=== PATIENT | female | born 1975 | race Caucasian/White ===

== ENCOUNTER → 2016-11-12 | Outpatient (CLI) | payer OTHER ==
--- NOTE | 2016-11-12 11:05 | US ---
EXAMINATION TYPE: US abdomen complete DATE OF EXAM: 11/12/2016 10:48 AM COMPARISON: Us 2014 CLINICAL HISTORY: R10.9 Acute abd pain. Severe epigastric pain with nausea and vomiting x 1 day EXAM MEASUREMENTS: Liver Length: 14.4 cm Gallbladder Wall: 0.1 cm CBD: 0.6 cm then noted narrower at head of pancreas Spleen: 8.2 cm Right Kidney: 10.2 x 4.7 x 3.9 cm Left Kidney: 10.6 x 4.7 x 4.8 cm Pancreas: wnl Liver: wnl Gallbladder: wnl Evidence for sonographic Serna's sign: No CBD: wnl Spleen: wnl Right Kidney: wnl Left Kidney: wnl Upper IVC: wnl Abd Aorta: wnl The liver is homogenous. The intrahepatic portion of the IVC and proximal abdominal aorta are within normal limits. There is no evidence of cholelithiasis. Common bile duct is unremarkable. The visu alized portions of the pancreas are homogenous. The spleen is unremarkable. Kidneys are symmetric a nd free of hydronephrosis. No renal lesions are seen. IMPRESSION: 1. CBD is at the upper limits of normal measuring 6 mm. No definite gallstones, gallbladder wall norm al. Correlate clinically.
[2016-11-12 11:16] LABS: Basophils % (A) 0 %; CHCM 31.6; Eosinophils % (A) 1 %; HCT 47.1 % (34.0-46.0); HDW 2.04; HGB 14.9 gm/dL (11.4-16.0); Luc # (Auto) 0.09; Luc % (Auto) 1; Lymphocytes # (A) 0.7 k/uL (1.0-4.8); Lymphocytes % (A) 10 %; MCH 32.2 pg (25.0-35.0); MCHC 31.6 g/dL (31.0-37.0); Macrocytosis Slight; Mean Platelet Volume 7.4; Monocytes # (A) 0.3 k/uL (0-1.0); Monocytes % (A) 4 %; Neutrophils # (A) 6.5 k/uL (1.3-7.7); Neutrophils % (A) 85 %; RBC 4.61 m/uL (3.80-5.40); WBC 7.7 k/uL (3.8-10.6); WBC (Perox) 7.67
[2016-11-12 11:28] LABS: ALT 24 U/L (9-52); AST 25 U/L (14-36); Alkaline Phosphatase 101 U/L (38-126); Amylase 43 U/L (30-110); Anion Gap 11 mmol/L; Blood Urea Nitrogen 8 mg/dL (7-17); Calcium 9.6 mg/dL (8.4-10.2); Carbon Dioxide 26 mmol/L (22-30); Chloride 104 mmol/L (98-107); Glucose 105 mg/dL (74-99); Non-African American GFR(MDRD) >60 (>60 ml/min/1.73 sqM); Potassium 3.9 mmol/L (3.5-5.1); Sodium 141 mmol/L (137-145); Total Bilirubin 1.2 mg/dL (0.2-1.3); Total Protein 7.9 g/dL (6.3-8.2)
[2016-11-12 12:46] LABS: Iron 74 ug/dL (37-170)
[2016-11-12 12:55] LABS: % Iron Saturation 19.3 % (20-50); Total Iron Binding Capacity 383 ug/dL (265-497)
== END ==
LOC: RADUSWWP 10:08
PROVIDERS: ATTEND Family Medicine
DX: R10.9 Unspecified abdominal pain (principal); E61.1 Iron deficiency; R53.83 Other fatigue
CPT/HCPCS: 36415; 76700; 80053; 82150; 82306; 82728; 83540; 83550; 83690; 84439; 84443; 85025

== ENCOUNTER 2018-01-12 09:34 | Day surgery (SDC) | payer OTHER ==
[2018-01-12] MEDS ORDERED: HYDROmorphone 0.5 MG/0.5 ML SYRINGE IVP PRN (09:46)
[2018-01-12] MEDS ORDERED: ALPRAZolam 0.5 MG TAB PO ONE (09:46)
[2018-01-12 09:55] LABS: Mean Platelet Volume 8.5; Platelet Count 174 k/uL (150-450)
[2018-01-12 10:00] LABS: INR 1.1 (<1.2); Prothrombin Time 10.8 sec (9.0-12.0)
[2018-01-12] MEDS: HYDROmorphone 1 MG/ML 1 ML SYRINGE IVP PRN ×2 (10:50→11:20)
[2018-01-12] MEDS ORDERED: HYDROcodone/APAP 5-325MG 1 EACH TAB PO PRN (11:41)
[2018-01-12 12:16] VITALS: RESP 16
--- NOTE | 2018-01-12 12:57 | US ---
EXAMINATION TYPE: US biopsy liver DATE OF EXAM: 01/12/2018 HISTORY: Alcoholic liver disease PROCEDURE: Maximal barrier technique was utilized. After informed consent, the skin overlying a suit able path to the liver was localized using ultrasound, the skin was prepped and draped. Ultrasound w as utilized with sterile technique. Lidocaine was used for local anesthesia. A skin ace made with a scalpel. Under direct ultrasound guidance, an 18-gauge needle was advanced into the left lobe of th e liver and core biopsy obtained. Hemostasis was achieved. There was no immediate complication and patient remained in stable condition. Specimen submitted in formalin to Pathology. IMPRESSION: STATUS POST ULTRASOUND GUIDED CORE BIOPSY OF THE LEFT LOBE OF THE LIVER, PATHOLOGY LARISSA G. PERFORMED BY THE UNDERSIGNED.
[2018-01-12 15:26] VITALS: BP 116/76; PULSE 63; TEMP 98
== END 2018-01-12 15:00 | disposition home or self-care (01) ==
LOC: RADPROMAIN 09:34
DX: K75.81 Nonalcoholic steatohepatitis (NASH) (principal)
CPT/HCPCS: 85049; 85610; 88313; 88307; 96374; 36415; 47000; 76942; J1170

== ENCOUNTER → 2018-05-04 | Outpatient (CLI) | payer OTHER ==
--- NOTE | 2018-05-04 17:57 | CT ---
EXAMINATION TYPE: CT sinus wo con DATE OF EXAM: 05/04/2018 COMPARISON: NONE HISTORY: chronic sinusitis per order. Facial pain and congestion for patient CT DLP: 500.1 mGycm. Automated Exposure Control for Dose Reduction was Utilized. TECHNIQUE: CT scan of the sinuses is performed without contrast, axial images are obtained, coronal r eformatted images are also reviewed. FINDINGS: The paranasal sinuses including the frontal, ethmoid, sphenoid, and maxillary sinuses bila terally are well-aerated without abnormal opacification. The ostiomeatal complex is patent bilateral ly on the coronal images. Visualized portion of mastoid air cells show no abnormal opacification. The globes are intact bilate rally. IMPRESSION: The sinuses are clear and the ostiomeatal complex is patent bilaterally.
== END | disposition home or self-care (01) ==
LOC: RADCTMAIN 17:28
PROVIDERS: ATTEND Family Medicine
DX: J32.9 Chronic sinusitis, unspecified (principal)
CPT/HCPCS: 70486

== ENCOUNTER 2019-01-13 21:36 | Emergency (ER) | payer OTHER ==
[2019-01-13 21:44] VITALS: TEMP 97.8
--- NOTE | 2019-01-13 22:38 | ED ---
General Adult HPI - General Chief complaint: Wound/Laceration Stated complaint: Fall, head laceration Time Seen by Provider: 01/13/19 22:03 Source: patient, RN notes reviewed Mode of arrival: ambulatory Limitations: no limitations - History of Present Illness Initial comments: Patient is a pleasant 43-year-old female presenting to the emergency Department with complaints of fall. Patient states she was tripped by her dog and fell and landed on her head. No loss of consciousness. No confusion. No neck or back pain. Patient did sustain laceration to the left side of the forehead, just above the eyebrow. Patient denies any other injury. Patient denies any headache. Patient admits to alcohol. Last tetanus immunization was 2 years ago. - Related Data Home Medications Medication Instructions Recorded Confirmed No Known Home Medications 12/31/17 01/13/19 Allergies Allergy/AdvReac Type Severity Reaction Status Date / Time cat dander Allergy Dyspnea Verified 01/13/19 22:02 Penicillins Allergy Unknown Verified 01/13/19 22:02 Review of Systems ROS Statement: Those systems with pertinent positive or pertinent negative responses have been documented in the HPI. ROS Other: All systems not noted in ROS Statement are negative. Constitutional: Denies: fever Eyes: Denies: eye pain ENT: Denies: ear pain Respiratory: Denies: cough Cardiovascular: Denies: chest pain Endocrine: Denies: fatigue Gastrointestinal: Denies: abdominal pain Genitourinary: Denies: dysuria Musculoskeletal: Denies: back pain Skin: Reports: as per HPI Neurological: Denies: headache, weakness, numbness, confusion, abnormal gait Past Medical History Past Medical History: No Reported History Additional Past Medical History / Comment(s): hiatal hernia, IBS, arthritis in back, knee, hip, ankle, hypogylycemia. History of Any Multi-Drug Resistant Organisms: None Reported Past Surgical History: No Surgical Hx Reported Additional Past Surgical History / Comment(s): breast implants Past Anesthesia/Blood Transfusion Reactions: No Reported Reaction Past Psychological History: Anxiety, Depression Smoking Status: Current every day smoker Past Alcohol Use History: Daily, Heavy Past Drug Use History: None Reported General Exam Limitations: no limitations General appearance: alert, in no apparent distress Head exam: Present: other (Forehead laceration) Eye exam: Present: normal appearance, PERRL, EOMI ENT exam: Present: normal oropharynx Neck exam: Present: normal inspection. Absent: tenderness Respiratory exam: Present: normal lung sounds bilaterally Cardiovascular Exam: Present: regular rate, normal rhythm GI/Abdominal exam: Present: soft. Absent: tenderness Extremities exam: Present: normal inspection, full ROM. Absent: tenderness Neurological exam: Present: alert, oriented X3, CN II-XII intact. Absent: motor sensory deficit Psychiatric exam: Present: normal affect, normal mood Skin exam: Present: other (Laceration left forehead above the eyebrow) Course Vital Signs 01/13/19 21:39 Temperature 97.8 F Pulse Rate 98 Respiratory 18 Rate Blood Pressure 145/102 O2 Sat by Pulse 98 Oximetry Procedures - Laceration Laceration #1 Consent Obtained: verbal consent Indication: laceration Site: face (Left forehead) Size (cm): 3 Description: linear Depth: simple, single layer Anesthetic Used: lidocaine 1% Amount (mls): 2 Pre-repair: wound explored, irrigated extensively Type of Sutures: nylon Size of Sutures: 6-0 Number of Sutures: 5 Technique: simple, interrupted Patient Tolerated Procedure: well, no complications Medical Decision Making - Medical Decision Making Patient reevaluated and updated. 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 - Radiology Data Radiology results: report reviewed (Computed tomography scan of the brain and cervical spine reveals no acute traumatic abnormality except left scalp soft tissue hematoma.) Disposition Clinical Impression: Head injury, Facial laceration Disposition: HOME SELF-CARE Condition: Stable Instructions (If sedation given, give patient instructions): Laceration (ED), Head Injury (ED) Additional Instructions: Please follow-up with primary care physician in the next day or 2 for recheck. [id number] Tylenol if needed. Do not take Tylenol with alcohol. Suture removal in 5-6 days. Twice daily wash area with soap and water, apply antibiotic ointment, and bandage. Keep area out of sun. Is patient prescribed a controlled substance at d/c from ED?: No Referrals: Vonda Rojas MD [STAFF PHYSICIAN] - 1-2 days Time of Disposition: 23:21
--- NOTE | 2019-01-13 23:11 | CT ---
EXAM: CT Head Without Intravenous Contrast CLINICAL HISTORY: Trauma TECHNIQUE: Axial computed tomography images of the head/brain without intravenous contrast. CTDI is 0.085, 0.75, 45.2, 8.1 mGy and DLP is 1219.5 mGy-cm. This CT exam was performed using one or more of the following dose reduction techniques: automated exposure control, adjustment of the mA and/or kV according to patient size, and/or use of iterative reconstruction technique. COMPARISON: No relevant prior studies available. FINDINGS: Brain: No acute infarct, hemorrhage, mass or edema. No significant white matter disease. Ventricles: Unremarkable. No ventriculomegaly. Bones/joints: Unremarkable. No acute fracture. Soft tissues: Left scalp soft tissue hematoma. Sinuses: Minimal mucosal thickening of the paranasal sinuses. Mastoid air cells: Unremarkable as visualized. No mastoid effusion. IMPRESSION: 1. No acute infarct, hemorrhage, mass or edema. 2. Left scalp soft tissue hematoma. EXAM: CT Cervical Spine Without Intravenous Contrast CLINICAL HISTORY: Trauma TECHNIQUE: Axial computed tomography images of the cervical spine without intravenous contrast. CTDI is 0.085, 0.75, 45.2, 8.1 mGy and DLP is 1219. 5 mGy-cm. This CT exam was performed using one or more of the following dose reduction techniques: automated exposure control, adjustment of the mA and/or kV according to patient size, and/or use of iterative reconstruction technique. COMPARISON: No relevant prior studies available. FINDINGS: Vertebrae: No acute fracture or traumatic malalignment. Reversal of the normal cervical lordosis, likely positional. Discs/spinal canal/neural foramina: Degenerative changes. No spinal canal stenosis. Soft tissues: Unremarkable. Lung apices: Biapical pleural-parenchymal scarring. IMPRESSION: No acute findings.
[2019-01-13 23:28] VITALS: BP 128/82; PULSE 80; RESP 16
== END 2019-01-13 23:29 | disposition home or self-care (01) ==
LOC: EC 21:36
DX: S01.81XA Laceration without foreign body of other part of head, initial encounter (principal); F17.200 Nicotine dependence, unspecified, uncomplicated; Z91.048 Other nonmedicinal substance allergy status; Z88.0 Allergy status to penicillin; W01.198A Fall on same level from slipping, tripping and stumbling with subsequent striking against other object, initial encounter; Y92.009 Unspecified place in unspecified non-institutional (private) residence as the place of occurrence of the external cause
CPT/HCPCS: 12013; 70450; 72125; 99283

== ENCOUNTER 2019-03-13 23:20 | Inpatient (IN) | payer OTHER ==
[2019-03-13] MEDS ORDERED: SODIUM CHLORIDE 0.9% 1,000 ML IV STA (23:37)
--- NOTE | 2019-03-14 00:14 | ED ---
Abdominal Pain HPI - General Chief Complaint: Abdominal Pain Stated Complaint: Stomach & leg pain Time Seen by Provider: 03/13/19 23:37 Source: patient Mode of arrival: ambulatory Limitations: no limitations - History of Present Illness Initial Comments: Justin is a 44-year-old alcoholic female presenting to the emergency department today for evaluation of epigastric abdominal discomfort, nausea, vomiting, diarrhea and inability tolerate any by mouth intake for 3 days. Patient reports over the course of today she's felt like her leg is cramping up and she feels that she is getting dehydrated and malnourished. Patient reports she has previously an alcoholic however she stopped drinking approximately 5 days ago. Despite not drinking for the past 5 days she continues to feel nauseated have multiple episodes of nonbloody nonbilious emesis and diarrhea. Patient states that at this point she can't even tolerate water. Patient states that she's been seen by GI in the past and told that she has a hiatal hernia but there is nothing to be done about it. Patient denies any history of pancreatitis or known liver disease in the past. - Related Data Home Medications Medication Instructions Recorded Confirmed Famotidine [Pepcid] 20 mg PO BID 03/13/19 03/13/19 Allergies Allergy/AdvReac Type Severity Reaction Status Date / Time cat dander Allergy Dyspnea Verified 03/13/19 23:43 Penicillins Allergy Rash/Hives Verified 03/13/19 23:43 Review of Systems ROS Statement: Those systems with pertinent positive or pertinent negative responses have been documented in the HPI. ROS Other: All systems not noted in ROS Statement are negative. Past Medical History Past Medical History: No Reported History Additional Past Medical History / Comment(s): hiatal hernia, IBS, arthritis in back, knee, hip, ankle, hypogylycemia. History of Any Multi-Drug Resistant Organisms: None Reported Past Surgical History: No Surgical Hx Reported Additional Past Surgical History / Comment(s): breast implants Past Anesthesia/Blood Transfusion Reactions: No Reported Reaction Past Psychological History: Anxiety, Depression Smoking Status: Current every day smoker Past Alcohol Use History: Daily, Heavy Past Drug Use History: None Reported General Exam - General Exam Comments Initial Comments: Physical Exam GENERAL: Underweight, malnourished-appearing 44-year-old female HENT: Normocephalic, Atraumatic. EYES: PERRL, EOMI Scleral icterus PULMONARY: Unlabored respirations. No audible rales rhonchi or wheezing was noted. CARDIOVASCULAR: There is a regular rate and rhythm without any murmurs gallops or rubs. Tachycardic, regular ABDOMEN: Firm palpable liver extending to the epigastrium SKIN: Skin is clear with no lesions or rashes and otherwise unremarkable. : Deferred NEUROLOGIC: Patient is alert and oriented x3. Moving all extremities spontaneously MUSCULOSKELETAL: Normal extremities with adequate strength and full range of motion. No lower extremity swelling or edema. No calf tenderness. PSYCHIATRIC: Hopeless affect Limitations: no limitations Course Vital Signs 03/13/19 03/14/19 03/14/19 23:24 00:13 01:36 Temperature 98.3 F 100.1 F H 97.9 F Pulse Rate 120 H 84 Respiratory 18 18 Rate Blood Pressure 140/94 110/71 O2 Sat by Pulse 96 96 Oximetry Medical Decision Making - Medical Decision Making Patient was seen and evaluated history is obtained from patient and sent history and physical exam are concerning for liver disease versus pancreatic masses there is a firm palpable structure in the epigastrium any known alcoholic male. Labs and imaging ordered Labs with multiple abnormalities most significant for significant hypokalemia as well as transaminitis mildly elevated lipase, mildly elevated bili Computed tomography scan was ordered resulted with evidence of urticaria large liver, normal pancreas Given the patient's significant hypokalemia requiring IV replacement, nausea, vomiting decreased by mouth intake that he feels patient would benefit from admission to the hospital for further management. Patient does not have a primary care physician therefore will be admitted to the [facility] hospitalist group. - Lab Data Result diagrams: 03/14/19 00:01 03/14/19 00:01 Lab Results 03/14/19 03/14/19 03/14/19 Range/Units 00:01 00:01 01:24 WBC 11.6 H (3.8-10.6) k/uL RBC 3.59 L (3.80-5.40) m/uL Hgb 12.7 (11.4-16.0) gm/dL Hct 38.7 (34.0-46.0) % MCV 107.9 H (80.0-100.0) fL MCH 35.5 H (25.0-35.0) pg MCHC 32.9 (31.0-37.0) g/dL RDW 14.8 (11.5-15.5) % Plt Count 106 L (150-450) k/uL Neutrophils % 75 % Lymphocytes % 12 % Monocytes % 7 % Eosinophils % 2 % Basophils % 1 % Neutrophils # 8.7 H (1.3-7.7) k/uL Lymphocytes # 1.4 (1.0-4.8) k/uL Monocytes # 0.8 (0-1.0) k/uL Eosinophils # 0.2 (0-0.7) k/uL Basophils # 0.1 (0-0.2) k/uL Macrocytosis Moderate Sodium 140 (137-145) mmol/L Potassium 2.7 L* (3.5-5.1) mmol/L Chloride 91 L (98-107) mmol/L Carbon Dioxide 31 H (22-30) mmol/L Anion Gap 18 mmol/L BUN 4 L (7-17) mg/dL Creatinine 0.42 L (0.52-1.04) mg/dL Est GFR (CKD-EPI)AfAm >90 (>60 ml/min/1.73 sqM) Est GFR (CKD-EPI)NonAf >90 (>60 ml/min/1.73 sqM) Glucose 117 H (74-99) mg/dL Calcium 9.4 (8.4-10.2) mg/dL Total Bilirubin 6.6 H (0.2-1.3) mg/dL AST 376 H (14-36) U/L ALT 125 H (9-52) U/L Alkaline Phosphatase 325 H (38-126) U/L Total Protein 8.9 H (6.3-8.2) g/dL Albumin 4.4 (3.5-5.0) g/dL Lipase 379 H (23-300) U/L Urine Color [place] Urine Appearance Clear (Clear) Urine pH 6.5 (5.0-8.0) Ur Specific [place] >1.050 H (1.001-1.035) Urine Protein 1+ H (Negative) Urine Glucose (UA) Negative (Negative) Urine Ketones 1+ H (Negative) Urine Blood Negative (Negative) Urine Nitrite Positive H (Negative) Urine Bilirubin 2+ H (Negative) Urine Urobilinogen 12.0 (<2.0) mg/dL Ur Leukocyte Esterase Large H (Negative) Urine RBC 12 H (0-5) /hpf Urine WBC 13 H (0-5) /hpf Ur Squamous Epith Cells 2 (0-4) /hpf Urine Bacteria Moderate H (None) /hpf Urine Mucus Many H (None) /hpf Disposition Clinical Impression: Abdominal pain, Alcohol abuse, Hypokalemia, Nausea vomiting and diarrhea Disposition: ADMITTED IP TO THIS HOSP Condition: Serious
[2019-03-14 00:22] LABS: Basophils # (A) 0.1 k/uL (0-0.2); Basophils % (A) 1 %; Eosinophils # (A) 0.2 k/uL (0-0.7); Eosinophils % (A) 2 %; HCT 38.7 % (34.0-46.0); HGB 12.7 gm/dL (11.4-16.0); Lymphocytes # (A) 1.4 k/uL (1.0-4.8); Lymphocytes % (A) 12 %; MCH 35.5 pg (25.0-35.0); MCHC 32.9 g/dL (31.0-37.0); MCV 107.9 fL (80.0-100.0); Macrocytosis Moderate; Mean Platelet Volume 11.1; Monocytes # (A) 0.8 k/uL (0-1.0); Monocytes % (A) 7 %; Neutrophils # (A) 8.7 k/uL (1.3-7.7); Neutrophils % (A) 75 %; Platelet Count 106 k/uL (150-450); RBC 3.59 m/uL (3.80-5.40); RDW 14.8 % (11.5-15.5); WBC 11.6 k/uL (3.8-10.6)
[2019-03-14 00:38] LABS: ALT 125 U/L (9-52); AST 376 U/L (14-36); African American GFR (CKD) >90 (>60 ml/min/1.73 sqM); Albumin 4.4 g/dL (3.5-5.0); Alkaline Phosphatase 325 U/L (38-126); Anion Gap 18 mmol/L; Blood Urea Nitrogen 4 mg/dL (7-17); Calcium 9.4 mg/dL (8.4-10.2); Carbon Dioxide 31 mmol/L (22-30); Chloride 91 mmol/L (98-107); Glucose 117 mg/dL (74-99); Sodium 140 mmol/L (137-145); Total Bilirubin 6.6 mg/dL (0.2-1.3); Total Protein 8.9 g/dL (6.3-8.2)
[2019-03-14 00:39] LABS: Potassium 2.7 mmol/L (3.5-5.1)
--- NOTE | 2019-03-14 00:47 | XR ---
EXAM: XR Chest, 1 View CLINICAL HISTORY: ITS.REASON XR Reason: abdominal pain TECHNIQUE: Frontal view of the chest. COMPARISON: No relevant prior studies available. FINDINGS: Lungs: Bibasilar atelectasis or scar. No consolidation. Pleural space: Mild blunting of the right costophrenic sulcus. No pneumothorax. Heart: Unremarkable. No cardiomegaly. Mediastinum: Unremarkable. Bones/joints: No acute osseous abnormality. IMPRESSION: Mild blunting of the right costophrenic sulcus is nonspecific and may be related to a small effusion or scar.
--- NOTE | 2019-03-14 00:48 | XR ---
EXAM: XR Abdomen, 1 View CLINICAL HISTORY: ITS.REASON XR Reason: abdominal pain TECHNIQUE: Frontal supine view of the abdomen/pelvis. COMPARISON: No relevant prior studies available. FINDINGS: Intraperitoneal space: No pneumatosis or pneumoperitoneum. Gastrointestinal tract: Gas filled loops of nondilated bowel are present in the lower and left abdomen. Paucity of bowel gas in the upper abdomen. Organs: Intrauterine device. Bones/joints: No acute fracture or malalignment. Other findings: No suspicious calcification. IMPRESSION: Nonspecific nonobstructive bowel gas pattern.
[2019-03-14] MEDS ORDERED: Potassium Replacement Protocol 1 EACH MISC MISCELLANE PRN ×2 (00:58→12:03)
[2019-03-14] MEDS: POTASSIUM CHLORIDE 10 MEQ in WATER FOR INJECTION 1 100ML.BAG IVPB SCH ×10 (01:15→18:23)
--- NOTE | 2019-03-14 01:53 | CT ---
EXAM: CT Abdomen and Pelvis With Intravenous Contrast CLINICAL HISTORY: Pain, epigastric mass TECHNIQUE: Axial computed tomography images of the abdomen and pelvis with intravenous contrast. CTDI is 0.085, 0.085, 6.7, 6.3 mGy and DLP is 606. 8 mGy-cm. This CT exam was performed using one or more of the following dose reduction techniques: automated exposure control, adjustment of the mA and/or kV according to patient size, and/or use of iterative reconstruction technique. COMPARISON: US abdomen 11/12/2016 FINDINGS: Lung bases: Unremarkable. No mass. No consolidation. ABDOMEN: Liver: Enlarged diffusely hypodense liver. No focal lesions. Gallbladder and bile ducts: Nonspecific gallbladder thickening. No calcified gallstones. No biliary dilatation. Pancreas: Unremarkable. Spleen: Unremarkable. Adrenals: Unremarkable. Kidneys and ureters: Unremarkable. No solid mass. No hydronephrosis. Stomach and bowel: Apparent nonspecific thickening of the underdistended colon. Bowel is nondilated. PELVIS: Appendix: No findings to suggest acute appendicitis. Bladder: Unremarkable. Reproductive: Unremarkable as visualized. ABDOMEN and PELVIS: Intraperitoneal space: Moderate ascites. Bones/joints: No acute osseous abnormality. Soft tissues: Bilateral breast implants. Vasculature: Unremarkable. No abdominal aortic aneurysm. Lymph nodes: Nonspecific upper abdominal lymphadenopathy. Tubes, lines and devices: Intrauterine device. Embedment is not excluded. IMPRESSION: 1. Enlarged diffusely hypodense liver may be related to hepatitis, steatosis, or diffuse tumor infiltration. 2. Moderate ascites. 3. Apparent thickening of the colon is nonspecific and may be related to underdistention, hepatic colopathy, or colitis.
[2019-03-14] MEDS ORDERED: NALOXONE 0.4 MG/ML 1 ML VIAL IV PRN (01:56)
[2019-03-14 01:58] LABS: Appearance,Urine Clear (Clear); Bacteria,Urine Moderate /hpf; Bilirubin,Urine 2+ (Negative); Blood,Urine Negative (Negative); Color,Urine Orange; Glucose,Urine (UA) Negative (Negative); Ketones,Urine 1+ (Negative); Leukocyte Esterase,Urine Large (Negative); Mucus,Urine Many /hpf; Nitrite,Urine Positive (Negative); PH, Urine 6.5 (5.0-8.0); Protein,Urine 1+ (Negative); RBC,Urine 12 /hpf (0-5); Squamous Epithelial Cell,Urine 2 /hpf (0-4); WBC,Urine 13 /hpf (0-5)
[2019-03-14 01:59] LABS: Specific Gravity,Urine >1.050 (1.001-1.035)
[2019-03-14] MEDS: MORPHINE SULFATE 4 MG/ML SYRINGE IV PRN ×5 (02:40→22:46)
[2019-03-14] MEDS ORDERED: ONDANSETRON 4 MG/2 ML VIAL IVP STA (02:47)
[2019-03-14] MEDS: SODIUM CHLORIDE 0.9% 1,000 ML IV SCH ×2 (04:21→16:16)
[2019-03-14] MEDS ORDERED: hydrOXYzine HCL 25 MG TAB PO PRN (10:01)
[2019-03-14 11:01] VITALS: BMI 20.5
[2019-03-14 11:44] LABS: African American GFR (CKD) >90 (>60 ml/min/1.73 sqM); Anion Gap 10 mmol/L; Blood Urea Nitrogen 4 mg/dL (7-17); Carbon Dioxide 28 mmol/L (22-30); Chloride 97 mmol/L (98-107); Glucose 113 mg/dL (74-99); Potassium 3.1 mmol/L (3.5-5.1); Sodium 135 mmol/L (137-145)
[2019-03-14] MEDS: PANTOPRAZOLE 40 MG/10 ML VIAL IVP SCH (12:15)
[2019-03-14] MEDS ORDERED: LORazepam 2 MG/ML INJ IV PRN ×3 (13:22)
[2019-03-14] MEDS: NICOTINE 14MG/24HR PATCH TRANSDERM SCH (13:32)
[2019-03-14] MEDS: THIAMINE 100 MG/ML 2 ML VIAL IM STA ×2 (13:44→16:17)
[2019-03-14 14:08] LABS: INR 1.7 (<1.2); Prothrombin Time 16.9 sec (9.0-12.0)
--- NOTE | 2019-03-14 14:34 | HP ---
HISTORY AND PHYSICAL CHIEF COMPLAINTS: Nausea, vomiting, abdominal pain. HISTORY OF PRESENT ILLNESS: This is a 44-year-old woman with a past medical history of hiatal hernia, irritable bowel syndrome, history of alcoholism, history of anxiety, depression, history of nicotine dependence, being followed by no primary physician in the outpatient setting was trying to cut down the alcohol. The patient is complaining of epigastric pain and abdominal pain, nausea, vomiting, diarrhea for the last 3 days. The patient unable to keep anything down. Patient came to [facility], admitted for further evaluation and treatment. The patient had features of severe hypokalemia and as well as hepatitis with high bilirubin. The patient admitted for further evaluation and treatment. There is no history of any fever, chills or rigors. No history of headaches, loss of consciousness or seizures. PAST MEDICAL HISTORY: History of hiatal hernia, irritable bowel syndrome, DJD, history of hypoglycemia, anxiety, depression. MEDICATIONS: Home medications are Pepcid 20 mg b.i.d. ALLERGIES: CAT DANDER and PENICILLIN. FAMILY HISTORY: No history of heart disease or strokes. SOCIAL HISTORY: History of smoking 9 cigarettes and a pint of alcohol. REVIEW OF SYSTEMS: ENT: No diminished vision or diminished hearing. CARDIOVASCULAR: No angina. RESPIRATION: No cough, hemoptysis. GI: As mentioned earlier. : No dysuria. NERVOUS SYSTEM: No numbness or weakness. ALLERGY/IMMUNOLOGY: No asthma or hayfever. MUSCULOSKELETAL: As mentioned earlier. HEMATOLOGY/ONCOLOGY: No history of anemia. ENDOCRINE: No history of diabetes or hypothyroidism. CONSTITUTIONAL: As mentioned earlier. DERMATOLOGY: Negative. RHEUMATOLOGY: Negative. PSYCHIATRY: As mentioned earlier. PHYSICAL EXAMINATION: Alert and oriented x3, pulse 87, blood pressure 99/64, respirations 16, temperature 97.9, pulse ox 98% on room air. HEENT: Conjunctivae normal. Oral mucosa icteric. NECK: No jugular venous distention. No lymph node enlargement. CARDIOVASCULAR SYSTEM: S1, S2. RESPIRATION: Breath sounds diminished at the bases, a few rhonchi, no crackles. ABDOMEN: Soft. Mild distention. Mild diffuse tenderness. Hepatomegaly tender. Flanks are dull. Bowel sounds diminished. LEGS: No edema, no swelling. NERVOUS SYSTEM: Higher functions as mentioned earlier. Moves all 4 limbs. No focal motor or sensory deficits. LYMPHATICS: No lymph node enlargement in the neck or axillae. SKIN: No ulcer, no rash, no bleeding. JOINTS: No active deforming arthropathy. LABS: WBC 11.6 and hemoglobin 12.7, MCV 107. Sodium 140, potassium 2.7. Total bilirubin is 6.6, AST 376, ALT is 125. Lipase is 379. UA noted. The CAT scan of the abdomen and pelvis was also reviewed which showed a large diffusely hypodense liver, may be related to hepatitis, moderate ascites. Thickening of the colon is nonspecific. ASSESSMENT: 1. Acute hepatitis, possibly alcoholic hepatitis with high bilirubin and AST, ALT. 2. Acute gastritis, nausea, vomiting. 3. Rule out colitis. 4. History of ETOH. 5. Moderate ascites, possibly secondary to cirrhosis liver and chronic liver disease. 6. Increased WBC. 7. Increased MCV. 8. Hypokalemia, severe. 9. Elevated lipase, possible acute mild pancreatitis. 10.Possible urinary tract infection, present on admission. 11.History of hiatal hernia. 12.History of irritable bowel syndrome. 13.History of degenerative joint disease. 14.History of hypoglycemia. 15.Anxiety, depression. 16.History of nicotine dependence. 17.History of ETOH. RECOMMENDATIONS: In this 44-year-old woman 1% multiple medical is at this time we will monitor the patient closely, CIWA protocol. Symptomatic treatment for the hepatitis, repeat labs. Otherwise correct potassium. Prognosis guarded. Gastric consultation. Alcohol cessation advised social Work consultation. Guarded prognosis because of multiple problems see orders physical conflict is also recommend the patient follow with primary physician closely. MMODL / IJN: [id number] /
[2019-03-14] MEDS ORDERED: Magnesium Replacement Protocol 1 EACH MISC MISCELLANE PRN (15:58)
[2019-03-14] MEDS: 0.9% NACL WITH KCL 20 MEQ/L 1,000 ML with MVI, ADULT NO.4 WITH VIT K 10 ML, THIAMINE 10... IV SCH ×4 (16:11)
[2019-03-14] MEDS: THIAMINE 100 MG TAB PO SCH ×2 (16:16→17:28)
[2019-03-14] MEDS: MAGNESIUM SULFATE-D5W PMX 1 GM in DEXTROSE/WATER 1 100ML.BAG IVPB SCH ×3 (17:18→20:16)
--- NOTE | 2019-03-14 18:15 | XR ---
EXAMINATION TYPE: XR abdomen 1V DATE OF EXAM: 03/14/2019 6:09 PM CLINICAL HISTORY: Abdominal pain and distention. TECHNIQUE: Single portable supine view of the abdomen is obtained. COMPARISON: Abdominal x-ray and CT from earlier today. FINDINGS: Scattered gas is seen in non-distended stomach and small bowel loops. Gas and fecal materia l is seen in non-distended colon. Hepatomegaly redemonstrated. Metallic IUD overlies the right lower pelvis. Visualized osseous structures are intact. IMPRESSION: Overall nonobstructive bowel gas pattern remains present.
--- NOTE | 2019-03-14 21:30 | P.CONS ---
History of Present Illness - Reason for Consult Consult date: 03/14/19 Alcoholic liver disease Requesting physician: Samson Courtney - Chief Complaint Abdominal pain, nausea and vomiting - History of Present Illness 44-year-old female with a medical history significant for alcoholism, anxiety, depression, nicotine dependence, and prior hiatal hernia found on EGD who presented to the hospital with complaints of epigastric abdominal pain, nausea and vomiting. Patient reports a history of at least 10 years of excessive alcohol drinking. She reports that she was trying to cut down in the outpatient setting by weaning herself off of the alcohol. She reports that over the past 3 days she has had abdominal pain described as diffuse and sharp in the epigastric region of her abdomen and achy in the left lower quadrant of her abdomen. Pain is waxing and waning in intensity, constant overall. She reports associated nausea and vomiting of nonbloody emesis. Initially she was reporting loose stool but today she reports normal bowel movements and decreased flatus. She denies any history of decompensated liver disease with no prior GI bleeding, ascites or hepatic encephalopathy. She does report EGD 2 years ago for similar symptoms with findings of gastritis and a hiatal hernia. Computed tomography scan of the abdomen showed an enlarged hypodense liver with findings of a ascites. WBC 11, hemoglobin 12.7, platelet count 106,000, lipase 379, total bilirubin 6.6, alkaline phosphatase 325, AST 376, AST 125, INR 1.1. Review of Systems REVIEW OF SYSTEMS: CONSTITUTIONAL: Denies any fevers, chills, weight change or fatigue. CARDIOVASCULAR: Denies any chest pain, palpitations high or low blood pressures RESPIRATORY: Denies any shortness of breath, hemoptysis or cough. GENITOURINARY: No dysuria or hematuria. MUSCULOSKELETAL: No weakness reported. SKIN: Denies any new rashes or lesions or pallor. PSYCHIATRIC: Alcohol abuse. NEUROLOGY: Denies headache, denies any new focal deficits. EARS/NOSE/THROAT: No recent hearing change, congestion, nasal discharge or sore throat. EYES: No pain in eyes, discharge or change in vision. GASTROINTESTINAL: As per HPI. Past Medical History Past Medical History: No Reported History Additional Past Medical History / Comment(s): hiatal hernia, IBS, arthritis in back, knee, hip, ankle, hypogylycemia. History of Any Multi-Drug Resistant Organisms: None Reported Past Surgical History: No Surgical Hx Reported Additional Past Surgical History / Comment(s): breast implants Past Anesthesia/Blood Transfusion Reactions: No Reported Reaction Past Psychological History: Anxiety, Depression Smoking Status: Current every day smoker Past Alcohol Use History: Daily, Heavy Past Drug Use History: None Reported Additional History: Family history: Reviewed with the patient and noncontributory to current medical presentation. Medications and Allergies Home Medications Medication Instructions Recorded Confirmed Type Famotidine [Pepcid] 20 mg PO BID 03/13/19 03/13/19 History Allergies Allergy/AdvReac Type Severity Reaction Status Date / Time cat dander Allergy Dyspnea Verified 03/13/19 23:43 Penicillins Allergy Rash/Hives Verified 03/13/19 23:43 Physical Exam Vitals: Vital Signs Temp Pulse Pulse Resp BP BP Pulse Ox 03/14/19 20:52 98.4 F 95 16 108/75 96 03/14/19 12:07 97.8 F 81 18 103/68 95 03/14/19 04:29 97.9 F 87 16 99/64 99 03/14/19 04:14 97.9 F 87 16 99/64 99 03/14/19 03:38 98.7 F 88 18 106/72 100 03/14/19 01:36 97.9 F 84 18 110/71 96 03/14/19 00:13 100.1 F H 03/13/19 23:24 98.3 F 120 H 18 140/94 96 Intake and Output 03/14/19 03/14/19 03/14/19 06:59 14:59 22:59 Intake Total 500 1240 Balance 500 1240 Intake: Intake, IV Titration 500 640 Amount Potassium Chloride 10 meq 100 In Water For Injection 1 100ml.bag @ 100 mls/hr IVPB Q1HR CARLOS Rx#: [id number] Sodium Chloride 0.9% 1, 400 640 000 ml @ 125 mls/hr IV . Q8H CARLOS Rx#:[id number] Oral 600 Other: Voiding Method Toilet Toilet # Voids 1 Weight 61.235 kg 61.235 kg On physical examination, patient appears comfortable in no apparent distress. HEAD: Normocephalic, atraumatic. EYES: Mild scleral icterus. No conjunctival injection. MOUTH: No lesions, tongue midline. NECK: Trachea midline, no gross abnormalities. CHEST: Clear to auscultation with no wheezing or rhonchi appreciated. HEART: Regular rate and rhythm. ABDOMEN: Soft, diffusely tender to palpation. Bowel sounds are positive. No organomegaly. No guarding or rigidity. EXTREMITIES: No pedal edema. SKIN: No rashes, jaundice. NEUROLOGIC: Alert and oriented x3. No focal deficits. Results CBC & Chem 7: 03/14/19 00:01 03/14/19 11:06 Labs: Abnormal Lab Results - Last 24 Hours (Table) 03/14/19 03/14/19 03/14/19 Range/Units 00:01 00:01 01:24 WBC 11.6 H (3.8-10.6) k/uL RBC 3.59 L (3.80-5.40) m/uL MCV 107.9 H (80.0-100.0) fL MCH 35.5 H (25.0-35.0) pg Plt Count 106 L (150-450) k/uL Neutrophils # 8.7 H (1.3-7.7) k/uL PT (9.0-12.0) sec INR (<1.2) Sodium (137-145) mmol/L Potassium 2.7 L* (3.5-5.1) mmol/L Chloride 91 L (98-107) mmol/L Carbon Dioxide 31 H (22-30) mmol/L BUN 4 L (7-17) mg/dL Creatinine 0.42 L (0.52-1.04) mg/dL Glucose 117 H (74-99) mg/dL Calcium (8.4-10.2) mg/dL Magnesium (1.6-2.3) mg/dL Total Bilirubin 6.6 H (0.2-1.3) mg/dL AST 376 H (14-36) U/L ALT 125 H (9-52) U/L Alkaline Phosphatase 325 H (38-126) U/L Total Protein 8.9 H (6.3-8.2) g/dL Lipase 379 H (23-300) U/L Ur Specific [place] >1.050 H (1.001-1.035) Urine Protein 1+ H (Negative) Urine Ketones 1+ H (Negative) Urine Nitrite Positive H (Negative) Urine Bilirubin 2+ H (Negative) Ur Leukocyte Esterase Large H (Negative) Urine RBC 12 H (0-5) /hpf Urine WBC 13 H (0-5) /hpf Urine Bacteria Moderate H (None) /hpf Urine Mucus Many H (None) /hpf 03/14/19 03/14/19 03/14/19 Range/Units 11:06 13:51 13:51 WBC (3.8-10.6) k/uL RBC (3.80-5.40) m/uL MCV (80.0-100.0) fL MCH (25.0-35.0) pg Plt Count (150-450) k/uL Neutrophils # (1.3-7.7) k/uL PT 16.9 H (9.0-12.0) sec INR 1.7 H (<1.2) Sodium 135 L (137-145) mmol/L Potassium 3.1 L (3.5-5.1) mmol/L Chloride 97 L (98-107) mmol/L Carbon Dioxide (22-30) mmol/L BUN 4 L (7-17) mg/dL Creatinine 0.39 L (0.52-1.04) mg/dL Glucose 113 H (74-99) mg/dL Calcium 8.0 L (8.4-10.2) mg/dL Magnesium 1.3 L (1.6-2.3) mg/dL Total Bilirubin (0.2-1.3) mg/dL AST (14-36) U/L ALT (9-52) U/L Alkaline Phosphatase (38-126) U/L Total Protein (6.3-8.2) g/dL Lipase (23-300) U/L Ur Specific [place] (1.001-1.035) Urine Protein (Negative) Urine Ketones (Negative) Urine Nitrite (Negative) Urine Bilirubin (Negative) Ur Leukocyte Esterase (Negative) Urine RBC (0-5) /hpf Urine WBC (0-5) /hpf Urine Bacteria (None) /hpf Urine Mucus (None) /hpf CT scan - abdomen: report reviewed (Computed tomography scan of the abdomen with findings of an enlarged hypodense liver with ascites) Assessment and Plan (1) Alcoholic hepatitis Narrative/Plan: 44-year-old female with a medical history significant for IBS, nicotine abuse, alcohol abuse, GERD presents with abdominal pain, nausea and vomiting for 3 days in duration. The patient found to have elevation in her liver enzymes consistent with alcoholic hepatitis with total bilirubin 6.6, alkaline phosphatase 325, AST 376 and ALTs 125. No encephalopathy or asterixis appreciated and INR found to be 1.1. Current Visit: Yes Status: Acute Code(s): K70.10 - ALCOHOLIC HEPATITIS WITHOUT ASCITES SNOMED Code(s): 021167007 (2) Abdominal pain Narrative/Plan: Likely multifactorial given known history of GERD, IBS, as well as a ascites from alcoholic hepatitis. Current Visit: Yes Status: Acute Code(s): R10.9 - UNSPECIFIED ABDOMINAL PAIN SNOMED Code(s): 91641986 (3) Alcohol abuse Current Visit: Yes Status: Acute Code(s): F10.10 - ALCOHOL ABUSE, UNCOMPLICATED SNOMED Code(s): 85969825 (4) Nausea vomiting and diarrhea Current Visit: Yes Status: Acute Code(s): R11.2 - NAUSEA WITH VOMITING, UNSPECIFIED; R19.7 - DIARRHEA, UNSPECIFIED SNOMED Code(s): 7344796 Plan: Supportive care Okay for diet, advance as tolerated X-ray abdomen ordered a negative for ileus or obstruction Full liver serologies ordered Ultrasound paracentesis ordered with fluid studies ordered Continue Protonix daily If the patient's continues to have abdominal pain consider Bentyl ATC Thank you for allowing us to participate in the care of the patient we will continue to follow
[2019-03-15] MEDS ORDERED: Potassium Replacement Protocol 1 EACH MISC MISCELLANE PRN (00:02)
[2019-03-15] MEDS: POTASSIUM CHLORIDE ER 20 MEQ TAB.ER PO SCH ×3 (00:45→03:05)
[2019-03-15 04:55] VITALS: RESP 18; TEMP 98.1
[2019-03-15 08:02] LABS: ALT 88 U/L (9-52); AST 213 U/L (14-36); African American GFR (CKD) >90 (>60 ml/min/1.73 sqM); Albumin 3.2 g/dL (3.5-5.0); Alkaline Phosphatase 214 U/L (38-126); Amylase <30 U/L (30-110); Anion Gap 9 mmol/L; Blood Urea Nitrogen 2 mg/dL (7-17); Calcium 8.2 mg/dL (8.4-10.2); Carbon Dioxide 28 mmol/L (22-30); Chloride 99 mmol/L (98-107); Glucose 111 mg/dL (74-99); Potassium 3.7 mmol/L (3.5-5.1); Sodium 136 mmol/L (137-145); Total Bilirubin 5.7 mg/dL (0.2-1.3); Total Protein 6.8 g/dL (6.3-8.2)
[2019-03-15 08:06] LABS: Basophils # (A) 0.1 k/uL (0-0.2); Basophils % (A) 1 %; Eosinophils # (A) 0.2 k/uL (0-0.7); Eosinophils % (A) 3 %; HGB 10.6 gm/dL (11.4-16.0); Lymphocytes % (A) 13 %; MCH 35.9 pg (25.0-35.0); MCV 108.7 fL (80.0-100.0); Macrocytosis Moderate; Monocytes # (A) 0.5 k/uL (0-1.0); Monocytes % (A) 7 %; Neutrophils # (A) 5.9 k/uL (1.3-7.7); Neutrophils % (A) 75 %; Platelet Count 105 k/uL (150-450); RBC 2.94 m/uL (3.80-5.40); RDW 14.9 % (11.5-15.5); WBC 7.8 k/uL (3.8-10.6)
[2019-03-15] MEDS: NICOTINE 14MG/24HR PATCH TRANSDERM SCH (08:12)
[2019-03-15] MEDS: PANTOPRAZOLE 40 MG/10 ML VIAL IVP SCH (08:13)
[2019-03-15] MEDS: THIAMINE 100 MG TAB PO SCH (08:13)
--- NOTE | 2019-03-15 09:48 | CDI ---
Documentation Clarification Form Date: 03/15/2019 9:36:28 AM From: Judi IrahetaDARIAN, CCDS Admit Date: 03/14/2019 3:32:00 PM Patient Name: Justin Allen Visit Number: [id number] Discharge Date: ATTENTION: The Clinical Documentation Specialists (CDI) and [facility] Coding Staff appreciate your assistance in clarifying documentation. Please respond to the clarification below the line at the bottom and electronically sign. The CDI & [facility] Coding staff will review the response and follow-up if needed. Please note: Queries are made part of the Legal Health Record. If you have any questions, please contact the author of this message via ITS. Dr. Samson Courtney: Per the History & Physical: Elevated lipase, possible acute mild pancreatitis. Patient history/risk factors: Alcoholism, Hiatal hernia, IBS, DJD, Anxiety, Depression & Smoker. Clinical Indicators: Presented with nausea, vomiting, diarrhea & epigastric abdominal pain. Diagnosed with acute hepatitis, possibly alcoholic hepatitis with high bilirubin & AST, ALT. Acute gastritis. R/O Colitis. Moderate ascites, possibly secondary to cirrhosis liver & chronic liver disease. Elevated lipase, possible acute mild pancreatitis. Radiology: KUB: nonspecific. CT Abdomen & Pelvis: Enlarged diffusely hypodense liver may be related to hepatitis, steatosis or diffuse tumor infiltration. Moderate ascites. Apparent thickening of the colon nonspecific & may be related to underdistention, hepatic colopathy or colitis. Labs: WBC 11.6^, Pl Ct 106*, Neut 8.7^, K 2.7, Glucose 117^, total Bili 6.6^, AST 376^, ALT 125^, Alk Phos 325^, Lipase 379^. Vital Signs: Stable Treatment: IV fl bolus, IV KCL, IV Ms, IV Zofran, IV PPI. GI consult. In your professional opinion, can the etiology of the pancreatitis be further specified as one of the following, if known? Etiology o Alcohol induced o Biliary o Cytomegaloviral o Drug induced o Idiopathic o Other, please specify o Unable to determine (Last Revision: April 2017) Alcohol induced MTDD
[2019-03-15 11:16] VITALS: BP 102/48; PULSE 100
[2019-03-15] MEDS: 0.9% NACL WITH KCL 20 MEQ/L 1,000 ML with MVI, ADULT NO.4 WITH VIT K 10 ML, THIAMINE 10... IV SCH ×4 (11:34)
[2019-03-15] MEDS ORDERED: traMADol 50 MG TAB PO PRN (11:36)
[2019-03-15] MEDS ORDERED: POTASSIUM CHLORIDE ER 20 MEQ TAB.ER PO STA (11:49)
[2019-03-15 12:22] LABS: Ceruloplasmin 29.6 mg/dL (20.0-60.0)
[2019-03-15] MEDS ORDERED: POTASSIUM CHLORIDE 20 MEQ in WATER FOR INJECTION 1 100ML.BAG IVPB ONE (12:30)
--- NOTE | 2019-03-15 13:07 | P.DS ---
Providers Date of admission: 03/14/19 15:32 Attending physician: Samson Courtney Consults: 03/14/19 01:56 Consult Physician Routine Consulting Provider: Car Ford Consult Reason/Comments: alcoholic liver disease Do you want consulting provider notified?: Yes Primary care physician: Stated None Hospital Course: 50-year-old female was admitted with abdominal distention found to have ascites from alcoholic cirrhosis. Patient was also complaining of abdominal burning sensation from alcoholic gastritis. Patient does have hiatal hernia. Patient underwent paracentesis. Patient does have acute alcoholic hepatitis is patient does have cirrhosis with elevated INR of 41.7. Patient has elevated bilirubin. Patient the is clinically doing well. Abdominal pain significantly resolved after paracentesis. 6 patient will be discharged with close follow with PCP and gastroenterology as an outpatient. PHYSICAL EXAMINATION: GENERAL: The patient is alert and oriented x3, not in any acute distress. Thin built HEENT: Pupils are round and equally reacting to light. EOMI. does have scleral icterus. No conjunctival pallor. Normocephalic, atraumatic. No pharyngeal erythema. No thyromegaly. CARDIOVASCULAR: S1 and S2 present. No murmurs, rubs, or gallops. PULMONARY: Chest is clear to auscultation, no wheezing or crackles. ABDOMEN: Soft, nontender, nondistended, normoactive bowel sounds. No palpable organomegaly. MUSCULOSKELETAL: No joint swelling or deformity. EXTREMITIES: No cyanosis, clubbing, or pedal edema. NEUROLOGICAL: Gross neurological examination did not reveal any focal deficits. SKIN: No rashes. -Alcoholic cirrhosis -Alcohol abuse: I don't expect any withdrawals at this time because it's been already 3 days and patient doesn't have any withdrawals now. -Alcoholic cirrhosis without encephalopathy. -Electrolyte abnormalities will be corrected with replacement and supplementation I'm expecting her liver enzymes to get better with cessation of alcohol -Coagulopathy secondary to cirrhosis Patient will be discharged on Lasix Aldactone with close follow with PCP and gastroenterology Patient Condition at Discharge: Serious Plan - Discharge Summary Discharge Rx Participant: Yes New Discharge Prescriptions: New Spironolactone [Aldactone] 25 mg PO DAILY #30 tablet Potassium Chloride ER [K-Dur 20] 20 meq PO DAILY #30 tab Furosemide [Lasix] 40 mg PO DAILY #30 tablet Omeprazole [PriLOSEC] 40 mg PO -BRKFST #30 capsule. Discontinued Famotidine [Pepcid] 20 mg PO BID Discharge Medication List Furosemide [Lasix] 40 mg PO DAILY #30 tablet 03/15/19 [Rx] Omeprazole [PriLOSEC] 40 mg PO AC-BRKFST #30 capsule. 03/15/19 [Rx] Potassium Chloride ER [K-Dur 20] 20 meq PO DAILY #30 tab 03/15/19 [Rx] Spironolactone [Aldactone] 25 mg PO DAILY #30 tablet 03/15/19 [Rx] Follow up Appointment(s)/Referral(s): Karen Caicedo, [facility] [REFERRING] - 3 Days Car Ford MD [STAFF PHYSICIAN] - 03/30/19 12:45 pm Ambulatory/Diagnostic Orders: Basic Metabolic Panel [LAB.AMB] Time Frame: 3 Days, Location: None Selected Comprehensive Metabolic Panel [LAB.AMB] Time Frame: 3 Days, Location: None Selected Discharge Disposition: HOME SELF-CARE
[2019-03-15 14:53] LABS: Appearance,BF Clear; Color,BF Yellow; RBC, Body Fluid 18 /uL
[2019-03-15 14:54] LABS: Nucleated Cells, Body Fluid 7 /uL
--- NOTE | 2019-03-15 15:15 | US ---
EXAMINATION TYPE: US paracentesis abd w/image DATE OF EXAM: 03/15/2019 COMPARISON: NONE HISTORY: Ascites. PROCEDURE: Maximal barrier technique was utilized. The skin overlying a suitable pocket of fluid was localized with ultrasound and the overlying skin was prepped and draped. Ultrasound was utilized with sterile technique. Lidocaine was used for local anesthesia and a skin ace made with a scalpel. Catheter was advanced under direct ultrasound guidance into a suitable pocket of fluid and approximately 1.5 liter s of serous fluid were removed. Catheter was withdrawn and hemostasis achieved. There is no immedia te complication; the patient is discharged in stable condition. Incidental note in the right abdomen of serosal nodular echogenic focus is measuring 11 to 12 mm IMPRESSION: STATUS POST ULTRASOUND GUIDED PARACENTESIS FOR PALLIATION OF ASCITES. THIS PROCEDURE WA S PERFORMED BY THE UNDERSIGNED. Specimen obtained for laboratory analysis. Possible serosal mass.
--- NOTE | 2019-03-15 17:20 | P.PN ---
Subjective Progress Note Date: 03/15/19 Principal diagnosis: Alcohol abuse, alcoholic hepatitis Lying in bed status post paracentesis reporting less abdominal pain. Objective - Vital Signs Vital signs: Vital Signs Temp 98.1 F 03/15/19 04:54 Pulse 100 03/15/19 10:55 Resp 18 03/15/19 10:55 BP 102/48 03/15/19 10:55 Pulse Ox 100 03/15/19 10:55 Intake & Output 03/14/19 03/15/19 03/15/19 18:59 06:59 18:59 Intake Total 1240 700 Balance 1240 700 Weight 61.235 kg Intake: Intake, IV Titration 640 700 Amount 0.9% NaCl with KCl 20 Meq 400 /l 1,000 ml @ 50 mls/hr IV .[id number] CARLOS with Mvi, Adult No.4 with Vit K 10 ml with Thiamine 100 mg with Folic Acid 1 mg Rx#: [id number] Magnesium Sulfate-D5w Pmx 200 1 gm In Dextrose/Water 1 100ml.bag @ 100 mls/hr IVPB Q1H CARLOS Rx#: [id number] Potassium Chloride 10 meq 100 In Water For Injection 1 100ml.bag @ 100 mls/hr IVPB Q1HR CARLOS Rx#: [id number] Sodium Chloride 0.9% 1, 640 000 ml @ 125 mls/hr IV . Q8H CARLOS Rx#:[id number] Oral 600 Other: Voiding Method Toilet Toilet Toilet # Voids 2 - Exam On physical examination, patient appears comfortable in no apparent distress. HEAD: Normocephalic, atraumatic. EYES: No scleral icterus. No conjunctival injection. MOUTH: No lesions, tongue midline. NECK: Trachea midline, no gross abnormalities. CHEST: Clear to auscultation with no wheezing or rhonchi appreciated. HEART: Regular rate and rhythm. ABDOMEN: Soft. Bowel sounds are positive. No organomegaly. No guarding or rigidity. EXTREMITIES: No pedal edema. SKIN: No rashes, no jaundice. NEUROLOGIC: Alert and oriented x3. No focal deficits. - Labs CBC & Chem 7: 03/15/19 06:55 03/15/19 06:55 Labs: Abnormal Lab Results - Last 24 Hours (Table) 03/14/19 03/15/19 03/15/19 Range/Units 23:35 06:55 06:55 RBC 2.94 L (3.80-5.40) m/uL Hgb 10.6 L (11.4-16.0) gm/dL Hct 32.0 L (34.0-46.0) % MCV 108.7 H (80.0-100.0) fL MCH 35.9 H (25.0-35.0) pg Plt Count 105 L (150-450) k/uL Sodium 136 L (137-145) mmol/L Potassium 2.9 L (3.5-5.1) mmol/L BUN 2 L (7-17) mg/dL Creatinine 0.38 L (0.52-1.04) mg/dL Glucose 111 H (74-99) mg/dL Calcium 8.2 L (8.4-10.2) mg/dL TIBC (228-460) ug/dL Ferritin (10.0-291.0) ng/mL Total Bilirubin 5.7 H (0.2-1.3) mg/dL AST 213 H (14-36) U/L ALT 88 H (9-52) U/L Alkaline Phosphatase 214 H (38-126) U/L Total Protein (PEP) (6.2-8.2) g/dL Albumin 3.2 L (3.5-5.0) g/dL Amylase <30 L (30-110) U/L Lipase 302 H (23-300) U/L 03/15/19 Range/Units 06:55 RBC (3.80-5.40) m/uL Hgb (11.4-16.0) gm/dL Hct (34.0-46.0) % MCV (80.0-100.0) fL MCH (25.0-35.0) pg Plt Count (150-450) k/uL Sodium (137-145) mmol/L Potassium (3.5-5.1) mmol/L BUN (7-17) mg/dL Creatinine (0.52-1.04) mg/dL Glucose (74-99) mg/dL Calcium (8.4-10.2) mg/dL TIBC 224 L (228-460) ug/dL Ferritin 764.6 H (10.0-291.0) ng/mL Total Bilirubin (0.2-1.3) mg/dL AST (14-36) U/L ALT (9-52) U/L Alkaline Phosphatase (38-126) U/L Total Protein (PEP) 6.0 L (6.2-8.2) g/dL Albumin (3.5-5.0) g/dL Amylase (30-110) U/L Lipase (23-300) U/L Microbiology - Last 24 Hours (Table) 03/14/19 13:51 Blood Culture - Preliminary Blood No Growth after 24 hours Assessment and Plan (1) Alcoholic hepatitis Narrative/Plan: 44-year-old female with a medical history significant for IBS, nicotine abuse, alcohol abuse, GERD presents with abdominal pain, nausea and vomiting for 3 days in duration. The patient found to have elevation in her liver enzymes consistent with alcoholic hepatitis with total bilirubin 6.6, alkaline phosphatase 325, AST 376 and ALTs 125. No encephalopathy or asterixis appreciated and INR found to be 1.1. Status: Acute Code(s): K70.10 - ALCOHOLIC HEPATITIS WITHOUT ASCITES SNOMED Code(s): 995508105 (2) Abdominal pain Narrative/Plan: Likely multifactorial given known history of GERD, IBS, as well as a ascites from alcoholic hepatitis. Status: Acute Code(s): R10.9 - UNSPECIFIED ABDOMINAL PAIN SNOMED Code(s): 65920053 (3) Alcohol abuse Status: Acute Code(s): F10.10 - ALCOHOL ABUSE, UNCOMPLICATED SNOMED Code(s): 20969138 (4) Nausea vomiting and diarrhea Status: Acute Code(s): R11.2 - NAUSEA WITH VOMITING, UNSPECIFIED; R19.7 - DIARRHEA, UNSPECIFIED SNOMED Code(s): 0651399 Plan: Supportive care Okay for diet, advance as tolerated X-ray abdomen ordered a negative for ileus or obstruction Full liver serologies ordered Ultrasound paracentesis ordered with fluid studies ordered Continue Protonix daily If the patient's continues to have abdominal pain consider Bentyl ATC Thank you for allowing us to participate in the care of the patient we will continue to follow
[2019-03-15 18:00] LABS: Albumin, Fluid Source Peritoneal Fluid; Total Protein, Body Fluid 1330 mg/dL
[2019-03-16] MEDS ORDERED: PANTOPRAZOLE 40 MG TABLET PO SCH (09:00)
[2019-03-16 10:07] LABS: Albumin 3.06 g/dL (3.80-4.90); Gamma Globulin 1.31 g/dL (0.70-1.50)
== END 2019-03-15 13:20 | disposition home or self-care (01) | DRG 432 ==
LOC: EC 23:20 → 3NMEDONC 03-14 01:56 → OBSVTOIN 03-14 15:32
PROVIDERS: ADMIT Hospitalist; ATTEND Hospitalist
PROC: 0W9G3ZX Drainage of Peritoneal Cavity, Percutaneous Approach, Diagnostic (ICD-10-PCS; principal; 2019-03-15)
DX: K70.11 Alcoholic hepatitis with ascites (principal); K85.20 Alcohol induced acute pancreatitis without necrosis or infection; N39.0 Urinary tract infection, site not specified; E46 Unspecified protein-calorie malnutrition; E87.6 Hypokalemia; F10.10 Alcohol abuse, uncomplicated; F17.210 Nicotine dependence, cigarettes, uncomplicated; F32.9 Major depressive disorder, single episode, unspecified; F41.9 Anxiety disorder, unspecified; K21.9 Gastro-esophageal reflux disease without esophagitis; K29.20 Alcoholic gastritis without bleeding; K44.9 Diaphragmatic hernia without obstruction or gangrene; K58.9 Irritable bowel syndrome, unspecified; K70.31 Alcoholic cirrhosis of liver with ascites; Z98.82 Breast implant status; M19.079 Primary osteoarthritis, unspecified ankle and foot; M17.10 Unilateral primary osteoarthritis, unspecified knee; M16.10 Unilateral primary osteoarthritis, unspecified hip; M47.9 Spondylosis, unspecified; E16.2 Hypoglycemia, unspecified; Z68.20 Body mass index [BMI] 20.0-20.9, adult
CPT/HCPCS: 36415; 49083; 71045; 74018; 74177; 80048; 80053; 80074; 81001; 82042; 82103; 82140; 82150; 82390; 82728; 83516; 83540; 83550; 83690; 83735; 84132; 84157; 84165; 85025; 85610; 86038; 86376; 87040; 88108; 88305; 89050; 96365; 96366; 96375; 99285

== ENCOUNTER 2019-04-05 13:00 | Day surgery (SDC) | payer OTHER ==
[2019-04-05 13:50] LABS: INR 1.5 (<1.2); Prothrombin Time 14.7 sec (9.0-12.0)
[2019-04-05 13:51] LABS: ALT 67 U/L (9-52); AST 283 U/L (14-36); African American GFR (CKD) >90 (>60 ml/min/1.73 sqM); Albumin 3.8 g/dL (3.5-5.0); Alkaline Phosphatase 340 U/L (38-126); Bilirubin, Conjugated 1.4 mg/dL (0.0-0.3); Bilirubin,Unconjugated 2.2 mg/dL (0.0-1.1); Total Bilirubin 7.6 mg/dL (0.2-1.3); Total Protein 8.8 g/dL (6.3-8.2)
[2019-04-05 14:00] LABS: HCT 40.2 % (34.0-46.0); HGB 13.4 gm/dL (11.4-16.0); MCH 35.8 pg (25.0-35.0); MCHC 33.4 g/dL (31.0-37.0); MCV 107.3 fL (80.0-100.0); Macrocytosis Moderate; Mean Platelet Volume 7.8; RBC 3.74 m/uL (3.80-5.40); RDW 13.9 % (11.5-15.5); WBC 21.8 k/uL (3.8-10.6)
[2019-04-05 14:04] LABS: Platelet Count 307 k/uL (150-450)
[2019-04-05 16:05] VITALS: BP 118/65; RESP 18
[2019-04-05 16:46] VITALS: TEMP 98.2
[2019-04-05 16:55] VITALS: PULSE 88
--- NOTE | 2019-04-06 10:19 | US ---
Therapeutic paracentesis. DATE OF EXAM: 04/05/2019 CLINICAL HISTORY: Ascites The procedure was discussed with the patient. The risks, complications, benefits, and alternatives we re discussed and any questions were answered. Informed consent was obtained. The patient was placed s upine on the ultrasound table and prepped and draped in the usual sterile fashion. All elements of maximal barrier technique were utilized. Under ultrasound guidance, access into the right lower quadrant was obtained, via the paracentesis catheter system and direct ultrasound guidanc e. Approximately 1.8 liters of straw-colored fluid was removed. The patient was stable throughout the pr ocedure and remained stable upon discharge from Department of Radiology. IMPRESSION: Successful therapeutic paracentesis under ultrasound guidance.
== END 2019-04-05 15:00 | disposition home or self-care (01) ==
LOC: RADPROMAIN 13:00
PROVIDERS: ATTEND Internal Medicine Gastroenterology
DX: R18.8 Other ascites (principal)
CPT/HCPCS: 36415; 49083; 80076; 82105; 82565; 85027; 85610

== ENCOUNTER → 2019-04-13 | Outpatient (CLI) | payer OTHER ==
--- NOTE | 2019-04-13 18:45 | MR ---
EXAMINATION TYPE: MR liver wo/w con DATE OF EXAM: 04/13/2019 COMPARISON: CT abdomen and pelvis March 14, 2019. HISTORY: Alcoholic cirrhosis of liver without asciteS per order. CONTRAST: Standard multiplanar, multisequence MRI departmental protocol utilizing 6 mL intravenous Gadavist zaira olinium contrast. Imaging is performed of the abdomen focusing on the liver. FINDINGS: Liver: There is overall hepatomegaly with prominent left hepatic lobe redemonstrated. There is hetero geneity with some signal dropout consistent with fatty infiltration. Once again first arterial phase suboptimal as portal vein already shows enhancement. Main portal vein is patent and not dilated. Anu pheral nodular contour to liver is seen. There are patent hepatic drains draining into slitlike intra hepatic IVC. Recurrent surrounding ascites is noted. Postcontrast images show no suspicious enhancing masses with washout. Heterogeneity is present. Recanalized umbilical vein noted. Other: Gallbladder is dilated with distended margins without intraluminal gallstones finding presumed product of underlying liver disease. Partial visualization of bilateral breast implants. Spleen size stable and within normal limits. Pancreas and both adrenal glands are normal in size. Ascites extend s into the right paracolic and infracolic gutter. No suspicious bowel dilatation. Visualized osseous structures are intact. IMPRESSION: Cirrhosis with ascites. No suspicious intrahepatic masses.
== END ==
LOC: RADMRIMAIN 13:40
PROVIDERS: ATTEND Physician Assistant
DX: K70.31 Alcoholic cirrhosis of liver with ascites (principal)
CPT/HCPCS: 74183; A9585

== ENCOUNTER 2019-05-21 14:47 | Inpatient (IN) | payer OTHER ==
[2019-05-21] MEDS ORDERED: HYDROmorphone 1 MG/ML 1 ML SYRINGE IVP STA (15:36)
[2019-05-21 15:41] LABS: Basophils # (A) 0.1 k/uL (0-0.2); Basophils % (A) 1 %; Eosinophils # (A) 0.2 k/uL (0-0.7); Eosinophils % (A) 1 %; HCT 30.7 % (34.0-46.0); Hypochromasia Marked; Lymphocytes # (A) 1.2 k/uL (1.0-4.8); Lymphocytes % (A) 9 %; MCH 32.2 pg (25.0-35.0); MCHC 30.7 g/dL (31.0-37.0); MCV 104.9 fL (80.0-100.0); Macrocytosis Moderate; Mean Platelet Volume 8.7; Monocytes # (A) 0.7 k/uL (0-1.0); Monocytes % (A) 5 %; Neutrophils # (A) 11.1 k/uL (1.3-7.7); Neutrophils % (A) 82 %; Platelet Count 298 k/uL (150-450); Poikilocytosis Slight; RBC 2.92 m/uL (3.80-5.40); RDW 15.8 % (11.5-15.5); WBC 13.5 k/uL (3.8-10.6)
[2019-05-21 15:48] LABS: HGB 9.4 gm/dL (11.4-16.0)
[2019-05-21 15:49] LABS: Albumin 3.2 g/dL (3.5-5.0); Calcium 8.7 mg/dL (8.4-10.2); Total Bilirubin 6.9 mg/dL (0.2-1.3); Total Protein 7.2 g/dL (6.3-8.2)
[2019-05-21 15:53] LABS: INR 1.8 (<1.2); Partial Thromboplastin Time 34.4 sec (22.0-30.0); Prothrombin Time 17.8 sec (9.0-12.0)
[2019-05-21 16:16] LABS: Potassium 4.8 mmol/L (3.5-5.1)
--- NOTE | 2019-05-21 16:34 | ED ---
General Adult HPI - General Chief complaint: Abdominal Pain Stated complaint: Abd pain Time Seen by Provider: 05/21/19 14:55 Source: patient, RN notes reviewed, old records reviewed Mode of arrival: ambulatory Limitations: no limitations - History of Present Illness Initial comments: This is a 44-year-old female presents emergency Department with a past medical history significant for liver fair secondary to alcohol some. Patient states she's had her abdomen drained a few times because of ascites and she's had the point where it is extremely distended and she believes she needs her abdomen drained again. Patient states it is very tender when he gets this large. Patient also states she has quite a bit of edema to her feet. Patient denies any fever chills. Patient states her abdomen is tender but it is always tender. Patient denies any chest pain difficulty breathing shortest breath. Patient denies any headache patient denies numbness weakness. - Related Data Previous Rx's Medication Instructions Recorded Furosemide [Lasix] 40 mg PO DAILY #30 tablet 03/15/19 Omeprazole [PriLOSEC] 40 mg PO AC-BRKFST #30 capsule. 03/15/19 Potassium Chloride ER [K-Dur 20] 20 meq PO DAILY #30 tab 03/15/19 Spironolactone [Aldactone] 25 mg PO DAILY #30 tablet 03/15/19 Allergies Allergy/AdvReac Type Severity Reaction Status Date / Time cat dander Allergy Dyspnea Verified 05/21/19 14:58 mold Allergy Dyspnea Verified 05/21/19 14:58 Penicillins Allergy Rash/Hives Verified 05/21/19 14:58 Review of Systems ROS Statement: Those systems with pertinent positive or pertinent negative responses have been documented in the HPI. ROS Other: All systems not noted in ROS Statement are negative. Past Medical History Past Medical History: No Reported History Additional Past Medical History / Comment(s): hiatal hernia, IBS, arthritis in back, knee, hip, ankle, hypogylycemia. Cirrhosis History of Any Multi-Drug Resistant Organisms: None Reported Past Surgical History: No Surgical Hx Reported Additional Past Surgical History / Comment(s): breast implants Past Anesthesia/Blood Transfusion Reactions: No Reported Reaction Past Psychological History: Anxiety, Depression Smoking Status: Current every day smoker Past Alcohol Use History: Daily, Heavy Past Drug Use History: None Reported General Exam - General Exam Comments Initial Comments: GENERAL: Patient is well-developed and well-nourished. Patient is nontoxic and well- hydrated and is in mild distress. ENT: Neck is soft and supple. No significant lymphadenopathy is noted. Oropharynx is clear. Moist mucous membranes. Neck has full range of motion without eliciting any pain. EYES: The sclera were anicteric and conjunctiva were pink and moist. Extraocular movements were intact and pupils were equal round and reactive to light. Eyelids were unremarkable. PULMONARY: Unlabored respirations. Good breath sounds bilaterally. No audible rales rhonchi or wheezing was noted. CARDIOVASCULAR: There is a regular rate and rhythm without any murmurs gallops or rubs. ABDOMEN: Patient's abdomen is distended and appears to have ascites. SKIN: Skin is clear with no lesions or rashes and otherwise unremarkable. NEUROLOGIC: Patient is alert and oriented x3. Cranial nerves II through XII are grossly intact. Motor and sensory are also intact. Normal speech, volume and content. Symmetrical smile. MUSCULOSKELETAL: Normal extremities with adequate strength and full range of motion. 2+ edema bilaterally LYMPHATICS: No significant lymphadenopathy is noted PSYCHIATRIC: Normal psychiatric evaluation. Limitations: no limitations Course Vital Signs 05/21/19 05/21/19 14:55 15:42 Temperature 97.8 F Pulse Rate 115 H 109 H Respiratory 24 16 Rate Blood Pressure 94/66 101/72 O2 Sat by Pulse 97 99 Oximetry Medical Decision Making - Medical Decision Making I spoke with Dr. Rashid she agreed to admit the patient admitted the patient and I started the patient on antibiotics secondary to the patient's tenderness and elevated white count.. EKG shows sinus tachycardia at 105 bpm WI interval 124 QRS a 66 QTC intervals 354 QTC is 467. Patient's EKG shows no ST segment elevation or depression. - Lab Data Result diagrams: 05/21/19 15:27 05/21/19 15:27 Lab Results 05/21/19 05/21/19 05/21/19 Range/Units 15:27 15:27 15:27 WBC 13.5 H (3.8-10.6) k/uL RBC 2.92 L (3.80-5.40) m/uL Hgb 9.4 L D (11.4-16.0) gm/dL Hct 30.7 L (34.0-46.0) % MCV 104.9 H (80.0-100.0) fL MCH 32.2 (25.0-35.0) pg MCHC 30.7 L (31.0-37.0) g/dL RDW 15.8 H (11.5-15.5) % Plt Count 298 (150-450) k/uL Neutrophils % 82 % Lymphocytes % 9 % Monocytes % 5 % Eosinophils % 1 % Basophils % 1 % Neutrophils # 11.1 H (1.3-7.7) k/uL Lymphocytes # 1.2 (1.0-4.8) k/uL Monocytes # 0.7 (0-1.0) k/uL Eosinophils # 0.2 (0-0.7) k/uL Basophils # 0.1 (0-0.2) k/uL Hypochromasia Marked Poikilocytosis Slight Macrocytosis Moderate PT 17.8 H (9.0-12.0) sec INR 1.8 H (<1.2) APTT 34.4 H (22.0-30.0) sec Sodium 131 L (137-145) mmol/L Potassium 4.8 (3.5-5.1) mmol/L Chloride 99 (98-107) mmol/L Carbon Dioxide 21 L (22-30) mmol/L Anion Gap 11 mmol/L BUN 10 (7-17) mg/dL Creatinine 1.62 H (0.52-1.04) mg/dL Est GFR (CKD-EPI)AfAm 45 (>60 ml/min/1.73 sqM) Est GFR (CKD-EPI)NonAf 39 (>60 ml/min/1.73 sqM) Glucose 112 H (74-99) mg/dL Calcium 8.7 (8.4-10.2) mg/dL Total Bilirubin 6.9 H (0.2-1.3) mg/dL AST 119 H (14-36) U/L ALT 48 (9-52) U/L Alkaline Phosphatase 292 H (38-126) U/L Total Protein 7.2 (6.3-8.2) g/dL Albumin 3.2 L (3.5-5.0) g/dL Amylase 51 (30-110) U/L Lipase 286 (23-300) U/L Disposition Clinical Impression: Anemia, Spontaneous bacterial peritonitis Disposition: ADMITTED IP TO THIS HOSP Referrals: Ami Richardson MD [Primary Care Provider] - 1-2 days Time of Disposition: 16:50
[2019-05-21] MEDS ORDERED: cefTRIAXone IN SWFI 1,000 MG/10 ML SYRINGE IVP STA (16:54)
[2019-05-21] MEDS ORDERED: SODIUM CHLORIDE 0.9% 500 ML 500 ML IV STA (17:28)
[2019-05-21 17:49] LABS: Basophils # (A) 0.1 k/uL (0-0.2); Basophils % (A) 1 %; Eosinophils # (A) 0.2 k/uL (0-0.7); Eosinophils % (A) 1 %; HCT 24.2 % (34.0-46.0); Hypochromasia Marked; Lymphocytes # (A) 1.4 k/uL (1.0-4.8); Lymphocytes % (A) 11 %; MCH 32.2 pg (25.0-35.0); MCHC 30.7 g/dL (31.0-37.0); MCV 104.8 fL (80.0-100.0); Macrocytosis Moderate; Mean Platelet Volume 8.6; Monocytes # (A) 0.7 k/uL (0-1.0); Monocytes % (A) 5 %; Neutrophils # (A) 10.4 k/uL (1.3-7.7); Neutrophils % (A) 79 %; Platelet Count 282 k/uL (150-450); Poikilocytosis Slight; RBC 2.31 m/uL (3.80-5.40); RDW 15.6 % (11.5-15.5); WBC 13.1 k/uL (3.8-10.6)
[2019-05-21 17:55] LABS: HGB 7.4 gm/dL (11.4-16.0)
[2019-05-21] MEDS: SODIUM CHLORIDE 0.9% 1,000 ML IV ONE ×2 (18:37→19:56)
[2019-05-21] MEDS ORDERED: MAG HYDROX/AL HYDROX/SIMETH 30 ML CUP PO PRN (18:57)
[2019-05-21] MEDS: PANTOPRAZOLE 40 MG TABLET PO SCH (19:51)
[2019-05-21] MEDS: LACTULOSE 20 GM/30 ML CUP PO SCH (19:51)
[2019-05-21] MEDS: HYDROmorphone 0.5 MG/0.5 ML SYRINGE IVP PRN (20:01)
[2019-05-21] MEDS: RIFAXIMIN 550 MG TABLET PO SCH (20:34)
[2019-05-21] MEDS: SIMETHICONE 80 MG CHEWABLE PO SCH (20:34)
[2019-05-21] MEDS: BENZOYL PEROXIDE 10% TOPICAL SCH (21:13)
[2019-05-21] MEDS: CLINDAMYCIN PHOSPHATE TOPICAL SCH (21:13)
[2019-05-22 00:09] LABS: HCT 27.2 % (34.0-46.0); HGB 8.4 gm/dL (11.4-16.0); Hypochromasia Marked; MCH 32.7 pg (25.0-35.0); MCHC 30.8 g/dL (31.0-37.0); MCV 106.3 fL (80.0-100.0); Macrocytosis Moderate; Mean Platelet Volume 8.7; Platelet Count 247 k/uL (150-450); RBC 2.55 m/uL (3.80-5.40); RDW 15.7 % (11.5-15.5)
[2019-05-22] MEDS: HYDROmorphone 0.5 MG/0.5 ML SYRINGE IVP PRN ×4 (00:11→17:49)
[2019-05-22 00:48] LABS: Band Neutrophils % 1 %; Eosinophils # (M) 0.27 k/uL (0-0.7); Lymphocytes # (M) 1.37 k/uL (1.0-4.8); Metamyelocytes # (M) 0.14 k/uL (0); Metamyelocytes % 1 %; Monocytes # (M) 0.69 k/uL (0-1.0); Neutrophils % (M) 83 %; Nucleated Red Blood Cells 1 /100 WBC (0-0); Total Cells Counted 200; WBC 13.7 k/uL (3.8-10.6)
[2019-05-22 00:49] LABS: Target Cells Present
[2019-05-22 00:50] LABS: Anisocytosis (M) Present; Polychromasia Present
[2019-05-22 00:51] LABS: Howell-Jolly Bodies Present
[2019-05-22 00:52] LABS: Large Platelets Present; Poikilocytosis (M) Present
[2019-05-22] MEDS: CLINDAMYCIN PHOSPHATE TOPICAL SCH ×3 (01:54→21:23)
[2019-05-22 06:52] LABS: Calcium 8.4 mg/dL (8.4-10.2)
[2019-05-22] MEDS ORDERED: MIDODRINE 5 MG TAB PO SCH (07:30)
[2019-05-22] MEDS: LACTULOSE 20 GM/30 ML CUP PO SCH (09:32)
[2019-05-22] MEDS: RIFAXIMIN 550 MG TABLET PO SCH ×2 (09:32→21:22)
[2019-05-22] MEDS: SIMETHICONE 80 MG CHEWABLE PO SCH ×4 (09:33→21:22)
[2019-05-22] MEDS: PANTOPRAZOLE 40 MG TABLET PO SCH (09:33)
[2019-05-22] MEDS: THIAMINE 100 MG TAB PO SCH (09:34)
[2019-05-22] MEDS: MULTIVITAMINS, THERA 1 EACH TAB PO SCH (09:34)
--- NOTE | 2019-05-22 11:06 | CONS ---
CONSULTATION DATE OF SERVICE: May 22, 2019. REQUESTING PHYSICIAN: Dr. Ami Richardson. REASON FOR CONSULTATION: Ascites and alcoholic cirrhosis of the liver. HISTORY OF PRESENT ILLNESS: The patient is a 44-year-old white female with history of alcoholic cirrhosis of the liver diagnosed a year ago. Came to the emergency room with abdominal distention, abdominal pain and lower extremity swelling for the last few days duration. The patient has history of heavy alcohol abuse. She quit drinking about a month ago. She was recently hospitalized at [facility] 2 weeks ago and subsequently transferred to [facility]. According to the patient, she had ascites and underwent large- volume paracentesis. She also had a GI bleed, underwent an EGD and colonoscopy during this hospitalization at [facility] and at the time of discharge from the hospital, her diuretics have been on hold because of acute kidney injury. She was sent to short-term rehab and while there, started experiencing abdominal distention, abdominal pain with lower extremity swelling and hence came back to the emergency room and admitted to the hospital for further evaluation. She complains of diffuse abdominal pain. She reports no nausea or vomiting. Denies any rectal bleeding or melena. PAST MEDICAL HISTORY: Significant for alcoholic cirrhosis of the liver, ascites, history of IBS, degenerative joint disease. PAST SURGICAL HISTORY: Breast implants. MEDICATIONS: At home include: Omeprazole. ALLERGIES: ALLERGIES TO PENICILLIN. SOCIAL HISTORY: Heavy alcohol use as mentioned above, chronic smoker. FAMILY HISTORY: Unremarkable. REVIEW OF SYSTEMS: Cardiopulmonary: No chest pain or shortness of breath. Genitourinary: No dysuria or hematuria. MUSCULOSKELETAL unremarkable other than chronic back pain. NEUROLOGY unremarkable. PSYCHIATRIC unremarkable. ENT/vision unremarkable. CONSTITUTIONAL: No recent weight loss. No fever, chills, night sweats. HEMATOLOGY unremarkable. PSYCHIATRIC unremarkable and ENDOCRINE unremarkable. PHYSICAL EXAMINATION: She appears comfortable. No apparent distress. VITAL SIGNS: Stable. Blood pressure is 96/61, pulse rate 104, temperature 98.4. HEENT examination unremarkable. Conjunctivae pink. Sclerae anicteric. Oral cavity no lesions. NECK: No JVD or lymph node enlargement. CHEST: Clear to auscultation. HEART: Regular rate and rhythm. ABDOMEN: Soft. It was distended, tense ascites, free fluid noted. EXTREMITIES: 2+ pedal edema. SKIN: No rashes. NEUROLOGIC: Alert and oriented x3. No focal deficits. LABS: At the time of admission to the hospital: WBC 13.7, hemoglobin 8.4, platelets 247. INR is 1.8. BUN is 12, creatinine 1.74, T-bilirubin 6.9, AST 119, ALT 48, alkaline phosphatase 292. Amylase and lipase are normal. Ammonia is 48. IMPRESSION: 1. Tense ascites/abdominal pain. 2. Alcoholic cirrhosis of the liver diagnosed a year ago. 3. History of heavy alcohol abuse, quit drinking a month ago. 4. Acute kidney injury. Diuretics have been on hold since the last hospitalization at [facility] a week ago. 5. Macrocytic anemia related to chronic liver disease. 6. Mild leukocytosis. RECOMMENDATIONS: 1. Schedule her for a large volume paracentesis as soon as possible. 2. Nephrology consultation for acute kidney injury. 3. We will continue to hold off on diuretics. 4. Start her on a clear liquid diet. Thank you for this consultation. We will follow with you closely. VANESSA / BALDON: [id number] /
--- NOTE | 2019-05-22 11:31 | US ---
EXAMINATION TYPE: US abdomen limited DATE OF EXAM: 05/22/2019 COMPARISON: Previous study dated 04/05/2019. CLINICAL HISTORY: ascites check. Patient has moderate to severe ascites. Patient was drained 5 days prior at [facility]. IMPRESSION: MODERATE ASCITES WHICH IS INCREASED FROM THE PREVIOUS STUDY.
--- NOTE | 2019-05-22 11:48 | P.NPCON ---
History of Present Illness - Reason for Consult Consult date: 05/22/19 acute renal failure - Chief Complaint Acute kidney Injury with cirrhosis - History of Present Illness This is a 44-year-old female with chronic liver disease, cirrhosis, history of alcohol abuse in the past, being seen because of acute kidney injury. Her creatinine 0.4 on 04/05/2019, she came in here yesterday on 05/21/2019 with a creatinine 1.62 In the recent past she's had done about 4-5 days ago at [facility]. She was transferred to a rehab unit. She started to have abdominal pain over the last 3-4 days and came here with fairly severe abdominal pain. Denies any fever chills no shortness of breath cough no nausea vomiting diarrhea or she says she is constipated Her last About 4-5 days ago was 6 L possibly under IV albumin. Immediately post There was no abdominal pain She had a liver biopsy in 2018 which showed steatosis but no histological diagnosis of cirrhosis was reported on that biopsy. A more recent MRI suggests cirrhosis. No Pap has been done since admission here yesterday to rule out bacterial peritonitis Past Medical History Past Medical History: No Reported History, Liver Disease Additional Past Medical History / Comment(s): hiatal hernia, IBS, arthritis in back, knee, hip, ankle, hypogylycemia. Cirrhosis History of Any Multi-Drug Resistant Organisms: None Reported Past Surgical History: No Surgical Hx Reported Additional Past Surgical History / Comment(s): breast implants Past Anesthesia/Blood Transfusion Reactions: No Reported Reaction Past Psychological History: Anxiety, Depression Smoking Status: Current every day smoker Past Alcohol Use History: Daily, Heavy Past Drug Use History: None Reported - Past Family History Mother Additional Family Medical History / Comment(s): IBS Medications and Allergies Home Medications Medication Instructions Recorded Confirmed Type Benzoyl Peroxide Gel 10% 1 applic TOPICAL HS 05/21/19 05/21/19 History Clindamycin Phosphate [Cleocin T] 1 applic TOPICAL BID 05/21/19 05/21/19 History Lactulose 20 gm PO DAILY 05/21/19 05/21/19 History Mag Hydrox/Al Hydrox/Simeth 15 ml PO Q6H PRN 05/21/19 05/21/19 History [Maalox] Midodrine HCl [ProAmantine] 2.5 mg PO Q8H 05/21/19 05/21/19 History Multivitamins, Thera [Multivitamin 1 tab PO DAILY 05/21/19 05/21/19 History (formulary)] Omeprazole 40 mg PO DAILY 05/21/19 05/21/19 History Potassium Chloride [Klor-Con 20 20 meq PO DAILY 05/21/19 05/21/19 History Packets] Rifaximin [Xifaxan] 550 mg PO BID 05/21/19 05/21/19 History Simethicone Chew [Mylicon Chew] 80 mg PO QID 05/21/19 05/21/19 History Thiamine [Vitamin B-1] 100 mg PO DAILY 05/21/19 05/21/19 History oxyCODONE HCL [OxyIR] 5 mg PO Q8H PRN 05/21/19 05/21/19 History Allergies Allergy/AdvReac Type Severity Reaction Status Date / Time cat dander Allergy Dyspnea Verified 05/21/19 17:53 mold Allergy Dyspnea Verified 05/21/19 17:53 Penicillins Allergy Rash/Hives Verified 05/21/19 17:53 Physical Exam Vitals: Vital Signs Temp Pulse Pulse Pulse Resp BP BP 05/22/19 11:28 98.3 F 109 H 17 93/62 05/22/19 04:27 98.4 F 104 H 18 96/61 05/21/19 21:51 98.3 F 108 H 18 93/58 05/21/19 18:25 99 16 94/65 05/21/19 15:42 109 H 16 101/72 05/21/19 14:55 97.8 F 115 H 24 94/66 Pulse Ox 05/22/19 11:28 94 L 05/22/19 04:27 96 05/21/19 21:51 96 05/21/19 18:25 96 05/21/19 15:42 99 05/21/19 14:55 97 Intake and Output 05/21/19 05/22/19 05/22/19 22:59 06:59 14:59 Intake Total 150 435 Balance 150 435 Intake: Intake, IV Titration 150 435 Amount Sodium Chloride 0.9% 1, 150 435 000 ml @ 75 mls/hr IV . [id number] ONE Rx#:[id number] Other: Voiding Method Bedpan Bedpan # Voids 1 1 On examination she is awake alert oriented 3 but in pain and looks emaciated and cachectic. HEENT exam no JVP neck supple no facial asymmetry Lungs are clear to auscultation fair air entry bilaterally Heart sounds are unremarkable for any murmur rub gallop Abdomen is distended and tight and very tender she does not allow me to examine her. Bowel sounds are diminished Extremity examination reveals moderate edema but warm to touch Neurologically awake alert oriented some tremors but no angela asterixis was noted to be able to move her extremities but she is weak Results - Lab Results Most recent lab results Calcium 8.4 mg/dL (8.4-10.2) 05/22/19 05:52 05/21/19 23:28 05/22/19 05:52 Assessment and Plan Assessment: Impression 1. Acute kidney injury secondary to possible bacterial peritonitis in a cirrhotic patient, rule out hepatorenal syndrome. Creatinine baseline 0.4 dated 04/05/2019, came in with a creatinine of 1.6 to further up to 1.74 this morning. 2. Mild degree of non-gap acidosis. Bicarb 18 and gap is 11 3. Mild hyponatremia sodium 134 secondary to acute kidney injury 4. Tight ascites with severe tenderness rule out peritonitis 5. History of liver biopsy 2018 with just showed steatohepatitis, possible Quirino's disease needs to be ruled out per pathology , there was no description of any cirrhosis 6. Anemia. Hemoglobin is 8.4, significant drop from 13.4 a month ago on 04/05/2019. Rule out GI bleed Recommendation 1. Obtain intra-abdominal pressure if possible 2. Would repeat her To reduce any intra-abdominal pressure to improve her renal function. 2. Do a cell count and rule out bacterial peritonitis. She is already on ceftriaxone. 3. Start IV albumin 25 g every 8. 4. Start Midrin 10 mg 3 times a day 5. Start octreotide 100 g subcu every 8 hours 6. Check urine osmolarity, sodium and creatinine
[2019-05-22] MEDS ORDERED: ALBUMIN HUMAN 25% 50 ML in EMPTY BAG 1 BAG IVPB SCH (12:00)
[2019-05-22] MEDS: MIDODRINE 5 MG TAB PO SCH ×3 (13:08→21:22)
[2019-05-22] MEDS: OCTREOTIDE 100 MCG/ML INJ SQ SCH ×2 (13:09→21:27)
[2019-05-22] MEDS: ALBUMIN HUMAN 25% 50 ML in EMPTY BAG 1 BAG IVPB SCH ×2 (14:23→21:21)
[2019-05-22] MEDS: SODIUM BICARBONATE TAB 650 MG TAB PO SCH ×3 (14:24→21:22)
--- NOTE | 2019-05-22 14:33 | P.HPIM ---
History of Present Illness H&P Date: 05/21/19 Chief Complaint: Increased abdoimnal girth Ms. Allen is a 44-year-old female with a medical history significant for alcoholism, anxiety, depression, nicotine dependence, and alcoholic liver cirrhosis, recurrent ascites who presented to the hospital complaining that she's had her abdomen drained a few times because of ascites and now it is extremely distended and she believes she needs her abdomen drained again. Patient states it is very tender when he gets this large. Patient also states she has quite a bit of edema to her feet. Patient denies any fever chills. Patient states her abdomen is tender but it is always tender. Patient denies any chest pain difficulty breathing shortest breath. Patient denies any headache patient denies numbness weakness. Patient reports a history of at least 10 years of excessive alcohol drinking. She reports that she was trying to cut down in the outpatient setting by weaning herself off of the alcohol. She reports that she has had abdominal pain described as diffuse and sharp in the epigastric region of her abdomen and achy in the left lower quadrant of her abdomen. Pain is waxing and waning in intensity, constant overall. She reports no associated nausea and vomiting. Initially she was reporting loose stool but today she reports normal bowel movements and decreased flatus. She mentions about a recnt hospitalization at [facility] for Hepatic encephlopathy and that she is discharged to rehab couple of days back. She also mntions about getting a Colonoscopy and EGD there. In the ED her labs are consistent with Chronic liver disease. She has been admitted for Paracentesis. Review of Systems REVIEW OF SYSTEMS: PSYCH: Normal psychiatric exam NEURO:No c/o weakness of the extremties, No facial droop, No speech abnormalities. VASCULAR: Mild LE edema HEMATOLOGIC: No history of easy bleeding and bruising . No recent infections . RESPIRATORY: No cough, No SOB, Mild chest discomfort. IMMUNE: No infections INTEGUMENT: no rashes OPHTHALMOLOGIC: No blurry vision and no eye discharge : No dysuria or hematuria YACHT MASTER: No bleeding PV CARDIAC: No chest pain , shortness of breath , paroxysmal nocturnal dyspnea MUSCULOSKELETAL : No Aches or pains in the joints or muscles. GI: As per HPI Past Medical History Past Medical History: No Reported History, Liver Disease Additional Past Medical History / Comment(s): hiatal hernia, IBS, arthritis in back, knee, hip, ankle, hypogylycemia. Cirrhosis History of Any Multi-Drug Resistant Organisms: None Reported Past Surgical History: No Surgical Hx Reported Additional Past Surgical History / Comment(s): breast implants Past Anesthesia/Blood Transfusion Reactions: No Reported Reaction Past Psychological History: Anxiety, Depression Smoking Status: Current every day smoker Past Alcohol Use History: Daily, Heavy Past Drug Use History: None Reported - Past Family History Mother Additional Family Medical History / Comment(s): IBS Medications and Allergies Home Medications Medication Instructions Recorded Confirmed Type Benzoyl Peroxide Gel 10% 1 applic TOPICAL HS 05/21/19 05/21/19 History Clindamycin Phosphate [Cleocin T] 1 applic TOPICAL BID 05/21/19 05/21/19 History Lactulose 20 gm PO DAILY 05/21/19 05/21/19 History Mag Hydrox/Al Hydrox/Simeth 15 ml PO Q6H PRN 05/21/19 05/21/19 History [Maalox] Midodrine HCl [ProAmantine] 2.5 mg PO Q8H 05/21/19 05/21/19 History Multivitamins, Thera [Multivitamin 1 tab PO DAILY 05/21/19 05/21/19 History (formulary)] Omeprazole 40 mg PO DAILY 05/21/19 05/21/19 History Potassium Chloride [Klor-Con 20 20 meq PO DAILY 05/21/19 05/21/19 History Packets] Rifaximin [Xifaxan] 550 mg PO BID 05/21/19 05/21/19 History Simethicone Chew [Mylicon Chew] 80 mg PO QID 05/21/19 05/21/19 History Thiamine [Vitamin B-1] 100 mg PO DAILY 05/21/19 05/21/19 History oxyCODONE HCL [OxyIR] 5 mg PO Q8H PRN 05/21/19 05/21/19 History Allergies Allergy/AdvReac Type Severity Reaction Status Date / Time cat dander Allergy Dyspnea Verified 05/21/19 17:53 mold Allergy Dyspnea Verified 05/21/19 17:53 Penicillins Allergy Rash/Hives Verified 05/21/19 17:53 Physical Exam Vitals: Vital Signs Temp Pulse Resp BP Pulse Ox 05/21/19 18:25 99 16 94/65 96 05/21/19 15:42 109 H 16 101/72 99 11/16/19 14:55 97.8 F 115 H 24 94/66 97 Intake and Output 05/21/19 05/21/19 05/21/19 06:59 14:59 22:59 Other: Weight 77.111 kg GEN. APPEARANCE: Cachectic,not acute distress HEAD EXAM: atraumatic, normocephalic, normal inspection EYE EXAM: Mild pallor and mild icterus ENT EXAM: normal exam, mucous membranes moist NECK EXAM: normal inspection. Absent: tenderness, meningismus, full ROM, lymphadenopathy RESPIRATORY EXAM: normal lung sounds bilaterally. Decreased at the lower lung bases CARDIOVASCULAR EXAM: regular rate, normal rhythm, normal heart sounds. Absent: systolic murmur, diastolic murmur, rubs, gallop, clicks GI/ABDOMINAL EXAM: soft, distended. Severe Ascites. Fluid thrill positive. BS normal. Abdominal wall edema. EXTREMITIES EXAM: Bilateral pitting edema NEUROLOGICAL EXAM: alert, oriented X3, no focal deficits PSYCHIATRIC EXAM: normal affect, normal mood SKIN EXAM: warm, dry, intact, normal color. Results CBC & Chem 7: 05/21/19 23:28 05/22/19 05:52 Labs: Abnormal Lab Results - Last 24 Hours (Table) 05/21/19 05/21/19 05/21/19 Range/Units 15:27 15:27 15:27 WBC 13.5 H (3.8-10.6) k/uL RBC 2.92 L (3.80-5.40) m/uL Hgb 9.4 L D (11.4-16.0) gm/dL Hct 30.7 L (34.0-46.0) % MCV 104.9 H (80.0-100.0) fL MCHC 30.7 L (31.0-37.0) g/dL RDW 15.8 H (11.5-15.5) % Neutrophils # 11.1 H (1.3-7.7) k/uL PT 17.8 H (9.0-12.0) sec INR 1.8 H (<1.2) APTT 34.4 H (22.0-30.0) sec Sodium 131 L (137-145) mmol/L Carbon Dioxide 21 L (22-30) mmol/L Creatinine 1.62 H (0.52-1.04) mg/dL Glucose 112 H (74-99) mg/dL Plasma Lactic Acid Hemanth (0.7-2.0) mmol/L Total Bilirubin 6.9 H (0.2-1.3) mg/dL AST 119 H (14-36) U/L Alkaline Phosphatase 292 H (38-126) U/L Albumin 3.2 L (3.5-5.0) g/dL 05/21/19 05/21/19 Range/Units 15:27 17:32 WBC 13.1 H (3.8-10.6) k/uL RBC 2.31 L (3.80-5.40) m/uL Hgb 7.4 L D (11.4-16.0) gm/dL Hct 24.2 L (34.0-46.0) % MCV 104.8 H (80.0-100.0) fL MCHC 30.7 L (31.0-37.0) g/dL RDW 15.6 H (11.5-15.5) % Neutrophils # 10.4 H (1.3-7.7) k/uL PT (9.0-12.0) sec INR (<1.2) APTT (22.0-30.0) sec Sodium (137-145) mmol/L Carbon Dioxide (22-30) mmol/L Creatinine (0.52-1.04) mg/dL Glucose (74-99) mg/dL Plasma Lactic Acid Hemanth 3.0 H* (0.7-2.0) mmol/L Total Bilirubin (0.2-1.3) mg/dL AST (14-36) U/L Alkaline Phosphatase (38-126) U/L Albumin (3.5-5.0) g/dL Assessment and Plan Assessment: ASSESSMENT Severe Recurrent Ascites Possible SBP Alcoholic liver cirrhosis Portal HTN Lactic acidosis Acute kidney injury Mild protein calorie malnutrition PLAN: patient has severe recurrent ascites will need paracentesis. No active signs of GI bleeding. Hemoglobin has been stable. Patient has been started on her home medications. Due to her recurrent ascites she has also been started on ceftriaxone for SBP prophylaxis. We'll send the ascetic fluid for analysis. GI Dr. Rueda has been consulted. Further recommendations to follow depending on the progress of the patient. Overall prognosis is guarded
--- NOTE | 2019-05-22 15:44 | P.PN ---
Subjective Progress Note Date: 05/22/19 Principal diagnosis: Massive ascites Ms. Allen is a 44-year-old female with a medical history significant for alcoholism, anxiety, depression, nicotine dependence, and alcoholic liver cirrhosis, recurrent ascites who presented to the hospital complaining that she's had her abdomen drained a few times because of ascites and now it is extremely distended and she believes she needs her abdomen drained again. Patient states it is very tender when he gets this large. Patient also states she has quite a bit of edema to her feet. Patient denies any fever chills. Thaddeus linder states her abdomen is tender but it is always tender. Patient denies any chest pain difficulty breathing shortest breath. Patient denies any headache patient denies numbness weakness. Patient reports a history of at least 10 years of excessive alcohol drinking. She reports that she was trying to cut down in the outpatient setting by weaning herself off of the alcohol. She reports that she has had abdominal pain described as diffuse and sharp in the epigastric region of her abdomen and achy in the left lower quadrant of her abdomen. Pain is waxing and waning in intensity, constant overall. She reports no associated nausea and vomiting. Initially she was reporting loose stool but today she reports normal bowel movements and decreased flatus. In the ED her labs are consistent with Chronic liver disease. She has been admitted for Paracentesis. on 05/22/2019 - patient is getting her paracentesis done. She had almost 5 L of acetic fluid removed until now. She has been getting IV albumin. Her blood pressure has been maintaining her around 80 by 50s. Patient states that she has significant improvement in her abdominal pain and also that her breathing is better.she has been seen by GI Dr. Rueda and nephrology Dr. Ndiaye.The dose of her midodrine has been increased and she has been started on octreotide. Patient denies having any fevers chills or rigors. No bloody bowel movements. No chest pain or palpitations. No dysuria or hematuria.She continues to have lower extremity edema. Active Medications Al Hydroxide/Mg Hydroxide (Maalox) 15 ml PO Q6H PRN PRN Reason: Constipation Hydromorphone HCl (Dilaudid) 0.5 mg IVP Q4HR PRN PRN Reason: Pain Last Admin: 05/22/19 09:34 Dose: 0.5 mg Documented by: Ceftriaxone Sodium 1 gm/ (Sodium Chloride) 50 mls @ 100 mls/hr IVPB Q24HR [facility] Last Admin: 05/22/19 09:32 Dose: 100 mls/hr Documented by: Albumin Human 50 ml/ IV (Solution) 50 mls @ 50 mls/hr IVPB TID [facility] Stop: 05/22/19 22:59 Last Admin: 05/22/19 14:23 Dose: 50 mls/hr Documented by: Lactulose (Cephulac) 20 gm PO DAILY [facility] Last Admin: 05/22/19 09:32 Dose: 20 gm Documented by: Midodrine (Proamatine) 5 mg PO TID [facility] Last Admin: 05/22/19 13:08 Dose: 5 mg Documented by: Multivitamins (Theragran) 1 each PO DAILY [facility] Last Admin: 05/22/19 09:34 Dose: 1 each Documented by: Patient's Own Med ( Benzoyl Peroxide Gel 10% 1 Applic) 1 applic TOPICAL HS [facility] Last Admin: 05/21/19 21:13 Dose: Not Given Documented by: Patient's Own Med ( Clindamycin Phosphate [Cleocin T ] 1 Applic) 1 applic TOPICAL BID [facility] Last Admin: 05/22/19 09:43 Dose: 1 applic Documented by: Octreotide Acetate (Sandostatin) 100 mcg SQ Q8H [facility] Last Admin: 05/22/19 13:09 Dose: 100 mcg Documented by: Oxycodone HCl (Oxyir) 5 mg PO Q8H PRN PRN Reason: Pain Last Admin: 05/22/19 13:09 Dose: 5 mg Documented by: Pantoprazole Sodium (Protonix) 40 mg PO AC-BRKFST [facility] Last Admin: 05/22/19 09:33 Dose: 40 mg Documented by: Rifaximin (Xifaxan) 550 mg PO BID [facility] Stop: 06/20/19 21:01 Last Admin: 05/22/19 09:32 Dose: 550 mg Documented by: Simethicone (Mylicon Chew) 80 mg PO ACHS [facility] Last Admin: 05/22/19 14:30 Dose: 80 mg Documented by: Sodium Bicarbonate (Sodium Bicarbonate Tab) 650 mg PO QID [facility] Last Admin: 05/22/19 14:24 Dose: 650 mg Documented by: Thiamine HCl (Vitamin B-1) 100 mg PO DAILY [facility] Last Admin: 05/22/19 09:34 Dose: 100 mg Documented by: Objective - Vital Signs Vital signs: Vital Signs Temp 98.3 F 05/22/19 11:28 Pulse 109 H 05/22/19 11:28 Resp 17 05/22/19 11:28 BP 93/62 05/22/19 11:28 Pulse Ox 94 L 05/22/19 11:28 Intake & Output 05/21/19 05/22/19 05/22/19 18:59 06:59 18:59 Intake Total 585 Balance 585 Weight 77.111 kg 77.111 kg Intake: Intake, IV Titration 585 Amount Sodium Chloride 0.9% 1, 585 000 ml @ 75 mls/hr IV . [id number] [facility] Rx#:[id number] Other: Voiding Method Bedpan Bedpan # Voids 1 - Exam GEN. APPEARANCE: Cachectic,not acute distress HEAD EXAM: atraumatic, normocephalic, normal inspection EYE EXAM: Mild pallor and mild icterus RESPIRATORY EXAM: normal lung sounds bilaterally. Decreased at the lower lung bases CARDIOVASCULAR EXAM: regular rate, normal rhythm, normal heart sounds. Absent: systolic murmur, diastolic murmur, rubs, gallop, clicks GI/ABDOMINAL EXAM: soft, distended. Severe Ascites. Fluid thrill positive. BS normal. Abdominal wall edema. EXTREMITIES EXAM: Bilateral pitting edema NEUROLOGICAL EXAM: alert, oriented X3, no focal deficits PSYCHIATRIC EXAM: normal affect, normal mood SKIN EXAM: warm, dry, intact, normal color. - Labs CBC & Chem 7: 05/21/19 23:28 05/22/19 05:52 Labs: Abnormal Lab Results - Last 24 Hours (Table) 05/21/19 05/21/19 05/21/19 Range/Units 15:27 15:27 15:27 WBC 13.5 H (3.8-10.6) k/uL RBC 2.92 L (3.80-5.40) m/uL Hgb 9.4 L D (11.4-16.0) gm/dL Hct 30.7 L (34.0-46.0) % MCV 104.9 H (80.0-100.0) fL MCHC 30.7 L (31.0-37.0) g/dL RDW 15.8 H (11.5-15.5) % Neutrophils # 11.1 H (1.3-7.7) k/uL Neutrophils # (Manual) (1.3-7.7) k/uL Metamyelocytes # (Man) (0) k/uL Nucleated RBCs (0-0) /100 WBC PT 17.8 H (9.0-12.0) sec INR 1.8 H (<1.2) APTT 34.4 H (22.0-30.0) sec Sodium 131 L (137-145) mmol/L Carbon Dioxide 21 L (22-30) mmol/L Creatinine 1.62 H (0.52-1.04) mg/dL Glucose 112 H (74-99) mg/dL Plasma Lactic Acid Hemanth (0.7-2.0) mmol/L Total Bilirubin 6.9 H (0.2-1.3) mg/dL AST 119 H (14-36) U/L Alkaline Phosphatase 292 H (38-126) U/L Ammonia (<30) umol/L Albumin 3.2 L (3.5-5.0) g/dL 05/21/19 05/21/19 05/21/19 Range/Units 15:27 17:32 19:15 WBC 13.1 H (3.8-10.6) k/uL RBC 2.31 L (3.80-5.40) m/uL Hgb 7.4 L D (11.4-16.0) gm/dL Hct 24.2 L (34.0-46.0) % MCV 104.8 H (80.0-100.0) fL MCHC 30.7 L (31.0-37.0) g/dL RDW 15.6 H (11.5-15.5) % Neutrophils # 10.4 H (1.3-7.7) k/uL Neutrophils # (Manual) (1.3-7.7) k/uL Metamyelocytes # (Man) (0) k/uL Nucleated RBCs (0-0) /100 WBC PT (9.0-12.0) sec INR (<1.2) APTT (22.0-30.0) sec Sodium (137-145) mmol/L Carbon Dioxide (22-30) mmol/L Creatinine (0.52-1.04) mg/dL Glucose (74-99) mg/dL Plasma Lactic Acid Hemanth 3.0 H* 2.9 H* (0.7-2.0) mmol/L Total Bilirubin (0.2-1.3) mg/dL AST (14-36) U/L Alkaline Phosphatase (38-126) U/L Ammonia (<30) umol/L Albumin (3.5-5.0) g/dL 05/21/19 05/22/19 05/22/19 Range/Units 23:28 05:52 07:31 WBC 13.7 H (3.8-10.6) k/uL RBC 2.55 L (3.80-5.40) m/uL Hgb 8.4 L (11.4-16.0) gm/dL Hct 27.2 L (34.0-46.0) % MCV 106.3 H (80.0-100.0) fL MCHC 30.8 L (31.0-37.0) g/dL RDW 15.7 H (11.5-15.5) % Neutrophils # (1.3-7.7) k/uL Neutrophils # (Manual) 11.50 H (1.3-7.7) k/uL Metamyelocytes # (Man) 0.14 H (0) k/uL Nucleated RBCs 1 H (0-0) /100 WBC PT (9.0-12.0) sec INR (<1.2) APTT (22.0-30.0) sec Sodium 134 L (137-145) mmol/L Carbon Dioxide 18 L (22-30) mmol/L Creatinine 1.74 H (0.52-1.04) mg/dL Glucose (74-99) mg/dL Plasma Lactic Acid Hemanth (0.7-2.0) mmol/L Total Bilirubin (0.2-1.3) mg/dL AST (14-36) U/L Alkaline Phosphatase (38-126) U/L Ammonia 48 H (<30) umol/L Albumin (3.5-5.0) g/dL Assessment and Plan Assessment: ASSESSMENT Severe Recurrent Ascites Possible SBP Alcoholic liver cirrhosis Portal HTN Lactic acidosis Acute kidney injury Mild protein calorie malnutrition PLAN:patient is getting paracentesis done. Almost 5 L of acetic fluid was removed. She has been getting IV albumin. Blood pressure has been maintaining in 80s by 50s. Patient looks comfortable in the bed. She has been started on octreotide and her Midodrine and has been increased. Ascetic fluid will be se nt for analysis. Overall prognosis is guarded. Further recommendations to follow depending on the progress of the patient.
[2019-05-22 16:22] LABS: Appearance,BF Clear; Color,BF Yellow
[2019-05-22 16:23] LABS: Nucleated Cells, Body Fluid 9 /uL; RBC, Body Fluid 3 /uL
[2019-05-22] MEDS: BENZOYL PEROXIDE 10% TOPICAL SCH (21:37)
[2019-05-23] MEDS: OCTREOTIDE 100 MCG/ML INJ SQ SCH ×3 (03:41→20:57)
[2019-05-23] MEDS: MIDODRINE 5 MG TAB PO SCH ×3 (05:00→17:58)
[2019-05-23] MEDS ORDERED: SODIUM CHLORIDE 0.9% 500 ML 250 ML IV ONE (05:34)
[2019-05-23] MEDS ORDERED: SODIUM CHLORIDE 0.9% 250 ML IV ONE (05:46)
[2019-05-23 07:32] LABS: INR 2.2 (<1.2); Prothrombin Time 21.3 sec (9.0-12.0)
[2019-05-23 08:09] LABS: Basophils % (A) 0 %; Eosinophils # (A) 0.1 k/uL (0-0.7); Eosinophils % (A) 1 %; HCT 20.9 % (34.0-46.0); Hypochromasia Marked; Lymphocytes # (A) 1.8 k/uL (1.0-4.8); Lymphocytes % (A) 16 %; MCH 32.2 pg (25.0-35.0); MCHC 31.6 g/dL (31.0-37.0); Macrocytosis Slight; Mean Platelet Volume 8.8; Monocytes # (A) 0.9 k/uL (0-1.0); Monocytes % (A) 8 %; Neutrophils # (A) 7.9 k/uL (1.3-7.7); Neutrophils % (A) 72 %; Platelet Count 169 k/uL (150-450); Poikilocytosis Slight; RBC 2.04 m/uL (3.80-5.40); RDW 15.7 % (11.5-15.5); WBC 10.9 k/uL (3.8-10.6)
[2019-05-23 08:10] LABS: Albumin 2.2 g/dL (3.5-5.0); Calcium 8.1 mg/dL (8.4-10.2); Potassium 4.9 mmol/L (3.5-5.1); Total Bilirubin 7.2 mg/dL (0.2-1.3); Total Protein 5.2 g/dL (6.3-8.2)
[2019-05-23 08:13] LABS: HGB 6.6 gm/dL (11.4-16.0)
[2019-05-23] MEDS: LACTULOSE 20 GM/30 ML CUP PO SCH (08:40)
[2019-05-23] MEDS: SODIUM BICARBONATE TAB 650 MG TAB PO SCH ×4 (08:40→21:00)
[2019-05-23] MEDS: SIMETHICONE 80 MG CHEWABLE PO SCH ×4 (08:40→21:00)
[2019-05-23] MEDS: CLINDAMYCIN PHOSPHATE TOPICAL SCH ×2 (08:41→20:58)
[2019-05-23] MEDS: PANTOPRAZOLE 40 MG TABLET PO SCH (08:41)
[2019-05-23] MEDS: MULTIVITAMINS, THERA 1 EACH TAB PO SCH (08:41)
[2019-05-23] MEDS: RIFAXIMIN 550 MG TABLET PO SCH ×2 (08:42→21:00)
[2019-05-23] MEDS: THIAMINE 100 MG TAB PO SCH (08:42)
[2019-05-23] MEDS ORDERED: MIDODRINE 5 MG TAB PO ONE (09:15)
--- NOTE | 2019-05-23 09:49 | P.PN ---
Subjective Patient is seen in follow-up for acute kidney injury. Renal function is worsening. Creatinine 2.17 today. She underwent paracentesis with 7.8 L d rained on May 22. Blood pressure is running low in the systolic 60s to 80s. Patient denies chest pain. Feels her abdomen is swelling up again. Hemoglobin 6.6 today. Denies any active bleeding. Vital signs are stable. Blood pressure low. General: The patient appeared well nourished and normally developed. HEENT: Head exam is unremarkable. Neck is without jugular venous distension. LUNGS: Lungs are clear to auscultation and percussion. Breath sounds decreased. HEART: Rate and Rhythm are regular. First and second heart sounds normal. No murmurs, rubs or gallops. ABDOMEN: Abdominal exam reveals normal bowel sounds. Distention noted. EXTREMITITES: 2+ edema. Objective - Vital Signs Vital signs: Vital Signs Temp 98.0 F 05/23/19 04:10 Pulse 101 H 05/23/19 09:09 Resp 18 05/23/19 08:00 BP 81/48 05/23/19 09:09 Pulse Ox 96 05/23/19 04:10 Intake & Output 05/22/19 05/23/19 05/23/19 18:59 06:59 18:59 Intake Total 50 590 Output Total 7850 Balance -7800 590 Weight 77.111 kg Intake: Intake, IV Titration 50 Amount Albumin Human 25% 50 ml 50 In Empty Bag 1 bag @ 50 mls/hr IVPB TID [facility] Rx#: [id number] Oral 590 Output: Drainage 7850 Right Lower Abdomen 7850 Other: Voiding Method Bedpan Bedside Commode # Voids 1 - Labs CBC & Chem 7: 05/23/19 06:56 05/23/19 06:56 Labs: Abnormal Lab Results - Last 24 Hours (Table) 05/23/19 05/23/19 05/23/19 Range/Units 06:56 06:56 06:56 WBC 10.9 H (3.8-10.6) k/uL RBC 2.04 L (3.80-5.40) m/uL Hgb 6.6 L* D (11.4-16.0) gm/dL Hct 20.9 L (34.0-46.0) % MCV 102.0 H (80.0-100.0) fL RDW 15.7 H (11.5-15.5) % Neutrophils # 7.9 H (1.3-7.7) k/uL PT 21.3 H (9.0-12.0) sec INR 2.2 H (<1.2) Sodium 131 L (137-145) mmol/L Carbon Dioxide 17 L (22-30) mmol/L Creatinine 2.17 H (0.52-1.04) mg/dL Glucose 110 H (74-99) mg/dL Calcium 8.1 L (8.4-10.2) mg/dL Total Bilirubin 7.2 H (0.2-1.3) mg/dL AST 69 H (14-36) U/L Alkaline Phosphatase 138 H (38-126) U/L Total Protein 5.2 L (6.3-8.2) g/dL Albumin 2.2 L (3.5-5.0) g/dL Microbiology - Last 24 Hours (Table) 05/22/19 13:57 Gram Stain - Preliminary Peritoneal Fluid Body Fluid Culture - Preliminary 05/21/19 17:30 Blood Culture - Preliminary Blood No Growth after 24 hours Assessment and Plan Plan: Assessment: 1. Acute kidney injury secondary to ATN secondary to hypotension and anemia. Creatinine 2.17 today. 2. Liver cirrhosis. Alcohol induced. 3. Hypervolemic hyponatremia. 4. Metabolic acidosis secondary to acute kidney injury as well as compensatory for respiratory alkalosis due to decompensated liver failure. 5. Ascites status post paracentesis on May 22 was 7.8 L drained. 6. Acute blood loss anemia scheduled for blood transfusion today. Plan: Increase midodrine to 10 mg 3 times daily. 25 g IV albumin twice daily. Hold off on diuretics today. Transfuse 1 unit of packed red cells today. Maintain oral sodium bicarbonate. Maintain octreotide. Check urinalysis and renal ultrasound. Check urine and serum osmolality and urine random sodium. 1200 mL fluid restriction and low-salt diet.
[2019-05-23] MEDS: ALBUMIN HUMAN 25% 50 ML in EMPTY BAG 1 BAG IVPB SCH ×4 (10:09→19:11)
[2019-05-23 11:46] LABS: Appearance,Urine Clear (Clear); Bilirubin,Urine Negative (Negative); Blood,Urine Negative (Negative); Color,Urine Dark Yellow; Glucose,Urine (UA) Negative (Negative); Ketones,Urine Negative (Negative); Leukocyte Esterase,Urine Negative (Negative); Nitrite,Urine Negative (Negative); Protein,Urine Trace (Negative); Specific Gravity,Urine 1.016 (1.001-1.035); Urobilinogen,Urine <2.0 mg/dL (<2.0)
[2019-05-23 13:01] LABS: Albumin, Fluid Source Ascites
--- NOTE | 2019-05-23 16:48 | US ---
EXAMINATION TYPE: US kidneys/renal and bladder DATE OF EXAM: 05/23/2019 COMPARISON: US 2017 CLINICAL HISTORY: anya. ANYA, exam done portable. EXAM MEASUREMENTS: Right Kidney: 10.8 x 4.6 x 5.2 cm Left Kidney: 11.2 x 5.8 x 4.6 cm Right Kidney: no hydronephrosis or masses seen Left Kidney: no hydronephrosis or masses seen, super pole limited by overlying bowel gas Bladder: wnl Bilateral Jets seen: no Abdominal ascites seen There is no evidence for hydronephrosis at this point in time. No nephrolithiasis is seen. No lynn s are identified. The urinary bladder is anechoic. Cortical medullary differentiation is maintained. IMPRESSION: Ascites. Renal sizes as described.
--- NOTE | 2019-05-23 17:34 | PN ---
PROGRESS NOTE DATE OF DICTATION: 05/23/2019 The patient is a 44-year-old pleasant white female with history of alcoholic cirrhosis of the liver with refractory ascites who had a recent hospitalization at [facility] for almost a week when she presented with GI bleed, ascites, anemia. She was admitted to [facility] yesterday with abdominal pain and severe abdominal distention from the rehab place. She was started on empiric antibiotics for possible spontaneous bacterial peritonitis. She also underwent large-volume paracentesis for tense ascites and 7.8 L of fluid was aspirated. Fluid analysis showed cell count was 9, albumin was less than 1, and RBC was 3. It was clear. Cultures are still pending. She continues to complain of abdominal pain. She dropped her hemoglobin to 6.6 g/dL. She denies any bleeding. She reports no nausea, vomiting. She did have EGD and colonoscopy at [facility], results of which are not available at the time of this dictation. PHYSICAL EXAMINATION: She appears comfortable. No apparent distress. VITAL SIGNS: Stable. Blood pressure is 81/49, pulse rate 94, temperature 97.3. HEENT examination unremarkable. Conjunctivae pink. Sclerae icteric. Oral cavity no lesions. NECK: No JVD or lymph node enlargement. CHEST: Clear to auscultation. HEART: Regular rate and rhythm. ABDOMEN: Soft. There was some free fluid noted in the abdomen, but it was less tense than yesterday. There was mild diffuse tenderness noted. EXTREMITIES: Two plus pedal edema. SKIN: No rashes. NEUROLOGIC: She is awake. Alert and oriented x3. No focal deficits. LABS: Labs done today show WBC 10.9, hemoglobin 6.6. Platelets are 169. INR is 2.2. BUN is 15, creatinine 2.17. T-bilirubin is 7.2, AST 69, ALT 38, alkaline phosphatase 132. Albumin is 2.2. IMPRESSION: 1. Alcoholic cirrhosis of the liver, portal hypertension and ascites with advanced liver disease. Recent hospitalization at [facility] a week ago, at which time she had endoscopic evaluation as well as paracentesis done. 2. Tense ascites, status post large-volume paracentesis; 7.8 liters of fluid was aspirated yesterday. Cell count does not show evidence of SBP, but patient was already empirically started on Rocephin yesterday morning. 3. Acute kidney injury, for which Nephrology is following the patient closely. She is started on midodrine, Sandostatin and albumin infusions. Diuretics are on hold because of worsening creatinine. 4. Coagulopathy secondary to underlying advanced liver disease. 5. Anemia requiring blood transfusion. Clinically no evidence of active bleeding. She is status post endoscopic evaluation at [facility] a week ago. Records not available at the time of this dictation. RECOMMENDATIONS: I had a lengthy discussion with the patient as well as the family at the bedside. They are requesting for the patient to be transferred to a tertiary care institute at [facility], and this information was related to the admitting physician. In the meantime, we will continue with symptomatic and supportive care. Appreciate nephrology consultation. Agree with PRBC transfusion. Will follow with you closely during her hospital stay. Thank you for this consultation. VANESSA / BALDON: [id number] /
--- NOTE | 2019-05-23 20:39 | P.PN ---
Subjective Progress Note Date: 05/23/19 Principal diagnosis: Massive ascites Ms. Allen is a 44-year-old female with a medical history significant for alcoholism, anxiety, depression, nicotine dependence, and alcoholic liver cirrhosis, recurrent ascites who presented to the hospital complaining that she's had her abdomen drained a few times because of ascites and now it is extremely distended and she believes she needs her abdomen drained again. Patient states it is very tender when he gets this large. Patient also states she has quite a bit of edema to her feet. Patient denies any fever chills. Thaddeus linder states her abdomen is tender but it is always tender. Patient denies any chest pain difficulty breathing shortest breath. Patient denies any headache patient denies numbness weakness. Patient reports a history of at least 10 years of excessive alcohol drinking. She reports that she was trying to cut down in the outpatient setting by weaning herself off of the alcohol. She reports that she has had abdominal pain described as diffuse and sharp in the epigastric region of her abdomen and achy in the left lower quadrant of her abdomen. Pain is waxing and waning in intensity, constant overall. She reports no associated nausea and vomiting. Initially she was reporting loose stool but today she reports normal bowel movements and decreased flatus. In the ED her labs are consistent with Chronic liver disease. She has been admitted for Paracentesis. On 05/22/2019 - patient is getting her paracentesis done. She had almost 7-8 L of acetic fluid removed until now. She has been getting IV albumin. Her blood pressure has been maintaining her around 80 by 50s. Patient states that she has significant improvement in her abdominal pain and also that her breathing is better.she has been seen by GI Dr. Rueda and nephrology Dr. Ndiaye.The dose of her midodrine has been increased and she has been started on octreotide. On 05/23/2019-patient has been trying to urinate, but not able to be pee. Bladder scan showed 350 mL of urine, so the patient was straight cathed. Patient's blood pressure is still running on the lower side and her map has been above 65. Creatinine has trended up. Patient mentions that she feels her abdomen is filling up again. Had hemoglobin has been low at 6.6. No evidence of any active bleeding. Patient denies having any chest pain or difficulty in breathing. No headache, dizziness, visual changes. She continues to have lower extremity swelling. Labs done this morning consistent with advanced liver disease. No signs of hep atic encephalopathy. Patient is alert awake and oriented 4. Active Medications Al Hydroxide/Mg Hydroxide (Maalox) 15 ml PO Q6H PRN PRN Reason: Constipation Hydromorphone HCl (Dilaudid) 0.5 mg IVP Q4HR PRN PRN Reason: Pain Last Admin: 05/22/19 17:49 Dose: 0.5 mg Documented by: Ceftriaxone Sodium 1 gm/ (Sodium Chloride) 50 mls @ 100 mls/hr IVPB Q24HR [facility] Last Admin: 05/23/19 08:40 Dose: 100 mls/hr Documented by: Albumin Human 50 ml/ IV (Solution) 50 mls @ 50 mls/hr IVPB BID@0900,1800 [facility] Albumin Human 50 ml/ IV (Solution) 50 mls @ 50 mls/hr IVPB BID@1000,1900 [facility] Lactulose (Cephulac) 20 gm PO DAILY [facility] Last Admin: 05/23/19 08:40 Dose: 20 gm Documented by: Midodrine (Proamatine) 10 mg PO AC-TID [facility] Last Admin: 05/23/19 12:37 Dose: 10 mg Documented by: Multivitamins (Theragran) 1 each PO DAILY [facility] Last Admin: 05/23/19 08:41 Dose: 1 each Documented by: Patient's Own Med ( Benzoyl Peroxide Gel 10% 1 Applic) 1 applic TOPICAL HS [facility] Last Admin: 05/22/19 21:37 Dose: Not Given Documented by: Patient's Own Med ( Clindamycin Phosphate [Cleocin T ] 1 Applic) 1 applic TOPICAL BID [facility] Last Admin: 05/23/19 08:41 Dose: 1 applic Documented by: Octreotide Acetate (Sandostatin) 100 mcg SQ Q8H [facility] Last Admin: 05/23/19 12:37 Dose: 100 mcg Documented by: Oxycodone HCl (Oxyir) 5 mg PO Q8H PRN PRN Reason: Pain Last Admin: 05/23/19 15:42 Dose: 5 mg Documented by: Pantoprazole Sodium (Protonix) 40 mg PO AC-BRKFST [facility] Last Admin: 05/23/19 08:41 Dose: 40 mg Documented by: Rifaximin (Xifaxan) 550 mg PO BID [facility] Stop: 06/20/19 21:01 Last Admin: 05/23/19 08:42 Dose: 550 mg Documented by: Simethicone (Mylicon Chew) 80 mg PO ACHS [facility] Last Admin: 05/23/19 12:37 Dose: 80 mg Documented by: Sodium Bicarbonate (Sodium Bicarbonate Tab) 650 mg PO QID [facility] Last Admin: 05/23/19 12:37 Dose: 650 mg Documented by: Thiamine HCl (Vitamin B-1) 100 mg PO DAILY [facility] Last Admin: 05/23/19 08:42 Dose: 100 mg Documented by: Objective - Vital Signs Vital signs: Vital Signs Temp 97.3 F L 05/23/19 14:40 Pulse 94 05/23/19 14:40 Resp 18 05/23/19 14:40 BP 81/49 05/23/19 14:40 Pulse Ox 96 05/23/19 04:10 Intake & Output 05/22/19 05/23/19 05/23/19 18:59 06:59 18:59 Intake Total 50 590 940 Output Total 7850 350 Balance -7800 590 590 Weight 77.111 kg Intake: Intake, IV Titration 50 150 Amount Albumin Human 25% 50 ml 50 100 In Empty Bag 1 bag @ 50 mls/hr IVPB TID [facility] Rx#: [id number] cefTRIAXone 1 gm In 50 Sodium Chloride 0.9% 50 ml @ 100 mls/hr IVPB Q24HR [facility] Rx#:[id number] Oral 590 480 Blood Product 310 Rc As-1 Unit 310 [id number] Output: Drainage 7850 Right Lower Abdomen 7850 Urine 350 Straight 350 Other: Voiding Method Bedpan Bedside Commode # Voids 1 # Bowel Movements 2 - Exam GEN. APPEARANCE: Cachectic,not acute distress HEAD EXAM: atraumatic, normocephalic, normal inspection EYE EXAM: Mild pallor and mild icterus RESPIRATORY EXAM: normal lung sounds bilaterally. Decreased at the lower lung bases CARDIOVASCULAR EXAM: Tachycardia. S1 and S2 heard. GI/ABDOMINAL EXAM: soft, distended. Severe Ascites. Abdominal wall edema. EXTREMITIES EXAM: Bilateral pitting edema up to the mid thigh region NEUROLOGICAL EXAM: alert, oriented X3, no focal deficits PSYCHIATRIC EXAM: normal affect, normal mood SKIN EXAM: warm, dry, intact, normal color. - Labs CBC & Chem 7: 05/23/19 06:56 05/23/19 06:56 Labs: Abnormal Lab Results - Last 24 Hours (Table) 05/23/19 05/23/19 05/23/19 Range/Units 06:56 06:56 06:56 WBC 10.9 H (3.8-10.6) k/uL RBC 2.04 L (3.80-5.40) m/uL Hgb 6.6 L* D (11.4-16.0) gm/dL Hct 20.9 L (34.0-46.0) % MCV 102.0 H (80.0-100.0) fL RDW 15.7 H (11.5-15.5) % Neutrophils # 7.9 H (1.3-7.7) k/uL PT 21.3 H (9.0-12.0) sec INR 2.2 H (<1.2) Sodium 131 L (137-145) mmol/L Carbon Dioxide 17 L (22-30) mmol/L Creatinine 2.17 H (0.52-1.04) mg/dL Glucose 110 H (74-99) mg/dL Osmolality (280-301) mosm/kg Calcium 8.1 L (8.4-10.2) mg/dL Total Bilirubin 7.2 H (0.2-1.3) mg/dL AST 69 H (14-36) U/L Alkaline Phosphatase 138 H (38-126) U/L Total Protein 5.2 L (6.3-8.2) g/dL Albumin 2.2 L (3.5-5.0) g/dL Urine Protein (Negative) Crossmatch 05/23/19 05/23/19 05/23/19 Range/Units 09:16 11:10 15:10 WBC (3.8-10.6) k/uL RBC (3.80-5.40) m/uL Hgb (11.4-16.0) gm/dL Hct (34.0-46.0) % MCV (80.0-100.0) fL RDW (11.5-15.5) % Neutrophils # (1.3-7.7) k/uL PT (9.0-12.0) sec INR (<1.2) Sodium (137-145) mmol/L Carbon Dioxide (22-30) mmol/L Creatinine (0.52-1.04) mg/dL Glucose (74-99) mg/dL Osmolality 273 L (280-301) mosm/kg Calcium (8.4-10.2) mg/dL Total Bilirubin (0.2-1.3) mg/dL AST (14-36) U/L Alkaline Phosphatase (38-126) U/L Total Protein (6.3-8.2) g/dL Albumin (3.5-5.0) g/dL Urine Protein Trace H (Negative) Crossmatch See Detail Microbiology - Last 24 Hours (Table) 05/22/19 13:57 Gram Stain - Preliminary Peritoneal Fluid Body Fluid Culture - Preliminary 05/21/19 17:30 Blood Culture - Preliminary Blood No Growth after 24 hours Assessment and Plan Assessment: ASSESSMENT Severe Recurrent Ascites Possible SBP Advanced liver disease Alcoholic liver cirrhosis Anemia due to liver disease Portal HTN Lactic acidosis Acute kidney injury Severe protein calorie malnutrition PLAN: Patient had 7.3 L of acetic fluid drained yesterday. Patient's blood pressure has been running on the lower side. She has been getting midodrine and IV albumin twice daily. Nephrology and GI on board and following the patient. As the patient's hemoglobin dropped to 6.6, she is being transfused with 1 unit of PRBCs. No signs of active bleeding. No signs of hepatic encephalopathy. The patient and her mother wants the patient to be transferred to [facility]. Explained to her that we will try to contact [facility] tomorrow morning, when the assistant case manager is available for transfer, as she is currently stable. Discussed with Dr. Rueda over the phone and she is okay with the current plan. Overall prognosis is guarded. Discussed with the patient regarding the current plan and she is okay with it. Further recommendations to follow depending on the progress of the patient.
[2019-05-23] MEDS: BENZOYL PEROXIDE 10% TOPICAL SCH (21:00)
[2019-05-24] MEDS: OCTREOTIDE 100 MCG/ML INJ SQ SCH ×3 (04:22→20:50)
[2019-05-24] MEDS: MIDODRINE 5 MG TAB PO SCH ×3 (08:22→18:05)
[2019-05-24] MEDS: SIMETHICONE 80 MG CHEWABLE PO SCH ×4 (08:22→20:53)
[2019-05-24] MEDS: PANTOPRAZOLE 40 MG TABLET PO SCH (08:22)
[2019-05-24] MEDS: MULTIVITAMINS, THERA 1 EACH TAB PO SCH (08:22)
[2019-05-24] MEDS: SODIUM BICARBONATE TAB 650 MG TAB PO SCH ×4 (08:22→20:52)
[2019-05-24] MEDS: THIAMINE 100 MG TAB PO SCH (08:22)
[2019-05-24] MEDS: LACTULOSE 20 GM/30 ML CUP PO SCH ×2 (08:22→20:52)
[2019-05-24] MEDS: RIFAXIMIN 550 MG TABLET PO SCH ×2 (08:23→20:52)
[2019-05-24] MEDS: CLINDAMYCIN PHOSPHATE TOPICAL SCH ×2 (08:23→21:06)
[2019-05-24 08:25] LABS: Calcium 8.1 mg/dL (8.4-10.2); Magnesium 1.6 mg/dL (1.6-2.3); Potassium 3.3 mmol/L (3.5-5.1)
[2019-05-24] MEDS ORDERED: POTASSIUM CHLORIDE ER 20 MEQ TAB.ER PO STA (08:30)
--- NOTE | 2019-05-24 08:36 | P.PN ---
Subjective Patient is seen in follow-up for acute kidney injury. Renal function is worsening. Creatinine 2.5 today. She underwent paracentesis with 7.8 L drained on May 22. Blood pressure running in systolic 80-90s. Patient denies chest pain. Feels her abdomen is swelling up again. No active bleeding. No significant urine output overnight. Vital signs are stable. Blood pressure low. General: The patient appeared well nourished and normally developed. HEENT: Head exam is unremarkable. Neck is without jugular venous distension. LUNGS: Lungs are clear to auscultation and percussion. Breath sounds decreased. HEART: Rate and Rhythm are regular. First and second heart sounds normal. No murmurs, rubs or gallops. ABDOMEN: Abdominal exam reveals normal bowel sounds. Distention noted. EXTREMITITES: 2+ edema. Objective - Vital Signs Vital signs: Vital Signs Temp 97.5 F L 05/24/19 08:08 Pulse 92 05/24/19 08:08 Resp 14 05/24/19 08:08 BP 92/52 05/24/19 08:08 Pulse Ox 95 05/24/19 08:08 Intake & Output 05/23/19 05/24/19 05/24/19 18:59 06:59 18:59 Intake Total 1060 290 Output Total 350 Balance 710 290 Weight 82.5 kg Intake: Intake, IV Titration 150 50 Amount Albumin Human 25% 50 ml 50 In Empty Bag 1 bag @ 50 mls/hr IVPB BID@1000,1900 [facility] Rx#:[id number] Albumin Human 25% 50 ml 100 In Empty Bag 1 bag @ 50 mls/hr IVPB TID [facility] Rx#: [id number] cefTRIAXone 1 gm In 50 Sodium Chloride 0.9% 50 ml @ 100 mls/hr IVPB Q24HR [facility] Rx#:[id number] Oral 600 240 Blood Product 310 Rc As-1 Unit 310 [id number] Output: Urine 350 Straight 350 Other: Voiding Method Bedside Commode Bedpan # Bowel Movements 1 2 - Labs CBC & Chem 7: 05/23/19 06:56 05/24/19 07:27 Labs: Abnormal Lab Results - Last 24 Hours (Table) 05/23/19 05/23/19 05/23/19 Range/Units 09:16 11:10 15:10 Sodium (137-145) mmol/L Potassium (3.5-5.1) mmol/L Carbon Dioxide (22-30) mmol/L Creatinine (0.52-1.04) mg/dL Glucose (74-99) mg/dL Osmolality 273 L (280-301) mosm/kg Calcium (8.4-10.2) mg/dL Urine Protein Trace H (Negative) Crossmatch See Detail 05/24/19 Range/Units 07:27 Sodium 132 L (137-145) mmol/L Potassium 3.3 L (3.5-5.1) mmol/L Carbon Dioxide 20 L (22-30) mmol/L Creatinine 2.50 H (0.52-1.04) mg/dL Glucose 104 H (74-99) mg/dL Osmolality (280-301) mosm/kg Calcium 8.1 L (8.4-10.2) mg/dL Urine Protein (Negative) Crossmatch Microbiology - Last 24 Hours (Table) 05/21/19 17:30 Blood Culture - Preliminary Blood No Growth after 48 hours Assessment and Plan Plan: Assessment: 1. Acute kidney injury secondary to ATN secondary to hypotension and anemia with concern for hepatorenal syndrome as a. Creatinine 2.5 today. No hydronephrosis noted on kidney ultrasound. UA is quite benign. No evidence of urinary retention. 2. Liver cirrhosis. Alcohol induced. 3. Hypervolemic hyponatremia. Low urine sodium fits with hepatorenal syndrome. 4. Metabolic acidosis secondary to acute kidney injury as well as compensatory for respiratory alkalosis due to decompensated liver failure. 5. Ascites status post paracentesis on May 22 was 7.8 L drained. 6. Acute blood loss anemia status post blood transfusion. No active bleeding noted. 7. Hypokalemia from poorly intake. Plan: Maintain midodrine 10 mg 3 times daily. 25 g IV albumin twice daily. Hold off on diuretics due to hypotension. Maintain oral sodium bicarbonate. Maintain octreotide. 1200 mL fluid restriction and low-salt diet. Potential transfer to [facility] per family request. Will need another paracentesis soon. Replace potassium and magnesium.
[2019-05-24 08:51] LABS: Anisocytosis Slight; Basophils # (A) 0.2 k/uL (0-0.2); Basophils % (A) 2 %; Eosinophils # (A) 0.2 k/uL (0-0.7); Eosinophils % (A) 2 %; HCT 23.4 % (34.0-46.0); HGB 7.6 gm/dL (11.4-16.0); Hypochromasia Marked; Lymphocytes # (A) 1.5 k/uL (1.0-4.8); Lymphocytes % (A) 14 %; MCH 32.5 pg (25.0-35.0); MCHC 32.3 g/dL (31.0-37.0); MCV 100.5 fL (80.0-100.0); Macrocytosis Slight; Mean Platelet Volume 9.2; Monocytes # (A) 0.8 k/uL (0-1.0); Monocytes % (A) 7 %; Neutrophils # (A) 7.9 k/uL (1.3-7.7); Neutrophils % (A) 73 %; Platelet Count 138 k/uL (150-450); Poikilocytosis Slight; RBC 2.33 m/uL (3.80-5.40); RDW 17.3 % (11.5-15.5); WBC 10.8 k/uL (3.8-10.6)
[2019-05-24] MEDS: ALBUMIN HUMAN 25% 50 ML in EMPTY BAG 1 BAG IVPB SCH ×4 (09:34→19:35)
[2019-05-24 09:50] LABS: Polychromasia Present; Target Cells Present
[2019-05-24] MEDS: MAGNESIUM SULFATE-D5W PMX 1 GM in DEXTROSE/WATER 1 100ML.BAG IVPB SCH ×2 (11:40→12:55)
--- NOTE | 2019-05-24 14:47 | P.PN ---
Subjective 44-year-old female with a medical history significant for alcoholism, anxiety, depression, nicotine dependence, and alcoholic liver cirrhosis, recurrent ascites who presented to the hospital complaining that she's had her abdomen drained a few times because of ascites and now it is extremely distended and she believes she needs her abdomen drained again. Patient states it is very tender when he gets this large. Patient also states she has quite a bit of edema to her feet. Patient denies any fever chills. Patient states her abdomen is tender but it is always tender. Patient denies any chest pain difficulty breathing shortest breath. Patient denies any headache patient denies numbness weakness. Patient reports a history of at least 10 years of excessive alcohol drinking. She reports that she was trying to cut down in the outpatient setting by weaning herself off of the alcohol. She reports that she has had abdominal pain described as diffuse and sharp in the epigastric region of her abdomen and achy in the left lower quadrant of her abdomen. Pain is waxing and waning in intensity, constant overall. She reports no associated nausea and vomiting. Initially she was reporting loose stool but today she reports normal bowel movements and decreased flatus. In the ED her labs are consistent with Chronic liver disease. She has been admitted for Paracentesis. On 05/22/2019 - patient is getting her paracentesis done. She had almost 7-8 L of acetic fluid removed until now. She has been getting IV albumin. Her blood pressure has been maintaining her around 80 by 50s. Patient states that she has significant improvement in her abdominal pain and also that her breathing is better.she has been seen by GI Dr. Rueda and nephrology Dr. Ndiaye.The dose of her midodrine has been increased and she has been started on octreotide. On 05/23/2019-patient has been trying to urinate, but not able to be pee. Bladder scan showed 350 mL of urine, so the patient was straight cathed. Patient's blood pressure is still running on the lower side and her map has been above 65. Creatinine has trended up. Patient mentions that she feels her abdomen is filling up again. Had hemoglobin has been low at 6.6. No evidence of any active bleeding. Patient denies having any chest pain or difficulty in breathing. No headache, dizziness, visual changes. She continues to have lower extremity swelling. Labs done this morning consistent with advanced liver disease. No signs of hepatic encephalopathy. Patient is alert awake and oriented 4. 05/24/2019 Patient is Still complaining of some diffuse abdominal tenderness patient started having ascites again area there is no evidence of spontaneous bacterial peritonitis as as per paracentesis and acetic fluid analysis. Patient also remains on antibiotics and patient kidney function continued to worsen because of which diuretics are being discontinued patient prognosis is extremely poor because of advanced liver disease patient's meld score is high. Family requested transfer the patient was to [place] discussed with the physician at [facility] who is agreeable for will transfer for hepatology care. Patient is on transfer list will obtain was to [place]. Patient started making urine, nursing staff is doing straight catheterization now. No evidence of hepatic encephalopathy at this time. Patient does have cardiorenal syndrome. Patient is receiving albumin octreotide and midodrine blood pressure is in systolics of 90s. Constitutional: Severely fatigued depressed Cardio vascular: denied any chest pain, palpitations Gastrointestinal denied any nausea vomiting Pulmonary: Denied any shortness of breath cough Neurologic denied any new focal deficits All inpatient medications were reviewed and appropriate changes in these medications as dictated in the interval history and assessment and plan. Objective - Vital Signs Vital signs: Vital Signs Temp 97.7 F 05/24/19 12:04 Pulse 87 05/24/19 12:04 Resp 14 05/24/19 12:04 BP 89/51 05/24/19 12:04 Pulse Ox 96 05/24/19 12:04 Intake & Output 05/23/19 05/24/19 05/24/19 18:59 06:59 18:59 Intake Total 1060 290 240 Output Total 350 250 Balance 710 290 -10 Weight 82.5 kg Intake: Intake, IV Titration 150 50 Amount Albumin Human 25% 50 ml 50 In Empty Bag 1 bag @ 50 mls/hr IVPB BID@1000,1900 [facility] Rx#:[id number] Albumin Human 25% 50 ml 100 In Empty Bag 1 bag @ 50 mls/hr IVPB TID [facility] Rx#: [id number] cefTRIAXone 1 gm In 50 Sodium Chloride 0.9% 50 ml @ 100 mls/hr IVPB Q24HR [facility] Rx#:[id number] Oral 600 240 240 Blood Product 310 Rc As-1 Unit 310 [id number] Output: Urine 350 250 Straight 350 250 Other: Voiding Method Bedside Commode Bedpan # Bowel Movements 1 2 - Exam GEN. APPEARANCE: Cachectic,not acute distress HEAD EXAM: atraumatic, normocephalic, normal inspection EYE EXAM: Mild pallor and mild icterus RESPIRATORY EXAM: normal lung sounds bilaterally. Decreased at the lower lung bases CARDIOVASCULAR EXAM: Tachycardia. S1 and S2 heard. GI/ABDOMINAL EXAM: soft, distended. Severe Ascites. Abdominal wall edema. EXTREMITIES EXAM: Bilateral pitting edema up to the mid thigh region NEUROLOGICAL EXAM: alert, oriented X3, no focal deficits PSYCHIATRIC EXAM: normal affect, normal mood SKIN EXAM: warm, dry, intact, normal color. - Labs CBC & Chem 7: 05/24/19 07:27 05/24/19 07:27 Labs: Abnormal Lab Results - Last 24 Hours (Table) 05/23/19 05/23/19 05/24/19 Range/Units 09:16 15:10 07:27 WBC (3.8-10.6) k/uL RBC (3.80-5.40) m/uL Hgb (11.4-16.0) gm/dL Hct (34.0-46.0) % MCV (80.0-100.0) fL RDW (11.5-15.5) % Plt Count (150-450) k/uL Neutrophils # (1.3-7.7) k/uL Sodium 132 L (137-145) mmol/L Potassium 3.3 L (3.5-5.1) mmol/L Carbon Dioxide 20 L (22-30) mmol/L Creatinine 2.50 H (0.52-1.04) mg/dL Glucose 104 H (74-99) mg/dL Osmolality 273 L (280-301) mosm/kg Calcium 8.1 L (8.4-10.2) mg/dL Crossmatch See Detail 05/24/19 Range/Units 07:27 WBC 10.8 H (3.8-10.6) k/uL RBC 2.33 L (3.80-5.40) m/uL Hgb 7.6 L (11.4-16.0) gm/dL Hct 23.4 L (34.0-46.0) % MCV 100.5 H (80.0-100.0) fL RDW 17.3 H (11.5-15.5) % Plt Count 138 L (150-450) k/uL Neutrophils # 7.9 H (1.3-7.7) k/uL Sodium (137-145) mmol/L Potassium (3.5-5.1) mmol/L Carbon Dioxide (22-30) mmol/L Creatinine (0.52-1.04) mg/dL Glucose (74-99) mg/dL Osmolality (280-301) mosm/kg Calcium (8.4-10.2) mg/dL Crossmatch Microbiology - Last 24 Hours (Table) 05/21/19 17:30 Blood Culture - Preliminary Blood No Growth after 48 hours Assessment and Plan Plan: Severe Recurrent Ascites is status post removal of 7.3 L of for peritoneal fluid no evidence of spontaneous bacterial peritonitis Low possibility of spontaneous bacterial peritonitis Advanced liver disease Alcoholic liver cirrhosis Anemia due to liver disease: Received 1 unit of PRBC transfusion Portal HTN Lactic acidosis Acute kidney injury Severe protein calorie malnutrition -Cardiorenal syndrome: Patient is off Lasix kidney function continued to worse, patient is admitted and, acute right. Discussed with the hospitalist he was to [place] further plan as mentioned in the interval history.
--- NOTE | 2019-05-24 17:42 | PN ---
PROGRESS NOTE DATE OF DICTATION: 05/24/2019 The patient is a 44-year-old white female with history of alcoholic cirrhosis of the liver with superimposed acute alcoholic hepatitis, admitted to the hospital with abdominal distention, abdominal pain, not feeling well for the last few days' duration. She was just discharged from [facility] about a week ago, where she was admitted for the same. She underwent large-volume paracentesis and 8 liters of fluid was aspirated 2 days ago. Today she still complains of abdominal pain and progressively worsening abdominal distention. No fever, chills or night sweats. She has decreased urine output. PHYSICAL EXAMINATION: She appears comfortable. No apparent distress. VITAL SIGNS: Stable. Blood pressure is 89/51, pulse rate 87, temperature 97.7. HEENT examination unremarkable. Conjunctivae pink. Sclerae anicteric. Oral cavity no lesions. NECK: No JVD or lymph node enlargement. CHEST: Clear to auscultation. HEART: Regular rate and rhythm. ABDOMEN: Distended. Tympanitic. There was diffuse tenderness noted. Free fluid noted. EXTREMITIES: Three plus pedal edema. SKIN: No rashes. NEUROLOGIC: Alert and oriented x3. No focal deficits. LABS: Labs from today show WBC 10.8, hemoglobin 7.6, platelets 138. BUN was 15, creatinine 2.5. Urine sodium less than 10. Urine osmolality 312. Yesterday T-bilirubin was 7.2. INR was 2.2. IMPRESSION: 1. Acute alcoholic hepatitis superimposed on alcoholic cirrhosis of the liver with gradual decompensation/end-stage liver disease. 2. Ascites, status post large-volume paracentesis 2 days ago, now with recurrent ascites. 3. Acute kidney injury. Urine sodium was less than 10, suspicious for hepatorenal syndrome. Creatinine gradually getting worse and urine output is decreasing. 4. Anemia, most likely multifactorial in etiology. May have a component of GI blood loss. RECOMMENDATIONS: 1. Continue with recommendations from Nephrology. 2. Agree with IV albumin infusions. 3. Continue to hold off the diuretics. 4. Advance to a low-sodium diet. 5. Consider paracentesis if she has worsening ascites. 6. Continue with fluid restriction. Thank you for this consultation. MMODL / IJN: [id number] /
[2019-05-24] MEDS: BENZOYL PEROXIDE 10% TOPICAL SCH (21:08)
[2019-05-25] MEDS: OCTREOTIDE 100 MCG/ML INJ SQ SCH ×3 (04:39→21:26)
[2019-05-25 07:23] LABS: Calcium 8.4 mg/dL (8.4-10.2); Potassium 3.5 mmol/L (3.5-5.1); Total Bilirubin 5.7 mg/dL (0.2-1.3); Total Protein 5.9 g/dL (6.3-8.2)
[2019-05-25] MEDS: SODIUM BICARBONATE TAB 650 MG TAB PO SCH ×4 (07:33→21:26)
[2019-05-25] MEDS: LACTULOSE 20 GM/30 ML CUP PO SCH ×2 (07:33→21:26)
[2019-05-25] MEDS: THIAMINE 100 MG TAB PO SCH (07:33)
[2019-05-25] MEDS: PANTOPRAZOLE 40 MG TABLET PO SCH (07:33)
[2019-05-25] MEDS: ALBUMIN HUMAN 25% 50 ML in EMPTY BAG 1 BAG IVPB SCH ×5 (07:33→18:18)
[2019-05-25] MEDS: MULTIVITAMINS, THERA 1 EACH TAB PO SCH (07:33)
[2019-05-25] MEDS: SIMETHICONE 80 MG CHEWABLE PO SCH ×4 (07:35→21:26)
[2019-05-25] MEDS: RIFAXIMIN 550 MG TABLET PO SCH ×2 (07:35→21:26)
[2019-05-25] MEDS: MIDODRINE 5 MG TAB PO SCH ×3 (07:35→17:44)
--- NOTE | 2019-05-25 08:05 | US ---
Therapeutic paracentesis. DATE OF EXAM: 05/22/2019 CLINICAL HISTORY: Ascites The procedure was discussed with the patient. The risks, complications, benefits, and alternatives we re discussed and any questions were answered. Informed consent was obtained. The patient was placed s upine on the ultrasound table and prepped and draped in the usual sterile fashion. All elements of maximal barrier technique were utilized. Under ultrasound guidance, access into the right lower quadrant was obtained, via the paracentesis catheter system and direct ultrasound guidanc e. Approximately 6.5 liters of straw-colored fluid was removed. The patient was stable throughout the pr ocedure and remained stable upon completion of the exam. IMPRESSION: Successful therapeutic paracentesis under ultrasound guidance.
[2019-05-25] MEDS ORDERED: POTASSIUM CHLORIDE ER 20 MEQ TAB.ER PO STA (08:52)
--- NOTE | 2019-05-25 08:53 | P.PN ---
Subjective Patient is seen in follow-up for acute kidney injury. Renal function is stable. Creatinine 2.54 today. She underwent paracentesis with 7.8 L drained on May 22. Blood pressure running in systolic 80-90s. Patient denies chest pain. Feels her abdomen is swelling up again. No active bleeding. She has been voiding. Vital signs are stable. Blood pressure low. General: The patient appeared well nourished and normally developed. HEENT: Head exam is unremarkable. Neck is without jugular venous distension. LUNGS: Lungs are clear to auscultation and percussion. Breath sounds decreased. HEART: Rate and Rhythm are regular. First and second heart sounds normal. No murmurs, rubs or gallops. ABDOMEN: Abdominal exam reveals normal bowel sounds. Distention noted. EXTREMITITES: 2+ edema. Objective - Vital Signs Vital signs: Vital Signs Temp 98.4 F 05/25/19 05:00 Pulse 88 05/25/19 05:00 Resp 16 05/25/19 05:00 BP 83/82 05/25/19 05:00 Pulse Ox 95 05/25/19 05:00 Intake & Output 05/24/19 05/25/19 05/25/19 18:59 06:59 18:59 Intake Total 590 290 Output Total 250 1 Balance 340 289 Weight 71.5 kg Intake: Intake, IV Titration 350 50 Amount Albumin Human 25% 50 ml 50 In Empty Bag 1 bag @ 50 mls/hr IVPB BID@0900,1800 [facility] Rx#:[id number] Albumin Human 25% 50 ml 50 50 In Empty Bag 1 bag @ 50 mls/hr IVPB BID@1000,1900 [facility] Rx#:[id number] Magnesium Sulfate-D5w Pmx 200 1 gm In Dextrose/Water 1 100ml.bag @ 100 mls/hr IVPB Q1H [facility] Rx#: [id number] cefTRIAXone 1 gm In 50 Sodium Chloride 0.9% 50 ml @ 100 mls/hr IVPB Q24HR [facility] Rx#:[id number] Oral 240 240 Output: Urine 250 Straight 250 Stool 1 Other: Voiding Method Bedside Commode # Voids 1 - Labs CBC & Chem 7: 05/24/19 07:27 05/25/19 06:44 Labs: Abnormal Lab Results - Last 24 Hours (Table) 11/19/19 11/20/19 Range/Units 07:27 06:44 WBC 10.8 H (3.8-10.6) k/uL RBC 2.33 L (3.80-5.40) m/uL Hgb 7.6 L (11.4-16.0) gm/dL Hct 23.4 L (34.0-46.0) % MCV 100.5 H (80.0-100.0) fL RDW 17.3 H (11.5-15.5) % Plt Count 138 L (150-450) k/uL Neutrophils # 7.9 H (1.3-7.7) k/uL Sodium 135 L (137-145) mmol/L Carbon Dioxide 17 L (22-30) mmol/L Creatinine 2.54 H (0.52-1.04) mg/dL Glucose 105 H (74-99) mg/dL Total Bilirubin 5.7 H (0.2-1.3) mg/dL AST 44 H (14-36) U/L Alkaline Phosphatase 136 H (38-126) U/L Total Protein 5.9 L (6.3-8.2) g/dL Albumin 3.0 L (3.5-5.0) g/dL Microbiology - Last 24 Hours (Table) 05/21/19 17:30 Blood Culture - Preliminary Blood No Growth after 72 hours 05/22/19 13:57 Gram Stain - Preliminary Peritoneal Fluid Body Fluid Culture - Preliminary Assessment and Plan Plan: Assessment: 1. Acute kidney injury secondary to ATN secondary to hypotension and anemia with concern for hepatorenal syndrome as well. Creatinine 2.54 today. No hydronephrosis noted on kidney ultrasound. UA is quite benign. No evidence of urinary retention. 2. Liver cirrhosis. Alcohol induced. 3. Hypervolemic hyponatremia. Low urine sodium fits with hepatorenal syndrome. 4. Metabolic acidosis secondary to acute kidney injury as well as compensatory for respiratory alkalosis due to decompensated liver failure. Maintained on oral sodium bicarbonate. 5. Ascites status post paracentesis on May 22 was 7.8 L drained. 6. Acute blood loss anemia status post blood transfusion. No active bleeding noted. 7. Hypokalemia from poorly intake. Plan: Maintain midodrine 10 mg 3 times daily. 25 g IV albumin twice daily. Hold off on diuretics due to hypotension. Maintain oral sodium bicarbonate. Maintain octreotide. 1200 mL fluid restriction and low-salt diet. Potential transfer to [facility] per family request. Will need another paracentesis soon. Replace potassium.
[2019-05-25 12:57] LABS: Anisocytosis Slight; Basophils # (A) 0.2 k/uL (0-0.2); Basophils % (A) 1 %; Eosinophils # (A) 0.3 k/uL (0-0.7); Eosinophils % (A) 2 %; HGB 7.8 gm/dL (11.4-16.0); Hypochromasia Marked; Lymphocytes # (A) 1.9 k/uL (1.0-4.8); Lymphocytes % (A) 13 %; MCH 31.7 pg (25.0-35.0); MCHC 31.2 g/dL (31.0-37.0); MCV 101.4 fL (80.0-100.0); Macrocytosis Moderate; Mean Platelet Volume 9.5; Monocytes % (A) 7 %; Neutrophils # (A) 10.8 k/uL (1.3-7.7); Neutrophils % (A) 76 %; Platelet Count 117 k/uL (150-450); Poikilocytosis Slight; RBC 2.47 m/uL (3.80-5.40); RDW 17.3 % (11.5-15.5); WBC 14.4 k/uL (3.8-10.6)
--- NOTE | 2019-05-25 14:06 | P.PN ---
Subjective 44-year-old female with a medical history significant for alcoholism, anxiety, depression, nicotine dependence, and alcoholic liver cirrhosis, recurrent ascites who presented to the hospital complaining that she's had her abdomen drained a few times because of ascites and now it is extremely distended and she believes she needs her abdomen drained again. Patient states it is very tender when he gets this large. Patient also states she has quite a bit of edema to her feet. Patient denies any fever chills. Patient states her abdomen is tender but it is always tender. Patient denies any chest pain difficulty breathing shortest breath. Patient denies any headache patient denies numbness weakness. Patient reports a history of at least 10 years of excessive alcohol drinking. She reports that she was trying to cut down in the outpatient setting by weaning herself off of the alcohol. She reports that she has had abdominal pain described as diffuse and sharp in the epigastric region of her abdomen and achy in the left lower quadrant of her abdomen. Pain is waxing and waning in intensity, constant overall. She reports no associated nausea and vomiting. Initially she was reporting loose stool but today she reports normal bowel movements and decreased flatus. In the ED her labs are consistent with Chronic liver disease. She has been admitted for Paracentesis. On 05/22/2019 - patient is getting her paracentesis done. She had almost 7-8 L of acetic fluid removed until now. She has been getting IV albumin. Her blood pressure has been maintaining her around 80 by 50s. Patient states that she has significant improvement in her abdominal pain and also that her breathing is better.she has been seen by GI Dr. Rueda and nephrology Dr. Ndiaye.The dose of her midodrine has been increased and she has been started on octreotide. On 05/23/2019-patient has been trying to urinate, but not able to be pee. Bladder scan showed 350 mL of urine, so the patient was straight cathed. Patient's blood pressure is still running on the lower side and her map has been above 65. Creatinine has trended up. Patient mentions that she feels her abdomen is filling up again. Had hemoglobin has been low at 6.6. No evidence of any active bleeding. Patient denies having any chest pain or difficulty in breathing. No headache, dizziness, visual changes. She continues to have lower extremity swelling. Labs done this morning consistent with advanced liver disease. No signs of hepatic encephalopathy. Patient is alert awake and oriented 4. 05/24/2019 Patient is Still complaining of some diffuse abdominal tenderness patient started having ascites again area there is no evidence of spontaneous bacterial peritonitis as as per paracentesis and ascitic fluid analysis. Patient also remains on antibiotics and patient kidney function continued to worsen because of which diuretics are being discontinued patient prognosis is extremely poor because of advanced liver disease patient's meld score is high. Family requested transfer the patient was to [place] discussed with the physician at [facility] who is agreeable for will transfer for hepatology care. Patient is on transfer list will obtain was to [place]. Patient started making urine, nursing staff is doing straight catheterization now. No evidence of hepatic encephalopathy at this time. Patient does have cardiorenal syndrome. Patient is receiving albumin octreotide and midodrine blood pressure is in systolics of 90s. 05/25/2019 No overnight events the reading on [facility] and [place]. Patient kidney function continues to get worse although there is only minimalascites with holding off on diuretics blood pressure remains low. Patient is still quite weak marginal urine output but patient has been urinating Constitutional: Severely fatigued depressed Cardio vascular: denied any chest pain, palpitations Gastrointestinal denied any nausea vomiting Pulmonary: Denied any shortness of breath cough Neurologic denied any new focal deficits All inpatient medications were reviewed and appropriate changes in these m edications as dictated in the interval history and assessment and plan. Objective - Vital Signs Vital signs: Vital Signs Temp 98.1 F 05/25/19 12:06 Pulse 75 05/25/19 12:06 Resp 17 05/25/19 12:06 BP 100/62 05/25/19 12:06 Pulse Ox 98 05/25/19 12:06 Intake & Output 05/24/19 05/25/19 05/25/19 18:59 06:59 18:59 Intake Total 590 290 Output Total 250 1 Balance 340 289 Weight 71.5 kg Intake: Intake, IV Titration 350 50 Amount Albumin Human 25% 50 ml 50 In Empty Bag 1 bag @ 50 mls/hr IVPB BID@0900,1800 [facility] Rx#:[id number] Albumin Human 25% 50 ml 50 50 In Empty Bag 1 bag @ 50 mls/hr IVPB BID@1000,1900 [facility] Rx#:[id number] Magnesium Sulfate-D5w Pmx 200 1 gm In Dextrose/Water 1 100ml.bag @ 100 mls/hr IVPB Q1H [facility] Rx#: [id number] cefTRIAXone 1 gm In 50 Sodium Chloride 0.9% 50 ml @ 100 mls/hr IVPB Q24HR [facility] Rx#:[id number] Oral 240 240 Output: Urine 250 Straight 250 Stool 1 Other: Voiding Method Bedside Commode Bedside Commode # Voids 1 - Exam GEN. APPEARANCE: Cachectic,not acute distress HEAD EXAM: atraumatic, normocephalic, normal inspection EYE EXAM: Mild pallor and mild icterus RESPIRATORY EXAM: normal lung sounds bilaterally. Decreased at the lower lung bases CARDIOVASCULAR EXAM: Tachycardia. S1 and S2 heard. GI/ABDOMINAL EXAM: soft, distended. Severe Ascites. Abdominal wall edema. EXTREMITIES EXAM: Bilateral pitting edema up to the mid thigh region NEUROLOGICAL EXAM: alert, oriented X3, no focal deficits PSYCHIATRIC EXAM: normal affect, normal mood SKIN EXAM: warm, dry, intact, normal color. - Labs CBC & Chem 7: 05/25/19 06:44 05/25/19 06:44 Labs: Abnormal Lab Results - Last 24 Hours (Table) 05/25/19 05/25/19 Range/Units 06:44 06:44 WBC 14.4 H (3.8-10.6) k/uL RBC 2.47 L (3.80-5.40) m/uL Hgb 7.8 L (11.4-16.0) gm/dL Hct 25.0 L (34.0-46.0) % MCV 101.4 H (80.0-100.0) fL RDW 17.3 H (11.5-15.5) % Plt Count 117 L (150-450) k/uL Neutrophils # 10.8 H (1.3-7.7) k/uL Sodium 135 L (137-145) mmol/L Carbon Dioxide 17 L (22-30) mmol/L Creatinine 2.54 H (0.52-1.04) mg/dL Glucose 105 H (74-99) mg/dL Total Bilirubin 5.7 H (0.2-1.3) mg/dL AST 44 H (14-36) U/L Alkaline Phosphatase 136 H (38-126) U/L Total Protein 5.9 L (6.3-8.2) g/dL Albumin 3.0 L (3.5-5.0) g/dL Microbiology - Last 24 Hours (Table) 05/21/19 17:30 Blood Culture - Preliminary Blood No Growth after 72 hours 05/22/19 13:57 Gram Stain - Preliminary Peritoneal Fluid Body Fluid Culture - Preliminary Assessment and Plan Plan: Severe Recurrent Ascites is status post removal of 7.3 L of for peritoneal fluid no evidence of spontaneous bacterial peritonitis Low possibility of spontaneous bacterial peritonitis Advanced liver disease Alcoholic liver cirrhosis with very high meld score and extremely poor prognosis Anemia due to liver disease: Received 1 unit of PRBC transfusion Portal HTN Lactic acidosis Acute kidney injury Severe protein calorie malnutrition -Cardiorenal syndrome: Patient is off Lasix kidney function continued to worse, patient is admitted and, acute right.
[2019-05-25] MEDS: CLINDAMYCIN PHOSPHATE TOPICAL SCH ×2 (14:49→21:56)
--- NOTE | 2019-05-25 19:57 | PN ---
PROGRESS NOTE DATE OF SERVICE: May 25, 2019. The patient is a 44-year-old white female with history of alcoholic cirrhosis of the liver superimposed on acute alcoholic hepatitis with possible hepatorenal syndrome and recurrent ascites. She was admitted to the hospital three days ago with abdominal distention, severe abdominal pain, on broad-spectrum antibiotics for possible SBP. (Paracentesis fluid did not show any evidence of SBP). The patient still complains of worsening abdominal distention and abdominal pain today. She continues to have decreased urinary output. She has decreased appetite. Presently on a low-fat diet. She is unable to ambulate. She reports no nausea, vomiting. Has two to three soft bowel movements daily. No fevers, chills, night sweats. PHYSICAL EXAMINATION: On physical examination, she appears comfortable. No apparent distress. VITAL SIGNS: Stable. Blood pressure is 100/62, pulse rate 75, temperature 98.1. HEENT examination unremarkable. Conjunctivae pale. Sclerae anicteric. Oral cavity no lesions. NECK: No JVD or lymph node enlargement. CHEST: Clear to auscultation. HEART: Regular rate and rhythm. ABDOMEN: Distended. It was tympanitic. It was tense. There was free fluid noted. EXTREMITIES: Two plus pedal edema. SKIN: No rashes. NEUROLOGIC: She is alert and oriented x3. No focal deficits. LABS: Labs from today show WBC 14.4, hemoglobin 7.8, platelets 117. BUN is 14, creatinine 2.54. Bilirubin is 5.7, AST 44, ALT 25, alkaline phosphatase 136. Albumin is 3. IMPRESSION: 1. Alcoholic liver disease superimposed with acute alcoholic hepatitis with significant decompensation. 2. Recurrent ascites, status post large-volume paracentesis three days ago, now with recurrent fluid. Presently diuretics on hold because of worsening BUN and creatinine. 3. Possible SBP on broad-spectrum antibiotics. 4. Coagulopathy secondary to underlying liver disease. 5. Acute kidney injury/questionable hepatorenal syndrome. Nephrology following the patient closely. Presently on midodrine, Sandostatin, and IV albumin infusions. RECOMMENDATIONS: 1. Continue with symptomatic and supportive care. 2. Will schedule her for large-volume paracentesis tomorrow for symptomatic relief. 3. Continue broad-spectrum antibiotics. 4. Repeat labs in the morning. 5. Await transfer to [facility]. The patient has been accepted but waiting for the bed. Thank you for this consultation. Will continue to follow her closely during her hospital stay. VANESSA / BALDON: [id number] /
[2019-05-25] MEDS: HYDROmorphone 0.5 MG/0.5 ML SYRINGE IVP PRN (20:32)
[2019-05-25] MEDS: BENZOYL PEROXIDE 10% TOPICAL SCH (21:56)
[2019-05-26] MEDS ORDERED: FUROSEMIDE 10 MG/ML 4 ML VIAL IV STA (01:57)
[2019-05-26] MEDS: OCTREOTIDE 100 MCG/ML INJ SQ SCH ×2 (04:50→12:22)
[2019-05-26] MEDS: MIDODRINE 5 MG TAB PO SCH ×2 (07:41→12:22)
[2019-05-26] MEDS: SODIUM BICARBONATE TAB 650 MG TAB PO SCH (07:41)
[2019-05-26] MEDS: MULTIVITAMINS, THERA 1 EACH TAB PO SCH (07:42)
[2019-05-26] MEDS: PANTOPRAZOLE 40 MG TABLET PO SCH (07:42)
[2019-05-26] MEDS: RIFAXIMIN 550 MG TABLET PO SCH (07:42)
[2019-05-26] MEDS: LACTULOSE 20 GM/30 ML CUP PO SCH (07:42)
[2019-05-26] MEDS: THIAMINE 100 MG TAB PO SCH (07:42)
[2019-05-26] MEDS: SIMETHICONE 80 MG CHEWABLE PO SCH ×2 (07:42→12:22)
[2019-05-26] MEDS: CLINDAMYCIN PHOSPHATE TOPICAL SCH (07:43)
[2019-05-26] MEDS: ALBUMIN HUMAN 25% 50 ML in EMPTY BAG 1 BAG IVPB SCH ×6 (08:48→17:12)
[2019-05-26 08:50] LABS: Albumin 3.6 g/dL (3.5-5.0); Calcium 8.9 mg/dL (8.4-10.2); Magnesium 1.8 mg/dL (1.6-2.3); Potassium 3.7 mmol/L (3.5-5.1); Total Bilirubin 5.9 mg/dL (0.2-1.3); Total Protein 6.5 g/dL (6.3-8.2)
[2019-05-26 09:34] VITALS: BMI 22.4
--- NOTE | 2019-05-26 09:53 | US ---
EXAMINATION TYPE: US abdomen limited DATE OF EXAM: 05/26/2019 COMPARISON: None CLINICAL HISTORY: 44-year-old female assess for fluid pocket please. Ascites check Technique: Multiple sonographic images of the 4 abdominal quadrants for assessment of ascites. FINDINGS: All four quadrants scanned. Moderate to large ascites visualized. IMPRESSION: Moderate to large ascites.
--- NOTE | 2019-05-26 09:56 | P.PN ---
Subjective Patient is seen in follow-up for acute kidney injury. Renal function is stable. Creatinine 2.51 today. She underwent paracentesis with 7.8 L drained on May 22. Blood pressure is better. Patient denies chest pain. Feels her abdomen is swelling up again. No active bleeding. Ramirez catheter placed last night. Scheduled for another paracentesis today. Vital signs are stable. Blood pressure low. General: The patient appeared well nourished and normally developed. HEENT: Head exam is unremarkable. Neck is without jugular venous distension. LUNGS: Lungs are clear to auscultation and percussion. Breath sounds decreased. HEART: Rate and Rhythm are regular. First and second heart sounds normal. No murmurs, rubs or gallops. ABDOMEN: Abdominal exam reveals normal bowel sounds. Distention noted. EXTREMITITES: 2+ edema. Objective - Vital Signs Vital signs: Vital Signs Temp 98.5 F 05/26/19 05:00 Pulse 100 05/26/19 05:00 Resp 19 05/26/19 05:00 BP 109/70 05/26/19 05:00 Pulse Ox 92 L 05/26/19 05:00 Intake & Output 05/25/19 05/26/19 05/26/19 18:59 06:59 18:59 Intake Total 200 240 Output Total 1 400 Balance 199 240 -400 Weight 67 kg 67 kg Intake: Intake, IV Titration 100 Amount Albumin Human 25% 50 ml 50 In Empty Bag 1 bag @ 50 mls/hr IVPB BID@0900,1800 [facility] Rx#:[id number] Albumin Human 25% 50 ml 50 In Empty Bag 1 bag @ 50 mls/hr IVPB BID@1000,1900 [facility] Rx#:[id number] Oral 100 240 Output: Urine 400 Stool 1 Other: Voiding Method Bedside Commode Indwelling Catheter # Voids 1 1 # Bowel Movements 1 1 - Labs CBC & Chem 7: 05/25/19 06:44 05/26/19 08:05 Labs: Abnormal Lab Results - Last 24 Hours (Table) 05/25/19 05/26/19 05/26/19 Range/Units 06:44 08:05 08:05 WBC 14.4 H (3.8-10.6) k/uL RBC 2.47 L (3.80-5.40) m/uL Hgb 7.8 L (11.4-16.0) gm/dL Hct 25.0 L (34.0-46.0) % MCV 101.4 H (80.0-100.0) fL RDW 17.3 H (11.5-15.5) % Plt Count 117 L (150-450) k/uL Neutrophils # 10.8 H (1.3-7.7) k/uL Sodium 136 L (137-145) mmol/L Carbon Dioxide 15 L (22-30) mmol/L Creatinine 2.51 H (0.52-1.04) mg/dL Total Bilirubin 5.9 H (0.2-1.3) mg/dL AST 37 H (14-36) U/L Alkaline Phosphatase 138 H (38-126) U/L Ammonia 85 H (<30) umol/L Microbiology - Last 24 Hours (Table) 05/21/19 17:30 Blood Culture - Preliminary Blood No Growth after 96 hours 05/22/19 13:57 Gram Stain - Preliminary Peritoneal Fluid Body Fluid Culture - Preliminary Assessment and Plan Plan: Assessment: 1. Acute kidney injury secondary to ATN secondary to hypotension and anemia with concern for hepatorenal syndrome as well. Creatinine stable at 2.51 today. No hydronephrosis noted on kidney ultrasound. UA is quite benign. No evidence of urinary retention. 2. Liver cirrhosis. Alcohol induced. 3. Hypervolemic hyponatremia. Low urine sodium fits with hepatorenal syndrome. 4. Metabolic acidosis secondary to acute kidney injury as well as compensatory for respiratory alkalosis due to decompensated liver failure. Maintained on oral sodium bicarbonate. 5. Ascites status post paracentesis on May 22 was 7.8 L drained. Scheduled for another paracentesis today. 6. Acute blood loss anemia status post blood transfusion. No active bleeding noted. 7. Hypokalemia from poorly intake. Better. Plan: Maintain midodrine 10 mg 3 times daily. 25 g IV albumin twice daily - will discontinue tomorrow. Start Lasix 40 mg IV daily. Start Aldactone 25 mg twice daily. Increase dose of oral sodium bicarbonate. 1200 mL fluid restriction and low-salt diet. I will give her 25 g of albumin before and after the paracentesis. Awaits transfer to [facility].
[2019-05-26] MEDS ORDERED: SPIRONOLACTONE 25 MG TAB PO SCH (10:00)
[2019-05-26] MEDS: HYDROmorphone 0.5 MG/0.5 ML SYRINGE IVP PRN ×2 (11:40→14:50)
[2019-05-26] MEDS ORDERED: HYDROmorphone 0.5 MG/0.5 ML SYRINGE IVP STA (15:03)
[2019-05-26] MEDS ORDERED: FUROSEMIDE 10 MG/ML 2 ML VIAL IV ONE (15:30)
[2019-05-26] MEDS ORDERED: SODIUM BICARBONATE TAB 650 MG TAB PO SCH (16:00)
[2019-05-26 16:32] VITALS: TEMP 98.1
--- NOTE | 2019-05-26 16:34 | P.DS ---
Providers Date of admission: 05/21/19 18:28 Expected date of discharge: 05/26/19 Attending physician: Ricarda Rashid Consults: 05/21/19 18:28 Consult Physician Urgent Consulting Provider: Ashly Rueda Consult Reason/Comments: Ascites, spontaneous bacterial peritonitis Do you want consulting provider notified?: Yes 05/22/19 09:24 Consult Physician Routine Consulting Provider: Jacqueline Mojica Consult Reason/Comments: kidney function Do you want consulting provider notified?: Yes Primary care physician: [facility] Course: Final diagnosis Severe Recurrent Ascites Low possibility of spontaneous bacterial peritonitis Advanced liver disease Alcoholic liver cirrhosis with very high meld score and extremely poor prognosis Anemia due to liver disease Portal HTN Lactic acidosis Acute kidney injury Severe protein calorie malnutrition Cardiorenal syndrome Discharge disposition Patient is being transferred in a stable condition with extremely guarded prognosis to [facility] for hepatology care History of present illness This is a 44-year-old female who was recently admitted for recurrent ascites and was being closely monitored. Patient has a significant history for alcoholism, anxiety, depression, nicotine dependence, alcoholic liver cirrhosis, recurrent ascites. During hospitalization patient had multiple paracentesis done and also receiving IV albumin. GI and nephrology are following closely. During hospitalization patient and mother were requesting transfer to [facility] for higher level of care is patient's overall status is worsening. Currently patient is receiving albumin and will be receiving FFP prior to another paracentesis. Patient currently does have a room available at [facility] and is awaiting paracentesis to be complete prior to transfer. Total amount taken thus far is over 6 L per the nurse. Today patient is complaining of shortness of breath and is currently on 2-3 L of oxygen via nasal cannula. Lung sounds are wet with diffuse scattered crackles noted throughout. Mother is at the bedside. During hospitalization patient's blood pressure also continues to be low and on Midodrin 10 mg 3 times daily. Currently patient's condition is stable for transfer and prognosis is extremely poor and guarded. This was discussed in detail with mother and patient and they verbalized understanding. On exam vital signs are stable. Temp is 98.4F, pulse is 112, respirations are 20, blood pressure is 120/71, oxygen saturation is 91% on 2 L via nasal cannula. Cardio S1, S2 are muffled. Respiratory system shows diminished breath sounds at the bases with diffuse scattered crackles noted throughout. Abdomen is round, taut, severely distended, and tender upon palpation. Nervous system shows no focal deficits. Please refer to medication reconciliation sheet for a list of medications. Patient Condition at Discharge: Stable Plan - Discharge Summary Discharge Rx Participant: No New Discharge Prescriptions: New Spironolactone [Aldactone] 25 mg PO BID tab Midodrine [ProAmatine] 10 mg PO AC-TID tab cefTRIAXone [Rocephin] 1 gm IVPB Q24HR vial Sodium Bicarbonate Tab 1,300 mg PO TID tab Continue Thiamine [Vitamin B-1] 100 mg PO DAILY Simethicone Chew [Mylicon Chew] 80 mg PO QID Rifaximin [Xifaxan] 550 mg PO BID oxyCODONE HCL [OxyIR] 5 mg PO Q8H PRN PRN Reason: Pain Potassium Chloride [Klor-Con 20 Packets] 20 meq PO DAILY Omeprazole 40 mg PO DAILY Multivitamins, Thera [Multivitamin (formulary)] 1 tab PO DAILY Mag Hydrox/Al Hydrox/Simeth [Maalox] 15 ml PO Q6H PRN PRN Reason: Constipation Lactulose 20 gm PO DAILY Clindamycin Phosphate [Cleocin T] 1 applic TOPICAL BID Benzoyl Peroxide Gel 10% 1 applic TOPICAL HS Discontinued Midodrine HCl [ProAmantine] 2.5 mg PO Q8H Discharge Medication List Benzoyl Peroxide Gel 10% 1 applic TOPICAL HS 05/21/19 [History] Clindamycin Phosphate [Cleocin T] 1 applic TOPICAL BID 05/21/19 [History] Lactulose 20 gm PO DAILY 05/21/19 [History] Mag Hydrox/Al Hydrox/Simeth [Maalox] 15 ml PO Q6H PRN 05/21/19 [History] Multivitamins, Thera [Multivitamin (formulary)] 1 tab PO DAILY 05/21/19 [His tory] Omeprazole 40 mg PO DAILY 05/21/19 [History] Potassium Chloride [Klor-Con 20 Packets] 20 meq PO DAILY 05/21/19 [History] Rifaximin [Xifaxan] 550 mg PO BID 05/21/19 [History] Simethicone Chew [Mylicon Chew] 80 mg PO QID 05/21/19 [History] Thiamine [Vitamin B-1] 100 mg PO DAILY 05/21/19 [History] oxyCODONE HCL [OxyIR] 5 mg PO Q8H PRN 05/21/19 [History] Midodrine [ProAmatine] 10 mg PO AC-TID tab 05/26/19 [Rx] Sodium Bicarbonate Tab 1,300 mg PO TID tab 05/26/19 [Rx] Spironolactone [Aldactone] 25 mg PO BID tab 05/26/19 [Rx] cefTRIAXone [Rocephin] 1 gm IVPB Q24HR vial 05/26/19 [Rx] Follow up Appointment(s)/Referral(s): Karen Caicedo FNPBC [REFERRING] - 1-2 Days Ami Richardson MD [Primary Care Provider] - 1-2 days Activity/Diet/Wound Care/Special Instructions: Patient is going to [facility] hospital Discharge Disposition: OTHER INSTITUTION NOT DEFINED
--- NOTE | 2019-05-26 16:38 | P.PCN ---
Date of Procedure: 05/26/19 Preoperative Diagnosis: ascites Procedure(s) Performed: paracentesis Anesthesia: local Estimated Blood Loss (ml): 5 Pathology: none sent Condition: stable Disposition: no change
[2019-05-26 16:39] VITALS: BP 106/67
[2019-05-26 16:49] VITALS: PULSE 102; RESP 22
--- NOTE | 2019-05-26 18:10 | PN ---
PROGRESS NOTE DATE OF DICTATION: 05/26/2019 Patient is a 44-year-old pleasant white female with history of acute alcoholic hepatitis superimposed on alcoholic cirrhosis of the liver with recurrent ascites and acute kidney injury, admitted to the hospital with severe abdominal pain and recurrent ascites and abdominal distention. She underwent large-volume paracentesis on the day of admission to the hospital, and 7 L was removed. She started having worsening abdominal distention for the last 2 days. She is scheduled for repeat paracentesis today. She was given 2 units of FFP because of coagulopathy. The patient continues to complain of severe abdominal pain. She reports no nausea, vomiting. She is on broad- spectrum antibiotics for possible SBP. Original paracentesis cell count did not show evidence of SBP. PHYSICAL EXAMINATION: She appears uncomfortable because of the pain. VITAL SIGNS: Stable. Blood pressure is 106/67, pulse rate 102, temperature 98. HEENT examination unremarkable. Conjunctivae pink. Sclerae anicteric. Oral cavity no lesions. NECK: No JVD or lymph node enlargement. CHEST: Clear to auscultation. HEART: Regular rate and rhythm. ABDOMEN: Distended. Bowel sounds are positive. It was diffusely tender all over the abdomen. EXTREMITIES: No pedal edema. SKIN: No rashes. NEUROLOGIC: Alert and oriented x3. No focal deficits. LABS: WBC 14.4, hemoglobin 7.8, platelets 117. Bilirubin is 5.9, AST 37, ALT 24, alkaline phosphatase 138. IMPRESSION: 1. Alcoholic cirrhosis of the liver with a component of acute alcoholic hepatitis and decompensated liver disease. 2. Coagulopathy secondary to advanced liver disease. 3. Recurrent ascites. Her diuretics are on hold. Status post large-volume paracentesis 4 days ago and she is having another one scheduled for today. 4. Acute kidney injury; questionable hepatorenal syndrome. Nephrology following the patient closely. Presently on Sandostatin, albumin infusions and midodrine. RECOMMENDATIONS: 1. Agree with transfer to the [facility] for tertiary care. 2. Continue with current management. 3. Patient scheduled for large-volume paracentesis for symptomatic relief today. 4. Continue with broad-spectrum antibiotics. 5. Low-salt diet. 6. Will follow with her closely during her hospital stay. Thank you for this consultation. MMODL / IJN: [id number] /
[2019-05-27] MEDS ORDERED: FUROSEMIDE 10 MG/ML 4 ML VIAL IV SCH (09:00)
--- NOTE | 2019-05-27 09:23 | US ---
EXAMINATION TYPE: US paracentesis abd w/image DATE OF EXAM: 05/26/2019 COMPARISON: NONE HISTORY: Ascites. PROCEDURE: Maximal barrier technique was utilized. The skin overlying a suitable pocket of fluid was localized with ultrasound and the overlying skin was prepped and draped. Ultrasound was utilized with sterile technique. Lidocaine was used for local anesthesia and a skin ace made with a scalpel. Catheter was advanced under direct ultrasound guidance into a suitable pocket of fluid and approximately 6.5 liter s of serous fluid were removed. Catheter was withdrawn and hemostasis achieved. There is no immedia te complication; the patient is discharged in stable condition. IMPRESSION: STATUS POST ULTRASOUND GUIDED PARACENTESIS FOR PALLIATION OF ASCITES. THIS PROCEDURE WA S PERFORMED BY THE UNDERSIGNED.
== END 2019-05-26 17:55 | disposition short-term general hospital (02) | DRG 432 ==
LOC: EC 14:47 → 3NMEDONC 18:28
PROVIDERS: ADMIT Internal Medicine; ATTEND Internal Medicine
PROC: 0W9G3ZZ Drainage of Peritoneal Cavity, Percutaneous Approach (ICD-10-PCS; principal; 2019-05-22)
PROC: 30233N1 Transfusion of Nonautologous Red Blood Cells into Peripheral Vein, Percutaneous Approach (ICD-10-PCS; 2019-05-23)
PROC: 0W9G3ZZ Drainage of Peritoneal Cavity, Percutaneous Approach (ICD-10-PCS; 2019-05-26)
PROC: 30233K1 Transfusion of Nonautologous Frozen Plasma into Peripheral Vein, Percutaneous Approach (ICD-10-PCS; 2019-05-26)
DX: K70.31 Alcoholic cirrhosis of liver with ascites (principal); N17.0 Acute kidney failure with tubular necrosis; E43 Unspecified severe protein-calorie malnutrition; K76.7 Hepatorenal syndrome; E87.4 Mixed disorder of acid-base balance; K76.6 Portal hypertension; N17.9 Acute kidney failure, unspecified; R64 Cachexia; E87.1 Hypo-osmolality and hyponatremia; D62 Acute posthemorrhagic anemia; D68.4 Acquired coagulation factor deficiency; I95.9 Hypotension, unspecified; E87.70 Fluid overload, unspecified; I13.10 Hypertensive heart and chronic kidney disease without heart failure, with stage 1 through stage 4 chronic kidney disease, or unspecified chronic kidney disease; K70.11 Alcoholic hepatitis with ascites; K70.40 Alcoholic hepatic failure without coma; F10.21 Alcohol dependence, in remission; E87.6 Hypokalemia; N18.9 Chronic kidney disease, unspecified; Z68.22 Body mass index [BMI] 22.0-22.9, adult; D63.8 Anemia in other chronic diseases classified elsewhere; K58.1 Irritable bowel syndrome with constipation; K44.9 Diaphragmatic hernia without obstruction or gangrene; M16.10 Unilateral primary osteoarthritis, unspecified hip; M17.10 Unilateral primary osteoarthritis, unspecified knee; M19.079 Primary osteoarthritis, unspecified ankle and foot; M47.9 Spondylosis, unspecified; F17.200 Nicotine dependence, unspecified, uncomplicated; Z71.6 Tobacco abuse counseling; Z79.899 Other long term (current) drug therapy; Z98.82 Breast implant status; Z86.59 Personal history of other mental and behavioral disorders; Z88.0 Allergy status to penicillin; Z91.048 Other nonmedicinal substance allergy status
CPT/HCPCS: 36415; 49083; 76705; 76770; 80048; 80053; 81003; 82042; 82140; 82150; 83605; 83690; 83735; 83930; 83935; 84300; 85025; 85610; 85730; 86850; 86900; 86901; 86920; 87040; 87070; 87205; 89050; 93005; 96374; 96375; 99285

== ENCOUNTER → 2019-07-26 | Outpatient (CLI) | payer OTHER ==
[2019-07-26 15:03] LABS: INR 1.5 (<1.2); Partial Thromboplastin Time 28.1 sec (22.0-30.0); Prothrombin Time 14.4 sec (9.0-12.0)
[2019-07-26 15:43] LABS: Basophils # (A) 0.1 k/uL (0-0.2); Basophils % (A) 2 %; Eosinophils # (A) 0.1 k/uL (0-0.7); Eosinophils % (A) 2 %; Hypochromasia Marked; Lymphocytes # (A) 1.2 k/uL (1.0-4.8); Lymphocytes % (A) 22 %; MCH 31.3 pg (25.0-35.0); MCHC 31.3 g/dL (31.0-37.0); MCV 100.2 fL (80.0-100.0); Macrocytosis Slight; Mean Platelet Volume 9.5; Monocytes # (A) 0.5 k/uL (0-1.0); Monocytes % (A) 8 %; Neutrophils # (A) 3.5 k/uL (1.3-7.7); Neutrophils % (A) 63 %; Platelet Count 172 k/uL (150-450); RBC 3.49 m/uL (3.80-5.40); RDW 15.7 % (11.5-15.5); WBC 5.6 k/uL (3.8-10.6)
[2019-07-27 01:20] LABS: Ferritin 61.5 ng/mL (10.0-291.0)
[2019-07-27 01:27] LABS: % Iron Saturation 52.68 (12.00-45.00); African American GFR (CKD) 91.4 (60.0-200.0); Albumin 3.4 g/dL (3.80-4.90); Albumin/Globulin Ratio 0.92 (1.60-3.17); Anion Gap 10.5 mmol/L (4.00-12.00); BUN/Creat Ratio 7.78 Ratio (12.00-20.00); Calcium 9.1 mg/dL (8.7-10.3); Carbon Dioxide 21.5 mmol/L (21.6-31.8); Globulin 3.7 g/dL (1.6-3.3); Non-African American GFR(CKD) 78.9 (60.0-200.0); Potassium 3.6 mmol/L (3.5-5.5); Total Bilirubin 1.9 mg/dL (0.2-1.2); Total Protein 7.1 g/dL (6.2-8.2)
== END | disposition home or self-care (01) ==
LOC: LABWHC1 13:51
PROVIDERS: ATTEND Nurse Practitioner Family
DX: K70.31 Alcoholic cirrhosis of liver with ascites (principal); E72.20 Disorder of urea cycle metabolism, unspecified
CPT/HCPCS: 36415; 80053; 82728; 83540; 83550; 85025; 85610; 85730

== ENCOUNTER 2019-08-04 09:00 | Day surgery (SDC) | payer OTHER ==
[2019-08-04 09:57] LABS: INR 1.3 (<1.2)
[2019-08-04 09:58] LABS: African American GFR (CKD) >90 (>60 ml/min/1.73 sqM); Non-African American GFR(CKD) >90 (>60 ml/min/1.73 sqM)
[2019-08-04 10:00] VITALS: TEMP 97.9
[2019-08-04 10:11] LABS: Mean Platelet Volume 8.3; Platelet Count 231 k/uL (150-450)
[2019-08-04] MEDS ORDERED: ALBUMIN HUMAN 25% 50 ML in EMPTY BAG 1 BAG IVPB SCH (10:15)
[2019-08-04 12:12] VITALS: BP 107/73; PULSE 83; RESP 14
--- NOTE | 2019-08-04 13:39 | US ---
EXAMINATION TYPE: US paracentesis abd w/image DATE OF EXAM: 08/04/2019 COMPARISON: NONE HISTORY: Ascites. PROCEDURE: Maximal barrier technique was utilized. Hand hygiene obtained with soap and water. The skin overlying a suitable pocket of fluid was localized with ultrasound and the overlying skin was prepped and drap ed. Ultrasound was utilized with sterile technique. Lidocaine was used for local anesthesia and a sk in ace made with a scalpel. Catheter was advanced under direct ultrasound guidance into a suitable p ocket of fluid and approximately 3.6 liters of serous fluid were removed. Catheter was withdrawn and hemostasis achieved. There is no immediate complication; the patient is discharged in stable condit ion. IMPRESSION: STATUS POST ULTRASOUND GUIDED PARACENTESIS FOR PALLIATION OF ASCITES. THIS PROCEDURE WA S PERFORMED BY THE UNDERSIGNED.
== END 2019-08-04 12:00 | disposition home or self-care (01) ==
LOC: RADPROMAIN 09:00
PROVIDERS: ATTEND Family Medicine
DX: K70.31 Alcoholic cirrhosis of liver with ascites (principal); K76.7 Hepatorenal syndrome
CPT/HCPCS: 36415; 49083; 82565; 85049; 85610

== ENCOUNTER → 2019-08-15 | Outpatient (CLI) | payer OTHER ==
[2019-08-15 09:52] LABS: Basophils # (A) 0.1 k/uL (0-0.2); Basophils % (A) 1 %; Eosinophils # (A) 0.2 k/uL (0-0.7); Eosinophils % (A) 2 %; HCT 40.5 % (34.0-46.0); HGB 12.3 gm/dL (11.4-16.0); Hypochromasia Moderate; Lymphocytes # (A) 1.7 k/uL (1.0-4.8); Lymphocytes % (A) 27 %; MCH 30.3 pg (25.0-35.0); MCHC 30.4 g/dL (31.0-37.0); MCV 99.6 fL (80.0-100.0); Monocytes # (A) 0.4 k/uL (0-1.0); Monocytes % (A) 7 %; Neutrophils # (A) 3.8 k/uL (1.3-7.7); Neutrophils % (A) 60 %; Platelet Count 163 k/uL (150-450); RBC 4.07 m/uL (3.80-5.40); RDW 14.7 % (11.5-15.5); WBC 6.4 k/uL (3.8-10.6)
[2019-08-15 18:21] LABS: African American GFR (CKD) 80.5 (60.0-200.0); Albumin 3.2 g/dL (3.80-4.90); Albumin/Globulin Ratio 0.94 (1.60-3.17); Anion Gap 12.7 mmol/L (4.00-12.00); Calcium 9.1 mg/dL (8.7-10.3); Carbon Dioxide 20.3 mmol/L (21.6-31.8); Globulin 3.4 g/dL (1.6-3.3); Non-African American GFR(CKD) 69.4 (60.0-200.0); Total Bilirubin 1.3 mg/dL (0.2-1.2); Total Protein 6.6 g/dL (6.2-8.2)
[2019-08-18 11:09] LABS: Alpha 1 Anti-Trypsin 216 mg/dL (90 - 200)
== END | disposition home or self-care (01) ==
LOC: LABWHC1 08:47
PROVIDERS: ATTEND Nurse Practitioner
DX: K76.7 Hepatorenal syndrome (principal); K70.31 Alcoholic cirrhosis of liver with ascites; R06.00 Dyspnea, unspecified; R06.2 Wheezing; R49.0 Dysphonia
CPT/HCPCS: 36415; 80053; 82103; 82104; 82785; 85025; 86001; 86003; 86606; 86609

== ENCOUNTER → 2019-08-26 | Outpatient (CLI) | payer OTHER ==
[2019-08-26 16:05] LABS: HCT 42.3 % (34.0-46.0); HGB 13.2 gm/dL (11.4-16.0); MCH 30.3 pg (25.0-35.0); MCHC 31.2 g/dL (31.0-37.0); MCV 97.1 fL (80.0-100.0); Platelet Count 177 k/uL (150-450); RBC 4.35 m/uL (3.80-5.40); RDW 14.4 % (11.5-15.5)
[2019-08-26 16:12] LABS: INR 1.3 (<1.2); Prothrombin Time 13.1 sec (9.0-12.0)
[2019-08-27 03:25] LABS: African American GFR (CKD) 64.6 (60.0-200.0); Albumin 3.5 g/dL (3.80-4.90); Albumin/Globulin Ratio 0.95 (1.60-3.17); Anion Gap 11.8 mmol/L (4.00-12.00); BUN/Creat Ratio 10.83 Ratio (12.00-20.00); Bilirubin, Conjugated 0.8 mg/dL (0.20-0.40); Bilirubin,Unconjugated 0.7 mg/dL; Calcium 9.1 mg/dL (8.7-10.3); Carbon Dioxide 24.2 mmol/L (21.6-31.8); Globulin 3.7 g/dL (1.6-3.3); Non-African American GFR(CKD) 55.7 (60.0-200.0); Potassium 3.7 mmol/L (3.5-5.5); Total Bilirubin 1.5 mg/dL (0.2-1.2); Total Protein 7.2 g/dL (6.2-8.2)
== END | disposition home or self-care (01) ==
LOC: LABWHC1 14:49
PROVIDERS: ATTEND Nurse Practitioner
DX: K70.31 Alcoholic cirrhosis of liver with ascites (principal); F10.21 Alcohol dependence, in remission
CPT/HCPCS: 36415; 80048; 80076; 82150; 83690; 85027; 85610

== ENCOUNTER 2019-09-01 12:59 | Day surgery (SDC) | payer OTHER ==
[2019-09-01 13:35] VITALS: RESP 16
[2019-09-01 14:20] VITALS: BP 106/55; PULSE 86
--- NOTE | 2019-09-02 08:21 | US ---
EXAMINATION TYPE: US paracentesis abd w/image DATE OF EXAM: 09/01/2019 COMPARISON: NONE HISTORY: Ascites. PROCEDURE: Maximal barrier technique was utilized. The skin overlying a suitable pocket of fluid was localized with ultrasound and the overlying skin was prepped and draped. Ultrasound was utilized with sterile technique. Lidocaine was used for local anesthesia and a skin ace made with a scalpel. Catheter was advanced under direct ultrasound guidance into a suitable pocket of fluid and approximately 2.6 liter s of serous fluid were removed. Catheter was withdrawn and hemostasis achieved. There is no immedia te complication; the patient is discharged in stable condition. IMPRESSION: STATUS POST ULTRASOUND GUIDED PARACENTESIS FOR PALLIATION OF ASCITES. THIS PROCEDURE WA S PERFORMED BY THE UNDERSIGNED.
== END 2019-09-01 14:35 | disposition home or self-care (01) ==
LOC: RADPROMAIN 12:59
PROVIDERS: ATTEND Physician Assistant
DX: R18.8 Other ascites (principal)
CPT/HCPCS: 49083

== ENCOUNTER 2019-09-08 20:32 | Observation (INO) | payer OTHER ==
[2019-09-08] MEDS ORDERED: MORPHINE SULFATE 4 MG/ML SYRINGE IV STA (21:05)
[2019-09-08] MEDS ORDERED: ONDANSETRON 4 MG/2 ML VIAL IVP STA (21:05)
[2019-09-08] MEDS ORDERED: PANTOPRAZOLE 40 MG/10 ML VIAL IVP STA (21:05)
--- NOTE | 2019-09-08 21:05 | ED ---
Abdominal Pain HPI - General Chief Complaint: Abdominal Pain Stated Complaint: abd pain Time Seen by Provider: 09/08/19 20:42 Source: patient, RN notes reviewed, old records reviewed Mode of arrival: ambulatory Limitations: no limitations - History of Present Illness Initial Comments: Is a 44-year-old female here for evaluation. Patient insists evaluation abdominal pain. It was abdominal bloating. Patient states she has a history of liver cirrhosis, liver cirrhosis with ascites scheduled paracentesis is next week which she will not make it that appointment May Because the pain is so severe. Otherwise no new complaints mild shortness of breath from inability to take a deep breath MD Complaint: abdominal pain (From significant ascites) -: days(s) Location: diffuse Radiation: epigastric, suprapubic Migration to: epigastric, suprapubic Quality: aching Consistency: constant Worsens With: nothing Context: recent surgery/procedure Associated Symptoms: nausea - Related Data Home Medications Medication Instructions Recorded Confirmed Lactulose 20 gm PO TID 05/21/19 09/08/19 Rifaximin [Xifaxan] 550 mg PO BID 05/21/19 09/08/19 Simethicone Chew [Mylicon Chew] 80 mg PO TID PRN 05/21/19 09/08/19 Multivitamin with Iron 1 tablet PO DAILY 07/28/19 09/08/19 [Multivitamins with Iron] traMADol HCL [Ultram] 50 mg PO BID PRN 07/28/19 09/08/19 Furosemide [Lasix] 20 mg PO DAILY 08/04/19 09/08/19 hydrOXYzine HCL 25 mg PO HS 08/04/19 09/08/19 Ferrous Gluconate 324 mg PO DAILY 09/08/19 09/08/19 Gabapentin [Neurontin] 100 mg PO DAILY 09/08/19 09/08/19 Polyethylene Glycol 3350 [Miralax] 17 gm PO DAILY 09/08/19 09/08/19 Spironolactone [Aldactone] 50 mg PO DAILY 09/08/19 09/08/19 Allergies Allergy/AdvReac Type Severity Reaction Status Date / Time azithromycin [From Zithromax] Allergy Nausea & Verified 09/08/19 22:43 Vomiting cat dander Allergy Dyspnea Verified 09/08/19 22:43 mold Allergy Dyspnea Verified 09/08/19 22:43 Penicillins Allergy Dyspnea Verified 09/08/19 22:43 Review of Systems ROS Statement: Those systems with pertinent positive or pertinent negative responses have been documented in the HPI. ROS Other: All systems not noted in ROS Statement are negative. Past Medical History Past Medical History: Liver Disease Additional Past Medical History / Comment(s): hiatal hernia, IBS, arthritis in back, knee, hip, ankle, hypogylycemia, Cirrhosis, low blood pressure and low oxygen levels History of Any Multi-Drug Resistant Organisms: None Reported Past Surgical History: No Surgical Hx Reported Additional Past Surgical History / Comment(s): liver failure, breast implants, paracentesis at [facility] and [facility] Past Anesthesia/Blood Transfusion Reactions: No Reported Reaction Past Psychological History: Anxiety, Depression Smoking Status: Current every day smoker Past Alcohol Use History: None Reported Past Drug Use History: None Reported - Past Family History Mother History Unknown: Yes General Exam - General Exam Comments Initial Comments: Significantly ascitic abdomen with no tenderness Limitations: no limitations General appearance: alert, in no apparent distress Head exam: Present: atraumatic, normocephalic, normal inspection Eye exam: Present: normal appearance, PERRL, EOMI. Absent: scleral icterus, conjunctival injection, periorbital swelling ENT exam: Present: normal exam, mucous membranes moist Neck exam: Present: normal inspection. Absent: tenderness, meningismus, lymphadenopathy Respiratory exam: Present: normal lung sounds bilaterally. Absent: respiratory distress, wheezes, rales, rhonchi, stridor Cardiovascular Exam: Present: regular rate, normal rhythm, normal heart sounds. Absent: systolic murmur, diastolic murmur, rubs, gallop, clicks GI/Abdominal exam: Present: soft, normal bowel sounds. Absent: distended, tenderness, guarding, rebound, rigid Extremities exam: Present: normal inspection, full ROM, normal capillary refill. Absent: tenderness, pedal edema, joint swelling, calf tenderness Back exam: Present: normal inspection Neurological exam: Present: alert, oriented X3, CN II-XII intact Psychiatric exam: Present: normal affect, normal mood Skin exam: Present: warm, dry, intact, normal color. Absent: rash Course Vital Signs 09/08/19 20:35 Temperature 98.1 F Pulse Rate 103 H Respiratory 18 Rate Blood Pressure 117/86 O2 Sat by Pulse 99 Oximetry - Reevaluation(s) Reevaluation #1: 09/08/19 22:57 Medical record is reviewed Reevaluation #2: 09/08/19 22:57 Pain is controlled - Consultations Consultation #1: Spoke with EM were agreeable to admit Medical Decision Making - Medical Decision Making 44 female here for evaluation of severe abdominal pain distended abdomen secondary to ascites. Patient is having pain controlled currently and can be admitted for therapeutic paracentesis - Lab Data Result diagrams: 09/08/19 21:30 09/08/19 21:30 Lab Results 09/08/19 09/08/19 09/08/19 Range/Units 21:30 21:30 21:30 WBC 7.5 (3.8-10.6) k/uL RBC 4.18 (3.80-5.40) m/uL Hgb 12.8 (11.4-16.0) gm/dL Hct 40.3 (34.0-46.0) % MCV 96.3 (80.0-100.0) fL MCH 30.6 (25.0-35.0) pg MCHC 31.7 (31.0-37.0) g/dL RDW 14.2 (11.5-15.5) % Plt Count 201 (150-450) k/uL Neutrophils % 72 % Lymphocytes % 15 % Monocytes % 8 % Eosinophils % 2 % Basophils % 1 % Neutrophils # 5.3 (1.3-7.7) k/uL Lymphocytes # 1.1 (1.0-4.8) k/uL Monocytes # 0.6 (0-1.0) k/uL Eosinophils # 0.1 (0-0.7) k/uL Basophils # 0.1 (0-0.2) k/uL PT 13.4 H (9.0-12.0) sec INR 1.3 H (<1.2) APTT 26.2 (22.0-30.0) sec Sodium 132 L (137-145) mmol/L Potassium 3.9 (3.5-5.1) mmol/L Chloride 99 (98-107) mmol/L Carbon Dioxide 21 L (22-30) mmol/L Anion Gap 12 mmol/L BUN 12 (7-17) mg/dL Creatinine 0.72 (0.52-1.04) mg/dL Est GFR (CKD-EPI)AfAm >90 (>60 ml/min/1.73 sqM) Est GFR (CKD-EPI)NonAf >90 (>60 ml/min/1.73 sqM) Glucose 101 H (74-99) mg/dL Calcium 9.1 (8.4-10.2) mg/dL Total Bilirubin 1.6 H (0.2-1.3) mg/dL AST 63 H (14-36) U/L ALT 21 (4-34) U/L Alkaline Phosphatase 139 H (38-126) U/L Ammonia (<30) umol/L Total Protein 7.6 (6.3-8.2) g/dL Albumin 3.4 L (3.5-5.0) g/dL Amylase 58 (30-110) U/L Lipase 165 (23-300) U/L 09/08/19 Range/Units 21:30 WBC (3.8-10.6) k/uL RBC (3.80-5.40) m/uL Hgb (11.4-16.0) gm/dL Hct (34.0-46.0) % MCV (80.0-100.0) fL MCH (25.0-35.0) pg MCHC (31.0-37.0) g/dL RDW (11.5-15.5) % Plt Count (150-450) k/uL Neutrophils % % Lymphocytes % % Monocytes % % Eosinophils % % Basophils % % Neutrophils # (1.3-7.7) k/uL Lymphocytes # (1.0-4.8) k/uL Monocytes # (0-1.0) k/uL Eosinophils # (0-0.7) k/uL Basophils # (0-0.2) k/uL PT (9.0-12.0) sec INR (<1.2) APTT (22.0-30.0) sec Sodium (137-145) mmol/L Potassium (3.5-5.1) mmol/L Chloride (98-107) mmol/L Carbon Dioxide (22-30) mmol/L Anion Gap mmol/L BUN (7-17) mg/dL Creatinine (0.52-1.04) mg/dL Est GFR (CKD-EPI)AfAm (>60 ml/min/1.73 sqM) Est GFR (CKD-EPI)NonAf (>60 ml/min/1.73 sqM) Glucose (74-99) mg/dL Calcium (8.4-10.2) mg/dL Total Bilirubin (0.2-1.3) mg/dL AST (14-36) U/L ALT (4-34) U/L Alkaline Phosphatase (38-126) U/L Ammonia 36 H (<30) umol/L Total Protein (6.3-8.2) g/dL Albumin (3.5-5.0) g/dL Amylase (30-110) U/L Lipase (23-300) U/L Disposition Clinical Impression: Alcoholic hepatitis, Alcohol abuse, Abdominal pain, Ascites Disposition: ADMITTED IP TO THIS HOSP Condition: Good Is patient prescribed a controlled substance at d/c from ED?: No
[2019-09-08 21:55] LABS: Basophils # (A) 0.1 k/uL (0-0.2); Basophils % (A) 1 %; Eosinophils # (A) 0.1 k/uL (0-0.7); Eosinophils % (A) 2 %; HCT 40.3 % (34.0-46.0); HGB 12.8 gm/dL (11.4-16.0); Lymphocytes # (A) 1.1 k/uL (1.0-4.8); Lymphocytes % (A) 15 %; MCH 30.6 pg (25.0-35.0); MCHC 31.7 g/dL (31.0-37.0); MCV 96.3 fL (80.0-100.0); Mean Platelet Volume 7.9; Monocytes # (A) 0.6 k/uL (0-1.0); Monocytes % (A) 8 %; Neutrophils # (A) 5.3 k/uL (1.3-7.7); Neutrophils % (A) 72 %; Platelet Count 201 k/uL (150-450); RBC 4.18 m/uL (3.80-5.40); RDW 14.2 % (11.5-15.5); WBC 7.5 k/uL (3.8-10.6)
[2019-09-08 22:12] LABS: ALT 21 U/L (4-34); AST 63 U/L (14-36); African American GFR (CKD) >90 (>60 ml/min/1.73 sqM); Albumin 3.4 g/dL (3.5-5.0); Alkaline Phosphatase 139 U/L (38-126); Amylase 58 U/L (30-110); Anion Gap 12 mmol/L; Blood Urea Nitrogen 12 mg/dL (7-17); Calcium 9.1 mg/dL (8.4-10.2); Carbon Dioxide 21 mmol/L (22-30); Chloride 99 mmol/L (98-107); Glucose 101 mg/dL (74-99); Non-African American GFR(CKD) >90 (>60 ml/min/1.73 sqM); Potassium 3.9 mmol/L (3.5-5.1); Sodium 132 mmol/L (137-145); Total Bilirubin 1.6 mg/dL (0.2-1.3); Total Protein 7.6 g/dL (6.3-8.2)
[2019-09-08 22:22] LABS: INR 1.3 (<1.2); Partial Thromboplastin Time 26.2 sec (22.0-30.0); Prothrombin Time 13.4 sec (9.0-12.0)
[2019-09-08] MEDS ORDERED: LACTULOSE 20 GM/30 ML CUP PO ONE (22:33)
[2019-09-09] MEDS: MORPHINE SULFATE 4 MG/ML SYRINGE IVP PRN ×5 (00:41→17:39)
[2019-09-09 07:16] VITALS: TEMP 98.2
[2019-09-09] MEDS ORDERED: LACTULOSE 20 GM/30 ML CUP PO SCH (09:00)
--- NOTE | 2019-09-09 09:36 | US ---
EXAMINATION TYPE: US abdomen limited DATE OF EXAM: 09/09/2019 COMPARISON: NONE CLINICAL HISTORY: assess for fluid pocket please. Moderate fluid. IMPRESSION: Moderate amount of ascites
[2019-09-09] MEDS ORDERED: traMADol 50 MG TAB PO PRN (10:15)
[2019-09-09] MEDS ORDERED: SIMETHICONE 80 MG CHEWABLE PO PRN (10:15)
[2019-09-09] MEDS ORDERED: GABAPENTIN 100 MG CAP PO SCH (10:15)
[2019-09-09] MEDS ORDERED: FUROSEMIDE 20 MG TAB PO SCH (10:15)
[2019-09-09] MEDS ORDERED: FERROUS SULFATE 325 MG TAB PO SCH (10:15)
[2019-09-09] MEDS ORDERED: MULTIVITAMINS, THERA 1 EACH TAB PO SCH (10:15)
[2019-09-09] MEDS ORDERED: POLYETHYLENE GLYCOL 3350 17 GM POWD.PACK PO SCH (10:30)
[2019-09-09] MEDS ORDERED: SPIRONOLACTONE 25 MG TAB PO SCH (10:30)
--- NOTE | 2019-09-09 14:18 | P.HPIM ---
History of Present Illness H&P Date: 09/09/19 Chief Complaint: Abdominal pain 44-year-old female patient with history of liver cirrhosis, who gets regular paracentesis at [facility], presented to ED with complaint of severe abdominal pain and difficulty breathing; patient reports that she's been scheduled for paracentesis as outpatient but presented to ED because she was unable to tolerate pain and abdominal tightness and shortness of breath was getting worse; patient denies any nausea vomiting or diarrhea; denies any bloody stools; patient is admitted to the hospital for evaluation by inter ventional radiology Workup in ED was significant for mild hyponatremia with sodium of 132; blood glu cose was low at 101; PT/INR slightly elevated at 13.4/1.3; total bilirubin was 4.6 and AST of 63 Review of Systems REVIEW OF SYSTEMS: CONSTITUTIONAL: No fever, no malaise, no fatigue. HEENT: No recent visual problems or hearing problems. Denied any sore throat. CARDIOVASCULAR: No chest pain, orthopnea, PND, no palpitations, no syncope. PULMONARY: No shortness of breath, no cough, no hemoptysis. GASTROINTESTINAL: abdominal pain. NEUROLOGICAL: No headaches, no weakness, no numbness. HEMATOLOGICAL: Denies any bleeding or petechiae. GENITOURINARY: Denies any burning micturition, frequency, or urgency. MUSCULOSKELETAL/RHEUMATOLOGICAL: Denies any joint pain, swelling, or any muscle pain. ENDOCRINE: Denies any polyuria or polydipsia. The rest of the 14-point review of systems is negative. Past Medical History Past Medical History: Liver Disease Additional Past Medical History / Comment(s): hiatal hernia, IBS, arthritis in back, knee, hip, ankle, hypogylycemia, Cirrhosis, low blood pressure and low oxygen levels, "lungs filled up with fluid" History of Any Multi-Drug Resistant Organisms: None Reported Past Surgical History: No Surgical Hx Reported Additional Past Surgical History / Comment(s): liver failure, breast implants, paracentesis Past Anesthesia/Blood Transfusion Reactions: No Reported Reaction Past Psychological History: Anxiety, Depression Smoking Status: Current every day smoker Past Alcohol Use History: None Reported Additional Past Alcohol Use History / Comment(s): patient drank heavily for at least 4 years 1 pint to 1/5th daily Past Drug Use History: None Reported - Past Family History Mother History Unknown: Yes Medications and Allergies Home Medications Medication Instructions Recorded Confirmed Type Lactulose 20 gm PO TID 05/21/19 09/09/19 History Rifaximin [Xifaxan] 550 mg PO BID 05/21/19 09/09/19 History Simethicone Chew [Mylicon Chew] 80 mg PO TID PRN 05/21/19 09/09/19 History Multivitamin with Iron 1 tablet PO DAILY 07/28/19 09/09/19 History [Multivitamins with Iron] traMADol HCL [Ultram] 50 mg PO BID PRN 07/28/19 09/09/19 History Furosemide [Lasix] 20 mg PO DAILY 08/04/19 09/09/19 History hydrOXYzine HCL 25 mg PO HS 08/04/19 09/09/19 History Ferrous Gluconate 324 mg PO DAILY 09/08/19 09/09/19 History Gabapentin [Neurontin] 100 mg PO DAILY 09/08/19 09/09/19 History Polyethylene Glycol 3350 [Miralax] 17 gm PO DAILY 09/08/19 09/09/19 History Spironolactone [Aldactone] 50 mg PO DAILY 09/08/19 09/09/19 History Allergies Allergy/AdvReac Type Severity Reaction Status Date / Time azithromycin [From Zithromax] Allergy Nausea & Verified 09/09/19 00:05 Vomiting cat dander Allergy Dyspnea Verified 09/09/19 00:05 mold Allergy Dyspnea Verified 09/09/19 00:05 Penicillins Allergy Dyspnea Verified 09/09/19 00:05 Physical Exam Vitals: Vital Signs Temp Pulse Pulse Resp BP BP Pulse Ox 09/09/19 08:00 90 18 09/09/19 07:14 98.2 F 90 18 108/92 97 09/08/19 23:30 98.1 F 97 18 109/77 96 09/08/19 23:04 90 18 132/88 99 09/08/19 20:35 98.1 F 103 H 18 117/86 99 Intake and Output 09/08/19 09/09/19 09/09/19 22:59 06:59 14:59 Other: Voiding Method Toilet Toilet # Bowel Movements 2 Weight 52.163 kg 55.8 kg PHYSICAL EXAMINATION: GENERAL: The patient is alert and oriented x3, not in any acute distress. Well developed, well nourished. HEENT: Pupils are round and equally reacting to light. EOMI. No scleral icterus. No conjunctival pallor. Normocephalic, atraumatic. No pharyngeal erythema. No thyromegaly. CARDIOVASCULAR: S1 and S2 present. No murmurs, rubs, or gallops. PULMONARY: Chest is clear to auscultation, no wheezing or crackles. ABDOMEN: Firm and distended; patient does have mild diffuse tenderness; bowel sounds are positive. MUSCULOSKELETAL: No joint swelling or deformity. EXTREMITIES: No cyanosis, clubbing, or pedal edema. NEUROLOGICAL: Gross neurological examination did not reveal any focal deficits. SKIN: No rashes. Results CBC & Chem 7: 09/08/19 21:30 09/08/19 21:30 Labs: Abnormal Lab Results - Last 24 Hours (Table) 09/08/19 09/08/19 09/08/19 Range/Units 21:30 21:30 21:30 PT 13.4 H (9.0-12.0) sec INR 1.3 H (<1.2) Sodium 132 L (137-145) mmol/L Carbon Dioxide 21 L (22-30) mmol/L Glucose 101 H (74-99) mg/dL Total Bilirubin 1.6 H (0.2-1.3) mg/dL AST 63 H (14-36) U/L Alkaline Phosphatase 139 H (38-126) U/L Ammonia 36 H (<30) umol/L Albumin 3.4 L (3.5-5.0) g/dL Thrombosis Risk Factor Assmnt - Choose All That Apply Any of the Below Risk Factors Present?: Yes Each Factor Represents 1 point: Age 41-60 years Other Risk Factors: No Other congenital or acquired thrombophilia - If yes, enter type in comment: No Thrombosis Risk Factor Assessment Total Risk Factor Score: 1 Thrombosis Risk Factor Assessment Level: Low Risk Assessment and Plan Assessment: 1. Intractable abdominal pain; secondary to ascites; IR consulted for therapeutic paracentesis 2. Ascites/liver cirrhosis; IVF is consulted for therapeutic paracentesis; patient remains on Lasix 20 mg daily and Aldactone 25 mg daily 3. Mild hyponatremia; possibly secondary to diuretic therapy; we will continue same and monitor electrolytes 4. Hyperammonemia; ammonia level mildly elevated at 36 DVT prophylaxis; SCDs/rehabilitation CODE STATUS; full code
[2019-09-09 14:47] VITALS: BMI 18.7
[2019-09-09 14:52] VITALS: RESP 16
--- NOTE | 2019-09-09 15:59 | US ---
Ultrasound-guided paracentesis. DATE OF EXAM: 09/09/2019 CLINICAL HISTORY: Ascites The procedure was discussed with the patient. The risks, complications, benefits, and alternatives we re discussed and any questions were answered. Informed consent was obtained. The patient was placed s upine on the ultrasound table and prepped and draped in the usual sterile fashion. All elements of maximal barrier technique were utilized. Under ultrasound guidance, access into the right lower quadrant was obtained, via the paracentesis catheter system and direct ultrasound guidanc e. Approximately 5.7 liters of straw-colored fluid was removed. The patient was stable throughout the pr ocedure and remained stable upon discharge from Department of Radiology. IMPRESSION: Successful paracentesis under ultrasound guidance.
[2019-09-09 16:07] VITALS: PULSE 92
[2019-09-09] MEDS: ALBUMIN HUMAN 25% 50 ML in EMPTY BAG 1 BAG IVPB SCH ×2 (17:01→18:04)
[2019-09-09 17:22] VITALS: BP 106/73
[2019-09-09] MEDS ORDERED: hydrOXYzine HCL 25 MG TAB PO SCH (21:00)
[2019-09-09] MEDS ORDERED: RIFAXIMIN 550 MG TABLET PO SCH (21:00)
== END 2019-09-09 20:17 | disposition home or self-care (01) ==
LOC: EC 20:32 → 1SOBS 22:33
PROVIDERS: ADMIT Hospitalist; ATTEND Hospitalist
DX: K70.31 Alcoholic cirrhosis of liver with ascites (principal); F10.10 Alcohol abuse, uncomplicated; K70.11 Alcoholic hepatitis with ascites; K44.9 Diaphragmatic hernia without obstruction or gangrene; K58.9 Irritable bowel syndrome, unspecified; E87.1 Hypo-osmolality and hyponatremia; E72.20 Disorder of urea cycle metabolism, unspecified; M47.9 Spondylosis, unspecified; M16.10 Unilateral primary osteoarthritis, unspecified hip; M19.079 Primary osteoarthritis, unspecified ankle and foot; F41.9 Anxiety disorder, unspecified; F32.9 Major depressive disorder, single episode, unspecified; F17.200 Nicotine dependence, unspecified, uncomplicated; Z98.82 Breast implant status; Z79.891 Long term (current) use of opiate analgesic; Z79.899 Other long term (current) drug therapy; Z88.0 Allergy status to penicillin; Z88.1 Allergy status to other antibiotic agents; Z91.09 Other allergy status, other than to drugs and biological substances
CPT/HCPCS: 96376 ×2; 96374; 96375; 99285; 36415 ×2; 80053; 82140; 82150; 83690; 85025; 85610; 85730; 76705; 49083; G0378 ×2; J2270 ×2; J2405; P9047; C9113

== ENCOUNTER 2019-09-20 02:53 | Observation (INO) | payer OTHER ==
[2019-09-20] MEDS ORDERED: NALOXONE 0.4 MG/ML 1 ML VIAL IV PRN (03:17)
[2019-09-20] MEDS ORDERED: MORPHINE SULFATE 4 MG/ML SYRINGE IV STA (03:17)
--- NOTE | 2019-09-20 03:21 | ED ---
General Adult HPI - General Chief complaint: Abdominal Pain Stated complaint: Abdominal Pain Time Seen by Provider: 09/20/19 03:05 Source: patient Mode of arrival: ambulatory Limitations: no limitations - History of Present Illness Initial comments: Dictation was produced using [employer] dictation software. please excuse any grammatical, word or spelling errors. Chief Complaint: 44-year-old female past medical history of alcoholic cirrhosis presents with abdominal pain. History of Present Illness: 24-year-old female presents with abdominal pain. Patient is diagnosed with cirrhosis of March last year. Since that she's been getting paracenteses approximately once a month. Over the last several weeks she feels like she is needed to get paracenteses more often. Last paracentesis was 2 weeks ago. She states that her doctors at [facility] order for outpatient paracentesis. Patient denies any fever, chills or night sweats. She states that abdominal pain is all abdominal with radiation to the back. Denies any numbness or paresthesias to the legs. Patient denies any shortness of breath. Patient was scheduled to have a tap performed on however she felt like she could not wait that long. The ROS documented in this emergency department record has been reviewed and confirmed by me. Those systems with pertinent positive or negative responses have been documented in the HPI. All other systems are other negative and/or noncontributory. PHYSICAL EXAM: General Impression: Alert and oriented x3, not in acute distress HEENT: Normocephalic atraumatic, extra-ocular movements intact, pupils equal and reactive to light bilaterally, mucous membranes moist. Cardiovascular: Heart regular rate and rhythm, S1&S2 audible, no murmurs, rubs or gallops Chest: Lungs clear to auscultation bilaterally, no rhonchi, no wheeze, no rales Abdomen: Diffuse abdominal tenderness, positive fluid wave Musculoskeletal: Pulses present and equal in all extremities, no peripheral edema Motor: no focal deficits noted Neurological: CN II-XII grossly intact, no focal motor or sensory deficits noted Skin: Intact with no visualized rashes Psych: Normal affect and mood ED course: 44-year-old female presents with abdominal pain secondary to abdominal ascites. Signs upon arrival are within acceptable limits. Patient is well-appearing. She is not showing any signs of respiratory distress. Patient will be admitted observation to [facility] hospitalist group with interventional radiology consultation for paracentesis. - Related Data Home Medications Medication Instructions Recorded Confirmed Lactulose 20 gm PO TID 05/21/19 09/09/19 Rifaximin [Xifaxan] 550 mg PO BID 05/21/19 09/09/19 Simethicone Chew [Mylicon Chew] 80 mg PO TID PRN 05/21/19 09/09/19 Multivitamin with Iron 1 tablet PO DAILY 07/28/19 09/09/19 [Multivitamins with Iron] traMADol HCL [Ultram] 50 mg PO BID PRN 07/28/19 09/09/19 Furosemide [Lasix] 20 mg PO DAILY 08/04/19 09/09/19 hydrOXYzine HCL 25 mg PO HS 08/04/19 09/09/19 Ferrous Gluconate 324 mg PO DAILY 09/08/19 09/09/19 Gabapentin [Neurontin] 100 mg PO DAILY 09/08/19 09/09/19 Polyethylene Glycol 3350 [Miralax] 17 gm PO DAILY 09/08/19 09/09/19 Spironolactone [Aldactone] 50 mg PO DAILY 09/08/19 09/09/19 Allergies Allergy/AdvReac Type Severity Reaction Status Date / Time azithromycin [From Zithromax] Allergy Nausea & Verified 09/20/19 03:03 Vomiting cat dander Allergy Dyspnea Verified 09/20/19 03:03 mold Allergy Dyspnea Verified 09/20/19 03:03 Penicillins Allergy Dyspnea Verified 09/20/19 03:03 Review of Systems ROS Statement: Those systems with pertinent positive or pertinent negative responses have been documented in the HPI. ROS Other: All systems not noted in ROS Statement are negative. Past Medical History Past Medical History: Liver Disease Additional Past Medical History / Comment(s): hiatal hernia, IBS, arthritis in back, knee, hip, ankle, hypogylycemia, Cirrhosis, low blood pressure and low oxygen levels, "lungs filled up with fluid" History of Any Multi-Drug Resistant Organisms: None Reported Past Surgical History: Breast Surgery Additional Past Surgical History / Comment(s): breast implants, paracentesis , dialysis port in and out Past Anesthesia/Blood Transfusion Reactions: No Reported Reaction Past Psychological History: Anxiety, Depression Smoking Status: Former smoker Past Alcohol Use History: None Reported Past Drug Use History: None Reported - Past Family History Mother History Unknown: Yes General Exam Limitations: no limitations Course Vital Signs 09/20/19 02:57 Temperature 97.7 F Pulse Rate 95 Respiratory 18 Rate Blood Pressure 120/86 O2 Sat by Pulse 97 Oximetry Disposition Clinical Impression: Ascites, Abdominal pain Disposition: ADMITTED IP TO THIS HOSP Condition: Fair Referrals: Ami Richardson MD [Primary Care Provider] - 1-2 days Decision Time: 03:21
[2019-09-20] MEDS: SODIUM CHLORIDE 0.9% 1,000 ML IV SCH ×2 (03:30→04:18)
[2019-09-20 03:42] LABS: ALT 21 U/L (4-34); AST 59 U/L (14-36); African American GFR (CKD) >90 (>60 ml/min/1.73 sqM); Albumin 3.3 g/dL (3.5-5.0); Alkaline Phosphatase 145 U/L (38-126); Anion Gap 9 mmol/L; Blood Urea Nitrogen 14 mg/dL (7-17); Calcium 8.8 mg/dL (8.4-10.2); Carbon Dioxide 25 mmol/L (22-30); Chloride 97 mmol/L (98-107); Glucose 114 mg/dL (74-99); Non-African American GFR(CKD) >90 (>60 ml/min/1.73 sqM); Potassium 4.2 mmol/L (3.5-5.1); Sodium 131 mmol/L (137-145); Total Bilirubin 1.3 mg/dL (0.2-1.3); Total Protein 7.5 g/dL (6.3-8.2)
[2019-09-20 03:47] LABS: INR 1.3 (<1.2); Partial Thromboplastin Time 26.2 sec (22.0-30.0)
[2019-09-20 03:57] LABS: Basophils # (A) 0.1 k/uL (0-0.2); Basophils % (A) 1 %; Eosinophils # (A) 0.1 k/uL (0-0.7); Eosinophils % (A) 1 %; HCT 46.6 % (34.0-46.0); HGB 14.5 gm/dL (11.4-16.0); Lymphocytes # (A) 2.2 k/uL (1.0-4.8); Lymphocytes % (A) 29 %; MCH 30.1 pg (25.0-35.0); MCHC 31.1 g/dL (31.0-37.0); MCV 96.6 fL (80.0-100.0); Mean Platelet Volume 7.9; Monocytes # (A) 0.5 k/uL (0-1.0); Monocytes % (A) 6 %; Neutrophils # (A) 4.6 k/uL (1.3-7.7); Neutrophils % (A) 60 %; Platelet Count 207 k/uL (150-450); RBC 4.82 m/uL (3.80-5.40); WBC 7.8 k/uL (3.8-10.6)
[2019-09-20] MEDS ORDERED: HYDROmorphone 0.5 MG/0.5 ML SYRINGE IVP STA (04:04)
[2019-09-20] MEDS: MORPHINE SULFATE 4 MG/ML SYRINGE IV PRN ×3 (06:00→12:49)
[2019-09-20 12:53] VITALS: RESP 20; TEMP 98.1
[2019-09-20] MEDS ORDERED: traMADol 50 MG TAB PO PRN (15:49)
[2019-09-20] MEDS ORDERED: SIMETHICONE 40 MG/0.6 ML DROPS 2,000 MG/30 ML BOTTLE PO PRN (15:49)
[2019-09-20] MEDS ORDERED: HYDROmorphone 0.5 MG/0.5 ML SYRINGE IVP PRN (15:52)
[2019-09-20] MEDS ORDERED: LORazepam 1 MG TAB PO PRN (15:52)
[2019-09-20] MEDS ORDERED: PANTOPRAZOLE 40 MG TABLET PO SCH (16:00)
[2019-09-20 16:07] VITALS: BP 114/62; PULSE 94
--- NOTE | 2019-09-20 16:22 | US ---
EXAMINATION TYPE: US paracentesis abd w/image DATE OF EXAM: 09/20/2019 COMPARISON: NONE HISTORY: Ascites. PROCEDURE: Maximal barrier technique was utilized. The skin overlying a suitable pocket of fluid was localized with ultrasound and the overlying skin was prepped and draped. Ultrasound was utilized with sterile technique. Lidocaine was used for local anesthesia and a skin ace made with a scalpel. Catheter was advanced under direct ultrasound guidance into a suitable pocket of fluid and approximately 7.7 liter s of serous fluid were removed. Catheter was withdrawn and hemostasis achieved. There is no immedia te complication; the patient is discharged in stable condition. IMPRESSION: STATUS POST ULTRASOUND GUIDED PARACENTESIS FOR PALLIATION OF ASCITES. THIS PROCEDURE WA S PERFORMED BY THE UNDERSIGNED.
[2019-09-20] MEDS: ALBUMIN HUMAN 25% 50 ML in EMPTY BAG 1 BAG IVPB SCH ×4 (17:30→18:22)
--- NOTE | 2019-09-20 18:58 | HP ---
HISTORY AND PHYSICAL HISTORY AND PHYSICAL/DISCHARGE SUMMARY: This is a combination history and physical and discharge summary. CHIEF COMPLAINT: Abdominal pain and distention. HISTORY OF PRESENT ILLNESS: This 44-year-old woman with a past medical history of alcoholic cirrhosis of the liver, history of recurrent ascites and ascitic tap, history of hiatal hernia, history of IBS, history of DJD, history of breast surgery, anxiety, depression, being followed by Dr. Ami Richardson in the outpatient setting, also seeing Lissa from Gastroenterology and as well [facility] gastroenterology as well. The patient had been actually worked up for the transplant at [facility], but however, according to them, the patient is feeling better. The patient is monitor the paracentesis but right now it is getting more frequent. About two since the last paracentesis, about 8 L from both hospitals. Currently, the patient is complaining of abdomen distention. Patient came here. The patient also complained of abdominal pain in the right upper quadrant which was radiating to the back and the patient was treated symptomatically. Abdominal paracentesis about 7 L of fluid was taken and patient being closely monitored at this time. There is no history of fever, rigors or chills. No history of headache, loss of consciousness or seizures. PAST MEDICAL HISTORY: History of chronic liver disease, history of cirrhosis of the liver, history of breast surgery, anxiety, depression. MEDICATIONS: Home medications are: 1. Ultram 50 mg b.i.d. p.r.n. 2. Hydroxyzine 25 mg q.h.s. 3. Aldactone 50 mg daily. 4. Gas-X 62.5 mg b.i.d. p.r.n. 5. Xifaxan 550 mg p.o. b.i.d. 6. MiraLAX 17 g daily. 7. Multivitamins one p.o. daily. 8. Lactulose 20 mg p.o. t.i.d. 9. Neurontin 100 mg p.o. daily. 10.Lasix 20 mg p.o. daily. 11.Iron sulfate 320 mg p.o. daily. 12.Bacid. ALLERGIES: ZITHROMAX, CAT DANDER, AND MOLD, PENICILLIN. FAMILY HISTORY: History of heart disease in the family. SOCIAL HISTORY: Previous history of alcohol in 2018. Previous history of smoking. REVIEW OF SYSTEMS: ENT: No diminished vision. No diminished hearing. CARDIOVASCULAR: No angina or palpitations. RESPIRATORY: As mentioned earlier. GI no nausea or vomiting. no dysuria. NERVOUS SYSTEM: No numbness or weakness. ALLERGY/IMMUNOLOGY: No asthma or hayfever. MUSCULOSKELETAL as mentioned early. HEMATOLOGY/ONCOLOGY no history of anemia. ENDOCRINE: No history of diabetes or hypothyroidism. CONSTITUTIONAL: As mentioned earlier. DERMATOLOGY: Negative. RHEUMATOLOGY: Negative. PSYCHIATRY: As mentioned earlier. PHYSICAL EXAM: Patient is alert, oriented x3. Pulse is 94. Blood pressure 140/60. Respiration 20, temperature normal. Pulse ox 100 percent on room air. HEENT: Conjunctivae normal. NECK: No JVD. CARDIOVASCULAR: S1, S2 muffled. RESPIRATORY: Breath sounds diminished in the bases. A few rhonchi. No crackles. ABDOMEN: Soft, obese. Ascites present. An area of possible abdominal hernia in the right upper quadrant also present. Liver is palpable for cirrhotic ascites present. Bowel sounds present. LEGS: No edema. No swelling. NERVOUS SYSTEM: Higher functions as mentioned. Moves all four limbs. No focal deficits. LYMPHATICS: No lymph nodes palpable in the neck, axilla or groin. SKIN: No ulcer, rashes or bleeding. JOINTS: No active deforming arthropathy. LABS: CBC within normal limits. INR 1.3. Sodium 131, glucose 114 and AST 59, alkaline phosphatase 145, albumin is 3.3. ASSESSMENT: 1. Recurrent ascites secondary to cirrhosis of the liver status post paracentesis. 2. Acute abdominal pain of undetermined etiology. 3. Possible abdominal wall hernia, right upper quadrant. 4. Mild coagulopathy secondary to cirrhosis of the liver. 5. Cirrhosis of the liver secondary to ETOH. 6. History of nicotine dependence. 7. Hyponatremia. 8. Hypoalbuminemia with severe protein calorie malnutrition. 9. History of hiatal hernia. 10.History of irritable bowel syndrome. 11.History of degenerative joint disease. 12.History of hypoglycemia. 13.History of breast implants. 14.History of paracentesis. 15.History of anxiety, depression. 16.Remote history of nicotine dependence. 17.FULL CODE. RECOMMENDATIONS AND DISCUSSION: In this 44-year-old woman who presented with multiple complex medical issues, we will monitor the patient closely, continue the current medications, management and symptomatic treatment. The patient is reporting significantly soft after paracentesis. The exact etiology of the abdominal pain is unknown at this time. I recommend the patient to follow up closely with Lissa from the Gastroenterology and as well as the [facility] for further evaluation and treatment for the above mentioned multiple medical problems. Resume the home medications as listed above and also recommend close followup with Dr. Ami Richardson. VANESSA / AURELIA: [id number] / MTDD
[2019-09-20] MEDS ORDERED: RIFAXIMIN 550 MG TABLET PO SCH (21:00)
[2019-09-20] MEDS ORDERED: HEPARIN SODIUM,PORCINE 5,000 UNIT/ML 1 ML VIAL SQ SCH (21:00)
[2019-09-20] MEDS ORDERED: hydrOXYzine HCL 25 MG TAB PO SCH (21:00)
[2019-09-21] MEDS ORDERED: FUROSEMIDE 20 MG TAB PO SCH (09:00)
[2019-09-21] MEDS ORDERED: POLYETHYLENE GLYCOL 3350 17 GM POWD.PACK PO SCH (09:00)
[2019-09-21] MEDS ORDERED: SPIRONOLACTONE 25 MG TAB PO SCH (09:00)
[2019-09-21] MEDS ORDERED: MULTIVITAMINS, THERA 1 EACH TAB PO SCH (09:00)
[2019-09-21] MEDS ORDERED: GABAPENTIN 100 MG CAP PO SCH (09:00)
[2019-09-21] MEDS ORDERED: FERROUS GLUCONATE 324 MG PO SCH (09:00)
[2019-09-21] MEDS ORDERED: THIAMINE 100 MG TAB PO SCH (12:00)
[2019-09-21] MEDS ORDERED: FOLIC ACID 1 MG TAB PO SCH (12:00)
== END 2019-09-20 18:51 | disposition home or self-care (01) ==
LOC: EC 02:53 → 6NMEDSUR 03:17
PROVIDERS: ADMIT Hospitalist; ATTEND Hospitalist
DX: K70.31 Alcoholic cirrhosis of liver with ascites (principal); D68.4 Acquired coagulation factor deficiency; E87.1 Hypo-osmolality and hyponatremia; E88.09 Other disorders of plasma-protein metabolism, not elsewhere classified; K58.9 Irritable bowel syndrome, unspecified; K44.9 Diaphragmatic hernia without obstruction or gangrene; M47.9 Spondylosis, unspecified; M17.10 Unilateral primary osteoarthritis, unspecified knee; M16.10 Unilateral primary osteoarthritis, unspecified hip; M19.079 Primary osteoarthritis, unspecified ankle and foot; F41.9 Anxiety disorder, unspecified; F32.9 Major depressive disorder, single episode, unspecified; E43 Unspecified severe protein-calorie malnutrition; Z87.891 Personal history of nicotine dependence; Z98.82 Breast implant status; Z79.891 Long term (current) use of opiate analgesic; Z79.899 Other long term (current) drug therapy; Z88.0 Allergy status to penicillin; Z88.1 Allergy status to other antibiotic agents; Z91.048 Other nonmedicinal substance allergy status
CPT/HCPCS: 96376; 96374; 96375; 99285; 36415; 93005; 80053; 85025; 85610; 85730; 49083; G0378; J2270; P9047; J1170

== ENCOUNTER 2019-09-22 07:10 | Inpatient (IN) | payer OTHER ==
[2019-09-22] MEDS ORDERED: PANTOPRAZOLE 40 MG/10 ML VIAL IVP STA (07:56)
[2019-09-22] MEDS ORDERED: HYDROmorphone 1 MG/ML 1 ML SYRINGE IVP STA ×2 (07:56→14:08)
[2019-09-22] MEDS ORDERED: SODIUM CHLORIDE 0.9% 1,000 ML IV STA (07:56)
--- NOTE | 2019-09-22 08:15 | ED ---
General Adult HPI - General Chief complaint: Abdominal Pain Stated complaint: Abd Pain Time Seen by Provider: 09/22/19 07:34 Source: patient, RN notes reviewed Mode of arrival: ambulatory Limitations: no limitations - History of Present Illness Initial comments: Patient is a pleasant 44-year-old female presenting to the emergency Department with complaints of abdominal discomfort. Onset of symptoms was over 2 weeks ago. Discomfort is right upper abdomen. Patient did have paracentesis without improvement of symptoms. Symptoms are not worse since paracentesis. Patient is unclear if she has had similar symptoms previously. Patient does have chronic epigastric pain as well. Patient states it feels like her discomfort is sliding in and out, waxing and waning. No nausea vomiting. No constipation or diarrhea. - Related Data Home Medications Medication Instructions Recorded Confirmed Lactulose 20 gm PO TID 05/21/19 09/22/19 Rifaximin [Xifaxan] 550 mg PO BID 05/21/19 09/22/19 Multivitamin with Iron 1 tablet PO DAILY 07/28/19 09/22/19 [Multivitamins with Iron] traMADol HCL [Ultram] 50 mg PO BID PRN 07/28/19 09/22/19 Furosemide [Lasix] 20 mg PO DAILY 08/04/19 09/22/19 hydrOXYzine HCL 25 mg PO HS 08/04/19 09/22/19 Ferrous Gluconate 324 mg PO DAILY 09/08/19 09/22/19 Gabapentin [Neurontin] 100 mg PO DAILY 09/08/19 09/22/19 Polyethylene Glycol 3350 [Miralax] 17 gm PO DAILY 09/08/19 09/22/19 Spironolactone [Aldactone] 50 mg PO DAILY 09/08/19 09/22/19 Antiacid Unknown Otc 1 tab PO DAILY PRN 09/20/19 09/22/19 Simethicone [Gas-X] 62.5 mg PO DAILY PRN 09/20/19 09/22/19 Allergies Allergy/AdvReac Type Severity Reaction Status Date / Time azithromycin [From Zithromax] Allergy Nausea & Verified 09/22/19 08:54 Vomiting cat dander Allergy Dyspnea/THROAT Verified 09/22/19 08:54 SWELLING mold Allergy Dyspnea/THROAT Verified 09/22/19 08:54 SWELLING Penicillins Allergy Dyspnea/THROAT Verified 03/19/20 08:54 SWELLING Review of Systems ROS Statement: Those systems with pertinent positive or pertinent negative responses have been documented in the HPI. ROS Other: All systems not noted in ROS Statement are negative. Constitutional: Denies: fever Eyes: Denies: eye pain ENT: Denies: ear pain Respiratory: Denies: cough Cardiovascular: Denies: chest pain Endocrine: Denies: fatigue Gastrointestinal: Reports: as per HPI, abdominal pain. Denies: nausea, vomiting, diarrhea, constipation Genitourinary: Denies: dysuria Musculoskeletal: Denies: back pain Skin: Denies: rash Neurological: Denies: weakness Past Medical History Past Medical History: Liver Disease Additional Past Medical History / Comment(s): hiatal hernia, IBS, arthritis in back, knee, hip, ankle, hypogylycemia, Cirrhosis, low blood pressure and low oxygen levels, "lungs filled up with fluid" History of Any Multi-Drug Resistant Organisms: None Reported Past Surgical History: Breast Surgery Additional Past Surgical History / Comment(s): breast implants, paracentesis , dialysis port in and out Past Anesthesia/Blood Transfusion Reactions: No Reported Reaction Past Psychological History: Anxiety, Depression Smoking Status: Former smoker Past Alcohol Use History: None Reported Past Drug Use History: None Reported - Past Family History Mother History Unknown: Yes General Exam Limitations: no limitations General appearance: alert, in no apparent distress Head exam: Present: normocephalic Eye exam: Present: normal appearance, PERRL ENT exam: Present: normal oropharynx Neck exam: Present: normal inspection Respiratory exam: Present: normal lung sounds bilaterally Cardiovascular Exam: Present: regular rate, normal rhythm Expanded Peripheral pulses: 2+: Dorsalis Pedis (R), Dorsalis Pedis (L) GI/Abdominal exam: Present: soft, tenderness (Right upper quadrant tenderness with area of subcutaneous firmness, approximately 2-3 cm), normal bowel sounds. Absent: distended, guarding, rebound, rigid, pulsatile mass Extremities exam: Present: normal inspection Neurological exam: Present: alert Psychiatric exam: Present: anxious Skin exam: Present: normal color Course Vital Signs 09/22/19 07:21 Temperature 98.3 F Pulse Rate 114 H Respiratory 19 Rate Blood Pressure 100/70 O2 Sat by Pulse 92 L Oximetry - Reevaluation(s) Reevaluation #1: 09/22/19 10:35 Patient reevaluated and has continued symptoms. Patient updated on results and plan. Case was discussed in detail with Dr. Rice and does request medical admission with GI consult. He will evaluate patient and decide what further testing will need to be done as far as imaging. 09/22/19 10:37 Dr. Courtney has been paged for admission, covering for Dr. Cabello-dee Medical Decision Making - Lab Data Result diagrams: 09/22/19 07:55 09/22/19 07:55 Lab Results 09/22/19 09/22/19 09/22/19 Range/Units 07:55 07:55 07:55 WBC 9.4 (3.8-10.6) k/uL RBC 4.63 (3.80-5.40) m/uL Hgb 13.9 (11.4-16.0) gm/dL Hct 44.8 (34.0-46.0) % MCV 96.7 (80.0-100.0) fL MCH 30.1 (25.0-35.0) pg MCHC 31.1 (31.0-37.0) g/dL RDW 13.9 (11.5-15.5) % Plt Count 163 (150-450) k/uL Neutrophils % 73 % Lymphocytes % 15 % Monocytes % 7 % Eosinophils % 1 % Basophils % 1 % Neutrophils # 6.9 (1.3-7.7) k/uL Lymphocytes # 1.4 (1.0-4.8) k/uL Monocytes # 0.7 (0-1.0) k/uL Eosinophils # 0.1 (0-0.7) k/uL Basophils # 0.1 (0-0.2) k/uL PT 13.9 H (9.0-12.0) sec INR 1.4 H (<1.2) APTT 25.0 (22.0-30.0) sec Sodium 134 L (137-145) mmol/L Potassium 3.7 (3.5-5.1) mmol/L Chloride 103 (98-107) mmol/L Carbon Dioxide 23 (22-30) mmol/L Anion Gap 8 mmol/L BUN 12 (7-17) mg/dL Creatinine 0.66 (0.52-1.04) mg/dL Est GFR (CKD-EPI)AfAm >90 (>60 ml/min/1.73 sqM) Est GFR (CKD-EPI)NonAf >90 (>60 ml/min/1.73 sqM) Glucose 102 H (74-99) mg/dL Calcium 8.6 (8.4-10.2) mg/dL Total Bilirubin 1.0 (0.2-1.3) mg/dL AST 53 H (14-36) U/L ALT 18 (4-34) U/L Alkaline Phosphatase 113 (38-126) U/L Total Protein 6.3 (6.3-8.2) g/dL Albumin 2.9 L (3.5-5.0) g/dL Amylase 58 (30-110) U/L Lipase 276 (23-300) U/L Urine Color Urine Appearance (Clear) Urine pH (5.0-8.0) Ur Specific [place] (1.001-1.035) Urine Protein (Negative) Urine Glucose (UA) (Negative) Urine Ketones (Negative) Urine Blood (Negative) Urine Nitrite (Negative) Urine Bilirubin (Negative) Urine Urobilinogen (<2.0) mg/dL Ur Leukocyte Esterase (Negative) 09/22/19 Range/Units 09:39 WBC (3.8-10.6) k/uL RBC (3.80-5.40) m/uL Hgb (11.4-16.0) gm/dL Hct (34.0-46.0) % MCV (80.0-100.0) fL MCH (25.0-35.0) pg MCHC (31.0-37.0) g/dL RDW (11.5-15.5) % Plt Count (150-450) k/uL Neutrophils % % Lymphocytes % % Monocytes % % Eosinophils % % Basophils % % Neutrophils # (1.3-7.7) k/uL Lymphocytes # (1.0-4.8) k/uL Monocytes # (0-1.0) k/uL Eosinophils # (0-0.7) k/uL Basophils # (0-0.2) k/uL PT (9.0-12.0) sec INR (<1.2) APTT (22.0-30.0) sec Sodium (137-145) mmol/L Potassium (3.5-5.1) mmol/L Chloride (98-107) mmol/L Carbon Dioxide (22-30) mmol/L Anion Gap mmol/L BUN (7-17) mg/dL Creatinine (0.52-1.04) mg/dL Est GFR (CKD-EPI)AfAm (>60 ml/min/1.73 sqM) Est GFR (CKD-EPI)NonAf (>60 ml/min/1.73 sqM) Glucose (74-99) mg/dL Calcium (8.4-10.2) mg/dL Total Bilirubin (0.2-1.3) mg/dL AST (14-36) U/L ALT (4-34) U/L Alkaline Phosphatase (38-126) U/L Total Protein (6.3-8.2) g/dL Albumin (3.5-5.0) g/dL Amylase (30-110) U/L Lipase (23-300) U/L Urine Color Yellow Urine Appearance Clear (Clear) Urine pH 6.5 (5.0-8.0) Ur Specific [place] >1.050 H (1.001-1.035) Urine Protein Trace H (Negative) Urine Glucose (UA) Negative (Negative) Urine Ketones Negative (Negative) Urine Blood Negative (Negative) Urine Nitrite Negative (Negative) Urine Bilirubin Negative (Negative) Urine Urobilinogen <2.0 (<2.0) mg/dL Ur Leukocyte Esterase Negative (Negative) - Radiology Data Radiology results: report reviewed (Computed tomography scan shows cirrhotic liver. Ascites that has worsened. Bowel wall thickening. Hepatic hyperemia around the gallbladder fossa.) Disposition Clinical Impression: Abdominal pain Disposition: ADMITTED IP TO THIS [facility] Instructions (If sedation given, give patient instructions): Abdominal Pain (ED) Is patient prescribed a controlled substance at d/c from ED?: No Referrals: Ami Richardson MD [Primary Care Provider] - 1-2 days Decision Time: 10:37
[2019-09-22 08:25] LABS: Basophils # (A) 0.1 k/uL (0-0.2); Basophils % (A) 1 %; Eosinophils # (A) 0.1 k/uL (0-0.7); Eosinophils % (A) 1 %; HCT 44.8 % (34.0-46.0); HGB 13.9 gm/dL (11.4-16.0); Lymphocytes # (A) 1.4 k/uL (1.0-4.8); Lymphocytes % (A) 15 %; MCH 30.1 pg (25.0-35.0); MCHC 31.1 g/dL (31.0-37.0); MCV 96.7 fL (80.0-100.0); Mean Platelet Volume 8.1; Monocytes # (A) 0.7 k/uL (0-1.0); Monocytes % (A) 7 %; Neutrophils # (A) 6.9 k/uL (1.3-7.7); Neutrophils % (A) 73 %; Platelet Count 163 k/uL (150-450); RBC 4.63 m/uL (3.80-5.40); RDW 13.9 % (11.5-15.5); WBC 9.4 k/uL (3.8-10.6)
[2019-09-22 08:34] LABS: INR 1.4 (<1.2); Prothrombin Time 13.9 sec (9.0-12.0)
[2019-09-22 08:39] LABS: ALT 18 U/L (4-34); AST 53 U/L (14-36); African American GFR (CKD) >90 (>60 ml/min/1.73 sqM); Albumin 2.9 g/dL (3.5-5.0); Alkaline Phosphatase 113 U/L (38-126); Amylase 58 U/L (30-110); Anion Gap 8 mmol/L; Blood Urea Nitrogen 12 mg/dL (7-17); Calcium 8.6 mg/dL (8.4-10.2); Carbon Dioxide 23 mmol/L (22-30); Chloride 103 mmol/L (98-107); Glucose 102 mg/dL (74-99); Non-African American GFR(CKD) >90 (>60 ml/min/1.73 sqM); Potassium 3.7 mmol/L (3.5-5.1); Sodium 134 mmol/L (137-145); Total Protein 6.3 g/dL (6.3-8.2)
--- NOTE | 2019-09-22 09:09 | CT ---
EXAMINATION TYPE: CT abdomen pelvis w con DATE OF EXAM: 09/22/2019 HISTORY: Abdominal pain and right upper quadrant pain CT DLP: 521.6mGycm Automated Exposure Control for Dose Reduction was Utilized. CONTRAST: CT scan of the abdomen and pelvis is performed with IV Contrast, patient injected with 100 mL of Isov ue 300. COMPARISON: 03/14/2019 FINDINGS: LUNG BASES: There is partial visualization of at least moderate right pleural effusion and associated right basilar airspace disease. Right basilar airspace disease is multinodular but may represent nod ular atelectasis. Multifocal atelectasis and scarring is seen of the left lung base. There is shiftin g the mediastinum leftward secondary to mass effect from the right pleural effusion. LIVER/GB: The liver is diffusely heterogenous with patchy abnormal enhancement throughout and hyperva scularity of segments 4A and 4B. Overall there is a cirrhotic morphology of the liver. Exam is limite d for evaluation of hepatic mass. This should be evaluated with hepatic MRI which was most recently p erformed on 04/13/2019. No cholelithiasis is seen within the gallbladder. PANCREAS: No significant abnormality is seen. SPLEEN: No splenomegaly. ADRENALS: No nodule or thickening. KIDNEYS: Kidneys enhance symmetrically without hydronephrosis. Kidneys also excrete symmetrically. BOWEL: Multifocal small bowel wall thickening is seen, particularly in the left midabdomen. UTERUS/ADNEXA: Centrally located intrauterine device is noted. LYMPH NODES: Aortocaval lymph node measures 1.2 cm on image 42 with numerous prominent lymph nodes di fficult to measure in the portal caval region given the surrounding ascites. One lymph node on image 33 measures 1.2 cm in short axis. OSSEOUS STRUCTURES: No significant abnormality is seen. OTHER: Moderate abdominopelvic ascites is seen with the greatest amount of fluid being perihepatic. IMPRESSION: 1. Cirrhotic morphology of the liver with moderate abdominopelvic ascites is seen with the greatest amount of fluid being perihepatic. Ascites has worsened from the prior of 03/14/2019. 2. Multifocal small bowel wall thickening may be on the basis of hypoalbuminemia, the adjacent ascite s, or enteritis. 3. Hepatic hyperemia around the gallbladder fossa. Correlation with serum laboratory values to evalua te for acute cholecystitis is recommended as well as evaluate the need for HIDA scan. Alternatively d iffuse hepatocellular carcinoma in this region cannot be excluded and should be characterized on a no nemergent basis with hepatic MRI. Most recent hepatic MRI was 04/13/2019.
[2019-09-22 09:57] LABS: Appearance,Urine Clear (Clear); Bilirubin,Urine Negative (Negative); Blood,Urine Negative (Negative); Color,Urine Yellow; Glucose,Urine (UA) Negative (Negative); Ketones,Urine Negative (Negative); Leukocyte Esterase,Urine Negative (Negative); Nitrite,Urine Negative (Negative); PH, Urine 6.5 (5.0-8.0); Protein,Urine Trace (Negative); Urobilinogen,Urine <2.0 mg/dL (<2.0)
[2019-09-22 10:06] LABS: Specific Gravity,Urine >1.050 (1.001-1.035)
[2019-09-22] MEDS ORDERED: ONDANSETRON 4 MG/2 ML VIAL IVP PRN (10:38)
[2019-09-22] MEDS ORDERED: NALOXONE 0.4 MG/ML 1 ML VIAL IV PRN (10:38)
[2019-09-22] MEDS: SODIUM CHLORIDE 0.9% 1,000 ML IV SCH ×2 (10:57→21:25)
[2019-09-22] MEDS: HYDROmorphone 1 MG/ML 1 ML SYRINGE IVP PRN ×4 (10:57→22:40)
--- NOTE | 2019-09-22 13:51 | P.HPIM ---
History of Present Illness This is a pleasant 44 years old female with past medical history of alcoholic liver cirrhosis, recurrent ascites, severe protein calorie malnutrition, hyponatremia, history of kidney and renal failure status post intubation. Patient presents because of right upper quadrant abdominal pain with difficulty breathing and dry coughing for the last 2 days. Patient denies nausea vomiting or change in bowel habits, her bowel movement scan of loose due to lactulose. Denies smoking, alcohol or illicit drugs Vitals are stable, labs showing unremarkable CBC, BMP and liver enzymes. Amylase and lipase are normal, UA is no suspicious of infection. She has abdominal and pelvis CT with IV contrast, liver cirrhosis and ascites, multifo gwyn small bowel wall thickening, possible acute cholecystitis, possible hepatocellular disease, cannot rule out malignancy MAPS was checked and she is taking Ultram 50 mg twice a day, however gabapentin last dose was on 06/30/2019 In the emergency room she got Dilaudid and Protonix and started on Heather sling and 100 mL per hour Review of Systems CONSTITUTIONAL: No fever, no malaise, no fatigue. HEENT: No recent visual problems or hearing problems. Denied any sore throat. CARDIOVASCULAR: No orthopnea, PND, no palpitations, no syncope. PULMONARY: no hemoptysis. GASTROINTESTINAL: No diarrhea, no nausea, no vomiting, no abdominal pain. Normoactive bowel sounds. NEUROLOGICAL: No headaches, no weakness, no numbness. HEMATOLOGICAL: Denies any bleeding or petechiae. GENITOURINARY: Denies any burning micturition, frequency, or urgency. MUSCULOSKELETAL/RHEUMATOLOGICAL: Denies any joint pain, swelling, or any muscle pain. ENDOCRINE: Denies any polyuria or polydipsia. Past Medical History Past Medical History: Liver Disease, Osteoarthritis (OA), Renal Disease Additional Past Medical History / Comment(s): Pt recently admitted to [facility] on 09/20/19 with recurrent ascites 2ndary to cirrhosis/acute abdominal pain/possible abdominal wall hernia/mild coagulopathy d/t cirrhosis, severe protein calorie malnourishment, hyponatremia, hypoalbuminemia. Other hx: chronic epigastric pain, alchoholic cirrhosis of the liver, recurrent ascities/paracentesises, portal htn, pt states recent past she was hospitalized with pneumothorax/kidney and liver failure-was in an induced coma/intubated/vented/received 2 dialysis treatments and states she had to relearn to walk and talk, anemia, hiatal hernia , IBS, hypoglycemia, hypotension. History of Any Multi-Drug Resistant Organisms: None Reported Past Surgical History: Breast Surgery Additional Past Surgical History / Comment(s): Dialysis port-removed, paracentesises, EGD, colonoscopy, breast implants. Past Anesthesia/Blood Transfusion Reactions: No Reported Reaction Additional Past Anesthesia/Blood Transfusion Reaction / Comment(s): Pt states she has received blood in past without reaction. Smoking Status: Former smoker - Past Family History Mother History Unknown: Yes Medications and Allergies Home Medications Medication Instructions Recorded Confirmed Type Lactulose 20 gm PO TID 05/21/19 09/22/19 History Rifaximin [Xifaxan] 550 mg PO BID 05/21/19 09/22/19 History Multivitamin with Iron 1 tablet PO DAILY 07/28/19 09/22/19 History [Multivitamins with Iron] traMADol HCL [Ultram] 50 mg PO BID PRN 07/28/19 09/22/19 History Furosemide [Lasix] 20 mg PO DAILY 08/04/19 09/22/19 History hydrOXYzine HCL 25 mg PO HS 08/04/19 09/22/19 History Ferrous Gluconate 324 mg PO DAILY 09/08/19 09/22/19 History Gabapentin [Neurontin] 100 mg PO DAILY 09/08/19 09/22/19 History Polyethylene Glycol 3350 [Miralax] 17 gm PO DAILY 09/08/19 09/22/19 History Spironolactone [Aldactone] 50 mg PO DAILY 09/08/19 09/22/19 History Antiacid Unknown Otc 1 tab PO DAILY PRN 09/20/19 09/22/19 History Simethicone [Gas-X] 62.5 mg PO DAILY PRN 09/20/19 09/22/19 History Allergies Allergy/AdvReac Type Severity Reaction Status Date / Time azithromycin [From Zithromax] Allergy Nausea & Verified 09/22/19 08:54 Vomiting cat dander Allergy Dyspnea/THROAT Verified 09/22/19 08:54 SWELLING mold Allergy Dyspnea/THROAT Verified 09/22/19 08:54 SWELLING Penicillins Allergy Dyspnea/THROAT Verified 09/22/19 08:54 SWELLING Physical Exam Vitals: Vital Signs Temp Pulse Pulse Resp BP BP Pulse Ox 09/22/19 11:33 97.7 F 96 16 108/74 93 L 09/22/19 11:01 83 16 103/62 100 09/22/19 07:21 98.3 F 114 H 19 100/70 92 L Intake and Output 09/21/19 09/22/19 09/22/19 22:59 06:59 14:59 Other: Weight 52.118 kg GENERAL: The patient is alert and oriented x3, not in any acute distress. Well developed, well nourished. HEENT: Pupils are round and equally reacting to light. EOMI. No scleral icterus. No conjunctival pallor. Normocephalic, atraumatic. No pharyngeal erythema. No thyromegaly. CARDIOVASCULAR: S1 and S2 present. No murmurs, rubs, or gallops. PULMONARY: Chest is clear to auscultation, no wheezing or crackles. -ABDOMEN: Soft, right upper quadrant tenderness, nondistended, normoactive bowel sounds. No palpable organomegaly. MUSCULOSKELETAL: No joint swelling or deformity. EXTREMITIES: No cyanosis, clubbing, or pedal edema. NEUROLOGICAL: Gross neurological examination did not reveal any focal deficits. SKIN: No rashes. No petechiae Results CBC & Chem 7: 09/22/19 07:55 09/22/19 07:55 Labs: Abnormal Lab Results - Last 24 Hours (Table) 09/22/19 09/22/19 09/22/19 Range/Units 07:55 07:55 09:39 PT 13.9 H (9.0-12.0) sec INR 1.4 H (<1.2) Sodium 134 L (137-145) mmol/L Glucose 102 H (74-99) mg/dL AST 53 H (14-36) U/L Albumin 2.9 L (3.5-5.0) g/dL Ur Specific [place] >1.050 H (1.001-1.035) Urine Protein Trace H (Negative) Thrombosis Risk Factor Assmnt - Choose All That Apply Any of the Below Risk Factors Present?: Yes Each Factor Represents 1 point: Age 41-60 years, Hx of IBD Other Risk Factors: No Other congenital or acquired thrombophilia - If yes, enter type in comment: No Thrombosis Risk Factor Assessment Total Risk Factor Score: 2 Thrombosis Risk Factor Assessment Level: Low Risk Assessment and Plan Assessment: Alcoholic liver cirrhosis, CAT scan of the abdomen and pelvis showing hepatocellular disease, cannot rule out malignancy Ascites and abdominal distention secondary to above Shortness of breath and coughing Multifocal small bowel thickening on CAT scan of the abdomen and pelvis Possible acute cholecystitis Moderate to severe protein calorie malnutrition Mild hyponatremia Plan: This is a pleasant 44 years old female who presents with liver cirrhosis, ascites and possible acute cholecystitis. Continue symptomatic treatment. GI and surgery team were consulted. Patient will be reevaluated for paracentesis. Also we will check chest x-ray, influenza, bronchodilator Labs and medication were reviewed.. Continue same treatment. Continue with symptomatic treatment. Resume home medication. Monitor lytes and vitals. DVT and GI prophylaxis. Further recommendations of the clinical course of the patient DVT prophylaxis: Subcutaneous heparin GI Prophylaxis: Pepcid Prognosis is guarded
--- NOTE | 2019-09-22 15:43 | XR ---
EXAMINATION TYPE: XR chest 1V portable DATE OF EXAM: 09/22/2019 COMPARISON: Prior chest x-ray 03/14/2019 HISTORY: Shortness of breath and cough TECHNIQUE: Single frontal view of the chest is obtained. FINDINGS: Minimal patchy basilar density again noted on the left. There is been interval development of opacity at the right lung base obscuring the right hemidiaphragm and heart border. No evident pne umothorax. Heart size thought likely to be stable, there is underlying scoliotic curvature, patient i s rotated. There are overlying artifacts. IMPRESSION: Right lower lobe atelectasis versus pneumonia and associated effusion.
[2019-09-22] MEDS: LACTULOSE 20 GM/30 ML CUP PO SCH ×2 (15:58→20:32)
[2019-09-22] MEDS: LEVOFLOXACIN 500MG-D5W PMX 500 MG in DEXTROSE/WATER 1 100ML.BAG IVPB SCH (17:17)
--- NOTE | 2019-09-22 17:27 | P.GSCN ---
History of Present Illness Consult date: 09/22/19 Reason for Consult: Abdominal pain History of present illness: 44-year-old female with advanced liver disease. Related to previous alcohol use . Per the patient she was quite ill last April and May. She was at multiple different hospitals including [facility] and [facility]. Apparently she has been following with our local GI practitioners as well as [facility]. She states that they are working on getting her on a transplant list. She states she was told recently that her liver disease was slightly improved and therefore she was not a candidate to be on the transplant list at this time. Patient lately has had worsening ascites requiring frequent drainages. Last drainage only 2 days ago. Came to the hospital today complaining of shortness of breath and abdominal pain. She feels a bulge in the upper right abdomen. CAT scan was performed showing ascites, cirrhosis, right pleural effusion, and some thickening of the gallbladder wall. Patient states it hurts to take a deep breath. Patient states her shortness of breath started shortly after her recent paracentesis. Paracentesis location was left midabdomen. We were consulted to evaluate her right upper quadrant pain. Review of Systems The patient denies any acute changes in vision or hearing, no dysphagia or odynophagia, no runny nose, no rectal bleeding or melena Past Medical History Past Medical History: Liver Disease, Osteoarthritis (OA), Renal Disease Additional Past Medical History / Comment(s): Pt recently admitted to [facility] on 09/20/19 with recurrent ascites 2ndary to cirrhosis/acute abdominal pain/possible abdominal wall hernia/mild coagulopathy d/t cirrhosis, severe protein calorie malnourishment, hyponatremia, hypoalbuminemia. Other hx: chronic epigastric pain, alchoholic cirrhosis of the liver, recurrent ascities/paracentesises, portal htn, pt states recent past she was hospitalized with pneumothorax/kidney and liver failure-was in an induced coma/intubated/vented/received 2 dialysis treatments and states she had to relearn to walk and talk, anemia, hiatal hernia, IBS, hypoglycemia, hypotension. History of Any Multi-Drug Resistant Organisms: None Reported Past Surgical History: Breast Surgery Additional Past Surgical History / Comment(s): Dialysis port-removed, paracentesises, EGD, colonoscopy, breast implants. Past Anesthesia/Blood Transfusion Reactions: No Reported Reaction Additional Past Anesthesia/Blood Transfusion Reaction / Comm: Pt states she has received blood in past without reaction. Smoking Status: Former smoker - Past Family History Mother History Unknown: Yes Medications and Allergies Home Medications Medication Instructions Recorded Confirmed Type Lactulose 20 gm PO TID 05/21/19 09/22/19 History Rifaximin [Xifaxan] 550 mg PO BID 05/21/19 09/22/19 History Multivitamin with Iron 1 tablet PO DAILY 07/28/19 09/22/19 History [Multivitamins with Iron] traMADol HCL [Ultram] 50 mg PO BID PRN 07/28/19 09/22/19 History Furosemide [Lasix] 20 mg PO DAILY 08/04/19 09/22/19 History hydrOXYzine HCL 25 mg PO HS 08/04/19 09/22/19 History Ferrous Gluconate 324 mg PO DAILY 09/08/19 09/22/19 History Gabapentin [Neurontin] 100 mg PO DAILY 09/08/19 09/22/19 History Polyethylene Glycol 3350 [Miralax] 17 gm PO DAILY 09/08/19 09/22/19 History Spironolactone [Aldactone] 50 mg PO DAILY 09/08/19 09/22/19 History Antiacid Unknown Otc 1 tab PO DAILY PRN 09/20/19 09/22/19 History Simethicone [Gas-X] 62.5 mg PO DAILY PRN 09/20/19 09/22/19 History Allergies Allergy/AdvReac Type Severity Reaction Status Date / Time azithromycin [From Zithromax] Allergy Nausea & Verified 09/22/19 08:54 Vomiting cat dander Allergy Dyspnea/THROAT Verified 09/22/19 08:54 SWELLING mold Allergy Dyspnea/THROAT Verified 09/22/19 08:54 SWELLING Penicillins Allergy Dyspnea/THROAT Verified 09/22/19 08:54 SWELLING Surgical - Exam Vital Signs Temp Pulse Resp BP Pulse Ox 98.3 F 114 H 19 100/70 92 L 09/22/19 07:21 09/22/19 07:21 09/22/19 07:21 09/22/19 07:21 09/22/19 07:21 Physical exam: General: Malnourished appearing female appears older than stated age HEENT: Normocephalic, sclerae nonicteric Abdomen: Mildly distended, fluid present, mild upper abdominal tenderness, some induration upper midline likely related to underlying cirrhotic liver Extremities: No edema Neuro: Alert and oriented Results - Labs 09/22/19 07:55 09/22/19 07:55 Abnormal Lab Results - Last 24 Hours (Table) 09/22/19 09/22/19 09/22/19 Range/Units 07:55 07:55 09:39 PT 13.9 H (9.0-12.0) sec INR 1.4 H (<1.2) Sodium 134 L (137-145) mmol/L Glucose 102 H (74-99) mg/dL AST 53 H (14-36) U/L Albumin 2.9 L (3.5-5.0) g/dL Ur Specific [place] >1.050 H (1.001-1.035) Urine Protein Trace H (Negative) Diabetes panel 09/22/19 Range/Units 07:55 Sodium 134 L (137-145) mmol/L Potassium 3.7 (3.5-5.1) mmol/L Chloride 103 (98-107) mmol/L Carbon Dioxide 23 (22-30) mmol/L BUN 12 (7-17) mg/dL Creatinine 0.66 (0.52-1.04) mg/dL Glucose 102 H (74-99) mg/dL Calcium 8.6 (8.4-10.2) mg/dL AST 53 H (14-36) U/L ALT 18 (4-34) U/L Alkaline Phosphatase 113 (38-126) U/L Total Protein 6.3 (6.3-8.2) g/dL Albumin 2.9 L (3.5-5.0) g/dL Calcium panel 09/22/19 Range/Units 07:55 Calcium 8.6 (8.4-10.2) mg/dL Albumin 2.9 L (3.5-5.0) g/dL Pituitary panel 09/22/19 Range/Units 07:55 Sodium 134 L (137-145) mmol/L Potassium 3.7 (3.5-5.1) mmol/L Chloride 103 (98-107) mmol/L Carbon Dioxide 23 (22-30) mmol/L BUN 12 (7-17) mg/dL Creatinine 0.66 (0.52-1.04) mg/dL Glucose 102 H (74-99) mg/dL Calcium 8.6 (8.4-10.2) mg/dL Adrenal panel 09/22/19 Range/Units 07:55 Sodium 134 L (137-145) mmol/L Potassium 3.7 (3.5-5.1) mmol/L Chloride 103 (98-107) mmol/L Carbon Dioxide 23 (22-30) mmol/L BUN 12 (7-17) mg/dL Creatinine 0.66 (0.52-1.04) mg/dL Glucose 102 H (74-99) mg/dL Calcium 8.6 (8.4-10.2) mg/dL Total Bilirubin 1.0 (0.2-1.3) mg/dL AST 53 H (14-36) U/L ALT 18 (4-34) U/L Alkaline Phosphatase 113 (38-126) U/L Total Protein 6.3 (6.3-8.2) g/dL Albumin 2.9 L (3.5-5.0) g/dL Assessment and Plan (1) Ascites Narrative/Plan: 44-year-old female with advanced liver disease. Thickening of the gallbladder wall is typical in a patient with ascites and hepatocellular disease. Patient is not a good surgical candidate regardless of her gallbladder issues. Continue trying to optimize liver function. Patient may require thoracentesis given her shortness of breath issues. No surgical intervention planned at this time. Current Visit: No Status: Acute Code(s): R18.8 - OTHER ASCITES SNOMED Code(s): 854941822
--- NOTE | 2019-09-22 20:19 | MR ---
MR abdomen with and without contrast HISTORY: Cirrhosis of the liver, ascites, rule out mass Multiplanar multisequence and postcontrast images obtained through the abdomen following 5 cc Gadavis t IV. Correlation CT abdomen pelvis 09/22/2019, prior MR liver dated 04/13/2019 There is a large right pleural effusion and associated atelectatic change. There is moderate ascites. Liver shows a nodular contour consistent with patient's history of cirrhosis. On axial image #76 the re is a focus of enhancement measuring 2.5 cm in transverse dimension by 1.2 cm which shows rapid was hout. Additionally, adjacent to the falciform ligament there is a focus of enhancement on axial image 61 shows somewhat more delayed washout measuring approximately 15 x 9 mm. Some questionable vague en hancement with rapid washout adjacent to the gallbladder fossa shows less well-defined appearance rickey n on CT. The pancreas, adrenal glands, spleen, kidneys are within normal limits. Colonic interposition is pres ent anterior to the liver. Aorta is not aneurysmal. Small retroperitoneal nodes are present. Gallblad howard shows small thickening possibly due to ascites. IMPRESSION: Findings compatible with patient's history of cirrhosis, ascites, large right pleural eff usion. Colonic interposition anterior to liver. There is suspicious focus of enhancement as described within the region of the caudate, additional areas described appears somewhat less suspicious for di screte mass.
[2019-09-22] MEDS: FAMOTIDINE 20 MG/2 ML VIAL IV SCH (20:31)
[2019-09-22] MEDS: HEPARIN SODIUM,PORCINE 5,000 UNIT/ML 1 ML VIAL SQ SCH (20:32)
[2019-09-22] MEDS: RIFAXIMIN 550 MG TABLET PO SCH (20:32)
[2019-09-22] MEDS ORDERED: hydrOXYzine HCL 25 MG TAB PO SCH (21:00)
[2019-09-22] MEDS: IPRATROPIUM-ALBUTEROL 3 ML NEB INHALATION PRN (21:05)
--- NOTE | 2019-09-22 21:58 | P.CONS ---
History of Present Illness - Reason for Consult Consult date: 09/22/19 Decompensated alcoholic cirrhosis Requesting physician: Santana E Sheet - Chief Complaint Abdominal pain, shortness of breath - History of Present Illness 44-year-old female with a prior history significant for alcohol abuse, decompensated alcoholic cirrhosis with ascites requiring paracentesis in the past, which she follows up at the [facility] presented to the hospital for consolation of symptoms including abdominal pain, shortness of breath and anxiety. Patient reports abdominal pain which is worsening over the past few days. She presented early for a paracentesis but reports that the pain continued after having paracentesis. Patient is in the right upper quadrant of her abdomen with associated shortness of breath. She reports pain as a water ba lloon rocking back and forth on her ribs and is worse with breathing. Patient reports some lightheadedness with sitting up. She is a known history of alcoholic cirrhosis requiring hospitalization at the [facility] for which she was discharged earlier in the year. She reports no alcohol use since her initial admission. She is currently on home therapy for encephalopathy with lactulose and Xifaxan, diuretics with Aldactone and furosemide and on iron supplementation for anemia. She has followed up at the [facility] for her liver care. Review of Systems REVIEW OF SYSTEMS: CONSTITUTIONAL: Denies any fevers, chills, weight change or fatigue. CARDIOVASCULAR: Denies any chest pain, palpitations high or low blood pressures RESPIRATORY: Denies any hemoptysis or cough but is reporting shortness of breath. GENITOURINARY: No dysuria or hematuria. MUSCULOSKELETAL: No weakness reported. SKIN: Denies any new rashes or lesions, jaundice or pallor. PSYCHIATRIC: Reports issues with anxiety. NEUROLOGY: Denies headache, denies any new focal deficits. EARS/NOSE/THROAT: No recent hearing change, congestion, nasal discharge or sore throat. EYES: No pain in eyes, discharge or change in vision. GASTROINTESTINAL: As per HPI. Past Medical History Past Medical History: Liver Disease, Osteoarthritis (OA), Renal Disease Additional Past Medical History / Comment(s): Pt recently admitted to [facility] on 09/20/19 with recurrent ascites 2ndary to cirrhosis/acute abdominal pain/possible abdominal wall hernia/mild coagulopathy d/t cirrhosis, severe protein calorie malnourishment, hyponatremia, hypoalbuminemia. Other hx: chronic epigastric pain, alchoholic cirrhosis of the liver, recurrent ascities/paracentesises, portal htn, pt states recent past she was hospitalized with pneumothorax/kidney and liver failure-was in an induced coma/intubated/vented/received 2 dialysis treatments and states she had to relearn to walk and talk, anemia, hiatal h ernia, IBS, hypoglycemia, hypotension. History of Any Multi-Drug Resistant Organisms: None Reported Past Surgical History: Breast Surgery Additional Past Surgical History / Comment(s): Dialysis port-removed, paracentesises, EGD, colonoscopy, breast implants. Past Anesthesia/Blood Transfusion Reactions: No Reported Reaction Additional Past Anesthesia/Blood Transfusion Reaction / Comm: Pt states she has received blood in past without reaction. Smoking Status: Former smoker - Past Family History Mother History Unknown: Yes Medications and Allergies Home Medications Medication Instructions Recorded Confirmed Type Lactulose 20 gm PO TID 05/21/19 09/22/19 History Rifaximin [Xifaxan] 550 mg PO BID 05/21/19 09/22/19 History Multivitamin with Iron 1 tablet PO DAILY 07/28/19 09/22/19 History [Multivitamins with Iron] traMADol HCL [Ultram] 50 mg PO BID PRN 07/28/19 09/22/19 History Furosemide [Lasix] 20 mg PO DAILY 08/04/19 09/22/19 History hydrOXYzine HCL 25 mg PO HS 08/04/19 09/22/19 History Ferrous Gluconate 324 mg PO DAILY 09/08/19 09/22/19 History Gabapentin [Neurontin] 100 mg PO DAILY 09/08/19 09/22/19 History Polyethylene Glycol 3350 [Miralax] 17 gm PO DAILY 09/08/19 09/22/19 History Spironolactone [Aldactone] 50 mg PO DAILY 09/08/19 09/22/19 History Antiacid Unknown Otc 1 tab PO DAILY PRN 09/20/19 09/22/19 History Simethicone [Gas-X] 62.5 mg PO DAILY PRN 09/20/19 09/22/19 History Allergies Allergy/AdvReac Type Severity Reaction Status Date / Time azithromycin [From Zithromax] Allergy Nausea & Verified 09/22/19 08:54 Vomiting cat dander Allergy Dyspnea/THROAT Verified 09/22/19 08:54 SWELLING mold Allergy Dyspnea/THROAT Verified 09/22/19 08:54 SWELLING Penicillins Allergy Dyspnea/THROAT Verified 09/22/19 08:54 SWELLING Physical Exam Vitals: Vital Signs Temp Pulse Pulse Resp BP BP Pulse Ox 09/22/19 21:14 82 16 09/22/19 21:05 84 16 09/22/19 15:50 97.2 F L 86 16 108/72 95 09/22/19 11:33 97.7 F 96 16 108/74 93 L 09/22/19 11:01 83 16 103/62 100 09/22/19 07:21 98.3 F 114 H 19 100/70 92 L Intake and Output 09/22/19 09/22/19 09/22/19 06:59 14:59 22:59 Intake Total 400 Balance 400 Intake: IV 400 Sodium Chloride 0.9% 1, 400 000 ml @ 50 mls/hr IV . Q20H [facility] Rx#:[id number] Other: # Voids 1 Weight 52.118 kg On physical examination, patient appears comfortable in no apparent distress. HEAD: Normocephalic, atraumatic. EYES: No scleral icterus. No conjunctival injection. MOUTH: No lesions, tongue midline. NECK: Trachea midline, no gross abnormalities. CHEST: Clear to auscultation with decreased air entry in the right lower lung field. HEART: Regular rate and rhythm. ABDOMEN: Soft, only mildly distended with positive fluid with. Bowel sounds are positive. No organomegaly. No guarding or rigidity. EXTREMITIES: No pedal edema. SKIN: No rashes, no jaundice. NEUROLOGIC: Alert and oriented x3. No focal deficits. PSYCH: Depressed mood, patient denying any suicidal or homicidal ideation on questioning. Results CBC & Chem 7: 09/22/19 07:55 09/22/19 07:55 Labs: Abnormal Lab Results - Last 24 Hours (Table) 09/22/19 09/22/19 09/22/19 Range/Units 07:55 07:55 09:39 PT 13.9 H (9.0-12.0) sec INR 1.4 H (<1.2) Sodium 134 L (137-145) mmol/L Glucose 102 H (74-99) mg/dL AST 53 H (14-36) U/L Albumin 2.9 L (3.5-5.0) g/dL Ur Specific [place] >1.050 H (1.001-1.035) Urine Protein Trace H (Negative) MRI - abdomen: report reviewed (MRI of the abdomen with findings of cirrhosis, ascites, large right pleural effusion with suspicious focus in the caudate of the liver.) Assessment and Plan (1) Decompensated hepatic cirrhosis Narrative/Plan: 44-year-old female with multiple medical comorbidities including decompensated alcoholic cirrhosis for which she follows up to [facility] with shortness of breath and right abdominal pain. She reports recent paracentesis with no improvement in her abdominal pain after paracentesis. She has a known history of alcoholic cirrhosis currently abstaining from alcohol use with decompensation requiring treatment with Aldactone 50 mg daily, furosemide 20 mg daily, rifaximin 550 mg twice a day and lactulose 3 times a day. She has required paracentesis in the past. She denies any prior GI bleeding. Computed tomography scan was concerning for abnormal focus on the liver which was followed up with MRI which also showed ascites, cirrhosis a large right pleural effusion and an abnormal foci on the caudate of the liver. At this time symptoms are likely related to a hepatic hydrothorax with pulmonology service currently consulted. Current Visit: Yes Status: Acute Code(s): K72.90 - HEPATIC FAILURE, UNSPECIFIED WITHOUT COMA SNOMED Code(s): 074324658 (2) Pleural effusion, right Current Visit: Yes Status: Acute Code(s): J90 - PLEURAL EFFUSION, NOT ELSEWHERE CLASSIFIED SNOMED Code(s): 11645842 (3) Abdominal pain Current Visit: Yes Status: Acute Code(s): R10.9 - UNSPECIFIED ABDOMINAL PAIN SNOMED Code(s): 84803772 (4) Ascites Current Visit: No Status: Acute Code(s): R18.8 - OTHER ASCITES SNOMED Code(s): 382782732 Plan: Supportive care Low-sodium diet Continue Aldactone 50 mg daily and furosemide 20 mg daily with plans for up titration of medication based on kidney function and electrolytes Continue rifaximin and lactulose therapy Suspected etiology of right pleural effusion is from a hepatic hydrothorax, with pulmonology service currently consult patient likely requires thoracentesis with fluid studies for further evaluation Patient is currently demonstrating evidence of uncontrolled anxiety and depression (denying any suicidal ideation or homicidal ideation at this time) would recommend psychiatric evaluation for further evaluation and recommendations No plans for endoscopic evaluation at this time Continue alcohol abstinence Follow-up with [facility] hepatology service after discharge Limited sedating medications such as narcotics or anxiolytics in the setting of cirrhosis AFP pending Would recommend repeat imaging likely after discharge given computed tomography scan and MRI on current presentation for further evaluation of and follow-up of abnormality of the caudate lobe seen on imaging Thank you for allowing us to participate in the care of the patient we will continue to follow
[2019-09-23] MEDS: HYDROmorphone 1 MG/ML 1 ML SYRINGE IVP PRN ×8 (01:39→23:22)
[2019-09-23] MEDS: traMADol 50 MG TAB PO PRN (05:58)
[2019-09-23] MEDS ORDERED: ONDANSETRON 4 MG/2 ML VIAL IVP PRN (07:28)
[2019-09-23] MEDS: LACTULOSE 20 GM/30 ML CUP PO SCH ×3 (07:52→21:58)
[2019-09-23] MEDS: MULTIVITAMINS, THERA 1 EACH TAB PO SCH (07:52)
[2019-09-23] MEDS: RIFAXIMIN 550 MG TABLET PO SCH ×2 (07:52→20:44)
[2019-09-23] MEDS: SPIRONOLACTONE 25 MG TAB PO SCH (07:53)
[2019-09-23] MEDS: FUROSEMIDE 20 MG TAB PO SCH (07:53)
[2019-09-23] MEDS: FERROUS SULFATE 325 MG TAB PO SCH (07:53)
[2019-09-23] MEDS: FAMOTIDINE 20 MG/2 ML VIAL IV SCH (07:53)
[2019-09-23] MEDS: POLYETHYLENE GLYCOL 3350 17 GM POWD.PACK PO SCH (07:54)
[2019-09-23] MEDS: HEPARIN SODIUM,PORCINE 5,000 UNIT/ML 1 ML VIAL SQ SCH ×2 (07:54→20:45)
--- NOTE | 2019-09-23 08:06 | US ---
EXAMINATION TYPE: US chest DATE OF EXAM: 09/22/2019 COMPARISON: NONE CLINICAL HISTORY: right pl effusion . Right pleural effusion TECHNIQUE: Targeted ultrasound of the posterior lower right hemithorax EXAM MEASUREMENTS: Right Pleural Effusion pocket size: 16.4 cm Right skin surface to fluid distance: 1.6 cm lung tissue visualized at 5.2 cm. Right side marked for possible thoracentesis outside the dept. Pulmonologists are able to review the images in the patient?s EMR. The 5 images confirm or redemonstrated of these moderate sized right pleural effusion as identified o n recent comparison studies. IMPRESSIONS: As above.
[2019-09-23] MEDS: IPRATROPIUM-ALBUTEROL 3 ML NEB INHALATION PRN ×2 (08:30→11:54)
[2019-09-23] MEDS ORDERED: PANTOPRAZOLE 40 MG/10 ML VIAL IV SCH (09:00)
[2019-09-23] MEDS ORDERED: PROCHLORPERAZINE 5 MG TAB PO PRN (09:35)
--- NOTE | 2019-09-23 10:26 | P.CN ---
Psychiatric Consult - . Consult date: 09/23/19 Consult:: I reviewed the medical record and attempted to interview the patient. She did not wish to speak with me and asked me to leave her room. She complained about the services at this hospital and stated that she will "feel better" when she g oes to a "real hospital"; "nobody cares about me here." She met with a psychiatrist when she was inpatient at [facility] in [place] and will speak to his psychiatrist there but not while in this hospital. 09/23/19 10:24
[2019-09-23 10:29] LABS: Basophils # (A) 0.1 k/uL (0-0.2); Basophils % (A) 1 %; Eosinophils # (A) 0.2 k/uL (0-0.7); Eosinophils % (A) 1 %; HCT 45.6 % (34.0-46.0); HGB 13.9 gm/dL (11.4-16.0); Hypochromasia Slight; Lymphocytes # (A) 1.1 k/uL (1.0-4.8); Lymphocytes % (A) 7 %; MCHC 30.6 g/dL (31.0-37.0); MCV 101.4 fL (80.0-100.0); Macrocytosis Slight; Mean Platelet Volume 7.9; Monocytes # (A) 0.7 k/uL (0-1.0); Monocytes % (A) 4 %; Neutrophils % (A) 86 %; Platelet Count 179 k/uL (150-450); RDW 13.8 % (11.5-15.5); WBC 16.3 k/uL (3.8-10.6)
[2019-09-23 10:40] LABS: ALT 24 U/L (4-34); AST 67 U/L (14-36); African American GFR (CKD) >90 (>60 ml/min/1.73 sqM); Albumin 3.5 g/dL (3.5-5.0); Alkaline Phosphatase 121 U/L (38-126); Anion Gap 13 mmol/L; Blood Urea Nitrogen 9 mg/dL (7-17); Calcium 8.9 mg/dL (8.4-10.2); Carbon Dioxide 15 mmol/L (22-30); Chloride 104 mmol/L (98-107); Glucose 83 mg/dL (74-99); Non-African American GFR(CKD) >90 (>60 ml/min/1.73 sqM); Potassium 4.2 mmol/L (3.5-5.1); Sodium 132 mmol/L (137-145); Total Bilirubin 1.8 mg/dL (0.2-1.3); Total Protein 7.3 g/dL (6.3-8.2)
[2019-09-23] MEDS: ONDANSETRON 4 MG/2 ML VIAL IVP SCH ×3 (11:02→23:22)
[2019-09-23 12:15] LABS: INR 1.4 (<1.2); Prothrombin Time 13.5 sec (9.0-12.0)
[2019-09-23 12:16] LABS: Partial Thromboplastin Time 25.9 sec (22.0-30.0)
--- NOTE | 2019-09-23 13:16 | PCN ---
PROCEDURE NOTE OPERATIVE REPORT: Right-sided thoracentesis. PREOPERATIVE DIAGNOSIS: Right pleural effusion. POSTOPERATIVE DIAGNOSIS: Right pleural effusion. ANESTHESIA USED: 2 mL of 1% lidocaine. PROCEDURE: The patient was placed in a sitting upright position leaning forward on a table. The area below the right scapula was prepared in a sterile fashion and drapes were applied. The area was localized earlier by ultrasound guidance. At that site, which is the 8th intercostal space and tip of the scapula, the area was locally anesthetized and a 26- gauge needle was inserted at the same site, advanced into the pleural space until fluid was localized with the needle. Then a small tiny incision was made, and a standard thoracentesis catheter and needle were used advanced into the same site into the pleural space. Fluid was obtained. Then, the catheter was advanced over the needle and the needle was pulled out of the pleural space. Freely flowing fluid was noted. Roughly 1700 mL of yellow turbid fluid was removed from the right pleural space. The procedure was well tolerated. No evidence of any immediate complication. Chest x-ray was ordered postoperatively and it is pending. MMODL / IJN: [id number] /
--- NOTE | 2019-09-23 13:18 | XR ---
EXAMINATION TYPE: XR chest 1V portable DATE OF EXAM: 09/23/2019 CLINICAL HISTORY: Status post right-sided thoracentesis. Cirrhosis with recurrent ascites. TECHNIQUE: Single AP portable upright view of the chest is obtained. COMPARISON: Chest x-ray from one day earlier. FINDINGS: Persistent small to moderate-sized right pleural effusion slightly improved after thoracen tesis. Associated right basilar atelectasis and/or infiltrate. Patchy left basilar atelectasis and/or infiltrate. No mediastinal shift. Underlying scoliosis. Cardiac silhouette size stable and within no rmal limits. IMPRESSION: No pneumothorax after right-sided thoracentesis. Persistent small to moderate-sized right pleural effusion slightly improved with associated right basilar atelectasis and/or infiltrate and p atchy left basilar atelectasis and/or infiltrate.
--- NOTE | 2019-09-23 13:39 | P.PN ---
Subjective Progress Note Date: 09/23/19 Principal diagnosis: Abdominal pain Patient doing better today. She had her thoracentesis. Right upper quadrant pain and shortness of breath both improved. MRI results noted. Objective - Vital Signs Vital signs: Vital Signs Temp 97.6 F 09/23/19 06:02 Pulse 87 09/23/19 12:06 Resp 18 09/23/19 06:02 BP 111/78 09/23/19 06:02 Pulse Ox 96 09/23/19 08:30 Intake & Output 09/22/19 09/23/19 09/23/19 18:59 06:59 18:59 Intake Total 400 450 400 Balance 400 450 400 Weight 52.118 kg 54.885 kg Intake: IV 400 400 Sodium Chloride 0.9% 1, 400 400 000 ml @ 50 mls/hr IV . Q20H [facility] Rx#:[id number] Oral 450 Other: # Voids 1 2 - Exam Abdomen: Soft, mild distention, mild upper abdominal tenderness - Labs CBC & Chem 7: 09/23/19 09:57 09/23/19 09:57 Labs: Abnormal Lab Results - Last 24 Hours (Table) 09/23/19 09/23/19 09/23/19 Range/Units 09:57 09:57 11:24 WBC 16.3 H (3.8-10.6) k/uL MCV 101.4 H (80.0-100.0) fL MCHC 30.6 L (31.0-37.0) g/dL Neutrophils # 14.0 H (1.3-7.7) k/uL PT 13.5 H (9.0-12.0) sec INR 1.4 H (<1.2) Sodium 132 L (137-145) mmol/L Carbon Dioxide 15 L (22-30) mmol/L Total Bilirubin 1.8 H (0.2-1.3) mg/dL AST 67 H (14-36) U/L Assessment and Plan (1) Ascites Narrative/Plan: Patient doing better today after thoracentesis. Discussed case with GI. No evidence of acute cholecystitis currently. We'll sign off. Call if needed. Current Visit: No Status: Acute Code(s): R18.8 - OTHER ASCITES SNOMED Code(s): 197045070
--- NOTE | 2019-09-23 14:34 | P.PN ---
<Olena Diaz - Last Filed: 09/23/19 14:25> Subjective Progress Note Date: 09/23/19 Principal diagnosis: This is a pleasant 44 years old female with past medical history of alcoholic liver cirrhosis, recurrent ascites, severe protein calorie malnutrition, hyponatremia, history of kidney and renal failure status post intubation. Patient presents because of right upper quadrant abdominal pain with difficulty breathing and dry coughing for the last 2 days. Patient denies nausea vomiting or change in bowel habits, her bowel movement scan of loose due to lactulose. Denies smoking, alcohol or illicit drugs Vitals are stable, labs showing unremarkable CBC, BMP and liver enzymes. Amylase and lipase are normal, UA is no suspicious of infection. She has abdominal and pelvis CT with IV contrast, liver cirrhosis and ascites, multifocal small bowel wall thickening, possible acute cholecystitis, possible hepatocellular disease, cannot rule out malignancy MAPS was checked and she is taking Ultram 50 mg twice a day, however gabapentin last dose was on 06/30/2019 In the emergency room she got Dilaudid and Protonix and started on Heather sling and 100 mL per hour 09/23/2019 Patient is seen and evaluated in follow-up today chest ultrasound was done showing right-sided pleural effusion pocket size 16.4 cm. Pulmonary performed a thoracentesis with approximately 1700 mL of yellow turbid fluid removed and specimen sent for pathology. Patient continues to have shortness of breath but has improved status post thoracentesis. Follow-up chest x-ray shows no pneumothorax status post thoracentesis along with persistent [id number] sized right pleural effusion that slightly improved with associated right basilar atelectasis and/or infiltrate and patchy left basilar atelectasis and/or infiltrate. Surgery recommending no surgical intervention at this time. GI following and will follow patient outpatient basis. Patient continues to have some right-sided lower back pain and right abdominal pain and was having nausea and vomiting this morning. Patient has been up to the bathroom with no issues. White count elevated at 16.3 today. Current sodium is 132, creatinine 0.59. Patient remains on IV antibiotics in the form of Levaquin and will continue at this time. Will repeat a.m. labs. Objective - Vital Signs Vital signs: Vital Signs Temp 97.6 F 09/23/19 06:02 Pulse 87 09/23/19 12:06 Resp 18 09/23/19 06:02 BP 111/78 09/23/19 06:02 Pulse Ox 96 09/23/19 08:30 Intake & Output 09/22/19 09/23/19 09/23/19 18:59 06:59 18:59 Intake Total 400 450 400 Balance 400 450 400 Weight 52.118 kg 54.885 kg Intake: IV 400 400 Sodium Chloride 0.9% 1, 400 400 000 ml @ 50 mls/hr IV . Q20H [facility] Rx#:[id number] Oral 450 Other: # Voids 1 2 - Exam GENERAL: The patient is alert and oriented x3, not in any acute distress. Well developed, well nourished. HEENT: Pupils are round and equally reacting to light. EOMI. No scleral icterus. No conjunctival pallor. Normocephalic, atraumatic. No pharyngeal erythema. No thyromegaly. CARDIOVASCULAR: S1 and S2 present. No murmurs, rubs, or gallops. PULMONARY: Diminished breath sounds at the bases with a few scattered rhonchi noted. ABDOMEN: Soft, right upper quadrant tenderness, mildly distended, normoactive bowel sounds. No palpable organomegaly. MUSCULOSKELETAL: No joint swelling or deformity. EXTREMITIES: No cyanosis, clubbing, or pedal edema. NEUROLOGICAL: Gross neurological examination did not reveal any focal deficits. SKIN: No rashes. No petechiae - Labs CBC & Chem 7: 09/23/19 09:57 09/23/19 09:57 Labs: Abnormal Lab Results - Last 24 Hours (Table) 09/23/19 09/23/19 09/23/19 Range/Units 09:57 09:57 11:24 WBC 16.3 H (3.8-10.6) k/uL MCV 101.4 H (80.0-100.0) fL MCHC 30.6 L (31.0-37.0) g/dL Neutrophils # 14.0 H (1.3-7.7) k/uL PT 13.5 H (9.0-12.0) sec INR 1.4 H (<1.2) Sodium 132 L (137-145) mmol/L Carbon Dioxide 15 L (22-30) mmol/L Total Bilirubin 1.8 H (0.2-1.3) mg/dL AST 67 H (14-36) U/L Assessment and Plan Assessment: Alcoholic liver cirrhosis, CAT scan of the abdomen and pelvis showing hepatocellular disease, cannot rule out malignancy Ascites and abdominal distention secondary to above Shortness of breath and coughing Right-sided pleural effusion status post thoracentesis Multifocal small bowel thickening on CAT scan of the abdomen and pelvis Possible acute cholecystitis Moderate to severe protein calorie malnutrition Mild hyponatremia Plan: This is a pleasant 44 years old female who presents with liver cirrhosis, ascites and possible acute cholecystitis. Continue symptomatic treatment. GI and surgery team were consulted. Patient will be reevaluated for paracentesis. Also we will check chest x-ray, influenza, bronchodilator. Patient had some right-sided pleural effusions noted on chest ultrasound and x-ray and underwent right-sided thoracentesis with pulmonary today with removal approximately 1700 mL's. Fluid specimen sent for analysis. Patient remains on IV Levaquin and will continue at this time. White blood count slightly elevated today and will repeat a.m. labs. Surgery evaluated the patient recommending no surgical intervention at this time and GI will follow the patient in the outpatient setting. Patient normally follows with [facility] for the liver cirrhosis and will continue to do so in the outpatient setting. Labs and medication were reviewed.. Continue same treatment. Continue with symptomatic treatment. Resume home medication. Monitor lytes and vitals. DVT and GI prophylaxis. Further recommendations of the clinical course of the yaneli ent DVT prophylaxis: Subcutaneous heparin GI Prophylaxis: Pepcid Prognosis is guarded <Santana Souza E - Last Filed: 09/23/19 23:09> Subjective Principal diagnosis: I have discussed the plan and I have reviewed the note with TRAN schneider and I agree with it except what is mentioned below Pt is seen and examined by me at bed side i discussed with pt possible dx of pna, which becomes more likely with elevated wbc of 16k and procalcitonin at 0.14. she remains on levaquin. also i told the pt with the need for repeat MRI of liver for abnormal focus in her cuadate lobe, risk including but not limited to cancer is explained and she agrees i discussed the case with GI and they cleared pt for dc, her afp is negative and she already has appointment with YONG Alcaraz at [facility] , also i encouraged her to call and make appointment with her manager testing at [facility] and she agrees to call and make appointment in 2-3 week ( she already has contact info as she saw him before ) also i called and discussed the case with her pcp ( darius cabrales whom pt usually f/u with was off today) and recommend to repeat CXR and the need for repeat MRI of the liver and she kindly took note of these Objective - Vital Signs Vital signs: Vital Signs Temp 97.8 F 09/23/19 21:00 Pulse 94 09/23/19 21:00 Resp 18 09/23/19 21:00 BP 98/65 09/23/19 21:00 Pulse Ox 95 09/23/19 21:00 Intake & Output 09/23/19 09/23/19 09/24/19 06:59 18:59 06:59 Intake Total 450 400 480 Balance 450 400 480 Weight 54.885 kg Intake: IV 400 Sodium Chloride 0.9% 1, 400 000 ml @ 50 mls/hr IV . Q20H [facility] Rx#:[id number] Oral 450 480 Other: # Voids 2 1 - Labs CBC & Chem 7: 09/23/19 09:57 09/23/19 09:57 Labs: Abnormal Lab Results - Last 24 Hours (Table) 09/23/19 09/23/19 09/23/19 Range/Units 09:57 09:57 09:57 WBC 16.3 H (3.8-10.6) k/uL MCV 101.4 H (80.0-100.0) fL MCHC 30.6 L (31.0-37.0) g/dL Neutrophils # 14.0 H (1.3-7.7) k/uL PT (9.0-12.0) sec INR (<1.2) Sodium 132 L (137-145) mmol/L Carbon Dioxide 15 L (22-30) mmol/L Total Bilirubin 1.8 H (0.2-1.3) mg/dL AST 67 H (14-36) U/L Procalcitonin 0.14 H (0.02-0.09) ng/mL 09/23/19 Range/Units 11:24 WBC (3.8-10.6) k/uL MCV (80.0-100.0) fL MCHC (31.0-37.0) g/dL Neutrophils # (1.3-7.7) k/uL PT 13.5 H (9.0-12.0) sec INR 1.4 H (<1.2) Sodium (137-145) mmol/L Carbon Dioxide (22-30) mmol/L Total Bilirubin (0.2-1.3) mg/dL AST (14-36) U/L Procalcitonin (0.02-0.09) ng/mL Microbiology - Last 24 Hours (Table) 09/23/19 12:45 Gram Stain - Preliminary Pleural Fluid Body Fluid Culture - Preliminary
--- NOTE | 2019-09-23 14:49 | CDI ---
Documentation Clarification Form Date: 09/23/2019 02:24:10 PM From: Babita Barreto RN CCDS Admit Date: 09/22/2019 10:38:00 AM Patient Name: Justin Allen Visit Number: [id number] Discharge Date: ATTENTION: The Clinical Documentation Specialists (CDI) and [facility] Coding Staff appreciate your assistance in clarifying documentation. Please respond to the clarification below the line at the bottom and electronically sign. The CDI & [facility] Coding staff will review the response and follow-up if needed. Please note: Queries are made part of the Legal Health Record. If you have any questions, please contact the author of this message via ITS. Dr. Dillon E Libby Moderate to Severe protein calorie malnutrition has been documented in the H&P History/Risk Factors:44-year-old female presents to the ED with right sided abdominal pain. Medical history of Alcoholic cirrhosis of the liver, recurrent ascites, Renal disease and Severe protein calorie malnourishment. Clinical Indicators: Lab findings: AST 53, Albumin 2.9, BMI 09/22 in Nutrition assessment 17.5 Vital Signs: 09/21 100/70 114 98.3 19 92% ra Other Clinical Indicators: Nutrition Assessment 09/22 patient visibly thin with muscle and fat loss Inadequate protein energy intake related to increased needs for cirrhosis 25-30 lb loss xx 6 months per pt Visible severe muscle mass wasting (temples, protruding clavicle) and subcutaneous fat loss (orbital and buccal fat pads). Treatment: Oral supplement Ensure Clear TID, Enlive once daily, Monitor weight, In your professional opinion, can you please clarify protein calorie malnutrition? * Moderate protein calorie malnutrition * Severe protein calorie malnutrition * Other, please specify * Unable to determine (Last Revision: October 2017) i do note think pt has mal-nutrition but she is thin built MTDD
--- NOTE | 2019-09-23 15:27 | P.CNPUL ---
History of Present Illness Consult date: 09/23/19 Requesting physician: Samson Courtney Reason for consult: dyspnea, pleural effusion, abnormal CXR/CT Chief complaint: Abdominal pain, shortness of breath History of present illness: This is a 44-year-old female patient who presented to the emergency room yesterday with complaints of abdominal discomfort. She does have a history of alcoholic cirrhosis and undergoes multiple paracentesis most recently done earlier this week. She was also having complaints of shortness of breath and was found to have a significant right lung pleural effusions and we're consulted for the same. She is seen today in consult on the regular medical floor. Awake and alert in no acute distress. Maintaining O2 saturations in the 90s on room air. She's afebrile. Hemodynamically stable. White count 16.3. Hemoglobin 13.9. INR 1.4. Sodium 132. Potassium 4.2. Creatinine 0.59. Influenza screen is negative. She's been initiated on Levaquin, oral Lasix, Aldactone. Review of Systems REVIEW OF SYSTEMS: CONSTITUTIONAL: Denies any recent significant weight loss or weight gain. EYES: Denies change in vision. EARS, NOSE, MOUTH, THROAT: Denies headaches, denies sore throat. CARDIOVASCULAR: Denies chest pain, palpitations or syncopal episodes. RESPIRATORY: Positive for shortness of breath, cough, congestion or hemoptysis. GASTROINTESTINAL: Positive for abdominal pain GENITOURINARY: Denies hematuria, denies infections. MUSKULOSKELETAL: Denies pain, denies swelling. INTEGUMENTARY: Denies rash, denies eczema. NEUROLOGICAL: Denies recent memory loss, no recent seizure activity. PSYCHIATRIC: Denies anxiety, denies depression. HEMATOLOGIC/LYMPHATIC: Denies anemia, denies enlarged lymph nodes. Past Medical History Past Medical History: Liver Disease, Osteoarthritis (OA), Renal Disease Additional Past Medical History / Comment(s): Pt recently admitted to [facility] on 09/20/19 with recurrent ascites 2ndary to cirrhosis/acute abdominal pain/possible abdominal wall hernia/mild coagulopathy d/t cirrhosis, severe protein calorie malnourishment, hyponatremia, hypoalbuminemia. Other hx: chronic epigastric pain, alchoholic cirrhosis of the liver, recurrent ascities/paracentesises, portal htn, pt states recent past she was hospitalized with pneumothorax/kidney and liver failure-was in an induced coma/intubated/vented/received 2 dialysis treatments and states she had to relearn to walk and talk, anemia, hiatal hernia, IBS, hypoglycemia, hypotension. History of Any Multi-Drug Resistant Organisms: None Reported Past Surgical History: Breast Surgery Additional Past Surgical History / Comment(s): Dialysis port-removed, paracentesises, EGD, colonoscopy, breast implants. Past Anesthesia/Blood Transfusion Reactions: No Reported Reaction Additional Past Anesthesia/Blood Transfusion Reaction / Comment(s): Pt states she has received blood in past without reaction. Smoking Status: Former smoker - Past Family History Mother History Unknown: Yes Medications and Allergies Home Medications Medication Instructions Recorded Confirmed Type Lactulose 20 gm PO TID 05/21/19 09/22/19 History Rifaximin [Xifaxan] 550 mg PO BID 05/21/19 09/22/19 History Multivitamin with Iron 1 tablet PO DAILY 07/28/19 09/22/19 History [Multivitamins with Iron] traMADol HCL [Ultram] 50 mg PO BID PRN 07/28/19 09/22/19 History Furosemide [Lasix] 20 mg PO DAILY 08/04/19 09/22/19 History hydrOXYzine HCL 25 mg PO HS 08/04/19 09/22/19 History Ferrous Gluconate 324 mg PO DAILY 09/08/19 09/22/19 History Gabapentin [Neurontin] 100 mg PO DAILY 09/08/19 09/22/19 History Polyethylene Glycol 3350 [Miralax] 17 gm PO DAILY 09/08/19 09/22/19 History Spironolactone [Aldactone] 50 mg PO DAILY 09/08/19 09/22/19 History Antiacid Unknown Otc 1 tab PO DAILY PRN 09/20/19 09/22/19 History Simethicone [Gas-X] 62.5 mg PO DAILY PRN 09/20/19 09/22/19 History Allergies Allergy/AdvReac Type Severity Reaction Status Date / Time azithromycin [From Zithromax] Allergy Nausea & Verified 09/22/19 08:54 Vomiting cat dander Allergy Dyspnea/THROAT Verified 09/22/19 08:54 SWELLING mold Allergy Dyspnea/THROAT Verified 09/22/19 08:54 SWELLING Penicillins Allergy Dyspnea/THROAT Verified 09/22/19 08:54 SWELLING Physical Exam Vitals: Vital Signs Temp Pulse Pulse Resp BP Pulse Ox 09/23/19 14:45 96.0 F L 09/23/19 14:12 106 H 16 121/57 97 09/23/19 12:06 87 09/23/19 11:54 85 09/23/19 08:44 97 09/23/19 08:30 103 H 96 09/23/19 06:02 97.6 F 99 18 111/78 95 09/22/19 22:16 16 09/22/19 21:14 82 16 09/22/19 21:05 84 16 09/22/19 21:00 97.7 F 105 H 20 114/79 95 09/22/19 15:50 97.2 F L 86 16 108/72 95 Intake and Output 09/23/19 09/23/19 09/23/19 06:59 14:59 22:59 Intake Total 400 Balance 400 Intake: IV 400 Sodium Chloride 0.9% 1, 400 000 ml @ 50 mls/hr IV . Q20H [facility] Rx#:[id number] Other: # Voids 2 Weight 54.885 kg GENERAL EXAM: Alert, active, on room air, 44-year-old female patient appears older than stated age, jaundiced, fairly comfortable in no apparent distress. HEAD: Normocephalic. EYES: Normal reaction of pupils, equal size. NOSE: Clear with pink turbinates. THROAT: No erythema or exudates. NECK: No masses, no JVD. CHEST: No chest wall deformity. LUNGS: Equal air entry crackles and diminished in the right lung base. CVS: S1 and S2 normal with no audible murmur, regular rhythm. ABDOMEN: No hepatosplenomegaly, normal bowel sounds, no guarding or rigidity. SPINE: No scoliosis or deformity SKIN: No rashes CENTRAL NERVOUS SYSTEM: No focal deficits, tone is normal in all 4 extremities. EXTREMITIES: There is no peripheral edema. No clubbing, no cyanosis. Peripheral pulses are intact. Results - Laboratory Findings CBC and BMP: 09/23/19 09:57 09/23/19 09:57 PT/INR, D-dimer PT 13.5 sec (9.0-12.0) H 09/23/19 11:24 INR 1.4 (<1.2) H 09/23/19 11:24 Abnormal lab findings: Abnormal Labs 09/22/19 09/22/19 09/22/19 07:55 07:55 09:39 WBC MCV MCHC Neutrophils # PT 13.9 H INR 1.4 H Sodium 134 L Carbon Dioxide Glucose 102 H Total Bilirubin AST 53 H Albumin 2.9 L Ur Specific [place] >1.050 H Urine Protein Trace H 09/23/19 09/23/19 09/23/19 09:57 09:57 11:24 WBC 16.3 H MCV 101.4 H MCHC 30.6 L Neutrophils # 14.0 H PT 13.5 H INR 1.4 H Sodium 132 L Carbon Dioxide 15 L Glucose Total Bilirubin 1.8 H AST 67 H Albumin Ur Specific [place] Urine Protein - Diagnostic Findings Chest x-ray: image reviewed Assessment and Plan Assessment: 1 Abdominal discomfort secondary to recurrent ascites with recent paracentesis earlier this week with 7 L removed according the patient. 2 Right-sided pleural effusion 3 Recurrent episodes of ascites and paracentesis in the past 4 Alcoholic cirrhosis following at the [facility] 5 Arthritis 6 Anxiety/depression 7 Previous history of chronic tobacco dependence Plan: The patient was seen and evaluated by Dr. Khalil. He did perform a right-sided paracentesis with 1.9 L of pale yellow fluid return. Cytology and fluid analysis pending. She is cleared for discharge from the pulmonary standpoint. She'll continue to follow at the [facility] in regard to her alcoholic cirrhosis. She states she previously been on the transplant list but is improved and not currently listed. I, the cosigning physician, performed a history & physical examination of the patient. Lungs sounds with crackles in the right lung base, diminished. Maintaining good O2 saturations in the 90s on room air. I discussed the assessment and plan of care with my nurse practitioner, Hanh Archer. I attest to the above note as dictated by her. Time with Patient: Greater than 30
[2019-09-23] MEDS: LEVOFLOXACIN 500MG-D5W PMX 500 MG in DEXTROSE/WATER 1 100ML.BAG IVPB SCH (15:57)
[2019-09-23 16:40] LABS: Alpha Fetoprotein, Tumor Mkr 3.2 ng/mL (0.0-7.9)
[2019-09-23 18:03] LABS: Procalcitonin 0.14 ng/mL (0.02-0.09)
[2019-09-23 20:25] LABS: Amylase, Fluid Source Pleural Fluid; LDH, Body Fluid Source Pleural Fluid; Total Protein, Body Fluid 2200 mg/dL
[2019-09-23] MEDS ORDERED: ALPRAZolam 0.25 MG TAB PO STA (20:35)
[2019-09-23] MEDS: FAMOTIDINE 20 MG TAB PO SCH (20:44)
[2019-09-23] MEDS ORDERED: HYDROmorphone 0.5 MG/0.5 ML SYRINGE IVP PRN (22:59)
[2019-09-24] MEDS: HYDROmorphone 1 MG/ML 1 ML SYRINGE IVP PRN ×7 (03:12→20:50)
[2019-09-24] MEDS: traMADol 50 MG TAB PO PRN (05:16)
[2019-09-24] MEDS: ONDANSETRON 4 MG/2 ML VIAL IVP SCH ×3 (06:27→17:57)
[2019-09-24 08:00] LABS: Basophils % (A) 0 %; Eosinophils # (A) 0.2 k/uL (0-0.7); Eosinophils % (A) 2 %; HCT 39.3 % (34.0-46.0); HGB 12.5 gm/dL (11.4-16.0); Lymphocytes # (A) 1.1 k/uL (1.0-4.8); Lymphocytes % (A) 11 %; MCH 31.1 pg (25.0-35.0); MCHC 31.7 g/dL (31.0-37.0); Monocytes # (A) 0.6 k/uL (0-1.0); Monocytes % (A) 6 %; Neutrophils # (A) 8.4 k/uL (1.3-7.7); Neutrophils % (A) 79 %; Platelet Count 162 k/uL (150-450); RBC 4.02 m/uL (3.80-5.40); WBC 10.7 k/uL (3.8-10.6)
[2019-09-24 08:30] LABS: ALT 19 U/L (4-34); AST 55 U/L (14-36); African American GFR (CKD) >90 (>60 ml/min/1.73 sqM); Albumin 2.8 g/dL (3.5-5.0); Alkaline Phosphatase 106 U/L (38-126); Anion Gap 8 mmol/L; Bilirubin, Delta 0.3 mg/dL (0.0-0.2); Blood Urea Nitrogen 8 mg/dL (7-17); Calcium 8.7 mg/dL (8.4-10.2); Carbon Dioxide 20 mmol/L (22-30); Chloride 101 mmol/L (98-107); Glucose 85 mg/dL (74-99); Non-African American GFR(CKD) >90 (>60 ml/min/1.73 sqM); Potassium 4.8 mmol/L (3.5-5.1); Sodium 129 mmol/L (137-145); Total Bilirubin 1.3 mg/dL (0.2-1.3); Total Protein 6.1 g/dL (6.3-8.2)
[2019-09-24] MEDS: FUROSEMIDE 20 MG TAB PO SCH (08:32)
[2019-09-24] MEDS: POLYETHYLENE GLYCOL 3350 17 GM POWD.PACK PO SCH ×2 (08:32→08:37)
[2019-09-24] MEDS: SPIRONOLACTONE 25 MG TAB PO SCH (08:32)
[2019-09-24] MEDS: RIFAXIMIN 550 MG TABLET PO SCH ×2 (08:32→20:52)
[2019-09-24] MEDS: LACTULOSE 20 GM/30 ML CUP PO SCH ×3 (08:32→20:52)
[2019-09-24] MEDS: MULTIVITAMINS, THERA 1 EACH TAB PO SCH (08:32)
[2019-09-24] MEDS: FERROUS SULFATE 325 MG TAB PO SCH (08:32)
[2019-09-24] MEDS: HEPARIN SODIUM,PORCINE 5,000 UNIT/ML 1 ML VIAL SQ SCH ×2 (08:32→20:52)
[2019-09-24] MEDS: FAMOTIDINE 20 MG TAB PO SCH ×2 (08:32→20:52)
[2019-09-24] MEDS: SODIUM CHLORIDE 0.9% 1,000 ML IV SCH (09:32)
--- NOTE | 2019-09-24 11:30 | P.PN ---
Subjective Progress Note Date: 09/23/19 Principal diagnosis: Decompensated alcoholic cirrhosis, ascites, hepatic hydrothorax, abdominal pain Patient seen lying in bed status post thoracentesis reporting that her breathing is better and abdominal pain is better. No nausea or vomiting. Tolerating diet. Objective - Vital Signs Vital signs: Vital Signs Temp 97.8 F 09/23/19 21:00 Pulse 94 09/23/19 21:00 Resp 18 09/23/19 21:00 BP 98/65 09/23/19 21:00 Pulse Ox 95 09/23/19 21:00 Intake & Output 09/23/19 09/23/19 09/24/19 06:59 18:59 06:59 Intake Total 450 400 Balance 450 400 Weight 54.885 kg Intake: IV 400 Sodium Chloride 0.9% 1, 400 000 ml @ 50 mls/hr IV . Q20H [facility] Rx#:[id number] Oral 450 Other: # Voids 2 - Exam On physical examination, patient appears comfortable in no apparent distress. HEAD: Normocephalic, atraumatic. EYES: No scleral icterus. No conjunctival injection. MOUTH: No lesions, tongue midline. NECK: Trachea midline, no gross abnormalities. ABDOMEN: Soft, mildly distended. Bowel sounds are positive. No organomegaly. No guarding or rigidity. EXTREMITIES: No pedal edema. SKIN: No rashes, no jaundice. NEUROLOGIC: Alert and oriented x3. No focal deficits. - Labs CBC & Chem 7: 09/24/19 07:12 09/24/19 07:12 Labs: Abnormal Lab Results - Last 24 Hours (Table) 09/23/19 09/23/19 09/23/19 Range/Units 09:57 09:57 09:57 WBC 16.3 H (3.8-10.6) k/uL MCV 101.4 H (80.0-100.0) fL MCHC 30.6 L (31.0-37.0) g/dL Neutrophils # 14.0 H (1.3-7.7) k/uL PT (9.0-12.0) sec INR (<1.2) Sodium 132 L (137-145) mmol/L Carbon Dioxide 15 L (22-30) mmol/L Total Bilirubin 1.8 H (0.2-1.3) mg/dL AST 67 H (14-36) U/L Procalcitonin 0.14 H (0.02-0.09) ng/mL 09/23/19 Range/Units 11:24 WBC (3.8-10.6) k/uL MCV (80.0-100.0) fL MCHC (31.0-37.0) g/dL Neutrophils # (1.3-7.7) k/uL PT 13.5 H (9.0-12.0) sec INR 1.4 H (<1.2) Sodium (137-145) mmol/L Carbon Dioxide (22-30) mmol/L Total Bilirubin (0.2-1.3) mg/dL AST (14-36) U/L Procalcitonin (0.02-0.09) ng/mL Microbiology - Last 24 Hours (Table) 09/23/19 12:45 Gram Stain - Preliminary Pleural Fluid Body Fluid Culture - Preliminary Assessment and Plan (1) Decompensated hepatic cirrhosis Narrative/Plan: 44-year-old female with multiple medical comorbidities including decompensated alcoholic cirrhosis for which she follows up to [facility] presenting with shortness of breath and right abdominal pain. She reports recent paracentesis with no improvement in her abdominal pain after paracentesis. She has a known history of alcoholic cirrhosis currently abstaining from alcohol use with decompensation requiring treatment with Aldactone 50 mg daily, furosemide 20 mg daily, rifaximin 550 mg twice a day and lactulose 3 times a day. She has required paracentesis in the past. She denies any prior GI bleeding. Computed tomography scan was concerning for abnormal focus on the liver which was followed up with MRI which also showed ascites, cirrhosis a large right pleural effusion and an abnormal foci on the caudate of the liver. At this time symptoms are likely related to a hepatic hydrothorax with pulmonology service currently consulted. Current Visit: Yes Status: Acute Code(s): K72.90 - HEPATIC FAILURE, UNSPECIFIED WITHOUT COMA SNOMED Code(s): 536497774 (2) Pleural effusion, right Current Visit: Yes Status: Acute Code(s): J90 - PLEURAL EFFUSION, NOT ELSEWHERE CLASSIFIED SNOMED Code(s): 33103703 (3) Abdominal pain Current Visit: Yes Status: Acute Code(s): R10.9 - UNSPECIFIED ABDOMINAL PAIN SNOMED Code(s): 85307535 (4) Ascites Current Visit: No Status: Acute Code(s): R18.8 - OTHER ASCITES SNOMED Code(s): 852877848 Plan: Supportive care Low-sodium diet Continue Aldactone 50 mg daily and furosemide 20 mg daily, can consider u ptitration an outpatient setting Continue rifaximin and lactulose therapy Suspected etiology of right pleural effusion is from a hepatic hydrothorax, patient is status post thoracentesis Patient is currently demonstrating evidence of uncontrolled anxiety and depression, refused consultation by psychiatry service No plans for endoscopic evaluation at this time Continue alcohol abstinence Follow-up with [facility] hepatology service after discharge Limited sedating medications such as narcotics or anxiolytics in the setting of cirrhosis Would recommend repeat imaging likely after discharge given computed tomography scan and MRI on current presentation for further evaluation of and follow-up of abnormality of the caudate lobe seen on imaging Okay for discharge from GI standpoint Thank you for allowing us to participate in the care of the patient, GI will stand by, please call us back with any questions or concerns
[2019-09-24] MEDS ORDERED: HYDROmorphone 0.5 MG/0.5 ML SYRINGE IVP STA (12:05)
--- NOTE | 2019-09-24 13:22 | P.PN ---
Subjective Progress Note Date: 09/24/19 Principal diagnosis: Alcoholic cirrhosis This is a 44-year-old female patient who presented to the emergency room yesterday with complaints of abdominal discomfort. She does have a history of alcoholic cirrhosis and undergoes multiple paracentesis most recently done earlier this week. She was also having complaints of shortness of breath and was found to have a significant right lung pleural effusions and we're consulted for the same. She is seen today in consult on the regular medical floor. Awake and alert in no acute distress. Maintaining O2 saturations in the 90s on room air. She's afebrile. Hemodynamically stable. White count 16.3. Hemoglobin 13.9. INR 1.4. Sodium 132. Potassium 4.2. Creatinine 0.59. Influenza screen is negative. She's been initiated on Levaquin, oral Lasix, Aldactone. The patient is seen today 09/24/2019 in follow-up on the regular medical floor. She is up ambulating in the room. No shortness of breath, cough or congestion. She is breathing easier today. Maintaining good O2 saturations in the mid 90s on room air. She's afebrile. Family stable. She is status post right-sided thoracentesis with 1.9 L of transudate of fluid removed. Total protein 2.2. LDH 78. Cultures pending. White count 10.7. Hemoglobin 12.5. Sodium 129. Bicarb 20. Creatinine 0.62. Objective - Vital Signs Vital signs: Vital Signs Temp 99 F 09/24/19 04:45 Pulse 89 09/24/19 04:45 Resp 18 09/24/19 04:45 BP 103/64 09/24/19 04:45 Pulse Ox 97 09/24/19 04:45 Intake & Output 09/23/19 09/24/19 09/24/19 18:59 06:59 18:59 Intake Total 400 580 Balance 400 580 Weight 54.885 kg Intake: IV 400 Sodium Chloride 0.9% 1, 400 000 ml @ 50 mls/hr IV . Q20H [facility] Rx#:[id number] Oral 580 Other: # Voids 1 - Exam GENERAL EXAM: Alert, 44-year-old female patient, comfortable in no apparent distress. HEAD: Normocephalic. EYES: Normal reaction of pupils, equal size. NOSE: Clear with pink turbinates. THROAT: No erythema or exudates. NECK: No masses, no JVD. CHEST: No chest wall deformity. LUNGS: Equal air entry with faint crackles in the right lung base, dullness. CVS: S1 and S2 normal with no audible murmur, regular rhythm. ABDOMEN: No hepatosplenomegaly, normal bowel sounds, no guarding or rigidity. SPINE: No scoliosis or deformity SKIN: No rashes CENTRAL NERVOUS SYSTEM: No focal deficits, tone is normal in all 4 extremities. EXTREMITIES: There is no peripheral edema. No clubbing, no cyanosis. Peripheral pulses are intact. - Labs CBC & Chem 7: 09/24/19 07:12 09/24/19 07:12 Labs: Abnormal Lab Results - Last 24 Hours (Table) 09/23/19 09/24/19 09/24/19 Range/Units 09:57 07:12 07:12 WBC 10.7 H (3.8-10.6) k/uL Neutrophils # 8.4 H (1.3-7.7) k/uL Sodium 129 L (137-145) mmol/L Carbon Dioxide 20 L (22-30) mmol/L Delta Bilirubin 0.3 H (0.0-0.2) mg/dL AST 55 H (14-36) U/L Total Protein 6.1 L (6.3-8.2) g/dL Albumin 2.8 L (3.5-5.0) g/dL Procalcitonin 0.14 H (0.02-0.09) ng/mL Microbiology - Last 24 Hours (Table) 09/23/19 12:45 Gram Stain - Preliminary Pleural Fluid Body Fluid Culture - Preliminary Assessment and Plan Assessment: 1 Abdominal discomfort secondary to recurrent ascites with recent paracentesis earlier this week with 7 L removed according the patient. 2 Right-sided pleural effusion, status post thoracentesis on 09/23/2019 with 1.9 L removed. Fluid is transudate of. Cultures pending. 3 Recurrent episodes of ascites and paracentesis in the past 4 Alcoholic cirrhosis following at the [facility] 5 Arthritis 6 Anxiety/depression 7 Previous history of chronic tobacco dependence Plan: The patient was seen and evaluated by Dr. Khalil. She is stable from the pulmonary standpoint. We'll see the patient on as-needed basis. I, the cosigning physician, performed a history & physical examination of the patient. Lungs sounds with crackles in the right lung base, diminished. Ma intaining good O2 saturations in the 90s on room air. I discussed the assessment and plan of care with my nurse practitioner, Hanh Archer. I attest to the above note as dictated by her.
[2019-09-24] MEDS: LIDOCAINE 5% PATCH TOPICAL SCH (13:36)
[2019-09-24 13:49] LABS: Potassium 5.2 mmol/L (3.5-5.1)
[2019-09-24] MEDS: LEVOFLOXACIN 500 MG TAB PO SCH (14:56)
--- NOTE | 2019-09-24 15:27 | XR ---
EXAMINATION TYPE: XR chest 1V portable DATE OF EXAM: 09/24/2019 COMPARISON: Yesterday HISTORY: Thoracentesis. Pleural effusion. TECHNIQUE: FINDINGS: There is 50% opacification right hemithorax. There is some linear density left lung base. N o heart failure seen. Heart size is probably normal. Bony thorax is intact. No pneumothorax. IMPRESSION: There is increased right pleural effusion compared to yesterday. Mild atelectasis left marta ng base unchanged.
[2019-09-24] MEDS: IPRATROPIUM-ALBUTEROL 3 ML NEB INHALATION PRN (15:32)
[2019-09-24 20:16] LABS: Potassium 4.9 mmol/L (3.5-5.1)
[2019-09-25] MEDS: HYDROmorphone 1 MG/ML 1 ML SYRINGE IVP PRN ×8 (00:04→23:14)
[2019-09-25] MEDS: ONDANSETRON 4 MG/2 ML VIAL IVP SCH ×5 (00:05→23:14)
[2019-09-25] MEDS: SODIUM CHLORIDE 0.9% 1,000 ML IV SCH (05:30)
[2019-09-25] MEDS: traMADol 50 MG TAB PO PRN (05:30)
[2019-09-25 06:51] LABS: Basophils % (A) 0 %; Eosinophils # (A) 0.1 k/uL (0-0.7); Eosinophils % (A) 1 %; HCT 37.9 % (34.0-46.0); HGB 12.1 gm/dL (11.4-16.0); Lymphocytes % (A) 10 %; MCH 31.2 pg (25.0-35.0); MCHC 31.8 g/dL (31.0-37.0); MCV 98.2 fL (80.0-100.0); Mean Platelet Volume 8.3; Monocytes # (A) 0.8 k/uL (0-1.0); Monocytes % (A) 8 %; Neutrophils # (A) 8.2 k/uL (1.3-7.7); Neutrophils % (A) 78 %; Platelet Count 138 k/uL (150-450); RBC 3.86 m/uL (3.80-5.40); RDW 13.7 % (11.5-15.5); WBC 10.4 k/uL (3.8-10.6)
[2019-09-25 07:11] LABS: ALT 17 U/L (4-34); AST 45 U/L (14-36); African American GFR (CKD) >90 (>60 ml/min/1.73 sqM); Albumin 2.6 g/dL (3.5-5.0); Alkaline Phosphatase 103 U/L (38-126); Anion Gap 9 mmol/L; Bilirubin, Delta 0.3 mg/dL (0.0-0.2); Bilirubin,Unconjugated 1.2 mg/dL (0.0-1.1); Blood Urea Nitrogen 10 mg/dL (7-17); Calcium 8.3 mg/dL (8.4-10.2); Carbon Dioxide 21 mmol/L (22-30); Chloride 98 mmol/L (98-107); Glucose 87 mg/dL (74-99); Non-African American GFR(CKD) >90 (>60 ml/min/1.73 sqM); Potassium 4.5 mmol/L (3.5-5.1); Sodium 128 mmol/L (137-145); Total Bilirubin 1.5 mg/dL (0.2-1.3); Total Protein 5.9 g/dL (6.3-8.2)
[2019-09-25] MEDS: FUROSEMIDE 20 MG TAB PO SCH (07:25)
[2019-09-25] MEDS: LACTULOSE 20 GM/30 ML CUP PO SCH ×3 (07:25→20:00)
[2019-09-25] MEDS: SPIRONOLACTONE 25 MG TAB PO SCH ×2 (07:25→20:03)
[2019-09-25] MEDS: RIFAXIMIN 550 MG TABLET PO SCH ×2 (07:25→20:03)
[2019-09-25] MEDS: FAMOTIDINE 20 MG TAB PO SCH ×2 (07:26→20:04)
[2019-09-25] MEDS: FERROUS SULFATE 325 MG TAB PO SCH (07:26)
[2019-09-25] MEDS: HEPARIN SODIUM,PORCINE 5,000 UNIT/ML 1 ML VIAL SQ SCH ×2 (07:26→20:00)
[2019-09-25] MEDS: MULTIVITAMINS, THERA 1 EACH TAB PO SCH ×2 (07:27→07:47)
[2019-09-25] MEDS: LIDOCAINE 5% PATCH TOPICAL SCH (07:28)
[2019-09-25] MEDS: POLYETHYLENE GLYCOL 3350 17 GM POWD.PACK PO SCH (07:28)
[2019-09-25] MEDS ORDERED: HYDROmorphone 0.5 MG/0.5 ML SYRINGE IVP STA (08:48)
--- NOTE | 2019-09-25 08:50 | P.PN ---
Subjective This is a pleasant 44 years old female with past medical history of alcoholic liver cirrhosis, recurrent ascites, severe protein calorie malnutrition, hyponatremia, history of kidney and renal failure status post intubation. Patient presents because of right upper quadrant abdominal pain with difficulty breathing and dry coughing for the last 2 days. Patient denies nausea vomiting or change in bowel habits, her bowel movement scan of loose due to lactulose. Denies smoking, alcohol or illicit drugs Vitals are stable, labs showing unremarkable CBC, BMP and liver enzymes. Amylase and lipase are normal, UA is no suspicious of infection. She has abdominal and pelvis CT with IV contrast, liver cirrhosis and ascites, multifocal small bowel wall thickening, possible acute cholecystitis, possible hepatocellular disease, cannot rule out malignancy MAPS was checked and she is taking Ultram 50 mg twice a day, however gabapentin last dose was on 06/30/2019 In the emergency room she got Dilaudid and Protonix and started on Heather sling and 100 mL per hour 09/23/2019 Patient is seen and evaluated in follow-up today chest ultrasound was done showing right-sided pleural effusion pocket size 16.4 cm. Pulmonary performed a thoracentesis with approximately 1700 mL of yellow turbid fluid removed and specimen sent for pathology. Patient continues to have shortness of breath but has improved status post thoracentesis. Follow-up chest x-ray shows no pneumothorax status post thoracentesis along with persistent [id number] sized right pleural effusion that slightly improved with associated right basilar atelectasis and/or infiltrate and patchy left basilar atelectasis and/or infiltrate. Surgery recommending no surgical intervention at this time. GI following and will follow patient outpatient basis. Patient continues to have some right-sided lower back pain and right abdominal pain and was having nausea and vomiting this morning. Patient has been up to the bathroom with no issues. White count elevated at 16.3 today. Current sodium is 132, creatinine 0.59. Patient remains on IV antibiotics in the form of Levaquin and will continue at this time. Will repeat a.m. labs. 09/24/2019 Patient is awake and alert, she is only minimal pain in the right upper quadrant, no dyspnea or coughing, no chest pain, mobility is okay. However she complaining of from pain in her left lower back with radiating to the front, with no urinary symptoms, no abdominal tenderness and her abdominal exam looks benign. Her leukocytosis went down to 10.7 K, her alpha-fetoprotein is negative at 3.2, her pro calcitonin is elevated at 0.14.. Liver enzymes are trending down with normal bilirubin at 1.0, AST down from 67 to 55 and ALT within normal at 19, however her sodium went down 134, 132 and today 129,128 which could be multifactorial and patient was started on normal saline with close monitoring of her sodium, place fluid restriction and call nephrology consult Patient currently to continue Levaquin as I suspect she has pneumonia with elevated white cell count of pro calcitonin and respiratory symptoms on admission, also thoracentesis is showing fluid mostly related to her liver cirrhosis, her abdomen is not distended and her pain right upper quadrant is improved significantly. Patient was asking vigorously to be discharged today because she wants to go and visit her grandmother tomorrow and because of the coronavirus pandemic. Explained to the patient risks of leaving now and that she is not medically ready, she agrees to stay today total tonight or tomorrow morning. repeat Na today showing persistently low at 128, 128 despite iv fluid, we will add fluid restriction and call for nephrology consult Objective - Vital Signs Vital signs: Vital Signs Temp 99 F 09/24/19 04:45 Pulse 89 09/24/19 04:45 Resp 18 09/24/19 04:45 BP 103/64 09/24/19 04:45 Pulse Ox 97 09/24/19 04:45 Intake & Output 09/23/19 09/24/19 09/24/19 18:59 06:59 18:59 Intake Total 400 580 Balance 400 580 Weight 54.885 kg Intake: IV 400 Sodium Chloride 0.9% 1, 400 000 ml @ 50 mls/hr IV . Q20H [facility] Rx#:[id number] Oral 580 Other: # Voids 1 - Exam GENERAL: The patient is alert and oriented x3, not in any acute distress. Well developed, well nourished. HEENT: Pupils are round and equally reacting to light. EOMI. No scleral icterus. No conjunctival pallor. Normocephalic, atraumatic. No pharyngeal erythema. No thyromegaly. CARDIOVASCULAR: S1 and S2 present. No murmurs, rubs, or gallops. PULMONARY: Chest is clear to auscultation, no wheezing or crackles. ABDOMEN: Soft, no right upper quadrant tenderness, nondistended, normoactive bowel sounds. No palpable organomegaly. -MUSCULOSKELETAL: No joint swelling or deformity. Tenderness on the left lower back. Mobility and gait is normal, she gets out of bed easily EXTREMITIES: No cyanosis, clubbing, or pedal edema. NEUROLOGICAL: Gross neurological examination did not reveal any focal deficits. SKIN: No rashes. No petechiae - Labs CBC & Chem 7: 09/25/19 06:04 09/25/19 06:04 Labs: Abnormal Lab Results - Last 24 Hours (Table) 09/23/19 09/24/19 09/24/19 Range/Units 09:57 07:12 07:12 WBC 10.7 H (3.8-10.6) k/uL Neutrophils # 8.4 H (1.3-7.7) k/uL Sodium 129 L (137-145) mmol/L Carbon Dioxide 20 L (22-30) mmol/L Delta Bilirubin 0.3 H (0.0-0.2) mg/dL AST 55 H (14-36) U/L Total Protein 6.1 L (6.3-8.2) g/dL Albumin 2.8 L (3.5-5.0) g/dL Procalcitonin 0.14 H (0.02-0.09) ng/mL Microbiology - Last 24 Hours (Table) 09/23/19 12:45 Gram Stain - Preliminary Pleural Fluid Body Fluid Culture - Preliminary Assessment and Plan Assessment: -Alcoholic liver cirrhosis, CAT scan of the abdomen and pelvis showing hepatocellular disease, cannot rule out malignancy, MRI showing some focus in the caudate lobe, GI recommended repeat MRI as an outpatient. -Possible right lower lobe pneumonia -Acute hyponatremia, multifactorial could be related to dehydration, thoracentesis and infection -Left lower back pain and tenderness, mostly most likely musculoskeletal -unlikely acute cholecystitis, no need for surgical intervention by surgical team -I don't think the patient has protein calorie malnutrition Plan: This is a pleasant 44 years old female who presents with liver cirrhosis, ascites and possible acute cholecystitis. Continue symptomatic treatment. Patient has been evaluated by surgery GI and pulmonary team to her for discharge. Monitor sodium and continue with normal saline at 50 mL/h. Pain management Labs and medication were reviewed.. Continue same treatment. Continue with symptomatic treatment. Resume home medication. Monitor lytes and vitals. DVT and GI prophylaxis. Further recommendations of the clinical course of the patient DVT prophylaxis: Subcutaneous heparin GI Prophylaxis: Pepcid Prognosis is guarded
[2019-09-25] MEDS: ACETAMINOPHEN TAB 325 MG TAB PO PRN ×2 (09:08→20:17)
--- NOTE | 2019-09-25 09:31 | US ---
EXAMINATION TYPE: US abdomen limited DATE OF EXAM: 09/25/2019 COMPARISON: Previous study dated 09/20/2019. CLINICAL HISTORY: looking for ascites . ABD distention MIld amount of ascites present IMPRESSION: MILD ASCITES.
--- NOTE | 2019-09-25 09:48 | P.PN ---
Subjective This is a pleasant 44 years old female with past medical history of alcoholic liver cirrhosis, recurrent ascites, severe protein calorie malnutrition, hyponatremia, history of kidney and renal failure status post intubation. Patient presents because of right upper quadrant abdominal pain with difficulty breathing and dry coughing for the last 2 days. Patient denies nausea vomiting or change in bowel habits, her bowel movement scan of loose due to lactulose. Denies smoking, alcohol or illicit drugs Vitals are stable, labs showing unremarkable CBC, BMP and liver enzymes. Amylase and lipase are normal, UA is no suspicious of infection. She has abdominal and pelvis CT with IV contrast, liver cirrhosis and ascites, multifocal small bowel wall thickening, possible acute cholecystitis, possible hepatocellular disease, cannot rule out malignancy MAPS was checked and she is taking Ultram 50 mg twice a day, however gabapentin last dose was on 06/30/2019 In the emergency room she got Dilaudid and Protonix and started on Heather sling and 100 mL per hour 09/23/2019 Patient is seen and evaluated in follow-up today chest ultrasound was done showing right-sided pleural effusion pocket size 16.4 cm. Pulmonary performed a thoracentesis with approximately 1700 mL of yellow turbid fluid removed and specimen sent for pathology. Patient continues to have shortness of breath but has improved status post thoracentesis. Follow-up chest x-ray shows no pneumothorax status post thoracentesis along with persistent [id number] sized right pleural effusion that slightly improved with associated right basilar atelectasis and/or infiltrate and patchy left basilar atelectasis and/or infiltrate. Surgery recommending no surgical intervention at this time. GI following and will follow patient outpatient basis. Patient continues to have some right-sided lower back pain and right abdominal pain and was having nausea and vomiting this morning. Patient has been up to the bathroom with no issues. White count elevated at 16.3 today. Current sodium is 132, creatinine 0.59. Patient remains on IV antibiotics in the form of Levaquin and will continue at this time. Will repeat a.m. labs. 09/24/2019 Patient is awake and alert, she is only minimal pain in the right upper quadrant, no dyspnea or coughing, no chest pain, mobility is okay. However she complaining of from pain in her left lower back with radiating to the front, with no urinary symptoms, no abdominal tenderness and her abdominal exam looks benign. Her leukocytosis went down to 10.7 K, her alpha-fetoprotein is negative at 3.2, her pro calcitonin is elevated at 0.14.. Liver enzymes are trending down with normal bilirubin at 1.0, AST down from 67 to 55 and ALT within normal at 19, however her sodium went down 134, 132 and today 129,128 which could be multifactorial and patient was started on normal saline with close monitoring of her sodium, place fluid restriction and call nephrology consult Patient currently to continue Levaquin as I suspect she has pneumonia with elevated white cell count of pro calcitonin and respiratory symptoms on admission, also thoracentesis is showing fluid mostly related to her liver cirrhosis, her abdomen is not distended and her pain right upper quadrant is improved significantly. Patient was asking vigorously to be discharged today because she wants to go and visit her grandmother tomorrow and because of the coronavirus pandemic. Explained to the patient risks of leaving now and that she is not medically ready, she agrees to stay today total tonight or tomorrow morning. repeat Na today showing persistently low at 128, 128 despite iv fluid, we will add fluid restriction and call for nephrology consult 09/25/2019 Patient awake and alert, she still complaining from pain in her left lower side, she states usually history of such pain when she has ascites cell abdominal ultrasound is ordered to assess for ascites. She denies chest pain or dyspnea. She already cleared by pulmonary service for discharge. Her vitals are stable, her WBCs came back to normal at 10.4 K, however her sodium is still low at 128, despite IV fluids was 75 mL and then 50 L/h. Patient also drinks a lot of fluids including juices and order. Normal saline was stopped and patient was counseled to limit the amount of fluid intake and she agrees, also will call for nephrology consult. Objective - Vital Signs Vital signs: Vital Signs Temp 98.4 F 09/25/19 05:00 Pulse 111 H 09/25/19 05:00 Resp 18 09/25/19 05:00 BP 108/67 09/25/19 05:00 Pulse Ox 95 09/25/19 05:00 Intake & Output 09/24/19 09/25/19 09/25/19 18:59 06:59 18:59 Intake Total 200 Output Total 2 Balance -2 200 Intake: Oral 200 Output: Urine 2 Other: # Voids 1 - Exam GENERAL: The patient is alert and oriented x3, not in any acute distress. Well developed, well nourished. HEENT: Pupils are round and equally reacting to light. EOMI. No scleral icterus. No conjunctival pallor. Normocephalic, atraumatic. No pharyngeal erythema. No thyromegaly. CARDIOVASCULAR: S1 and S2 present. No murmurs, rubs, or gallops. PULMONARY: Chest is clear to auscultation, no wheezing or crackles. ABDOMEN: Soft, no right upper quadrant tenderness, nondistended, normoactive bowel sounds. No palpable organomegaly. -MUSCULOSKELETAL: No joint swelling or deformity. Tenderness on the left lower back. Mobility and gait is normal, she gets out of bed easily EXTREMITIES: No cyanosis, clubbing, or pedal edema. NEUROLOGICAL: Gross neurological examination did not reveal any focal deficits. SKIN: No rashes. No petechiae - Labs CBC & Chem 7: 09/25/19 06:04 09/25/19 06:04 Labs: Abnormal Lab Results - Last 24 Hours (Table) 09/24/19 09/24/19 09/25/19 Range/Units 13:10 19:50 06:04 Plt Count (150-450) k/uL Neutrophils # (1.3-7.7) k/uL Sodium 128 L 128 L 128 L (137-145) mmol/L Potassium 5.2 H (3.5-5.1) mmol/L Carbon Dioxide 21 L 20 L 21 L (22-30) mmol/L Calcium 8.3 L (8.4-10.2) mg/dL Total Bilirubin 1.5 H (0.2-1.3) mg/dL Unconjugated Bilirubin 1.2 H (0.0-1.1) mg/dL Delta Bilirubin 0.3 H (0.0-0.2) mg/dL AST 45 H (14-36) U/L Total Protein 5.9 L (6.3-8.2) g/dL Albumin 2.6 L (3.5-5.0) g/dL 09/25/19 Range/Units 06:04 Plt Count 138 L (150-450) k/uL Neutrophils # 8.2 H (1.3-7.7) k/uL Sodium (137-145) mmol/L Potassium (3.5-5.1) mmol/L Carbon Dioxide (22-30) mmol/L Calcium (8.4-10.2) mg/dL Total Bilirubin (0.2-1.3) mg/dL Unconjugated Bilirubin (0.0-1.1) mg/dL Delta Bilirubin (0.0-0.2) mg/dL AST (14-36) U/L Total Protein (6.3-8.2) g/dL Albumin (3.5-5.0) g/dL Microbiology - Last 24 Hours (Table) 09/23/19 12:45 Gram Stain - Preliminary Pleural Fluid Body Fluid Culture - Preliminary Assessment and Plan Assessment: -Alcoholic liver cirrhosis, CAT scan of the abdomen and pelvis showing hepatoc ellular disease, cannot rule out malignancy, MRI showing some focus in the caudate lobe, GI recommended repeat MRI as an outpatient. -Possible right lower lobe pneumonia -Acute hyponatremia, multifactorial could be related to dehydration, thoracentesis and infection -Left lower back pain and tenderness, mostly most likely musculoskeletal -unlikely acute cholecystitis, no need for surgical intervention by surgical team -I don't think the patient has protein calorie malnutrition Plan: This is a pleasant 44 years old female who presents with liver cirrhosis, right pleural effusion status post thoracocentesis and hyponatremia. Continue symptomatic treatment. Patient has been evaluated by surgery GI and pulmonary team to her for discharge. However she still have problems with hyponatremia, hold IV fluids, with fluid restriction and nephrology consult, keep monitoring sodium. Pain management. Labs and medication were reviewed.. Continue same treatment. Continue with symptomatic treatment. Resume home medication. Monitor lytes and vitals. DVT and GI prophylaxis. Further recommendations of the clinical course of the patient DVT prophylaxis: Subcutaneous heparin GI Prophylaxis: Pepcid Prognosis is guarded
--- NOTE | 2019-09-25 10:56 | P.NPCON ---
History of Present Illness - Reason for Consult hyponatremia - History of Present Illness Reason for consultation: Hyponatremia History of present illness: Patient is a 44-year-old female seen in renal consultation for hyponatremia. Patient's sodium level was 134 on admission on 09/22/2019 and is down to 128 today. It has been stable at 128 for the last 3 days. Patient has history of liver cirrhosis and undergoes paracentesis every 2 weeks. Her last paracentesis was on Thursday. Patient states she had a little over 7 L drained. Patient was complaining of shortness of breath and came to the hospital and was noted to have pleural effusions. She underwent right-sided thoracentesis with 1.[address] osborn on September 22. Patient's chest x-ray from yesterday showed worsening right- sided pleural effusion. Abdominal ultrasound reveals mild ascites. She has been voiding Denies hematuria or dysuria. Denies use of nonsteroidals. She is currently maintained on Lasix 20 mg once daily and Aldactone 50 mg once daily. She denies edema in her lower extremities. No vomiting or diarrhea. Oral intake is fair. Denies drinking excessive amounts of fluid. She's not on any thiazide diuretics. Vital signs are stable. General: The patient appeared well nourished and normally developed. HEENT: Head exam is unremarkable. Neck is without jugular venous distension. LUNGS: Lungs are clear to auscultation and percussion. Breath sounds decreased. HEART: Rate and Rhythm are regular. First and second heart sounds normal. No murmurs, rubs or gallops. ABDOMEN: Abdominal exam reveals normal bowel sounds. Mild distention. EXTREMITITES: No clubbing, cyanosis, or edema. Past Medical History Past Medical History: Liver Disease, Osteoarthritis (OA), Renal Disease Additional Past Medical History / Comment(s): Pt recently admitted to [facility] on 09/20/19 with recurrent ascites 2ndary to cirrhosis/acute abdominal pain/possible abdominal wall hernia/mild coagulopathy d/t cirrhosis, severe protein calorie malnourishment, hyponatremia, hypoalbuminemia. Other hx: chronic epigastric pain, alchoholic cirrhosis of the liver, recurrent ascities/paracentesises, portal htn, pt states recent past she was hospitalized with pneumothorax/kidney and liver failure-was in an induced coma/intubated/vented/received 2 dialysis treatments and states she had to relearn to walk and talk, anemia, hiatal hernia, IBS, hypoglycemia, hypotension. History of Any Multi-Drug Resistant Organisms: None Reported Past Surgical History: Breast Surgery Additional Past Surgical History / Comment(s): Dialysis port-removed, paracentesises, EGD, colonoscopy, breast implants. Past Anesthesia/Blood Transfusion Reactions: No Reported Reaction Additional Past Anesthesia/Blood Transfusion Reaction / Comment(s): Pt states she has received blood in past without reaction. Smoking Status: Former smoker - Past Family History Mother History Unknown: Yes Medications and Allergies Home Medications Medication Instructions Recorded Confirmed Type Lactulose 20 gm PO TID 05/21/19 09/22/19 History Rifaximin [Xifaxan] 550 mg PO BID 05/21/19 09/22/19 History Multivitamin with Iron 1 tablet PO DAILY 07/28/19 09/22/19 History [Multivitamins with Iron] traMADol HCL [Ultram] 50 mg PO BID PRN 07/28/19 09/22/19 History Furosemide [Lasix] 20 mg PO DAILY 08/04/19 09/22/19 History hydrOXYzine HCL 25 mg PO HS 08/04/19 09/22/19 History Ferrous Gluconate 324 mg PO DAILY 09/08/19 09/22/19 History Gabapentin [Neurontin] 100 mg PO DAILY 09/08/19 09/22/19 History Polyethylene Glycol 3350 [Miralax] 17 gm PO DAILY 09/08/19 09/22/19 History Spironolactone [Aldactone] 50 mg PO DAILY 09/08/19 09/22/19 History Antiacid Unknown Otc 1 tab PO DAILY PRN 09/20/19 09/22/19 History Simethicone [Gas-X] 62.5 mg PO DAILY PRN 09/20/19 09/22/19 History Allergies Allergy/AdvReac Type Severity Reaction Status Date / Time azithromycin [From Zithromax] Allergy Nausea & Verified 09/22/19 08:54 Vomiting cat dander Allergy Dyspnea/THROAT Verified 09/22/19 08:54 SWELLING mold Allergy Dyspnea/THROAT Verified 09/22/19 08:54 SWELLING Penicillins Allergy Dyspnea/THROAT Verified 09/22/19 08:54 SWELLING Physical Exam Vitals: Vital Signs Temp Pulse Pulse Resp BP Pulse Ox 09/25/19 05:00 98.4 F 111 H 18 108/67 95 09/24/19 20:20 98.2 F 99 18 106/71 96 09/24/19 15:43 91 09/24/19 15:32 91 09/24/19 15:00 98.0 F 99 16 99/64 97 Intake and Output 09/24/19 09/25/19 09/25/19 22:59 06:59 14:59 Intake Total 100 100 200 Balance 100 100 200 Intake: Oral 100 100 200 Other: # Voids 1 Results - Lab Results Most recent lab results Calcium 8.3 mg/dL (8.4-10.2) L 09/25/19 06:04 09/25/19 06:04 09/25/19 06:04 Assessment and Plan Plan: Assessment: 1. Hypervolemic hyponatremia. Sodium level stable at 128. 2. Liver cirrhosis. 3. Ascites status post paracentesis on September 19 with over 7 L drained. 4. Pleural effusion status post right-sided thoracentesis with 1.7 L drained on September 22. Plan: Increase Aldactone to 50 mg twice daily. Maintain Lasix 20 mg once daily. Samsca 15 mg once today. 1500 mL fluid resection. Encourage oral intake, particularly protein. Check TSH. Repeat electrolytes in the morning. Thank you for the consultation. I will continue to follow the patient with you during her hospital stay.
[2019-09-25] MEDS ORDERED: TOLVAPTAN 15 MG 1/2 TABLET PO ONE (12:00)
[2019-09-25] MEDS: LEVOFLOXACIN 500 MG TAB PO SCH (16:53)
[2019-09-25] MEDS: IPRATROPIUM-ALBUTEROL 3 ML NEB INHALATION PRN (19:33)
[2019-09-26] MEDS: traMADol 50 MG TAB PO PRN (00:30)
[2019-09-26] MEDS: HYDROmorphone 1 MG/ML 1 ML SYRINGE IVP PRN ×7 (03:01→23:42)
[2019-09-26] MEDS: SIMETHICONE 80 MG CHEWABLE PO PRN ×2 (05:14→11:44)
[2019-09-26] MEDS: ONDANSETRON 4 MG/2 ML VIAL IVP SCH ×4 (05:14→23:43)
[2019-09-26 07:03] LABS: Basophils % (A) 0 %; Eosinophils # (A) 0.1 k/uL (0-0.7); Eosinophils % (A) 1 %; HCT 39.4 % (34.0-46.0); HGB 12.6 gm/dL (11.4-16.0); Lymphocytes % (A) 8 %; MCH 31.1 pg (25.0-35.0); MCHC 31.9 g/dL (31.0-37.0); MCV 97.5 fL (80.0-100.0); Mean Platelet Volume 7.9; Monocytes # (A) 0.9 k/uL (0-1.0); Monocytes % (A) 8 %; Neutrophils # (A) 9.1 k/uL (1.3-7.7); Neutrophils % (A) 79 %; Platelet Count 148 k/uL (150-450); RBC 4.05 m/uL (3.80-5.40); RDW 13.9 % (11.5-15.5); WBC 11.4 k/uL (3.8-10.6)
[2019-09-26 07:18] LABS: ALT 18 U/L (4-34); AST 48 U/L (14-36); African American GFR (CKD) >90 (>60 ml/min/1.73 sqM); Albumin 2.8 g/dL (3.5-5.0); Alkaline Phosphatase 110 U/L (38-126); Anion Gap 9 mmol/L; Bilirubin, Delta 0.4 mg/dL (0.0-0.2); Bilirubin,Unconjugated 1.2 mg/dL (0.0-1.1); Blood Urea Nitrogen 10 mg/dL (7-17); Calcium 8.5 mg/dL (8.4-10.2); Carbon Dioxide 20 mmol/L (22-30); Chloride 102 mmol/L (98-107); Glucose 88 mg/dL (74-99); Magnesium 1.5 mg/dL (1.6-2.3); Non-African American GFR(CKD) >90 (>60 ml/min/1.73 sqM); Potassium 4.2 mmol/L (3.5-5.1); Sodium 131 mmol/L (137-145); Total Bilirubin 1.6 mg/dL (0.2-1.3); Total Protein 6.2 g/dL (6.3-8.2)
[2019-09-26] MEDS: HEPARIN SODIUM,PORCINE 5,000 UNIT/ML 1 ML VIAL SQ SCH ×2 (08:33→20:39)
[2019-09-26] MEDS: LACTULOSE 20 GM/30 ML CUP PO SCH ×3 (08:39→20:42)
[2019-09-26] MEDS: RIFAXIMIN 550 MG TABLET PO SCH ×2 (08:39→20:38)
[2019-09-26] MEDS: POLYETHYLENE GLYCOL 3350 17 GM POWD.PACK PO SCH (08:39)
[2019-09-26] MEDS: FUROSEMIDE 20 MG TAB PO SCH (08:39)
[2019-09-26] MEDS: FAMOTIDINE 20 MG TAB PO SCH ×2 (08:40→20:39)
[2019-09-26] MEDS: FERROUS SULFATE 325 MG TAB PO SCH (08:40)
[2019-09-26] MEDS: SPIRONOLACTONE 25 MG TAB PO SCH ×2 (08:40→20:39)
[2019-09-26] MEDS: LIDOCAINE 5% PATCH TOPICAL SCH ×2 (08:41→17:32)
--- NOTE | 2019-09-26 11:25 | P.PN ---
Subjective Patient is seen in follow-up for hyponatremia. Sodium level is up to 131 today. Complains of mild abdominal discomfort. Oral intake is fair. No vomiting or diarrhea. Vital signs are stable. General: The patient appeared well nourished and normally developed. HEENT: Head exam is unremarkable. Neck is without jugular venous distension. LUNGS: Lungs are clear to auscultation and percussion. Breath sounds decreased. HEART: Rate and Rhythm are regular. First and second heart sounds normal. No murmurs, rubs or gallops. ABDOMEN: Mild tenderness. Distention noted. EXTREMITITES: No clubbing, cyanosis, or edema. Objective - Vital Signs Vital signs: Vital Signs Temp 98.3 F 09/26/19 07:00 Pulse 106 H 09/26/19 07:00 Resp 18 09/26/19 07:00 BP 103/57 09/26/19 07:00 Pulse Ox 93 L 09/26/19 07:00 Intake & Output 09/25/19 09/26/19 09/26/19 18:59 06:59 18:59 Intake Total 200 Balance 200 Weight 56.7 kg Intake: Oral 200 Other: # Voids 1 1 - Labs CBC & Chem 7: 09/26/19 06:43 09/26/19 06:43 Labs: Abnormal Lab Results - Last 24 Hours (Table) 09/26/19 09/26/19 Range/Units 06:43 06:43 WBC 11.4 H (3.8-10.6) k/uL Plt Count 148 L (150-450) k/uL Neutrophils # 9.1 H (1.3-7.7) k/uL Sodium 131 L (137-145) mmol/L Carbon Dioxide 20 L (22-30) mmol/L Magnesium 1.5 L (1.6-2.3) mg/dL Total Bilirubin 1.6 H (0.2-1.3) mg/dL Unconjugated Bilirubin 1.2 H (0.0-1.1) mg/dL Delta Bilirubin 0.4 H (0.0-0.2) mg/dL AST 48 H (14-36) U/L Total Protein 6.2 L (6.3-8.2) g/dL Albumin 2.8 L (3.5-5.0) g/dL Microbiology - Last 24 Hours (Table) 09/23/19 12:45 Gram Stain - Preliminary Pleural Fluid Body Fluid Culture - Preliminary Assessment and Plan Plan: Assessment: 1. Hypervolemic hyponatremia. Status post Samsca. Sodium 131 today. TSH normal. 2. Liver cirrhosis. 3. Ascites status post paracentesis on September 19 with over 7 L drained. 4. Pleural effusion status post right-sided thoracentesis with 1.7 L drained on September 22. 5. Hypomagnesemia secondary to diuresis. Plan: Maintain Aldactone to 50 mg twice daily. Maintain Lasix 20 mg once daily. 1500 mL fluid resection. Encourage oral intake, particularly protein. Repeat electrolytes in the morning. Add oral magnesium oxide.
[2019-09-26] MEDS: MAGNESIUM OXIDE 400 MG TAB PO SCH ×2 (11:44→20:38)
[2019-09-26] MEDS ORDERED: HYDROmorphone 0.5 MG/0.5 ML SYRINGE IVP STA (13:08)
[2019-09-26] MEDS ORDERED: IOPAMIDOL CONTRAST (ORAL USE) VIAL PO PRN (13:08)
[2019-09-26] MEDS: ACETAMINOPHEN TAB 325 MG TAB PO PRN ×2 (13:15→20:49)
--- NOTE | 2019-09-26 13:16 | P.PN ---
Subjective This is a pleasant 44 years old female with past medical history of alcoholic liver cirrhosis, recurrent ascites, severe protein calorie malnutrition, hyponatremia, history of kidney and renal failure status post intubation. Patient presents because of right upper quadrant abdominal pain with difficulty breathing and dry coughing for the last 2 days. Patient denies nausea vomiting or change in bowel habits, her bowel movement scan of loose due to lactulose. Denies smoking, alcohol or illicit drugs Vitals are stable, labs showing unremarkable CBC, BMP and liver enzymes. Amylase and lipase are normal, UA is no suspicious of infection. She has abdominal and pelvis CT with IV contrast, liver cirrhosis and ascites, multifocal small bowel wall thickening, possible acute cholecystitis, possible hepatocellular disease, cannot rule out malignancy MAPS was checked and she is taking Ultram 50 mg twice a day, however gabapentin last dose was on 06/30/2019 In the emergency room she got Dilaudid and Protonix and started on Heather sling and 100 mL per hour 09/23/2019 Patient is seen and evaluated in follow-up today chest ultrasound was done showing right-sided pleural effusion pocket size 16.4 cm. Pulmonary performed a thoracentesis with approximately 1700 mL of yellow turbid fluid removed and specimen sent for pathology. Patient continues to have shortness of breath but has improved status post thoracentesis. Follow-up chest x-ray shows no pneumothorax status post thoracentesis along with persistent [id number] sized right pleural effusion that slightly improved with associated right basilar atelectasis and/or infiltrate and patchy left basilar atelectasis and/or infiltrate. Surgery recommending no surgical intervention at this time. GI following and will follow patient outpatient basis. Patient continues to have some right-sided lower back pain and right abdominal pain and was having nausea and vomiting this morning. Patient has been up to the bathroom with no issues. White count elevated at 16.3 today. Current sodium is 132, creatinine 0.59. Patient remains on IV antibiotics in the form of Levaquin and will continue at this time. Will repeat a.m. labs. 09/24/2019 Patient is awake and alert, she is only minimal pain in the right upper quadrant, no dyspnea or coughing, no chest pain, mobility is okay. However she complaining of from pain in her left lower back with radiating to the front, with no urinary symptoms, no abdominal tenderness and her abdominal exam looks benign. Her leukocytosis went down to 10.7 K, her alpha-fetoprotein is negative at 3.2, her pro calcitonin is elevated at 0.14.. Liver enzymes are trending down with normal bilirubin at 1.0, AST down from 67 to 55 and ALT within normal at 19, however her sodium went down 134, 132 and today 129,128 which could be multifactorial and patient was started on normal saline with close monitoring of her sodium, place fluid restriction and call nephrology consult Patient currently to continue Levaquin as I suspect she has pneumonia with elevated white cell count of pro calcitonin and respiratory symptoms on admission, also thoracentesis is showing fluid mostly related to her liver cirrhosis, her abdomen is not distended and her pain right upper quadrant is improved significantly. Patient was asking vigorously to be discharged today because she wants to go and visit her grandmother tomorrow and because of the coronavirus pandemic. Explained to the patient risks of leaving now and that she is not medically ready, she agrees to stay today total tonight or tomorrow morning. repeat Na today showing persistently low at 128, 128 despite iv fluid, we will add fluid restriction and call for nephrology consult 09/25/2019 Patient awake and alert, she still complaining from pain in her left lower side, she states usually history of such pain when she has ascites cell abdominal ultrasound is ordered to assess for ascites. She denies chest pain or dyspnea. She already cleared by pulmonary service for discharge. Her vitals are stable, her WBCs came back to normal at 10.4 K, however her sodium is still low at 128, despite IV fluids was 75 mL and then 50 L/h. Patient also drinks a lot of fluids including juices and order. Normal saline was stopped and patient was counseled to limit the amount of fluid intake and she agrees, also will call for nephrology consult. 09/26/2019 Patient awake and oriented, she has some exertional dyspnea but better than when she came in no coughing. She still complaining from pain in her left side with some fullness and epigastric pain today, her abdomen is somewhat distended, however abdominal ultrasound from yesterday shows slight ascites. She still asking for pain medication and she is adamant to get Dilaudid, when his sugars of Dilaudid is a provided, also she was her lidocaine patch to be increased and 2 patches Are provided. Also will repeat chest x-ray for follow-up patient feels thirsty however she is Adherent to fluid restriction her sodium went up today to 131, after she got samsca x1 yesterday by nephrology team and her Aldactone increased to 50 mg twice a day as well as Lasix 20 mg twice a day , also patient on fluid restriction to 1500 mL per day. she agrees to stay in the hospital today HEENT: No recent visual problems or hearing problems. Denied any sore throat. CARDIOVASCULAR: No orthopnea, PND, no palpitations, no syncope. NEUROLOGICAL: No headaches, no weakness, no numbness. HEMATOLOGICAL: Denies any bleeding or petechiae. GENITOURINARY: Denies any burning micturition, frequency, or urgency. MUSCULOSKELETAL/RHEUMATOLOGICAL: Denies any joint pain, swelling, or any muscle pain. ENDOCRINE: Denies any polyuria or polydipsia. Active Medications Generic Name Dose Route Start Last Admin Trade Name Freq PRN Reason Stop Dose Admin Acetaminophen 325 mg 09/25/19 08:47 09/26/19 13:15 Tylenol Tab PO 325 mg Q8HR PRN Administration Fever and/ or Pain Albuterol/Ipratropium 3 ml 09/22/19 13:48 09/25/19 19:33 Duoneb 0.5 Mg-3 Mg/3 Ml Soln INHALATION 3 ml RT-QID PRN Administration Shortness Of Breath Or Wheezing Famotidine 20 mg 09/23/19 21:00 09/26/19 08:40 Pepcid PO 20 mg Q12HR CARLOS Administration Ferrous Sulfate 325 mg 09/23/19 09:00 09/26/19 08:40 Feosol PO 325 mg DAILY CARLOS Administration Furosemide 20 mg 09/23/19 09:00 09/26/19 08:39 Lasix PO 20 mg DAILY CARLSO Administration Heparin Sodium (Porcine) 5,000 unit 09/22/19 21:00 09/26/19 08:33 Heparin SQ Not Given Q12HR CARLOS Hydromorphone HCl 1 mg 09/23/19 23:09 09/26/19 11:44 Dilaudid IVP 1 mg Q3HR PRN Administration Severe Pain Iopamidol 30 ml 09/26/19 13:08 Isovue-300 (For Oral Use) PO 09/27/19 13:[address] Scan Lactulose 20 gm 09/22/19 16:00 09/26/19 08:39 Cephulac PO 20 gm TID CARLOS Administration Levofloxacin 500 mg 09/24/19 16:00 09/25/19 16:53 Levaquin PO 500 mg Q24H CARLOS Administration Lidocaine 2 patch 09/26/19 13:10 Lidoderm TOPICAL DAILY CARLOS Magnesium Oxide 400 mg 09/26/19 11:30 09/26/19 11:44 Mag-Ox PO 400 mg BID CARLOS Administration Multivitamins 1 each 09/23/19 09:00 09/25/19 07:47 Theragran PO 1 each DAILY [facility] Administration Naloxone HCl 0.2 mg 09/22/19 10:38 Narcan IV Q2M PRN Opioid Reversal Ondansetron HCl 4 mg 09/23/19 12:00 09/26/19 11:44 Zofran IVP 4 mg Q6HR [facility] Administration Polyethylene Glycol 17 gm 09/23/19 09:00 09/26/19 08:39 Miralax PO 17 gm DAILY [facility] Administration Prochlorperazine Maleate 5 mg 09/23/19 09:35 Compazine PO Q8HR PRN Nausea And Vomiting Rifaximin 550 mg 09/22/19 21:00 09/26/19 08:39 Xifaxan PO 10/22/19 21:01 550 mg BID [facility] Administration Simethicone 80 mg 09/22/19 13:29 09/26/19 11:44 Mylicon Chew PO 80 mg DAILY PRN Administration GAS PAIN Spironolactone 50 mg 09/25/19 21:00 09/26/19 08:40 Aldactone PO 50 mg BID [facility] Administration Tramadol HCl 50 mg 09/22/19 13:29 09/26/19 00:30 Ultram PO 50 mg BID PRN Administration Pain Objective - Vital Signs Vital signs: Vital Signs Temp 98.3 F 09/26/19 07:00 Pulse 106 H 09/26/19 07:00 Resp 18 09/26/19 07:00 BP 103/57 09/26/19 07:00 Pulse Ox 93 L 09/26/19 07:00 Intake & Output 09/25/19 09/26/19 09/26/19 18:59 06:59 18:59 Intake Total 200 Balance 200 Weight 56.7 kg Intake: Oral 200 Other: # Voids 1 1 - Exam GENERAL: The patient is alert and oriented x3, not in any acute distress. Well developed, well nourished. HEENT: Pupils are round and equally reacting to light. EOMI. No scleral icterus. No conjunctival pallor. Normocephalic, atraumatic. No pharyngeal erythema. No thyromegaly. CARDIOVASCULAR: S1 and S2 present. No murmurs, rubs, or gallops. PULMONARY: Chest is clear to auscultation, no wheezing or crackles. -ABDOMEN: Soft, epigastric tenderness, left flank tenderness was some f ullness,no rebound tenderness or guarding mild abdominal distention, normoactive bowel sounds. No palpable organomegaly. -MUSCULOSKELETAL: No joint swelling or deformity. Tenderness on the left lower back. Mobility and gait is normal, she gets out of bed easily EXTREMITIES: No cyanosis, clubbing, or pedal edema. NEUROLOGICAL: Gross neurological examination did not reveal any focal deficits. SKIN: No rashes. No petechiae - Labs CBC & Chem 7: 09/26/19 06:43 09/26/19 06:43 Labs: Abnormal Lab Results - Last 24 Hours (Table) 09/26/19 09/26/19 Range/Units 06:43 06:43 WBC 11.4 H (3.8-10.6) k/uL Plt Count 148 L (150-450) k/uL Neutrophils # 9.1 H (1.3-7.7) k/uL Sodium 131 L (137-145) mmol/L Carbon Dioxide 20 L (22-30) mmol/L Magnesium 1.5 L (1.6-2.3) mg/dL Total Bilirubin 1.6 H (0.2-1.3) mg/dL Unconjugated Bilirubin 1.2 H (0.0-1.1) mg/dL Delta Bilirubin 0.4 H (0.0-0.2) mg/dL AST 48 H (14-36) U/L Total Protein 6.2 L (6.3-8.2) g/dL Albumin 2.8 L (3.5-5.0) g/dL Microbiology - Last 24 Hours (Table) 09/23/19 12:45 Gram Stain - Preliminary Pleural Fluid Body Fluid Culture - Preliminary Assessment and Plan Assessment: -Alcoholic liver cirrhosis, CAT scan of the abdomen and pelvis showing hepatocellular disease, cannot rule out malignancy, MRI showing some focus in the caudate lobe, GI recommended repeat MRI as an outpatient. -Possible right lower lobe pneumonia -abdominal pain -Acute hyponatremia, multifactorial could be related to dehydration, thoracentes is and infection -Left lower back pain and tenderness, mostly most likely musculoskeletal -unlikely acute cholecystitis, no need for surgical intervention by surgical team -I don't think the patient has protein calorie malnutrition Plan: This is a pleasant 44 years old female who presents with liver cirrhosis, right pleural effusion status post thoracocentesis and hyponatremia. Continue symptomatic treatment. Patient has been evaluated by surgery GI and pulmonary team to her for discharge. her sodium is improving. However today she has increasing abdominal pain some CT of the abdomen and pelvis is ordered, follow- up chest x-ray. Upper great her pain management Labs and medication were reviewed.. Continue same treatment. Continue with symptomatic treatment. Resume home medication. Monitor lytes and vitals. DVT and GI prophylaxis. Further recommendations of the clinical course of the patient DVT prophylaxis: Subcutaneous heparin GI Prophylaxis: Pepcid Prognosis is guarded
[2019-09-26] MEDS: IPRATROPIUM-ALBUTEROL 3 ML NEB INHALATION PRN ×2 (13:17→21:27)
--- NOTE | 2019-09-26 13:46 | XR ---
EXAMINATION TYPE: XR chest 1V DATE OF EXAM: 09/26/2019 COMPARISON: 09/24/2019 HISTORY: 44-year-old female follow-up pleural effusion TECHNIQUE: Single frontal view of the chest is obtained. FINDINGS: Right heart margin obscured by adjacent pleural parenchymal opacity. Band of opacity at th e left base. Moderate to large right pleural effusion persists with only a small portion of aerated r ight upper lobe. Left upper and midlung remain clear. Levoconvex scoliosis centered along the upper t horacic spine. IMPRESSION: Continued moderate to large right pleural effusion with adjacent atelectasis and/or consolidation.
--- NOTE | 2019-09-26 13:49 | P.CN ---
Psychiatric Consult - . Consult date: 09/26/19 Consult:: IDENTIFYING DATA: The patient is a 44-year-old single female admitted to medicine service for the treatment of right upper quadrant abdominal pain with difficulty breathing and dry coughing. Her medical history significant for alcohol liver cirrhosis, liver failure, recurrent ascites, severe protein calorie malnutrition, hyponatremia and history of d renal failure. The hospitalist consult to psychiatry with complaints of depression and anxiety. HISTORY OF PRESENT ILLNESS: I was unable to evaluate her initially on 09/23/2019. She was irritable and would not consent to an interview. Today, she was much more pleasant and cooperative. She apologizes for her behavior during our initial encounter. She alleged that she was angry over how she had been treated on the unit. She acknowledges feels depressed and anxious because she believes that her medical condition is terminal. She talked about her fears and concern over the severity of her illness and the possibility that she may from her medical illnesses. She feels sad and depressed but denied thoughts of suicide. She feels depressed but denies that she feels persistently depressed most of the time. She gave ambiguous answers to other symptoms of depression because of the overlap with the symptoms of her medical condition. For example she talked about not being able to engage in usual pleasurable activities because of the medical condition. She has had a decrease in weight. Her sleep fluctuates with the intensity of her pain and discomfort. She feels fatigued but denied feeling worthless guilty or having difficulty concentrating or having persistent indecisiveness. She talked about feeling anxious but did not appear tense, nervous or apprehensive. She denied periods of increased anxiety consistent with a panic attack. She denied obsessions or compulsions. She denied experiencing such psychotic symptoms as paranoia, hallucinations or disturbances of thinking. She is best with history of alcohol use and alcohol use problems but denied use of other drugs get high, help her sleep or change her mood. She last drank in 2019. PAST PSYCHIATRIC HISTORY: She denied psychiatric hospitalizations. She is not a therapist as an outpatient but is not currently involved in mental health services outside of her visits with the "liver team" at [facility]. PAST MEDICAL HISTORY: As above. ALLERGIES: Azithromycin, penicillins. SUBSTANCE USE HISTORY: As above. FAMILY PSYCHIATRIC/SUBSTANCE USE HISTORY: Unknown SOCIAL HISTORY: She is single and lives currently with her son in a rented home. 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 She described his father as the responsible alcoholic. She graduated from high school and obtained a associates degree from [employer] and a masters screen from [employer] 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 She is currently unemployed and without stable income. MENTAL STATUS EXAM: She presented as a thin pale appearing female with a slight icteric tinge to her complexion. She was laying comfortably in bed. She made eye contact and attended to interview. She had no prominent physical abnormalities. She had a blunted but bright facial expression. She was alert and oriented to person, place and time. She showed psychomotor retardation but no abnormal movements. Her speech was spontaneous with decreased in volume but normal rhythm and amount. Her affect was blunted but stable and appropriate. She denied suicidal ideation and wishes. She denied homicidal ideation. She expressed feelings of helplessness but denied feeling hopeless or worthless. She ruminated about her medical illness and financial problems. She did not express ideas reference, paranoid ideation or delusions. Thinking was abstract and associations were coherent and logical. She denied hallucinations and did not appear to be responding to internal stimuli. We completed the [facility] Memory and Concentration Test. Her total weighted error score was 2; total weighted error score greater than 10 is consistent with cognitive impairment. IMPRESSIONS: She is a 44-year-old female with a history of alcohol liver cirrhosis and liver failure who [facility] with right upper quadrant pain and difficulty with breathing. She is depressed and anxious about her medical illness, recurrent need for medical care including some prolonged hospitalizations. She did not described a clear syndrome consistent with a major depressive disorder, bipolar illness or major anxiety disorder. She has history of an alcohol use disorder but is spent abstinent since 2019. There is no indication for transfer to the psychiatric or prescription of psychotropic medications at this time. PLAN: Referral for mental health services after discharge. Psychiatry will follow. 09/26/19 13:29
--- NOTE | 2019-09-26 15:10 | CT ---
EXAMINATION TYPE: CT abdomen pelvis wo con DATE OF EXAM: 09/26/2019 COMPARISON: Prior CT 09/22/2019 HISTORY: Abdominal pain CT DLP: 462.8 mGycm Automated exposure control for dose reduction was used. TECHNIQUE: Helical acquisition of images from the lung bases through the pelvis. FINDINGS: Lack of intravenous contrast could compromise sensitivity. LUNG BASES: Large right pleural effusion and associated atelectatic changes are again noted, correlat e to exclude pneumonia. Bilateral breast prostheses are noted. AORTA: No significant abnormality is appreciated. LIVER/GB: No significant interval change is appreciated, cirrhotic liver is again noted. PANCREAS: No significant abnormality is seen. SPLEEN: No significant abnormality is seen. ADRENALS: No significant abnormality is seen. KIDNEYS: No significant abnormality is seen. REPRODUCTIVE ORGANS: Intrauterine contraceptive device present within the uterus. URINARY BLADDER: No significant abnormality is seen. BOWEL: No significant abnormality is seen. FREE AIR: No Free Air is visible. ASCITES: Moderate ascites is again noted. PELVIC ADENOPATHY: None visualized. RETROPERITONEAL ADENOPATHY: No Retroperitoneal Adenopathy visible. OSSEOUS STRUCTURES: No significant abnormality is seen. IMPRESSION: NONCONTRAST EXAM. AGAIN NOTED IS A LARGE RIGHT PLEURAL EFFUSION AND ASSOCIATED ATELECTASIS, CORRELATE TO EXCLUDE PNEUMONIA. CIRRHOSIS. MODERATE ASCITES. POSTPROCEDURAL CHANGES.
[2019-09-26] MEDS: LEVOFLOXACIN 500 MG TAB PO SCH (17:33)
[2019-09-27] MEDS: HYDROmorphone 1 MG/ML 1 ML SYRINGE IVP PRN ×8 (02:47→21:38)
[2019-09-27] MEDS: ONDANSETRON 4 MG/2 ML VIAL IVP SCH ×3 (05:34→22:59)
[2019-09-27 06:34] LABS: African American GFR (CKD) >90 (>60 ml/min/1.73 sqM); Anion Gap 8 mmol/L; Blood Urea Nitrogen 10 mg/dL (7-17); Calcium 8.7 mg/dL (8.4-10.2); Carbon Dioxide 22 mmol/L (22-30); Chloride 100 mmol/L (98-107); Glucose 80 mg/dL (74-99); Non-African American GFR(CKD) >90 (>60 ml/min/1.73 sqM); Potassium 4.6 mmol/L (3.5-5.1); Sodium 130 mmol/L (137-145)
[2019-09-27 06:51] LABS: HCT 36.4 % (34.0-46.0); HGB 11.6 gm/dL (11.4-16.0); MCH 31.3 pg (25.0-35.0); MCHC 31.9 g/dL (31.0-37.0); MCV 98.3 fL (80.0-100.0); Mean Platelet Volume 8.1; Platelet Count 167 k/uL (150-450); WBC 12.5 k/uL (3.8-10.6)
[2019-09-27] MEDS: HEPARIN SODIUM,PORCINE 5,000 UNIT/ML 1 ML VIAL SQ SCH ×2 (08:30→21:39)
[2019-09-27] MEDS: FUROSEMIDE 20 MG TAB PO SCH (08:31)
[2019-09-27] MEDS: FAMOTIDINE 20 MG TAB PO SCH ×2 (08:32→20:33)
[2019-09-27] MEDS: FERROUS SULFATE 325 MG TAB PO SCH (08:32)
[2019-09-27] MEDS: LIDOCAINE 5% PATCH TOPICAL SCH (08:32)
[2019-09-27] MEDS: LACTULOSE 20 GM/30 ML CUP PO SCH ×3 (08:32→23:14)
[2019-09-27] MEDS: POLYETHYLENE GLYCOL 3350 17 GM POWD.PACK PO SCH (08:33)
[2019-09-27] MEDS: MAGNESIUM OXIDE 400 MG TAB PO SCH ×2 (08:33→20:33)
[2019-09-27] MEDS: MULTIVITAMINS, THERA 1 EACH TAB PO SCH (08:33)
[2019-09-27] MEDS: SPIRONOLACTONE 25 MG TAB PO SCH ×2 (08:33→20:33)
[2019-09-27] MEDS: RIFAXIMIN 550 MG TABLET PO SCH ×2 (08:33→20:33)
[2019-09-27 09:19] LABS: Band Neutrophils % 1 %; Lymphocytes # (M) 1.13 k/uL (1.0-4.8); Monocytes # (M) 0.88 k/uL (0-1.0); Neutrophils % (M) 83 %; Nucleated Red Blood Cells 0 /100 WBC (0-0); Total Cells Counted 100
[2019-09-27 09:20] LABS: Anisocytosis (M) Present; Poikilocytosis (M) Present
[2019-09-27] MEDS ORDERED: HYDROmorphone 0.5 MG/0.5 ML SYRINGE IVP STA (10:38)
[2019-09-27] MEDS: MAGNESIUM SULFATE-D5W PMX 1 GM in DEXTROSE/WATER 1 100ML.BAG IVPB SCH ×3 (10:48→13:00)
[2019-09-27] MEDS ORDERED: FUROSEMIDE 10 MG/ML 4 ML VIAL IV STA (10:53)
--- NOTE | 2019-09-27 10:55 | P.PN ---
Subjective Patient is seen in follow-up for hyponatremia. Sodium level stable at 130 today. Complains of abdominal discomfort. Oral intake is fair. No vomiting or diarrhea. Vital signs are stable. General: The patient appeared well nourished and normally developed. HEENT: Head exam is unremarkable. Neck is without jugular venous distension. LUNGS: Breath sounds decreased. HEART: Rate and Rhythm are regular. First and second heart sounds normal. No m urmurs, rubs or gallops. ABDOMEN: Mild tenderness. Distention noted. EXTREMITITES: No clubbing, cyanosis, or edema. Objective - Vital Signs Vital signs: Vital Signs Temp 98.2 F 09/27/19 07:00 Pulse 106 H 09/27/19 07:00 Resp 17 09/27/19 07:00 BP 106/70 09/27/19 07:00 Pulse Ox 96 09/27/19 07:00 Intake & Output 09/26/19 09/27/19 09/27/19 18:59 06:59 18:59 Intake Total 200 Balance 200 Weight 56.8 kg Intake: Oral 200 Other: # Voids 1 2 # Bowel Movements 1 - Labs CBC & Chem 7: 09/27/19 05:56 09/27/19 05:56 Labs: Abnormal Lab Results - Last 24 Hours (Table) 09/27/19 09/27/19 Range/Units 05:56 05:56 WBC 12.5 H (3.8-10.6) k/uL RBC 3.70 L (3.80-5.40) m/uL Neutrophils # (Manual) 10.50 H (1.3-7.7) k/uL Sodium 130 L (137-145) mmol/L Microbiology - Last 24 Hours (Table) 09/23/19 12:45 Gram Stain - Preliminary Pleural Fluid Body Fluid Culture - Preliminary Assessment and Plan Plan: Assessment: 1. Hypervolemic hyponatremia. Status post Samsca. Sodium 130 today. TSH norm al. 2. Liver cirrhosis. 3. Ascites status post paracentesis on September 19 with over 7 L drained. 4. Pleural effusion status post right-sided thoracentesis with 1.7 L drained on September 22. 5. Hypomagnesemia secondary to diuresis. Maintained on oral magnesium oxide. Plan: Maintain Aldactone to 50 mg twice daily. Increase oral Lasix to 20 mg orally twice daily starting tomorrow. Lasix 40 mg IV once today. Encouraged oral intake, particularly protein. Repeat electrolytes in the morning. Potential paracentesis today. I will give 25 g of IV albumin before and after the paracentesis. An additional 25 g if more than 8 L removed.
[2019-09-27] MEDS: IPRATROPIUM-ALBUTEROL 3 ML NEB INHALATION PRN (11:20)
--- NOTE | 2019-09-27 12:12 | P.PN ---
Subjective patient with evidence acidosis is admitted for abdominal distention right-sided pleural effusion both of which are secondary to cirrhosis patient was started on Levaquin although there is no significant evidence of any infection patient also is complaining of abdominal pain and there is no evidence of spontaneous bacterial peritonitis patient has pleural effusion on the right side significant as well as significant abdominal distention will order ultrasound-guided paracentesis and thoracentesis. Patient is receiving IV Lasix at this time but hyponatremic multiple consultants including pulmonology, nephrology, gastroenterology or following the patient. Constitutional: Denied any fatigue denied any fever. Cardio vascular: denied any chest pain, palpitations Gastrointestinal denied any nausea vomiting Pulmonary: Denied any shortness of breath cough Neurologic denied any new focal deficits All inpatient medications were reviewed and appropriate changes in these medications as dictated in the interval history and assessment and plan. Objective - Vital Signs Vital signs: Vital Signs Temp 98.2 F 09/27/19 07:00 Pulse 100 09/27/19 11:37 Resp 17 09/27/19 07:00 BP 106/70 09/27/19 07:00 Pulse Ox 96 09/27/19 07:00 Intake & Output 09/26/19 09/27/19 09/27/19 18:59 06:59 18:59 Intake Total 200 Balance 200 Weight 56.8 kg Intake: Oral 200 Other: # Voids 1 2 # Bowel Movements 1 - Exam PHYSICAL EXAMINATION: GENERAL: The patient is alert and oriented x3, not in any acute distress. Well developed, well nourished. HEENT: Pupils are round and equally reacting to light. EOMI. No scleral icterus. No conjunctival pallor. Normocephalic, atraumatic. No pharyngeal erythema. No thyromegaly. CARDIOVASCULAR: S1 and S2 present. No murmurs, rubs, or gallops. PULMONARY: Chest is clear to auscultation, no wheezing or crackles. right inferior posterior lung [place] absent breath sounds ABDOMEN: distended no significant tenderness does have shifting dullness. MUSCULOSKELETAL: No joint swelling or deformity. EXTREMITIES: No cyanosis, clubbing, or pedal edema. NEUROLOGICAL: Gross neurological examination did not reveal any focal deficits. SKIN: No rashes. - Labs CBC & Chem 7: 09/27/19 05:56 09/27/19 05:56 Labs: Abnormal Lab Results - Last 24 Hours (Table) 09/27/19 09/27/19 Range/Units 05:56 05:56 WBC 12.5 H (3.8-10.6) k/uL RBC 3.70 L (3.80-5.40) m/uL Neutrophils # (Manual) 10.50 H (1.3-7.7) k/uL Sodium 130 L (137-145) mmol/L Microbiology - Last 24 Hours (Table) 09/23/19 12:45 Gram Stain - Final Pleural Fluid Body Fluid Culture - Final Assessment and Plan Plan: -Alcoholic liver cirrhosis, CAT scan of the abdomen and pelvis showing hepatocellular disease, patient does have a significant ascites and pleural effusion both of which are from cirrhosis continue Lasix and Aldactone ultrasound guided paracentesis and thoracentesis were ordered. -no evidence of pneumonia -abdominal pain: Secondary to abdominal distention otherwise CAT scan not show any significant abnormality -Acute hyponatremia, multifactorial secondary to cirrhosis patient is receiving Lasix and Aldactone -Left lower back pain and tenderness, mostly most likely musculoskeletal
[2019-09-27] MEDS: ACETAMINOPHEN TAB 325 MG TAB PO PRN ×2 (13:05→20:37)
[2019-09-27 13:19] VITALS: BMI 19.0
[2019-09-27] MEDS: LEVOFLOXACIN 500 MG TAB PO SCH (15:01)
[2019-09-27] MEDS ORDERED: FUROSEMIDE 20 MG TAB PO SCH (16:00)
--- NOTE | 2019-09-27 17:21 | P.PN ---
Subjective Progress Note Date: 09/27/19 Principal diagnosis: Decompensated alcoholic cirrhosis, ascites, hepatic hydrothorax, abdominal pain Patient seen lying in bed today complaining of abdominal pain and distention. Computed tomography scan also demonstrated large pleural effusion after recent thoracentesis. Objective - Vital Signs Vital signs: Vital Signs Temp 98.2 F 09/27/19 07:00 Pulse 106 H 09/27/19 07:00 Resp 17 09/27/19 07:00 BP 106/70 09/27/19 07:00 Pulse Ox 96 09/27/19 07:00 Intake & Output 09/26/19 09/27/19 09/27/19 18:59 06:59 18:59 Intake Total 200 Balance 200 Weight 56.8 kg Intake: Oral 200 Other: # Voids 1 2 # Bowel Movements 1 - Exam On physical examination, patient appears comfortable in no apparent distress. HEAD: Normocephalic, atraumatic. EYES: No scleral icterus. No conjunctival injection. MOUTH: No lesions, tongue midline. NECK: Trachea midline, no gross abnormalities. ABDOMEN: Soft, mildly distended. Bowel sounds are positive. No organomegaly. No guarding or rigidity. EXTREMITIES: No pedal edema. SKIN: No rashes, no jaundice. NEUROLOGIC: Alert and oriented x3. No focal deficits. - Labs CBC & Chem 7: 09/27/19 05:56 09/27/19 05:56 Labs: Abnormal Lab Results - Last 24 Hours (Table) 09/27/19 09/27/19 Range/Units 05:56 05:56 WBC 12.5 H (3.8-10.6) k/uL RBC 3.70 L (3.80-5.40) m/uL Neutrophils # (Manual) 10.50 H (1.3-7.7) k/uL Sodium 130 L (137-145) mmol/L Microbiology - Last 24 Hours (Table) 09/23/19 12:45 Gram Stain - Preliminary Pleural Fluid Body Fluid Culture - Preliminary Assessment and Plan (1) Decompensated hepatic cirrhosis Narrative/Plan: 44-year-old female with multiple medical comorbidities including decompensated alcoholic cirrhosis for which she [facility] with shortness of breath and right abdominal pain. She reports recent paracentesis with no improvement in her abdominal pain after paracentesis. She has a known history of alcoholic cirrhosis currently abstaining from alcohol use with decompensation requiring treatment with Aldactone 50 mg daily, furosemide 20 mg daily, rifaximin 550 mg twice a day and lactulose 3 times a day. She has required paracentesis in the past. She denies any prior GI bleeding. Computed tomography scan was concerning for abnormal focus on the liver which was followed up with MRI which also showed ascites, cirrhosis a large right pleural effusion and an abnormal foci on the caudate of the liver. At this time symptoms are likely related to a hepatic hydrothorax for which the patient underwent thoracentesis with recurrent large right pleural effusion on repeat computed tomography scan as well as recurrent ascites. Current Visit: Yes Status: Acute Code(s): K72.90 - HEPATIC FAILURE, UNSPECIFIED WITHOUT COMA SNOMED Code(s): 052514379 (2) Pleural effusion, right Current Visit: Yes Status: Acute Code(s): J90 - PLEURAL EFFUSION, NOT ELSEWHERE CLASSIFIED SNOMED Code(s): 45084274 (3) Abdominal pain Current Visit: Yes Status: Acute Code(s): R10.9 - UNSPECIFIED ABDOMINAL PAIN SNOMED Code(s): 01264857 (4) Ascites Current Visit: No Status: Acute Code(s): R18.8 - OTHER ASCITES SNOMED Code(s): 932129823 Plan: Supportive care Low-sodium diet Continue Aldactone 50 mg daily and furosemide 20 mg twice daily ordered by the nephrology service Continue rifaximin and lactulose therapy Suspected etiology of right pleural effusion is from a hepatic hydrothorax, patient is status post thoracentesis however recurrent right pleural effusion on computed tomography scan and pulmonology consult fluids for repeat thoracentesis No plans for endoscopic evaluation at this time Continue alcohol abstinence Follow-up with [facility] hepatology service after discharge, with titration of diuretics therapy limited by electrolyte abnormalities and hypotension patient may benefit from evaluation at tertiary center for TIPS procedure Limited sedating medications such as narcotics or anxiolytics in the setting of cirrhosis Thank you for allowing us to participate in the care of the patient
[2019-09-27] MEDS: NYSTATIN 100,000 UNIT/ML SUSP 500,000 UNIT/5 ML CUP PO SCH ×2 (17:33→21:45)
[2019-09-28] MEDS: ONDANSETRON 4 MG/2 ML VIAL IVP SCH ×3 (00:35→14:02)
[2019-09-28] MEDS: HYDROmorphone 1 MG/ML 1 ML SYRINGE IVP PRN ×5 (00:41→13:56)
[2019-09-28 07:30] LABS: HCT 34.4 % (34.0-46.0); HGB 11.1 gm/dL (11.4-16.0); MCH 31.7 pg (25.0-35.0); MCHC 32.3 g/dL (31.0-37.0); Platelet Count 192 k/uL (150-450); RBC 3.51 m/uL (3.80-5.40); RDW 13.9 % (11.5-15.5); WBC 11.2 k/uL (3.8-10.6)
[2019-09-28 07:38] LABS: INR 1.4 (<1.2); Prothrombin Time 14.2 sec (9.0-12.0)
[2019-09-28 07:49] LABS: ALT 16 U/L (4-34); AST 50 U/L (14-36); African American GFR (CKD) >90 (>60 ml/min/1.73 sqM); Albumin 2.5 g/dL (3.5-5.0); Alkaline Phosphatase 86 U/L (38-126); Anion Gap 9 mmol/L; Blood Urea Nitrogen 13 mg/dL (7-17); Calcium 8.1 mg/dL (8.4-10.2); Carbon Dioxide 23 mmol/L (22-30); Chloride 96 mmol/L (98-107); Glucose 88 mg/dL (74-99); Magnesium 2.1 mg/dL (1.6-2.3); Non-African American GFR(CKD) >90 (>60 ml/min/1.73 sqM); Sodium 128 mmol/L (137-145); Total Bilirubin 2.3 mg/dL (0.2-1.3); Total Protein 5.8 g/dL (6.3-8.2)
[2019-09-28 07:59] LABS: Potassium 5.1 mmol/L (3.5-5.1)
[2019-09-28] MEDS: NYSTATIN 100,000 UNIT/ML SUSP 500,000 UNIT/5 ML CUP PO SCH ×2 (08:33→13:56)
[2019-09-28] MEDS: RIFAXIMIN 550 MG TABLET PO SCH (08:33)
[2019-09-28] MEDS: POLYETHYLENE GLYCOL 3350 17 GM POWD.PACK PO SCH (08:33)
[2019-09-28] MEDS: LIDOCAINE 5% PATCH TOPICAL SCH (08:34)
[2019-09-28] MEDS: FUROSEMIDE 20 MG TAB PO SCH ×2 (08:34→15:42)
[2019-09-28] MEDS: FAMOTIDINE 20 MG TAB PO SCH (08:34)
[2019-09-28] MEDS: HEPARIN SODIUM,PORCINE 5,000 UNIT/ML 1 ML VIAL SQ SCH (08:34)
[2019-09-28] MEDS: SPIRONOLACTONE 25 MG TAB PO SCH (08:34)
[2019-09-28] MEDS: LACTULOSE 20 GM/30 ML CUP PO SCH ×2 (08:34→15:42)
[2019-09-28] MEDS: FERROUS SULFATE 325 MG TAB PO SCH (08:34)
[2019-09-28] MEDS: MULTIVITAMINS, THERA 1 EACH TAB PO SCH (08:35)
[2019-09-28] MEDS: MAGNESIUM OXIDE 400 MG TAB PO SCH (08:35)
--- NOTE | 2019-09-28 10:46 | US ---
EXAMINATION TYPE: US abdomen limited DATE OF EXAM: 09/28/2019 COMPARISON: Ultrasound 09/25/2019 CLINICAL HISTORY: 45-year-old female ascites, therapeutic. Distended abd, known ascites Technique: Ultrasound examination of the 4 abdominal quadrants for assessment of ascites fluid. FINDINGS: Moderate abdominal ascites is demonstrated. This appears to have increased slightly from 09/25/2019. IMPRESSION: Now moderate abdominal ascites, increased from 09/25/2019.
--- NOTE | 2019-09-28 10:59 | XR ---
EXAMINATION TYPE: XR chest 1V portable DATE OF EXAM: 09/28/2019 COMPARISON: 09/26/19 HISTORY: Right sided thoracentesis. TECHNIQUE: Single frontal view of the chest is obtained. FINDINGS: There is improved right pleural effusion, now small to moderate pleural effusion with asso ciated right basilar airspace disease. Linear left basilar airspace disease is also seen appearing as atelectasis. Remainder the lungs are well aerated. No postprocedural pneumothorax. Cardia mediastina l silhouette is partially obscured. Osseous structures are intact. IMPRESSION: Status post right-sided thoracentesis with no residual pneumothorax identified. Improved now small to moderate right pleural effusion and right basilar probable atelectasis with similar lef t basilar platelike atelectasis.
--- NOTE | 2019-09-28 11:38 | US ---
EXAMINATION TYPE: US thoracentesis DATE OF EXAM: 09/28/2019 COMPARISON: NONE HISTORY: Pleural effusion. FINDINGS: Maximal barrier technique was utilized. The skin overlying a suitable pocket of fluid was localized and the overlying skin prepped and draped. Lidocaine was used for local anesthesia. Ultras ound was used with sterile technique. A 5 Serbian catheter over guide needle was advanced into the pleural fluid collection using ultrasound guidance the catheter advanced, needle removed. Approxima tely 2 liter(s) of serous fluid was removed. Catheter was withdrawn and hemostasis achieved. There is no immediate complication. The patient discharged in stable condition without complication. IMPRESSION: STATUS POST ULTRASOUND GUIDED THORACENTESIS, POST PROCEDURE CHEST X-RAY PENDING. THIS IN OCEDURE WAS PERFORMED BY THE UNDERSIGNED.
[2019-09-28] MEDS: ALBUMIN HUMAN 25% 50 ML in EMPTY BAG 1 BAG IVPB SCH ×4 (12:13→13:30)
[2019-09-28 14:14] VITALS: BP 89/61; PULSE 113; RESP 18; TEMP 98.5
--- NOTE | 2019-09-28 14:54 | P.DS ---
Providers Date of admission: 09/22/19 10:38 Expected date of discharge: 09/28/19 Attending physician: Samson Courtney Consults: 09/22/19 10:39 Consult Physician Urgent Consulting Provider: Major Butts Consult Reason/Comments: ab pain Do you want consulting provider notified?: Already Contacted 09/22/19 11:59 Consult Physician Urgent Consulting Provider: Param Plummer Consult Reason/Comments: depression, anxiety Do you want consulting provider notified?: Yes 09/22/19 13:50 Consult Physician Urgent Consulting Provider: Amanda Khalil Consult Reason/Comments: sob and coughing Do you want consulting provider notified?: Yes 09/24/19 21:00 Consult Physician Urgent Consulting Provider: Gabriel Galdamez Consult Reason/Comments: hyponatremia Do you want consulting provider notified?: Yes 09/27/19 10:35 Consult Physician Urgent Consulting Provider: Car Ford Consult Reason/Comments: Abdominal distention, paracentesis Do you want consulting provider notified?: Yes Primary care physician: [facility] Course: Final diagnosis -Alcoholic liver cirrhosis, CAT scan of the abdomen and pelvis showing hepatocellular disease, patient does have a significant ascites and pleural effusion both of which are from cirrhosis -no evidence of pneumonia -abdominal pain: Secondary to abdominal distention -Acute hyponatremia, multifactorial secondary to cirrhosis -Left lower back pain and tenderness, mostly most likely musculoskeletal Discharge disposition Patient is being discharged in a stable condition with guarded prognosis to home and will follow-up with interventional radiology this Thursday. Patient will also need to follow-up with [facility] loan underwriter in the outpatient setting. Patient will need repeat labs in 2-3 days. She will continue on oral Levaquin 500 mg daily for the next 5 days and then discontinue. Total time taken is 35 minutes. History of present illness This is a 44-year-old female who was recently admitted with abdominal distention and was found to have right-sided pleural effusion and is being closely monitored. Patient does have history of cirrhosis and follows with [facility] loan underwriter in the outpatient setting. Patient was initiated on oral Levaquin and will continue for the next 5 days and then may discontinue. Patient will also continue on Aldactone and Lasix as prescribed and will need close follow-up with a repeat BMP and magnesium level. Patient also given a prescription for magnesium placement. Patient will be following up with interventional radiology this Thursday. Today patient underwent repeat thoracentesis with removal of approximately 2 L per the right-sided pleural effusion along with paracentesis of a little under 2 L removed today. Patient did receive albumin pre-and post paracentesis today. Currently no reports of chest pain, shortness of breath, or palpitations. Patient is afebrile. No reports of nausea or vomiting and patient is tolerating diet. Repeat chest x- ray today shows no pneumothorax with improved pleural effusion. Discussed with the patient at length about refraining from any alcohol or tobacco use. Patient is requesting to go home today. Patient will be discharged today to home and will need outpatient follow-up with pulmonary and her primary care provider. On exam vital signs are stable. Cardio S1, S2 are present. Respiratory shows diminished breath sounds with no wheezing or rhonchi noted. Abdomen is soft and nontender. Nervous system shows no focal deficits. Please refer to medication reconciliation sheet for a list of medications. Patient Condition at Discharge: Stable Plan - Discharge Summary Discharge Rx Participant: No New Discharge Prescriptions: New Spironolactone [Aldactone] 50 mg PO BID 30 Days #60 tab Levofloxacin [Levaquin] 500 mg PO Q24H 4 Days #4 tab Lidocaine 5% Patch [Lidoderm 5% Patch] 2 patch TOPICAL DAILY #30 patch Magnesium Oxide [Mag-Ox] 400 mg PO BID 30 Days #60 tab Nystatin 100,000 Unit/ml Susp [Mycostatin Oral Susp] 500,000 unit PO QID #240 ml Continue Rifaximin [Xifaxan] 550 mg PO BID Lactulose 20 gm PO TID traMADol HCL [Ultram] 50 mg PO BID PRN PRN Reason: Pain Multivitamin with Iron [Multivitamins with Iron] 1 tablet PO DAILY hydrOXYzine HCL 25 mg PO HS Polyethylene Glycol 3350 [Miralax] 17 gm PO DAILY Gabapentin [Neurontin] 100 mg PO DAILY Ferrous Gluconate 324 mg PO DAILY Antiacid Unknown Otc 1 tab PO DAILY PRN PRN Reason: Indigestion Simethicone [Gas-X] 62.5 mg PO DAILY PRN PRN Reason: GAS PAIN Changed Furosemide [Lasix] 20 mg PO BID 30 Days #60 tab Discontinued Spironolactone [Aldactone] 50 mg PO DAILY Discharge Medication List Lactulose 20 gm PO TID 05/21/19 [History] Rifaximin [Xifaxan] 550 mg PO BID 05/21/19 [History] Multivitamin with Iron [Multivitamins with Iron] 1 tablet PO DAILY 07/28/19 [History] traMADol HCL [Ultram] 50 mg PO BID PRN 07/28/19 [History] hydrOXYzine HCL 25 mg PO HS 08/04/19 [History] Ferrous Gluconate 324 mg PO DAILY 09/08/19 [History] Gabapentin [Neurontin] 100 mg PO DAILY 09/08/19 [History] Polyethylene Glycol 3350 [Miralax] 17 gm PO DAILY 09/08/19 [History] Antiacid Unknown Otc 1 tab PO DAILY PRN 09/20/19 [History] Simethicone [Gas-X] 62.5 mg PO DAILY PRN 09/20/19 [History] Furosemide [Lasix] 20 mg PO BID 30 Days #60 tab 09/28/19 [Rx] Levofloxacin [Levaquin] 500 mg PO Q24H 4 Days #4 tab 09/28/19 [Rx] Lidocaine 5% Patch [Lidoderm 5% Patch] 2 patch TOPICAL DAILY #30 patch 09/28/19 [Rx] Magnesium Oxide [Mag-Ox] 400 mg PO BID 30 Days #60 tab 09/28/19 [Rx] Nystatin 100,000 Unit/ml Susp [Mycostatin Oral Susp] 500,000 unit PO QID #240 ml 09/28/19 [Rx] Spironolactone [Aldactone] 50 mg PO BID 30 Days #60 tab 09/28/19 [Rx] Follow up Appointment(s)/Referral(s): Dick Ngo DO [Doctor of Osteopathic Medicine] - 2 Weeks (network program manager , we recommend to repeat CXR with your doctor ) Ami Richardson MD [Primary Care Provider] - 10/13/19 1:00 pm Car Ford MD [STAFF PHYSICIAN] - 09/26/19 9:45 am (follow up with Lissa MAYFIELD) Ambulatory/Diagnostic Orders: Basic Metabolic Panel [LAB.AMB] Time Frame: 2 Days, Location: None Selected Magnesium [LAB.AMB] Time Frame: 2 Days, Location: None Selected Patient Instructions/Handouts: Abdominal Pain (ED) Activity/Diet/Wound Care/Special Instructions: BMP and Magnesium level 2-3 days after discharge Activity Limited until follow-up Follow-up this Thursday with interventional radiology Follow-up at [facility] with her loan underwriter Continue current diet Continue with antibiotics until finished Discharge Disposition: HOME SELF-CARE
[2019-09-28] MEDS: LEVOFLOXACIN 500 MG TAB PO SCH (15:42)
[2019-09-28] MEDS: ACETAMINOPHEN TAB 325 MG TAB PO PRN (15:45)
--- NOTE | 2019-09-28 16:30 | US ---
EXAMINATION TYPE: US paracentesis abd w/image DATE OF EXAM: 09/28/2019 COMPARISON: NONE HISTORY: Ascites. PROCEDURE: Maximal barrier technique was utilized. The skin overlying a suitable pocket of fluid was localized with ultrasound and the overlying skin was prepped and draped. Ultrasound was utilized with sterile technique. Lidocaine was used for local anesthesia and a skin ace made with a scalpel. Catheter was advanced under direct ultrasound guidance into a suitable pocket of fluid and approximately 2.5 liter s of serous fluid were removed. Catheter was withdrawn and hemostasis achieved. There is no immedia te complication; the patient is discharged in stable condition. IMPRESSION: STATUS POST ULTRASOUND GUIDED PARACENTESIS FOR PALLIATION OF ASCITES. THIS PROCEDURE WA S PERFORMED BY THE UNDERSIGNED.
== END 2019-09-28 16:35 | disposition home or self-care (01) | DRG 433 ==
LOC: EC 07:10 → 6NMEDSUR 10:38 → 4SSUR 09-25 11:06
PROVIDERS: ADMIT Hospitalist; ATTEND Hospitalist
PROC: 0W993ZZ Drainage of Right Pleural Cavity, Percutaneous Approach (ICD-10-PCS; principal; 2019-09-23)
DX: K70.31 Alcoholic cirrhosis of liver with ascites (principal); J91.8 Pleural effusion in other conditions classified elsewhere; E87.2 Acidosis; E87.1 Hypo-osmolality and hyponatremia; K76.6 Portal hypertension; G89.29 Other chronic pain; F41.9 Anxiety disorder, unspecified; K72.90 Hepatic failure, unspecified without coma; R14.0 Abdominal distension (gaseous); F32.9 Major depressive disorder, single episode, unspecified; E87.70 Fluid overload, unspecified; E83.42 Hypomagnesemia; D64.9 Anemia, unspecified; M19.90 Unspecified osteoarthritis, unspecified site; T50.2X5A Adverse effect of carbonic-anhydrase inhibitors, benzothiadiazides and other diuretics, initial encounter; M54.5 Low back pain; Z79.899 Other long term (current) drug therapy; Z87.891 Personal history of nicotine dependence; Z98.82 Breast implant status
CPT/HCPCS: 32555; 36415; 49083; 71045; 74176; 74177; 74183; 76604; 76705; 80048; 80051; 80053; 80076; 81003; 82105; 82150; 83615; 83690; 83735; 84145; 84157; 84443; 85025; 85027; 85610; 85730; 87070; 87205; 87502; 88108; 88305; 94640; 94760; 96361; 96374; 96375; 96376; 99285

== ENCOUNTER 2019-10-03 09:57 | Day surgery (SDC) | payer OTHER ==
[2019-10-03] MEDS ORDERED: ALBUMIN HUMAN 25% 50 ML in EMPTY BAG 1 BAG IVPB SCH (10:15)
[2019-10-03 10:29] LABS: Mean Platelet Volume 7.3; Platelet Count 325 k/uL (150-450)
[2019-10-03 10:39] LABS: African American GFR (CKD) >90 (>60 ml/min/1.73 sqM); Non-African American GFR(CKD) >90 (>60 ml/min/1.73 sqM)
[2019-10-03 10:49] LABS: INR 1.4 (<1.2); Prothrombin Time 13.7 sec (9.0-12.0)
[2019-10-03 11:24] VITALS: BP 98/60; PULSE 96; RESP 14; TEMP 98.5
--- NOTE | 2019-10-04 11:38 | US ---
Ultrasound-guided paracentesis. DATE OF EXAM: 10/03/2019 CLINICAL HISTORY: ascites No sizable percutaneous fluid collection for drainage. IMPRESSION: 1. No sizable percutaneous fluid collection for drainage.
== END 2019-10-03 11:10 | disposition home or self-care (01) ==
LOC: RADPROMAIN 09:57
PROVIDERS: ATTEND Internal Medicine Gastroenterology
DX: R18.8 Other ascites (principal); Z53.8 Procedure and treatment not carried out for other reasons
CPT/HCPCS: 36415; 76705; 82565; 85049; 85610

== ENCOUNTER → 2019-10-21 | Outpatient (CLI) | payer OTHER ==
[2019-10-21 09:29] LABS: Basophils # (A) 0.1 k/uL (0-0.2); Basophils % (A) 1 %; Eosinophils # (A) 0.3 k/uL (0-0.7); Eosinophils % (A) 4 %; HCT 45.5 % (34.0-46.0); Lymphocytes # (A) 1.7 k/uL (1.0-4.8); Lymphocytes % (A) 26 %; MCH 31.8 pg (25.0-35.0); MCHC 31.9 g/dL (31.0-37.0); MCV 99.8 fL (80.0-100.0); Mean Platelet Volume 7.9; Monocytes # (A) 0.5 k/uL (0-1.0); Monocytes % (A) 8 %; Neutrophils # (A) 3.8 k/uL (1.3-7.7); Neutrophils % (A) 58 %; RBC 4.56 m/uL (3.80-5.40); RDW 14.1 % (11.5-15.5); WBC 6.5 k/uL (3.8-10.6)
[2019-10-21 09:32] LABS: INR 1.3 (<1.2); Prothrombin Time 12.7 sec (9.0-12.0)
[2019-10-21 09:35] LABS: HGB 14.5 gm/dL (11.4-16.0); Platelet Count 158 k/uL (150-450)
[2019-10-21 16:03] LABS: African American GFR (CKD) 71.7 (60.0-200.0); Albumin 4.1 g/dL (3.80-4.90); Albumin/Globulin Ratio 0.98 (1.60-3.17); Anion Gap 14.6 mmol/L (4.00-12.00); BUN/Creat Ratio 19.09 Ratio (12.00-20.00); Carbon Dioxide 29.4 mmol/L (21.6-31.8); Globulin 4.2 g/dL (1.6-3.3); Magnesium 1.8 mg/dL (1.5-2.4); Non-African American GFR(CKD) 61.9 (60.0-200.0); Potassium 3.6 mmol/L (3.5-5.5); Total Bilirubin 2.1 mg/dL (0.3-1.2); Total Protein 8.3 g/dL (6.2-8.2)
== END | disposition home or self-care (01) ==
LOC: LABWHC1 09:10
PROVIDERS: ATTEND Internal Medicine
DX: K70.31 Alcoholic cirrhosis of liver with ascites (principal); E87.1 Hypo-osmolality and hyponatremia; E83.42 Hypomagnesemia; Z88.1 Allergy status to other antibiotic agents; Z91.018 Allergy to other foods; Z88.0 Allergy status to penicillin; Z91.09 Other allergy status, other than to drugs and biological substances; Z91.048 Other nonmedicinal substance allergy status
CPT/HCPCS: 36415; 80053; 83735; 85025; 85610

== ENCOUNTER → 2019-12-13 | Outpatient (CLI) | payer OTHER ==
[2019-12-13 13:28] LABS: Basophils # (A) 0.1 k/uL (0-0.2); Basophils % (A) 1 %; Eosinophils # (A) 0.1 k/uL (0-0.7); Eosinophils % (A) 1 %; HCT 47.3 % (34.0-46.0); HGB 14.8 gm/dL (11.4-16.0); Lymphocytes # (A) 1.2 k/uL (1.0-4.8); Lymphocytes % (A) 12 %; MCH 31.8 pg (25.0-35.0); MCHC 31.3 g/dL (31.0-37.0); MCV 101.5 fL (80.0-100.0); Macrocytosis Slight; Mean Platelet Volume 7.8; Monocytes # (A) 0.7 k/uL (0-1.0); Monocytes % (A) 8 %; Neutrophils # (A) 7.2 k/uL (1.3-7.7); Neutrophils % (A) 74 %; Platelet Count 177 k/uL (150-450); RBC 4.66 m/uL (3.80-5.40); RDW 13.3 % (11.5-15.5); WBC 9.6 k/uL (3.8-10.6)
[2019-12-13 13:29] LABS: INR 1.4 (<1.2)
[2019-12-13 20:34] LABS: African American GFR (CKD) 71.7 (60.0-200.0); Albumin 4.4 g/dL (3.80-4.90); Albumin/Globulin Ratio 1.19 (1.60-3.17); Anion Gap 13.3 mmol/L (4.00-12.00); BUN/Creat Ratio 16.36 Ratio (12.00-20.00); Bilirubin, Conjugated 1.3 mg/dL (0.20-0.40); Bilirubin,Unconjugated 0.9 mg/dL; Calcium 9.9 mg/dL (8.7-10.3); Carbon Dioxide 24.7 mmol/L (21.6-31.8); Globulin 3.7 g/dL (1.6-3.3); Non-African American GFR(CKD) 61.9 (60.0-200.0); Potassium 4.1 mmol/L (3.5-5.5); Total Bilirubin 2.2 mg/dL (0.2-1.2); Total Protein 8.1 g/dL (6.2-8.2)
== END | disposition home or self-care (01) ==
LOC: LABWHC1 12:45
PROVIDERS: ATTEND Physician Assistant
DX: K76.9 Liver disease, unspecified (principal); K70.31 Alcoholic cirrhosis of liver with ascites; R20.0 Anesthesia of skin; E72.20 Disorder of urea cycle metabolism, unspecified
CPT/HCPCS: 36415; 80053; 82105; 82140; 82248; 85025; 85610

== ENCOUNTER → 2020-01-09 | Outpatient (CLI) | payer OTHER ==
--- NOTE | 2020-01-10 09:24 | MM ---
Reason for exam: screening (asymptomatic). Baseline mammogram. History: Retro-pectoral saline implants in both breasts, 2009. Taking hormonal contraceptives for 20 years. Physical Findings: Nurse did not find any significant physical abnormalities on exam. MG 3D Screen Mammo Imp/Cad Bilateral CC, MLO, and ID view(s) were taken. The breast tissue is heterogeneously dense. This may lower the sensitivity of mammography. No suspicious calcifications are seen. Bilateral implants are intact. These results were verbally communicated with the patient and result sheet given to the patient on 01/09/20. ASSESSMENT: Benign, BI-RAD 2 RECOMMENDATION: Routine screening mammogram of both breasts in 1 year.
== END | disposition home or self-care (01) ==
LOC: RADMAMWWP 10:34
PROVIDERS: ATTEND Obstetrics & Gynecology
DX: Z12.31 Encounter for screening mammogram for malignant neoplasm of breast (principal)
CPT/HCPCS: 77063; 77067

== ENCOUNTER → 2020-01-18 | Outpatient (CLI) | payer OTHER ==
--- NOTE | 2020-01-18 19:24 | MR ---
EXAMINATION TYPE: MR landa wo con DATE OF EXAM: 01/18/2020 7:02 PM COMPARISON: NONE HISTORY: BUE weakness, back pain Multiplanar MultiSpin echo imaging of the cervical spine was performed. Comparison: none C2-C3: No evidence for degenerative disc disease. No disc bulge/herniation or protrusion. No Canal stenosis. Foramina are patent bilaterally. C3-C4: No evidence for degenerative disc disease. No disc bulge/herniation or protrusion. No Canal stenosis. Foramina are patent bilaterally. C4-C5: Mild decreased signal and loss of height compatible with degenerative disc disease. Posterior disc bulge without herniation or central stenosis. Left foraminal encroachment noted. C5-C6: Severe disc desiccation with circumferential disc bulge. Partial encapsulating spur resulting in disc endplate complex. Effacement ventral thecal sac without central stenosis. Bilateral foraminal encroachment noted right greater than left. C6-C7: No evidence for degenerative disc disease. No disc bulge/herniation or protrusion. No Canal stenosis. Foramina are patent bilaterally. C7-T1: No evidence for degenerative disc disease. No disc bulge/herniation or protrusion. No Canal stenosis. Foramina are patent bilaterally. Cervical segments are intact. There is normal alignment. Cervical spinal cord is of normal signal. Craniovertebral junction relationships are within normal limits. IMPRESSION: 1. Degenerative disc disease and disc bulging at C4-5 and C5-6. See above. EXAMINATION TYPE: MR landa wo con DATE OF EXAM: 01/18/2020 7:02 PM COMPARISON: NONE HISTORY: BUE weakness, back pain Multiplanar, MultiSpin echo imaging of the lumbar spine was performed. L1-L2: Normal disc appearance without desiccation. No herniation, protrusion or disc bulging. No ca nal stenosis is present. Foramina are patent bilaterally. L2-L3: Normal disc appearance without desiccation. No herniation, protrusion or disc bulging. No ca nal stenosis is present. Foramina are patent bilaterally. L3-L4: Normal disc appearance without desiccation. No herniation, protrusion or disc bulging. No ca nal stenosis is present. Foramina are patent bilaterally. L4-L5: Mild decreased signal ossified with mild posterior disc bulge. No evidence for herniation or p rotrusion. No central stenosis or foraminal encroachment. L5-S1: Normal disc appearance without desiccation. No herniation, protrusion or disc bulging. No ca nal stenosis is present. Foramina are patent bilaterally. Lumbar segments are intact. No paraspinal masses are identified. Conus medullaris has a normal appe arance. IMPRESSION: 1. Mild degenerative disc disease and disc bulging at L4-5.
--- NOTE | 2020-01-18 19:27 | MR ---
EXAMINATION TYPE: MR brain wo con DATE OF EXAM: 01/18/2020 7:19 PM COMPARISON: NONE HISTORY: Numbness in hands, family hx MS Multiplanar and multispin-echo imaging of the brain was performed . The ventricles, basal cisterns and sulci overlying the cerebral convexities are within normal limits. There is no evidence for midline shift or mass effect. Acute intracranial hemorrhage or extra-axial collection is not evident. 8-10 small lesions of increased signal noted on the inversion recovery data set within each cerebral hemisphere ranging up to 3.6 mm. Locations are juxtacortical and subcortical locations. Differential diagnostic possibilities include demyelinating disease, small vessel ischemic change, sequela of director export torsten migraine headaches and vasculitis and Lyme's disease to name a few. Correlate clinically. No acute edema is identified. The paranasal sinuses and mastoid air cells are well-aerated. IMPRESSION: Nonspecific white matter lesions. Demyelination not excluded.
== END | disposition home or self-care (01) ==
LOC: RADMRIMAIN 18:02
PROVIDERS: ATTEND Psychiatry & Neurology Neurology
DX: M50.221 Other cervical disc displacement at C4-C5 level (principal); M50.321 Other cervical disc degeneration at C4-C5 level; Z82.0 Family history of epilepsy and other diseases of the nervous system
CPT/HCPCS: 70551; 72141; 72148

== ENCOUNTER → 2020-03-14 | Outpatient (CLI) | payer OTHER ==
[2020-03-14 12:55] LABS: HCT 48.9 % (34.0-46.0); HGB 15.2 gm/dL (11.4-16.0); MCH 32.1 pg (25.0-35.0); MCV 103.5 fL (80.0-100.0); Macrocytosis Slight; Mean Platelet Volume 8.9; Platelet Count 145 k/uL (150-450); RBC 4.73 m/uL (3.80-5.40); RDW 13.2 % (11.5-15.5); WBC 5.1 k/uL (3.8-10.6)
[2020-03-14 20:02] LABS: INR 1.17 (0.90-1.11); Prothrombin Time 12.4 sec (9.9-11.9)
[2020-03-14 20:29] LABS: ALT 40 U/L (8-44); AST 65 U/L (13-35); African American GFR (CKD) 71.2 (60.0-200.0); Alkaline Phosphatase 205 U/L (41-126); BUN/Creat Ratio 16.36 Ratio (12.00-20.00); Calcium 10.3 mg/dL (8.7-10.3); Carbon Dioxide 25.6 mmol/L (21.6-31.8); Chloride 98 mmol/L (96-109); Folate, Serum >24.0 ng/mL; Glucose 87 mg/dL (70-110); Non-African American GFR(CKD) 61.4 (60.0-200.0); Potassium 4.1 mmol/L (3.5-5.5); Sodium 134 mmol/L (135-145); Total Bilirubin 2.3 mg/dL (0.3-1.2); Total Protein 8.8 g/dL (6.2-8.2)
== END | disposition home or self-care (01) ==
LOC: LABWHC1 11:14
PROVIDERS: ATTEND Physician Assistant
DX: K70.30 Alcoholic cirrhosis of liver without ascites (principal)
CPT/HCPCS: 36415; 80053; 82607; 82746; 84630; 85027; 85610

== ENCOUNTER 2020-06-04 12:18 | Day surgery (SDC) | payer OTHER ==
[2020-06-04 12:56] VITALS: BP 101/61; PULSE 97; RESP 16; TEMP 98.4
--- NOTE | 2020-06-04 12:58 | US ---
Ultrasound-guided paracentesis. DATE OF EXAM: 06/04/2020 CLINICAL HISTORY: Ascites Preliminary imaging demonstrated no evidence of ascites. Procedure discontinued. IMPRESSION: 1. Discontinued paracentesis.
== END 2020-06-04 12:58 | disposition home or self-care (01) ==
LOC: RADPROMAIN 12:18
PROVIDERS: ATTEND Family Medicine
DX: K70.31 Alcoholic cirrhosis of liver with ascites (principal); R63.5 Abnormal weight gain; Z68.20 Body mass index [BMI] 20.0-20.9, adult
CPT/HCPCS: 76705

== ENCOUNTER → 2020-12-20 | Outpatient (CLI) | payer MEDICARE, OTHER ==
--- NOTE | 2020-12-20 08:16 | US ---
EXAMINATION TYPE: US liver doppler DATE OF EXAM: 12/20/2020 COMPARISON: CT & MRI CLINICAL HISTO RY: [id number]. Known cirrhosis EXAM MEASUREMENTS: Liver Length: 17.9 cm Gallbladder Wall: 0.3 cm CBD: 0.5 cm Right Kidney: 10.6 x 3.6 x 4.5 cm RUQ ABDOMINAL ULTRASOUND Pancreas: body and tail wnl, head obscured by overlying bowel gas Liver: Enlarged, extremely heterogeneous limiting assessment of mass Gallbladder: Lumen clear, distended Evidence for sonographic Serna's sign: No CBD: wnl Right Kidney: wnl Ascites noted? No LIVER DOPPLER ULTRASOUND Portal vein flow Flow direction: Hepatopetal Color flow patency seen within the main portal vein: Yes Color flow patency seen within the right portal vein: Yes Hepatic Artery: wnl Hepatic Veins: Only middle hepatic vein visualized and flow visualized within IMPRESSION: The liver is enlarged and heterogeneous with limits evaluation. Only middle hepatic vein could be vis ualized. Grossly unremarkable portal veins and hepatic artery.
[2020-12-20 08:33] LABS: Basophils # (A) 0.1 k/uL (0-0.2); Basophils % (A) 1 %; Eosinophils # (A) 0.2 k/uL (0-0.7); Eosinophils % (A) 3 %; HGB 13.2 gm/dL (11.4-16.0); Lymphocytes # (A) 0.8 k/uL (1.0-4.8); Lymphocytes % (A) 11 %; MCH 34.7 pg (25.0-35.0); MCHC 32.9 g/dL (31.0-37.0); MCV 105.3 fL (80.0-100.0); Macrocytosis Slight; Mean Platelet Volume 9.1; Monocytes # (A) 0.5 k/uL (0-1.0); Monocytes % (A) 7 %; Neutrophils # (A) 5.5 k/uL (1.3-7.7); Neutrophils % (A) 77 %; Platelet Count 108 k/uL (150-450); RDW 13.1 % (11.5-15.5); WBC 7.2 k/uL (3.8-10.6)
[2020-12-20 08:39] LABS: INR 1.2 (<1.2); Prothrombin Time 12.1 sec (9.0-12.0)
[2020-12-20 08:53] LABS: ALT 34 U/L (4-34); AST 66 U/L (14-36); African American GFR (CKD) >90 (>60 ml/min/1.73 sqM); Albumin 4.5 g/dL (3.5-5.0); Alkaline Phosphatase 187 U/L (38-126); Anion Gap 9 mmol/L; Blood Urea Nitrogen 10 mg/dL (7-17); Calcium 9.9 mg/dL (8.4-10.2); Carbon Dioxide 30 mmol/L (22-30); Chloride 99 mmol/L (98-107); Glucose 92 mg/dL (74-99); Non-African American GFR(CKD) >90 (>60 ml/min/1.73 sqM); Potassium 4.1 mmol/L (3.5-5.1); Sodium 138 mmol/L (137-145); Total Bilirubin 1.3 mg/dL (0.2-1.3); Total Protein 8.1 g/dL (6.3-8.2)
== END | disposition home or self-care (01) ==
LOC: RADUSWWP 07:36
PROVIDERS: ATTEND Internal Medicine
DX: K74.60 Unspecified cirrhosis of liver (principal)
CPT/HCPCS: 76705; 80053; 82105; 85025; 85610; 93976

== ENCOUNTER → 2021-06-14 | Outpatient (CLI) | payer MEDICARE, OTHER ==
[~2021-06-14] MED LIST: CASIRIVIMAB (REGN10933) (EUA) 600 MG, IMDEVIMAB (REGN10987) (EUA) 600 MG in SODIUM CHLO... IVPB NR; SODIUM CHLORIDE 0.9% 50 ML IVPB NR; SODIUM CHLORIDE 0.9% 500 ML 500 ML in EMPTY BAG 1 BAG IV PRN
[2021-06-14 08:58] VITALS: RESP 16; TEMP 96.7
[2021-06-14 09:39] VITALS: BP 111/75; PULSE 73
== END | disposition home or self-care (01) ==
LOC: PROCWHC3 08:02
PROVIDERS: ATTEND Nurse Practitioner Family
DX: U07.1 COVID-19 (principal)
CPT/HCPCS: 96360; Q0244; M0243

== ENCOUNTER → 2021-08-02 | Outpatient (CLI) | payer MEDICARE, OTHER ==
--- NOTE | 2021-08-02 10:08 | US ---
EXAMINATION TYPE: US abdomen complete DATE OF EXAM: 08/02/2021 COMPARISON: US dated 12/24/2020 CLINICAL HISTORY: K74.60 Hepatic Cirrhosis. EXAM MEASUREMENTS: Liver Length: 12.5 cm Gallbladder Wall: 0.3 cm CBD: 0.4 cm Spleen: 11.3 cm Right Kidney: 9.1 x 3.6 x 5.4 cm Left Kidney: 10.1 x 4.0 x 4.2 cm Pancreas: visualized portions wnl Liver: very heterogeneous with mass affect throughout the entire liver. Gallbladder: distended at 10.1 cm, no stones seen. Evidence for sonographic Serna's sign: No CBD: wnl Spleen: wnl Right Kidney: No hydronephrosis or masses seen Left Kidney: No hydronephrosis or masses seen Upper IVC: wnl Abd Aorta: wnl IMPRESSION: 1. Heterogenous appearing liver could be related to cirrhosis.
== END | disposition home or self-care (01) ==
LOC: RADUSWWP 09:02
PROVIDERS: ATTEND Internal Medicine
DX: K76.89 Other specified diseases of liver (principal)
CPT/HCPCS: 76700

== ENCOUNTER → 2021-11-18 | Outpatient (CLI) | payer MEDICARE, OTHER ==
[2021-11-18 17:01] LABS: Basophils % (A) 1 %; Eosinophils # (A) 0.1 k/uL (0-0.7); Eosinophils % (A) 2 %; HCT 42.4 % (34.0-46.0); HGB 13.4 gm/dL (11.4-16.0); Lymphocytes # (A) 1.3 k/uL (1.0-4.8); Lymphocytes % (A) 22 %; MCH 33.1 pg (25.0-35.0); MCHC 31.6 g/dL (31.0-37.0); MCV 104.8 fL (80.0-100.0); Macrocytosis Slight; Mean Platelet Volume 8.9; Monocytes # (A) 0.4 k/uL (0-1.0); Monocytes % (A) 7 %; Neutrophils # (A) 3.8 k/uL (1.3-7.7); Neutrophils % (A) 65 %; Platelet Count 164 k/uL (150-450); RBC 4.04 m/uL (3.80-5.40); RDW 13.5 % (11.5-15.5); WBC 5.9 k/uL (3.8-10.6)
[2021-11-18 17:17] LABS: INR 1.1 (<1.2); Partial Thromboplastin Time 26.1 sec (22.0-30.0); Prothrombin Time 11.7 sec (9.0-12.0)
== END | disposition home or self-care (01) ==
LOC: LABWHC1 16:15
PROVIDERS: ATTEND Nurse Practitioner Family
DX: Z01.812 Encounter for preprocedural laboratory examination (principal)
CPT/HCPCS: 36415; 85025; 85610; 85730

== ENCOUNTER → 2021-12-25 | Outpatient (CLI) | payer MEDICARE, OTHER ==
--- NOTE | 2021-12-26 15:49 | US ---
EXAMINATION TYPE: US arterial LE multi level DATE OF EXAM: 12/25/2021 3:03 PM CLINICAL HISTORY: R23.8 CHANGE OF SKIN COLOR,M79.604 ACHING LEG SYNDROME. Pt states leg pain, and dis coloration Doppler Waveforms: Right: Multiphasic Left: Multiphasic Ankle-Brachial Indices: Right: 0.92 Left: 1.04 Toe Brachial Indices: Right: 0.54 Left: 0.67 IMPRESSION: Mild peripheral vascular disease may be present on the right with near normal DOC, marco a l DOC on the left
== END | disposition home or self-care (01) ==
LOC: RADUSWWP 14:25
PROVIDERS: ATTEND Family Medicine
DX: I73.9 Peripheral vascular disease, unspecified (principal)
CPT/HCPCS: 93923

== ENCOUNTER → 2022-04-02 | Outpatient (CLI) | payer MEDICARE, OTHER ==
[2022-04-02 09:32] VITALS: BP 109/73; PULSE 86; RESP 18; TEMP 98.5
--- NOTE | 2022-04-02 14:51 | P.PAINPG ---
Objective - Vital Signs Vital signs: Intake & Output 04/01/22 04/02/22 04/02/22 18:59 06:59 18:59 Weight 55.792 kg PQRS Measure Charge Sheet Comment: HISTORY OF PRESENT ILLNESS: 47 yr old female as a referral from Dr. Tapia presents today with severe and chronic LBP secondary to DDD, spondylosis, facet arthropathy without myelopathy for evaluation. Patient states her pain level is currently at 8/10 in intensity, constant, pressure in character w radiation towards R glute and RLE. Pain is present since 2019. Palliated w PT x 6 weeks in Jun 2021, medications, home stretching regimen, chiropractic treatments as needed, heat, hot bath soaks, heating pad use, topicals, repositioning and rest. Pain is provoked w sitting or staying in one position for periods of 45 min or more. PMH: Alcoholic Liver Cirrhosis, OA, Hx of ARF, Hiatal Hernia, IBS PSH: Breast Implantation, Dialysis Port Placement/ Removal, Paracentesis, EGD/ Colonoscopy SH: Former tobacco user, Hx of ETOH abuse, No illicit drug use FH: Mo- No Reported History All: See list Meds: See list REVIEW OF ORGAN SYSTEMS: CONSTITUTIONAL: No fevers or chills. No recent weight loss. NEUROLOGICAL: + numbness and tingling along the distal extremities. No seizure disorders or headaches. MUSCULOSKELETAL: + pain PSYCHIATRIC: Denies current depression or suicidal thoughts. Physical Examinations : Constitutional : Cooperative , not in acute distress . Neurologic : Cranial nerve II to XII intact. No focal neurological deficits. Psychiatric : alert & oriented x 3. Matching mood & appropriate affect. Judgment & insight intact. Musculoskeletal : Cervical Spine Motor strength in the deltoid and biceps: Normal right side. Normal Left side Motor strength biceps and the wrist extensors: Normal right side . Normal left side Motor strength in the triceps muscle: Normal right side. Normal left side Deep tendon reflexes: Normal at the biceps. Normal at Brachioradialis. Normal at triceps Vertebral body tenderness to deep palpation over Cervical facet loading test: positive bilaterally Spurling test: positive bilaterally Neck distraction test: positive bilaterally Meir sign: positive bilaterally Lumbar spine Motor strength lower extremities ,thigh and legs 5/5 Right side , 5/5 Left side Deep tendon reflexes : Normal Knee Jerk. Normal Ankle Jerk Vertebral body tenderness over L4 Lumbar facet Loading Test: positive Right / positive Left Range of motion of the lumbar spine Flexion 30 degrees, extension 10 degrees Straight Leg Raise test: Left/ Right positive at degree Ange test: positive right / positive left. Severe tenderness over the Sacroiliac joint on the Right / Left sides Gaenslen test: positive bilaterally Seated flexion test: positive bilaterally. Sacral spine : Severe tenderness over the Sacroiliac joint: right side / left side Range of motion: Flexion of the lumbar spine <60 degrees Range of motion: Extension of the lumbar spine <20 degrees Gaenslen's Test positive Fly's Test positive Ange test: positive right side / left side Thigh Thrust Test Sacral Thrust Test Imaging: MRI without contrast of the lumbar spine from 01/18/20 reviewed. Assessment/ Plan : Lumbar DDD, Lumbar spondylosis Mentation of KELLY L4-L5. May need a series of injections, up to 3 within a six-month period, for optimal pain relief. Risks, benefits of procedure discussed and patient verbalized understanding. Denies aspirin or anti- coagulant use or medical history of diabetes. Protocol for discontinuation/ continuation of medications rosemarie procedure discussed. All questions answered. I have spent greater than 30 minutes on patient care today. Dr Warren was available by phone for the evaluation of this patient. The time was used to review the medical records including relevant urine studies and Prescription history (MAPs), review of the available imaging, evaluation and examination of the patient, coordination of care with the medical staff and if applicable referring physicians, as well as creation of the medical record PQRS Narrative: Smoking Status Former smoker Pain Intensity [Left Shoulder] 10 Pain Intensity [Left Buttock] 7 Scale Used Numeric (1 - 10) Hx Alcohol Use (MH) No Home Medications: Ambulatory Orders Multivitamin with Iron [Multivitamins with Iron] 1 tablet PO DAILY 07/28/19 traMADol HCL [Ultram] 50 mg PO BID PRN 07/28/19 Ferrous Gluconate 324 mg PO DAILY 09/08/19 Furosemide [Lasix] 40 mg PO DAILY 05/25/20 Omeprazole [PriLOSEC] 20 mg PO AC-BID PRN 05/25/20 Spironolactone [Aldactone] 100 mg PO DAILY 05/25/20 Albuterol Inhaler [Ventolin Hfa Inhaler] 1 - 2 puff INHALATION Q6H PRN 04/01/22 Beclomethasone Dipropionate [Qvar 80mcg Redihaler] 1 puff PO DAILY 04/01/22 Ergocalciferol [Vitamin D2 (1250 Mcg = 56763 Iu)] 1,250 mcg PO WEEKLY 04/01/22 Controlled Substance Measures - Controlled Substance Measures Is patient prescribed a controlled substance at discharge?: No
== END ==
LOC: PNWHC3 08:26
PROVIDERS: ATTEND Specialist
DX: M51.36 Other intervertebral disc degeneration, lumbar region (principal); M43.16 Spondylolisthesis, lumbar region; M47.896 Other spondylosis, lumbar region; Z87.891 Personal history of nicotine dependence; M19.90 Unspecified osteoarthritis, unspecified site; Z88.0 Allergy status to penicillin; Z88.1 Allergy status to other antibiotic agents; Z91.09 Other allergy status, other than to drugs and biological substances
CPT/HCPCS: 99211

== ENCOUNTER 2022-04-17 07:56 | Day surgery (SDC) | payer MEDICARE, OTHER ==
[2022-04-17] MEDS ORDERED: LACTATED RINGERS 1,000 ML IV ONE (08:14)
[2022-04-17 08:21] VITALS: TEMP 97.3
[2022-04-17] MEDS ORDERED: IOPAMIDOL M200 10 ML VIAL ONE (08:27)
[2022-04-17] MEDS ORDERED: TRIAMCINOLONE ACETONIDE 40 MG/ML 1 ML VIAL ONE (08:27)
--- NOTE | 2022-04-17 08:41 | P.PCN ---
Date of Procedure: 04/17/22 Description of Procedure: PREOPERATIVE DIAGNOSIS: 1-Lumbar radiculopathy 2- Lumber Degenerative Disc Diseases. POSTOPERATIVE DIAGNOSIS: 1-Lumbar radiculopathy. 2-Lumbar Degenerative Disc Diseases PROCEDURE 1. Lumbar epidural steroid injection under fluoroscopic guidance at the L4-5 level in the right paramedian approach. 2. Lumbar epidurogram. ANESTHESIA: Local with 1% lidocaine; and IV moderate conscious sedation with Versed and fentanyl EBL: Minimal PROCEDURE INDICATION: The patient with low back pain and radiculitis symptoms unresponsive to conservative treatment. Fluoroscopy was used to optimize visualization of the needle placement and to maximize safety. PROCEDURE DESCRIPTION / TECHNIQUE: The patient was seen and identified in the preoperative area. Risks, benefits, complications including but not limited to infections ,bleeding ,allergic reaction to the medications ,nerve damage and not complete pain relief , and alternatives were discussed with the patient. The patient agreed to proceed with the procedure and signed the consent. IV was started, and vital signs were stable. Patient was taken to the OR and time out was completed. The patient was placed in the prone position on procedure table and a pillow was placed under the abdomen to reduce lumbar lordosis. The lumbosacral area was prepped and draped in the usual sterile fashion with ChloraPrep.Patient was closely monitored during the procedure. Conscious sedation was used during the procedure to decrease patients anxiety. Vital signs were monitered during the entire procedure. Using anterior-posterior fluoroscopy, the L4-5 interlaminar space was identified and the skin over this site was marked and then infiltrated with 1% lidocaine subcutaneously. Subsequently, a 20-gauge Tuohy epidural needle was inserted and advanced toward the epidural space using the Loss of resistance to air technique and guided by AP and lateral fluoroscopy. The correct needle position in the epidural space was verified with the injection of 1 mL of the water soluble contrast dye Omnipaque 180 contrast and observing an excellent epidurogram with the epidural spread of the dye, after negative aspiration for blood and CSF and in the absence of paresthesias. Again after negative aspiration, a 5 ml mixture containing 40 mg of Kenalog and 4 ml of preservative free Normal Saline solution was injected and a washout of epidurogram was seen. Needle was withdrawn intact, skin was cleansed, and bandages were applied. patient tolerated procedure well and was transferred to PACU in stable condition.A copy of the needle placement picture was saved to the fluoroscopy machine. COMPLICATIONS: follow up in 2 weeks for repeat epidural
[2022-04-17 08:49] VITALS: RESP 15
[2022-04-17 09:01] VITALS: BP 91/65; PULSE 80
--- NOTE | 2022-04-17 09:22 | FL ---
EXAMINATION TYPE: FL guided pain mgmt statistic DATE OF EXAM: 04/17/2022 HISTORY: Fluoroscopy time 4 seconds of fluoroscopy provided. IMPRESSION: 1. Fluoroscopy time.
== END 2022-04-17 09:16 | disposition home or self-care (01) ==
LOC: ORPAIN 07:56
PROVIDERS: ATTEND Anesthesiology
DX: M51.16 Intervertebral disc disorders with radiculopathy, lumbar region (principal); Z88.1 Allergy status to other antibiotic agents; Z88.0 Allergy status to penicillin
CPT/HCPCS: 81025; 62323; J3301; Q9966

== ENCOUNTER → 2022-05-01 | Outpatient (CLI) | payer MEDICARE, OTHER ==
--- NOTE | 2022-05-01 10:07 | US ---
EXAMINATION TYPE: US liver DATE OF EXAM: 05/01/2022 COMPARISON: NONE CLINICAL HISTORY: 47-year-old female K70.31 ALCOHOLIC CIRRHOSIS W/ASCITES. TECHNIQUE: Multiple sonographic images of the right upper quadrant are obtained. FINDINGS: EXAM MEASUREMENTS: Liver Length: 17.3 cm Gallbladder Wall: .2 cm CBD: .6 cm Right Kidney: 9.4 x 3.2 x 4.1 cm Pancreas: wnl Liver: Heterogeneous with lobulated contour. No focal lesion seen. Gallbladder: No stones seen. No abnormal distention or pericholecystic fluid. Evidence for sonographic Serna's sign: No CBD: Borderline caliber at 6 mm. Right Kidney: No hydronephrosis or masses seen IMPRESSION: 1. Cirrhotic morphology of the liver. No sonographic evidence for hepatoma. 2. No gallstones. 3. Bile duct borderline in caliber at 6 mm may be chronic for the patient. Correlate with alkaline ph osphatase and bilirubin levels.
== END | disposition home or self-care (01) ==
LOC: RADUSWWP 07:15
PROVIDERS: ATTEND Internal Medicine
DX: K70.31 Alcoholic cirrhosis of liver with ascites (principal)
CPT/HCPCS: 76705

== ENCOUNTER → 2022-06-24 | Day surgery (SDC) | payer MEDICARE, OTHER | LOC: ORPAIN 13:10 | PROVIDERS: ATTEND Specialist | DX: Z53.9 Procedure and treatment not carried out, unspecified reason (principal); M51.36 Other intervertebral disc degeneration, lumbar region; M54.50 Low back pain, unspecified ==

== ENCOUNTER 2022-07-17 06:42 | Day surgery (SDC) | payer MEDICARE, OTHER ==
[2022-07-14 17:46] VITALS: BMI 19.0
[2022-07-17 07:01] VITALS: RESP 16; TEMP 98
[2022-07-17] MEDS ORDERED: methylPREDNISolone ACETATE 80 MG/ML 1 ML VIAL ONE (07:20)
[2022-07-17] MEDS ORDERED: IOPAMIDOL M200 10 ML VIAL ONE (07:20)
--- NOTE | 2022-07-17 07:30 | P.PCN ---
Date of Procedure: 07/17/22 Procedure(s) Performed: PREOPERATIVE DIAGNOSIS: 1- Lumbar Degenerative Disc Diseases 2-Lumbar spondylosis with Facet arthropathy without myelopathy. 3-lumbar radiculopathy POSTOPERATIVE DIAGNOSIS: Same as preop diagnosis. PROCEDURE 1. Lumbar epidural steroid injection under fluoroscopic guidance at the L4-5 level. (Fluoroscopy imaging was available in radiology department) 2. Lumbar epidurogram. ANESTHESIA: Local infiltration with lidocaine 1% 3 and and only. EBL: Minimal PROCEDURE INDICATION: The patient with low back pain and radiculitis symptoms unresponsive to conservative treatment. Fluoroscopy was used to optimize visualization of the needle placement and to maximize safety. PROCEDURE DESCRIPTION / TECHNIQUE: The patient was seen and identified in the preoperative area. Risks, benefits, complications including but not limited to infections ,bleeding ,allergic reaction to the medications ,nerve damage and not complete pain releife , and alternatives were discussed with the patient. The patient agreed to proceed with the procedure and signed the consent., and vital signs were stable. Patient was taken to the OR and time out was completed. The patient was placed in the prone position on procedure table and a pillow was placed under the abdo men to reduce lumbar lordosis. The lumbosacral area was prepped and draped in the usual sterile fashion.ere closely monitored during the procedure. Vital signs was monitered during the entire procedure. Using anterior-posterior fluoroscopy, the L4-5 interlaminar space was identified and the skin over this site was marked and then infiltrated with 1% lidocaine subcutaneously. Subsequently, a 20-gauge Tuohy epidural needle was inserted and advanced toward the epidural space using the ``Loss of resistance technique and guided by AP and lateral fluoroscopy. The correct needle position in the ep idural space was verified with the injection of 2 mL of the water soluble contrast dye Isovue 300 contrast and observing an excellent epidurogram with the epidural spread of the dye, after negative aspiration for blood and CSF and in the absence of paresthesias. Again after negative aspiration, a 6 ml mixture containing 80 mg of Depo-medrol ( Preservetive Free ), and 2 ml of preservative free Normal Saline, and 2 ml of preservative free lidocaine 1% solution was injected and a washout of epidurogram was seen. Needle was withdrawn intact, skin was cleansed, and bandages were applied. COMPLICATIONS: None DISPOSITION / PLANS: The patient was placed in a supine position and transferred to the recovery area in a stable condition for observation. There was no evidence of lower extremity motor or sensory deficit after the procedure. Patient was discharged from the recovery room after meeting discharge criteria. Home discharge instructions were given to the patient by the staff. The patient was reexamined prior to discharge. The patient will schedule a follow up in the clinic in 2-4 weeks.
[2022-07-17 07:40] VITALS: BP 106/64; PULSE 82
--- NOTE | 2022-07-17 09:35 | FL ---
EXAMINATION TYPE: FL guided pain mgmt statistic DATE OF EXAM: 07/17/2022 FLUOROSCOPY Fluoroscopy time of 1 seconds was used during lumbar epidural steroid injection. 1 image/s docume nt/s the procedure.
== END 2022-07-17 07:45 | disposition home or self-care (01) ==
LOC: ORPAIN 06:42
PROVIDERS: ATTEND Specialist
DX: M51.16 Intervertebral disc disorders with radiculopathy, lumbar region (principal); M47.26 Other spondylosis with radiculopathy, lumbar region; Z88.0 Allergy status to penicillin; Z88.1 Allergy status to other antibiotic agents; Z88.8 Allergy status to other drugs, medicaments and biological substances
CPT/HCPCS: 81025; 62323; J1040; Q9966

== ENCOUNTER → 2022-10-07 | Outpatient (CLI) | payer MEDICARE, OTHER ==
--- NOTE | 2022-10-08 08:41 | MM ---
Reason for Exam: Hx of breast augmentation, asymptomatic. Last mammogram was performed 2 year(s) and 9 month(s) ago. Patient History: Menarche at age 13. First Full-Term at age 23. Premenopausal. Currently using Hormonal Contraceptives, starting at age 23. 2010, Bilateral Implants. Risk Values: Blanca 5 year model risk: 0.8%. NCI Lifetime model risk: 9.4%. Prior Study Comparison: 01/09/2020 Bilateral Screening Mammogram, [facility]. Tissue Density: The breast tissue is heterogeneously dense. This may lower the sensitivity of mammography. Findings: Analyzed By CAD. Pattern appears symmetrical. Bilateral breast prostheses are present. Focal asymmetry is within the left cranial caudal view and within the right medial lateral oblique view and implant displaced views. This could be summation density. Additional workup is changing findings are recommended with compression views. Overall Assessment: Incomplete: need additional imaging evaluation, BI-RAD 0 Management: Diagnostic Mammogram of both breasts. A negative mammogram report should not preclude additional follow up of suspicious palpable abnormalities. Patient should continue monthly self breast exam. A clinical breast exam by your physician is recommended on an annual basis and results should be correlated with mammographic findings. Electronically signed and approved by: Dwaine Bueno D.O. Radiologis
== END | disposition home or self-care (01) ==
LOC: RADMAMWWP 11:03
PROVIDERS: ATTEND Family Medicine
DX: Z12.31 Encounter for screening mammogram for malignant neoplasm of breast (principal)
CPT/HCPCS: 77063; 77067

== ENCOUNTER → 2022-10-29 | Outpatient (CLI) | payer MEDICARE, OTHER ==
--- NOTE | 2022-10-29 14:26 | MM ---
Reason for Exam: Additional evaluation requested from abnormal screening. Last screening mammogram was performed less than 1 month ago. Patient History: Menarche at age 13. First Full-Term at age 23. Premenopausal. Currently using Hormonal Contraceptives, starting at age 23. 2009, Bilateral Implants. Risk Values: Blanca 5 year model risk: 0.8%. NCI Lifetime model risk: 9.4%. Prior Study Comparison: 01/09/2020 Bilateral Screening Mammogram, [facility]. 10/07/2022 Bilateral MG 3D screen mammo imp/cad., [facility]. Tissue Density: The breast tissue is heterogeneously dense. This may lower the sensitivity of mammography. Findings: Analyzed By CAD. No distinct new mass persists on additional views. Overall Assessment: Negative, BI-RAD 1 Management: Screening Mammogram of both breasts in 1 year. Return to routine follow-up. Results were given to the patient verbally at the time of exam. Electronically signed and approved by: Brennan Alonso M.D.
== END | disposition home or self-care (01) ==
LOC: RADMAMWWP 13:48
PROVIDERS: ATTEND Family Medicine
DX: R92.8 Other abnormal and inconclusive findings on diagnostic imaging of breast (principal); Z98.82 Breast implant status
CPT/HCPCS: 77066; G0279; 77062

== ENCOUNTER → 2023-04-22 | Outpatient (CLI) | payer MEDICARE, OTHER ==
[2023-04-22 10:27] VITALS: BP 126/84; PULSE 87; RESP 16
--- NOTE | 2023-04-22 14:33 | P.PAINPG ---
PQRS Measure Charge Sheet Comment: HISTORY OF PRESENT ILLNESS: 47 yr old female presents today with severe and chronic LBP secondary to DDD, spondylosis, facet arthropathy without myelopathy for evaluation s/p KELLY L4-L5 #1. Pt states she experienced 75 % pain relief x 7 mo s/p procedure. Patient states her pain level is currently at 8/10 in intensity, constant, pressure in character w radiation towards R glute and RLE. Pain is present since 2019. Palliated w PT x 6 weeks in Jun 2021, medications, home stretching regimen, chiropractic treatments as needed, heat, hot bath soaks, heating pad use, topicals, repositioning and rest. Pain is provoked w sitting or staying in one position for periods of 45 min or more. Pt is primarily interested in obtaining Tramadol from a clinic and is on the phone writing physician names down that can prescribe it. Oswestry axial pain score of 23. Interventional procedures include KELLY L4-L5 x1 Medications include Tramadol REVIEW OF ORGAN SYSTEMS: CONSTITUTIONAL: No fevers or chills. No recent weight loss. NEUROLOGICAL: + numbness and tingling along the distal extremities. No seizure disorders or headaches. MUSCULOSKELETAL: + pain PSYCHIATRIC: Denies current depression or suicidal thoughts. Physical Examinations : Constitutional : Cooperative , not in acute distress . Neurologic : Cranial nerve II to XII intact. No focal neurological deficits. Psychiatric : alert & oriented x 3. Matching mood & appropriate affect. Judgment & insight intact. Musculoskeletal : Cervical Spine Motor strength in the deltoid and biceps: Normal right side. Normal Left side Motor strength biceps and the wrist extensors: Normal right side . Normal left side Motor strength in the triceps muscle: Normal right side. Normal left side Deep tendon reflexes: Normal at the biceps. Normal at Brachioradialis. Normal at triceps Vertebral body tenderness to deep palpation over Cervical facet loading test: positive bilaterally Spurling test: positive bilaterally Neck distraction test: positive bilaterally Meir sign: positive bilaterally Lumbar spine Motor strength lower extremities ,thigh and legs 5/5 Right side , 5/5 Left side Deep tendon reflexes : Normal Knee Jerk. Normal Ankle Jerk Vertebral body tenderness over L4 Lumbar facet Loading Test: positive Right / positive Left Range of motion of the lumbar spine Flexion 30 degrees, extension 10 degrees Straight Leg Raise test: Left/ Right positive at degree Ange test: positive right / positive left. Severe tenderness over the Sacroiliac joint on the Right / Left sides Gaenslen test: positive bilaterally Seated flexion test: positive bilaterally. Sacral spine : Severe tenderness over the Sacroiliac joint: right side / left side Range of motion: Flexion of the lumbar spine <60 degrees Range of motion: Extension of the lumbar spine <20 degrees Gaenslen's Test positive Fly's Test positive Ange test: positive right side / left side Thigh Thrust Test Sacral Thrust Test Imaging: MRI without contrast of the lumbar spine from 01/18/20 reviewed. Assessment/ Plan : Lumbar DDD, Lumbar spondylosis Recommendation of KELLY L4-L5 #2. Valium 5mg #2 to take prior to procedure. Needs a drivers license examiner the day of the procedure. Use, side effects, adverse reactions and safe storage discussed. Pt acknowledged understanding. May need a series of injections, up to 3 within a six-month period, for optimal pain relief. Risks, benefits of procedure discussed and patient verbalized understanding. Denies aspirin or anti- coagulant use or medical history of diabetes. Protocol for discontinuation/ continuation of medications rosemarie procedure discussed. All questions answered. I have spent greater than 30 minutes on patient care today. Dr Warren was available by phone for the evaluation of this patient. The time was used to review the medical records including relevant urine studies and Prescription history (MAPs), review of the available imaging, evaluation and examination of the patient, coordination of care with the medical staff and if applicable referring physicians, as well as creation of the medical record - Pain Location Bilateral Lower Back Non-Pharmacological Interventions: Heat, Inactivity, Physical Therapy, Position/Reposition Pharmacological Interventions: Epidural, Scheduled Medication PQRS Narrative: Smoking Status Former smoker Hx Alcohol Use (MH) No Home Medications: Ambulatory Orders Spironolactone [Aldactone] 100 mg PO DAILY 05/25/20 diazePAM [Valium] 5 mg PO Q24H PRN 1 Days #2 tab 04/22/23 Controlled Substance Measures - Controlled Substance Measures Is patient prescribed a controlled substance at discharge?: Yes When asked, does pt state using other controlled substances?: No If prescribed controlled substance>3 days was MAPS reviewed?: Prescribed <3 Days
== END ==
LOC: PNWHC3 09:52
PROVIDERS: ATTEND Specialist
DX: M51.36 Other intervertebral disc degeneration, lumbar region (principal); M47.816 Spondylosis without myelopathy or radiculopathy, lumbar region; Z87.891 Personal history of nicotine dependence; Z88.1 Allergy status to other antibiotic agents; Z88.0 Allergy status to penicillin; Z91.09 Other allergy status, other than to drugs and biological substances; Z91.048 Other nonmedicinal substance allergy status
CPT/HCPCS: 99211

== ENCOUNTER → 2024-05-06 | Outpatient (CLI) | payer MEDICARE, OTHER ==
--- NOTE | 2024-05-06 11:00 | US ---
EXAMINATION TYPE: US liver DATE OF EXAM: 05/06/2024 COMPARISON: 05/01/22 CLINICAL INDICATION: Female, 49 years old with history of K70.31 ALCOHOLIC CIRRHOSIS; alcoholic cirrh osis TECHNIQUE: Grayscale and color Doppler imaging of the right upper quadrant was performed. FINDINGS: EXAM MEASUREMENTS: Liver Length: 14.9 cm Gallbladder Wall: 0.18 cm CBD: 0.58 cm Right Kidney: 9.9 x 4.5 x 3.9 cm COMPLIANCE ASSOCIATE NOTES: Pancreas: head obscured by overlying bowel gas, parts seen appear wnl Liver: lobulated contour and heterogeneous Gallbladder: appears enlarged, sludge seen Evidence for sonographic Serna's sign: Pt was slightly tender during exam CBD: wnl Right Kidney: wnl IMPRESSION: 1. Hepatic cirrhosis without suspicious masses identified. 2. No evidence for acute process. 3. Gallbladder sludge. [facility], , 05/06/2024 10:58 AM
== END | disposition home or self-care (01) ==
LOC: RADUSWWP 08:32
PROVIDERS: ATTEND Internal Medicine Gastroenterology
DX: K70.31 Alcoholic cirrhosis of liver with ascites (principal); K82.8 Other specified diseases of gallbladder
CPT/HCPCS: 76705

== ENCOUNTER 2024-09-23 19:35 | Inpatient (IN) | payer MEDICARE, MEDICAID ==
[2024-09-23 21:05] LABS: Appearance,Urine Clear (Clear); Bilirubin,Urine Negative (Negative); Blood,Urine Negative (Negative); Color,Urine Colorless; Glucose,Urine (UA) Negative (Negative); Ketones,Urine Negative (Negative); Leukocyte Esterase,Urine Negative (Negative); Nitrite,Urine Negative (Negative); Protein,Urine Negative (Negative); Specific Gravity,Urine 1.003 (1.001-1.035); Urobilinogen,Urine <2.0 mg/dL (<2.0)
[2024-09-23 21:16] LABS: Amphetamine Screen,Urine Not Detected (NotDetected); Barbiturate Screen,Urine Not Detected (NotDetected); Benzodiazepines Screen,Urine Not Detected (NotDetected); Cocaine Screen,Urine Not Detected (NotDetected); Methadone Screen, Urine Not Detected (NotDetected); Opiate Screen,Urine Not Detected (NotDetected); Oxycodone Screen, Urine Not Detected (NotDetected); Phencyclidine Screen,Urine Not Detected (NotDetected); Tricyclic Antidepressant,Urine Not Detected (NotDetected); Urn Cannabinoid Scrn Not Detected (NotDetected)
--- NOTE | 2024-09-23 21:32 | ED ---
Psych HPI - General Chief Complaint: Psychiatric Symptoms Stated Complaint: Mental Health Time Seen by Provider: 09/23/24 20:34 Source: patient, RN notes reviewed Mode of arrival: ambulatory Limitations: no limitations - History of Present Illness Initial Comments: This is a 49-year-old female who presents to the emergency department for psychiatric evaluation. Patient states that she has felt suicidal with a plan to shoot herself in the head for the last 2 days. Also reports homicidal ideations but does not divulge further details. Denies any auditory or visual hallucinations. Denies any history of mental health problems, however she does report a history of both drug and alcohol addiction. States that she feels like nobody cares about her and she is in this endless cycle where she tries to stop drinking but can't because it makes her whole body hurt. She did try to go to [facility] yesterday for her mental health problems and states that she was discharged home, so she decided to come here to see if she can get help here instead. Not taking any psychiatric medications. Denies any history of psychiatric hospitalizations. MD Complaint: suicidal ideation, feels depressed - Related Data Home Medications Medication Instructions Recorded Confirmed No Known Home Medications 09/24/24 09/24/24 Allergies Allergy/AdvReac Type Severity Reaction Status Date / Time azithromycin [From Zithromax] Allergy Nausea & Verified 09/24/24 08:50 Vomiting cat dander Allergy Dyspnea/THROAT Verified 09/24/24 08:50 SWELLING mold Allergy Dyspnea/THROAT Verified 09/24/24 08:50 SWELLING Penicillins Allergy Dyspnea/THROAT Verified 09/24/24 08:50 SWELLING Review of Systems ROS Statement: Those systems with pertinent positive or pertinent negative responses have been documented in the HPI. ROS Other: All systems not noted in ROS Statement are negative. Past Medical History Past Medical History: Asthma, Liver Disease, Musculoskeletal Disorder, Osteoarthritis (OA), Renal Disease Additional Past Medical History / Comment(s): past hx alcoholic cirrhosis of the liver, recurrent ascities/paracentesises, portal htn, pt states in past she was hospitalized 2019 with pneumothorax/kidney and liver failure-was in an induced coma/intubated/vented/received 2 dialysis treatments and states she had to relearn to walk and talk, had left dropfoot but now resolved, anemia, hyp oglycemia, hypotension. History of Any Multi-Drug Resistant Organisms: None Reported Past Surgical History: Breast Surgery Additional Past Surgical History / Comment(s): Dialysis port-removed, multiple paracentesises, EGD, colonoscopy, breast implants, thoracentesis Past Anesthesia/Blood Transfusion Reactions: No Reported Reaction Additional Past Anesthesia/Blood Transfusion Reaction / Comment(s): Pt states she has received blood in past without reaction. Past Psychological History: Anxiety, Depression Smoking Status: Current every day smoker Past Alcohol Use History: Daily Past Drug Use History: Cocaine - Past Family History Mother History Unknown: Yes General Exam Limitations: no limitations General appearance: alert, in no apparent distress Head exam: Present: atraumatic, normocephalic, normal inspection Respiratory exam: Present: normal lung sounds bilaterally. Absent: respiratory distress, wheezes, rales, rhonchi, stridor Cardiovascular Exam: Present: regular rate, normal rhythm Neurological exam: Present: alert, oriented X3, CN II-XII intact Psychiatric exam: Present: agitated, homicidal ideation, suicidal ideation Skin exam: Present: warm, dry, intact, normal color. Absent: rash Course Vital Signs 09/23/24 19:37 Temperature 97.6 F Pulse Rate 109 H Respiratory 22 Rate Blood Pressure 126/80 O2 Sat by Pulse 97 Oximetry Procedures - Restraint - Face to Face Restraint Occurrence 1 Patient's Immediate Situation: Endangers self safety, Endangers others' safety, Endangers staff safety, Violent behavior Face to Face Eval of Restraint Date: 09/23/24 Face to Face Eval of Restraint Time: 22:26 Medical Decision Making - Medical Decision Making This is a 49 year old female who presents to the emergency department for psychiatric evaluation. Was pt. sent in by a medical professional or institution? @ -No Did you speak to anyone other than the patient for history? @ -No Did you review nursing and triage notes? @ -Yes, and I agree, it is accurate with regards to the patient's symptoms. Were old charts reviewed? @ -No Differential Diagnosis? @ -Differential Mental Health Depression, anxiety, bipolar, psychosis, schizophrenia, borderline personality, situational depression, adjustment disorder, behavioral disorder, brain tumor, malingering, substance abuse, encephalopathy, medication reaction, dementia, hypothyroidism, degenerative neurologic disorder, lupus.... This is not meant to be all-inclusive list EKG interpreted by me (3pts min.)? @ -Not obtained X-rays interpreted by me (1pt min.)? @ -Not obtained CT interpreted by me (1pt min.)? @ -Not obtained U/S interpreted by me (1pt. min.)? @ -Not obtained What testing was considered but not performed? (CT, X-rays, U/S, labs)? Why? @ -None What meds were considered but not given? Why? @ -None Did you discuss the management of the patient with other professionals? @ -No Did you reconcile home meds? @ -No Was smoking cessation discussed for >3mins.? @ -No Was critical care preformed (if so, how long)? @ -No Were there social determinants of health that impacted care today? How? (Homelessness, low income, unemployed, alcoholism, drug addiction, lou sportation, low edu. Level, literacy, decrease access to med. care, usp, rehab)? @ -Alcoholism, contributing to her mental health problems Was there de-escalation of care discussed even if they declined? (Discuss DNR or withdrawal of care, Hospice)? @ -No What co-morbidities impacted this encounter? (DM, HTN, Smoking, COPD, CAD, Cancer, CVA, Hep., AIDS, mental health diagnosis, sleep apnea, morbid obesity)? @ -Alcoholism and drug use Was patient admitted / discharged? @ -Patient's BAT was 0.176, indicating she will be medically clear and sober in 5 hours at 0100. Urinalysis negative for signs of infection. UDS negative. She was reportedly petitioned by someone who had dropped her off, however that individual had forgotten to fill out the petition form and she was trying to leave. However, patient was expressing both suicidal and homicidal ideations to me in conversation and I subsequently had to fill out the petition form due to risk of patient harming herself or others. Patient ended up becoming very aggressive with staff and had to be placed in restraints. [id number] completed at 2226. Case signed out to ED attending Dr. Marcus at shift completion pending EPS evaluation and disposition. Undiagnosed new problem with uncertain prognosis? @ -None Drug Therapy requiring intensive monitoring for toxicity (Heparin, Nitro, Insulin, Cardizem)? @ -None Were any procedures done? @ -[id number] for restraints - Lab Data Result diagrams: 09/25/24 08:09 09/25/24 08:09 Lab Results 09/23/24 09/23/24 09/24/24 Range/Units 20:55 20:55 03:03 Urine Color Colorless Urine Appearance Clear (Clear) Urine pH 5.0 (5.0-8.0) Ur Specific [place] 1.003 (1.001-1.035) Urine Protein Negative (Negative) Urine Glucose (UA) Negative (Negative) Urine Ketones Negative (Negative) Urine Blood Negative (Negative) Urine Nitrite Negative (Negative) Urine Bilirubin Negative (Negative) Urine Urobilinogen <2.0 (<2.0) mg/dL Ur Leukocyte Esterase Negative (Negative) Urine HCG, Qual Not Detected (Not Detectd) Urine Opiates Screen Not Detected (NotDetected) Ur Oxycodone Screen Not Detected (NotDetected) Urine Methadone Screen Not Detected (NotDetected) Ur Barbiturates Screen Not Detected (NotDetected) U Tricyclic Antidepress Not Detected (NotDetected) Ur Phencyclidine Scrn Not Detected (NotDetected) Ur Amphetamines Screen Not Detected (NotDetected) U Methamphetamines Scrn Not Detected (NotDetected) U Benzodiazepines Scrn Not Detected (NotDetected) Urine Cocaine Screen Not Detected (NotDetected) U Marijuana (THC) Screen Not Detected (NotDetected) SARS-CoV-2 (PCR) Not Detected (Not Detectd) Disposition Clinical Impression: Suicidal ideation Disposition: TRANSFER TO PSYCH HOSP/UNIT
[2024-09-23] MEDS: ACETAMINOPHEN TAB 500 MG TAB PO STA (22:16)
[2024-09-23] MEDS: LORazepam 2 MG/ML INJ IM STA (22:33)
[2024-09-23] MEDS: HALOPERIDOL LACTATE 5 MG/ML 1 ML VIAL IM STA (22:33)
[2024-09-23] MEDS: diphenhydrAMINE 50 MG/ML 1 ML VIAL IM STA (22:33)
[2024-09-23] MEDS: LORazepam 1 MG TAB PO STA (22:47)
[2024-09-23] MEDS: IBUPROFEN 800 MG TAB PO STA (22:47)
[2024-09-24] MEDS ORDERED: MAGNESIUM HYDROXIDE 2,400 MG/30 ML CUP PO PRN (11:39)
[2024-09-24] MEDS ORDERED: LORazepam 2 MG/ML INJ IM PRN (11:39)
[2024-09-24] MEDS ORDERED: MAG HYDROX/AL HYDROX/SIMETH 355 ML BOTTLE PO PRN (11:39)
[2024-09-24] MEDS: NICOTINE 14MG/24HR PATCH TRANSDERM SCH (13:52)
[2024-09-24] MEDS: FOLIC ACID 1 MG TAB PO SCH (13:52)
[2024-09-24] MEDS: THIAMINE 100 MG TAB PO SCH (13:52)
[2024-09-24] MEDS: LORazepam 1 MG TAB PO PRN ×2 (17:26→20:35)
--- NOTE | 2024-09-24 17:57 | P.HP ---
Psychiatric H&P - . H&P Date: 09/24/24 History & Physical: Allergies Allergy/AdvReac Type Severity Reaction Status Date / Time azithromycin [From Zithromax] Allergy Nausea & Verified 09/23/24 19:42 Vomiting cat dander Allergy Dyspnea/THROAT Verified 09/23/24 19:42 SWELLING mold Allergy Dyspnea/THROAT Verified 09/23/24 19:42 SWELLING Penicillins Allergy Dyspnea/THROAT Verified 09/23/24 19:42 SWELLING Vital Signs Temp 97.6 F 09/23/24 19:37 Pulse 109 H 09/23/24 19:37 Resp 22 09/23/24 19:37 BP 126/80 09/23/24 19:37 Pulse Ox 97 09/23/24 19:37 FiO2 Intake & Output 09/23/24 09/24/24 09/24/24 18:59 06:59 18:59 Weight 68.039 kg Laboratory Last Values Urine Color Colorless 09/23/24 20:55 Urine Appearance Clear (Clear) 09/23/24 20:55 Urine pH 5.0 (5.0-8.0) 09/23/24 20:55 Ur Specific [place] 1.003 (1.001-1.035) 09/23/24 20:55 Urine Protein Negative (Negative) 09/23/24 20:55 Urine Glucose (UA) Negative (Negative) 09/23/24 20:55 Urine Ketones Negative (Negative) 09/23/24 20:55 Urine Blood Negative (Negative) 09/23/24 20:55 Urine Nitrite Negative (Negative) 09/23/24 20:55 Urine Bilirubin Negative (Negative) 09/23/24 20:55 Urine Urobilinogen <2.0 mg/dL (<2.0) 09/23/24 20:55 Ur Leukocyte Esterase Negative (Negative) 09/23/24 20:55 Urine HCG, Qual Not Detected (Not Detectd) 09/23/24 20:55 Urine Opiates Screen Not Detected (NotDetected) 09/23/24 20:55 Ur Oxycodone Screen Not Detected (NotDetected) 09/23/24 20:55 Urine Methadone Screen Not Detected (NotDetected) 09/23/24 20:55 Ur Barbiturates Screen Not Detected (NotDetected) 09/23/24 20:55 U Tricyclic Antidepress Not Detected (NotDetected) 09/23/24 20:55 Ur Phencyclidine Scrn Not Detected (NotDetected) 09/23/24 20:55 Ur Amphetamines Screen Not Detected (NotDetected) 09/23/24 20:55 U Methamphetamines Scrn Not Detected (NotDetected) 09/23/24 20:55 U Benzodiazepines Scrn Not Detected (NotDetected) 09/23/24 20:55 Urine Cocaine Screen Not Detected (NotDetected) 09/23/24 20:55 U Marijuana (THC) Screen Not Detected (NotDetected) 09/23/24 20:55 SARS-CoV-2 (PCR) Not Detected (Not Detectd) 09/24/24 03:03 09/24/24 08:49 IDENTIFYING DATA: Patient is a single, unemployed, 49-year-old female who is presenting with suicidal ideation and substance use. HPI: Patient presented to the ED with suicidal ideation with a plan to shoot herself with a gun. She endorsed having access to a gun and also reported alcohol use. Patient was irritable on exam today but was cooperative with assessment. She states that she has been extremely frustrated and angry with the judicial system following her incarceration. She reports sobriety from alcohol for 5 months prior to the recent relapse. She reports she has been drinking to 3 bottles of wine over the past 1 week. She endorses having had suicidal ideation with a plan to shoot herself with a gun. She states that her friend Bg has removed her gun from her home and that she no longer has access to it. Patient reports low mood, low energy, anhedonia, and hopelessness over the past 1 month following incarceration. She endorses feeling very anxious and overwhelmed. She is worried about potentially losing her home due to loss of Social Security income. She denies symptoms consistent with guillermo. She denies auditory and visual hallucinations. She denies homicidal ideation. She denies current suicidal ideation, intent, or plan. She is hoping to attend rehab following stabilization at this hospital. PSYCH HX: Open to [facility]. Has been on Vivitrol. Patient denies suicide attempts. Reports having tried Zoloft in the past and states it was helpful. Denies history of psychiatric hospitalizations PMH: Past Medical History: Asthma, Liver Disease, Musculoskeletal Disorder, Osteoarthritis (OA), Renal Disease Additional Past Medical History / Comment(s): past hx alcoholic cirrhosis of the liver, recurrent ascities/paracentesises, portal htn, pt states in past she was hospitalized 2019 with pneumothorax/kidney and liver failure-was in an induced coma/intubated/vented/received 2 dialysis treatments and states she had to relearn to walk and talk, had left dropfoot but now resolved, anemia, hypoglycemia, hypotension. History of Any Multi-Drug Resistant Organisms: None Reported Past Surgical History: Breast Surgery Additional Past Surgical History / Comment(s): Dialysis port-removed, multiple paracentesises, EGD, colonoscopy, breast implants, thoracentesis Past Anesthesia/Blood Transfusion Reactions: No Reported Reaction Additional Past Anesthesia/Blood Transfusion Reaction / Comment(s): Pt states she has received blood in past without reaction. Past Psychological History: Anxiety, Depression Smoking Status: Current every day smoker Past Alcohol Use History: Daily Past Drug Use History: Cocaine SUBSTANCE HX: Alcohol: As stated above. Has a history of attending rehab Tobacco: 0.5 ppd Denies using other substances SOCIAL/LEGAL HX: Patient reports never having been . She has 1 son who is an adult. She says her son is her main social support currently. 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 Not working currently. Legal problems: Recent incarceration FAM PSYCH HX: Denies Suicide attempts: Denies MENTAL STATUS EXAM: General Appearance: Patient appears to be stated age is alert, directable, and attempts to cooperate. Patient appears to have poor hygiene and grooming. Behavior: Patient is seated without any agitated behavior. Speech: Patient's speech is fluent and nonpressured. Mood/Affect: Patient reports their mood is irritable, affect is congruent and constricted. Suicidality/Homicidality: Patient denies having any homicidal ideation intent or plan. Denies any current suicidal ideation intent or plan Perceptions: Patient denies any visual hallucinations and denies any auditory hallucinations Though content/process: There is no evidence of any delusional thought content and thought process is linear and goal-directed. Memory and concentration: AOX3, grossly intact for the purposes of this session. Can spell "WORLD" backwards Judgment and insight: poor STRENGTHS/WEAKNESSES: Strength is that the patient is resilient. Weaknesses comorbid substance use INTELLECT: average IMPRESSIONS: Depressive disorder, unspecified. Major depressive disorder versus adjustment disorder with depressed mood Adjustment disorder with anxiety Alcohol use disorder, severe, in withdrawal Nicotine dependence PLAN: -Patient is admitted under voluntary status to MHU for stabilization of psychiatric symptoms and safety. Patient signed adult voluntary form and medication consent and is placed in patient's chart. -Medications : Zoloft 50 mg daily for depression and anxiety. Awaiting labs -Nicotine patch -CIWA protocol with Ativan as needed. Monitor vital signs closely -Folate and thiamine replacement -Patient was counselled on substance abuse and desired to cut back on use. Motivational interviewing. -Patient was informed of the risks, benefits and side effects of the medication and patient verbally consented to taking the medications. Patient signed med consent form and was placed in chart. -Internal Medicine consult to perform medical evaluation and physical. -SW on board for discharge planning. Encourage patient to participate in groups to work on coping skills. 09/24/24 16:55 09/24/24 17:55
[2024-09-24] MEDS: SERTRALINE 50 MG TAB PO SCH (18:41)
--- NOTE | 2024-09-24 20:16 | P.MDCNMH ---
History of Present Illness H&P Date: 09/24/24 Patient is a 49-year-old female with supposed history of liver failure diagnosed in 2019, not on any medications currently in mental health unit. Sound physicians consulted for medical management. She claims that liver failure was secondary to alcohol use. She was previously on spironolactone but has not been taking her medications anytime recently. It was prescribed by her PCP. She was seen by a liver specialist in the past but has not been on any treatments. She continues to smoke 1 pack/day, denies any current alcohol use, denies any illicit drug use. Urinalysis negative, toxicology screen was negative, COVID-19 test negative. Vital signs reviewed, patient's temperature 97.7, pulse 67, respiratory rate 18, blood pressure 126/87, saturating at 98% on room air. Pertinent positives and negatives as discussed in HPI, a complete review of systems was performed and all other systems are negative. Patient seen and examined at bedside. Vital signs reviewed General: nontoxic, no distress, appears at stated age Derm: warm, dry Head: atraumatic, normocephalic, symmetric Eyes: EOMI, no lid lag, anicteric sclera, pupils equal round reactive to light ENT: Nose and ears atraumatic Neck: No thyromegaly, supple Mouth: no lip lesion, mucus membranes moist Cardiovascular: S1S2 reg, no murmur, no edema Lungs: clear to auscultation bilateral, no rhonchi, no rales, no wheeze, no accessory muscle use Abdominal: soft, nontender to palpation, no guarding, no appreciable org anomegaly Ext: no gross muscle atrophy, muscle strength muscle strength 5 out of 5 in all 4 extremities, no contractures Neuro: CN II-XII grossly intact Psych: Alert, oriented, appropriate affect Assessment/Plan: Active: Alcoholic liver cirrhosis? -Currently not decompensated liver failure -CMP is pending -She will need follow-up with primary and possibly GI for monitoring of liver cirrhosis and hepatocellular carcinoma surveillance. Alcohol dependence -Denies any alcohol use at the moment -On oral Ativan as needed per CIWA score -Monitor for sedation -Thiamine 100 mg daily, folic acid 1 mg daily Nicotine dependence -On nicotine patch 14 mg daily Depression Anxiety -Management per psychiatry Thank you for allowing us to participate in the care of this pleasant patient. Do not hesitate to contact us with questions. Someone can be reached from the [facility] hospitalist group all hours of the day at [phone] or via [employer]. Past Medical History Past Medical History: Asthma, Liver Disease, Musculoskeletal Disorder, Osteoarthritis (OA), Renal Disease Additional Past Medical History / Comment(s): past hx alcoholic cirrhosis of the liver, recurrent ascities/paracentesises, portal htn, pt states in past she was hospitalized 2019 with pneumothorax/kidney and liver failure-was in an induced coma/intubated/vented/received 2 dialysis treatments and states she had to relearn to walk and talk, had left dropfoot but now resolved, anemia, hypoglycemia, hypotension. History of Any Multi-Drug Resistant Organisms: None Reported Past Surgical History: Breast Surgery Additional Past Surgical History / Comment(s): Dialysis port-removed, multiple paracentesises, EGD, colonoscopy, breast implants, thoracentesis Past Anesthesia/Blood Transfusion Reactions: No Reported Reaction Additional Past Anesthesia/Blood Transfusion Reaction / Comment(s): Pt states she has received blood in past without reaction. Past Psychological History: Anxiety, Depression Smoking Status: Current every day smoker Past Alcohol Use History: Daily Past Drug Use History: Cocaine - Past Family History Mother History Unknown: Yes Medications and Allergies Home Medications Medication Instructions Recorded Confirmed Type No Known Home Medications 09/24/24 09/24/24 History Allergies Allergy/AdvReac Type Severity Reaction Status Date / Time azithromycin [From Zithromax] Allergy Nausea & Verified 09/24/24 08:50 Vomiting cat dander Allergy Dyspnea/THROAT Verified 09/24/24 08:50 SWELLING mold Allergy Dyspnea/THROAT Verified 09/24/24 08:50 SWELLING Penicillins Allergy Dyspnea/THROAT Verified 09/24/24 08:50 SWELLING Physical Exam Vitals: Vital Signs Temp Pulse Resp BP Pulse Ox 09/24/24 13:34 97.7 F 67 18 126/87 98 Intake and Output 09/24/24 09/24/24 09/24/24 06:59 14:59 22:59 Other: Weight 68.674 kg Cranial Nerve Examination - Cranial Nerves Cranial Nerve II- Optic: Intact Cranial Nerve III- Oculomotor: Intact Cranial Nerve IV- Trochlear: Intact Cranial Nerve V- Trigeminal: Intact Cranial Nerve - Abducens: Intact Cranial Nerve VII- Facial: Intact Cranial Nerve VIII- Auditory: Intact Cranial Nerve IX- Glossopharyngeal: Intact Cranial Nerve X- Vagus: Intact Cranial Nerve XI- Accessory: Intact Cranial Nerve XII- Hypoglossal: Intact
[2024-09-25 08:39] LABS: Basophils % (A) 0 %; Eosinophils # (A) 0.2 k/uL (0-0.7); Eosinophils % (A) 4 %; HGB 13.2 gm/dL (11.4-16.0); Lymphocytes % (A) 26 %; MCH 31.3 pg (25.0-35.0); MCHC 32.1 g/dL (31.0-37.0); MCV 97.3 fL (80.0-100.0); Mean Platelet Volume 9.6; Monocytes # (A) 0.3 k/uL (0-1.0); Monocytes % (A) 8 %; Neutrophils # (A) 2.2 k/uL (1.3-7.7); Neutrophils % (A) 59 %; RBC 4.21 m/uL (3.80-5.40); RDW 13.6 % (11.5-15.5); WBC 3.8 k/uL (3.8-10.6)
[2024-09-25 08:56] LABS: Platelet Count 78 k/uL (150-450)
[2024-09-25 08:57] LABS: RBC Morphology Normal
[2024-09-25 09:29] LABS: ALT 28 U/L (4-34); AST 50 U/L (14-36); African American GFR (CKD) >90 (>60 ml/min/1.73 sqM); Alkaline Phosphatase 112 U/L (38-126); Anion Gap 7 mmol/L; Bilirubin, Delta 0.4 mg/dL (0.0-0.2); Bilirubin,Unconjugated 1.6 mg/dL (0.0-1.1); Blood Urea Nitrogen 13 mg/dL (7-17); Calcium 9.2 mg/dL (8.4-10.2); Carbon Dioxide 25 mmol/L (22-30); Chloride 105 mmol/L (98-107); Glucose 94 mg/dL (74-99); Non-African American GFR(CKD) >90 (>60 ml/min/1.73 sqM); Sodium 137 mmol/L (137-145)
[2024-09-25] MEDS: MULTIVITAMINS, THERA 1 EACH TAB PO SCH (09:30)
[2024-09-25] MEDS: IBUPROFEN 600 MG TAB PO PRN (09:31)
[2024-09-25 13:36] LABS: Chol/HDL Ratio 2.56 Ratio; LDL Cholesterol,Calculated 95.8 mg/dL (0.0-131.0); VLDL Calculation 10.12 mg/dL (5.00-40.00)
--- NOTE | 2024-09-25 14:26 | P.PN ---
Progress Note - Text Progress Note Date: 09/25/24 Interval history: Patient was seen bedside and was directable and agreeable to speak with com writer. She states that her mood is "tired ". She reports feeling bored currently while on the unit. She endorses having slept well last night. She asks about going to [facility] after discharge. She does not believe that she is able to be compliant with Campral for alcohol abstinence and says she prefers naltrexone. Discussed patient's current labs and patient was agreeable with starting nalt rexone daily. She denies current alcohol withdrawal symptoms. At this time patient denies any suicidal or homicidal ideations intent or plan. Denies any Auditory or visual hallucinations. Patient denies any side effects from the medications and has been compliant with meds. Mental status exam: General Appearance: patient appears to be stated age is alert, directable, and cooperative. Disheveled Behavior: No agitated behavior. Patient is calm and directable. laying down. poor eye contact Speech: Patient's speech is fluent and nonpressured. Mood/Affect: Mood is improving mildly, affect is congruent and constricted. Suicidality/Homicidality: Patient denies having any suicidal or homicidal ideation intent or plan. Perceptions: Patient denies any auditory or visual hallucinations. Though content/process: [There is no evidence of any delusional thought content and thought process is linear and goal-directed.] Memory and concentration: AOX3, grossly intact for the purposes of this session Judgment and insight: improving mildly Assessment/Plan: Continue with current diagnosis. Patient continues to meet criteria for inpatient psychiatric admission for symptom stabilization and safety. Start naltrexone 50 mg daily for alcohol craving . Patient will be maintained on other current psychotropic medication regimen. Monitor for medication compliance and for any psychotropic medication side effects. Will continue to monitor ongoing response to treatment. Encouraged participation in milieu.
[2024-09-25] MEDS: NALTREXONE HCL 50 MG TAB PO SCH (16:03)
--- NOTE | 2024-09-26 11:40 | P.PN ---
Progress Note - Text Progress Note Date: 09/26/24 Interval History: Patient was seen today for psychiatric follow up. she claims that she is doing bit better today with regards to her mood and anxiety. Claims that she is just having minor withdrawals at this time, denies any shakes. Claims that she is taking Ativan as needed for withdrawals. She has been taking her medications. Claims that she is finding it difficult to sleep in the hospital. Was fairly focused on discharge irritable and argumentative when she found out that she was not being discharged today. She claims that she has a plan to get into [facility] however has not made the call or arrangement there. She claims that she is going to some groups, has a fair appetite at this time. Denies any suicidal homicidal ideations intent or plan denies any auditory or visual hallucinations. MENTAL STATUS EXAM: General Appearance: Patient appears to be stated age is alert, directable, and initially cooperative however argumentative. Patient appears to have improving mildly hygiene and grooming. Behavior: Patient is seated without any agitated behavior. Irritable at times, argumentative Speech: Patient's speech is fluent and nonpressured. Mood/Affect: Patient reports their mood is improving yet irritable affect is congruent and constricted. Suicidality/Homicidality: Patient denies having any homicidal ideation intent or plan. Denies any current suicidal ideation intent or plan Perceptions: Patient denies any visual hallucinations and denies any auditory banks llucinations Though content/process: There is no evidence of any delusional thought content and thought process is linear and goal-directed. Focused on discharge, minimizing Memory and concentration: AOX3, grossly intact for the purposes of this session Judgment and insight: poor/impulsive, improving mildly IMPRESSIONS: Major depressive disorder without psychotic features Anxiety disorder unspecified Alcohol use disorder, severe Nicotine dependence PLAN: -Patient is admitted under voluntary status to [facility] for stabilization of psychiatric symptoms and safety. Patient signed adult voluntary form and medication consent and is placed in patient's chart. -Medications : Zoloft 50 mg daily for depression and anxiety. Naltrexone 50 mg daily for alcohol cravings, Remeron 15 mg nightly for sleep/mood -Nicotine patch -CIWA protocol with Ativan as needed. Monitor vital signs closely -Folate and thiamine replacement -SW on board for discharge planning. Encourage patient to participate in groups to work on coping skills. Patient states that she is trying to get into [facility] however has not made the call yet. Likely discharge in 2 to 3 days if patient is improving.
[2024-09-26] MEDS: LORazepam 1 MG TAB PO PRN (15:39)
[2024-09-26] MEDS: ACETAMINOPHEN TAB 325 MG TAB PO PRN (20:58)
[2024-09-26] MEDS: MIRTAZAPINE 15 MG TAB PO SCH (20:59)
[2024-09-26 22:25] VITALS: RESP 16
[2024-09-27 09:49] VITALS: BP 149/92; PULSE 82; TEMP 97.4
[2024-09-27] MEDS ORDERED: diphenhydrAMINE 50 MG CAP PO PRN (09:58)
--- NOTE | 2024-09-27 10:13 | P.DS ---
Providers Date of admission: 09/24/24 06:52 Expected date of discharge: 09/27/24 Attending physician: Dwaine Hinton MD Consults: 09/24/24 11:39 Consult Physician Routine Consulting Provider: Jessie Romero Consult Reason/Comments: History and Physical, New Admission Do you want consulting provider notified?: Yes Primary care physician: Sindy Tinajero - Discharge Diagnosis(es) (1) Major depressive disorder without psychotic features Current Visit: Yes Status: Acute Priority: High (2) Anxiety disorder Current Visit: Yes Status: Acute Priority: Medium (3) Alcohol use disorder, severe, dependence Current Visit: Yes Status: Acute Priority: High (4) Nicotine dependence Current Visit: Yes Status: Acute Priority: Low Hospital Course: Admission HPI: Admission note was completed by Dr Long "patient is a single, unemployed, 49-year-old female who is presenting with suicidal ideation and substance use. Patient presented to the ED with suicidal ideation with a plan to shoot herself with a gun. She endorsed having access to a gun and also reported alcohol use. Patient was irritable on exam today but was cooperative with assessment. She states that she has been extremely frustrated and angry with the judicial system following her incarceration. She reports sobriety from alcohol for 5 months prior to the recent relapse. She reports she has been drinking to 3 bottles of wine over the past 1 week. She endorses having had suicidal ideation with a plan to shoot herself with a gun. She states that her friend Bg has removed her gun from her home and that she no longer has access to it. Patient reports low mood, low energy, anhedonia, and hopelessness over the past 1 month following incarceration. She endorses feeling very anxious and overwhelmed. She is worried about potentially losing her home due to loss of Social Security income. She denies symptoms consistent with guillermo. She denies auditory and visual hallucinations. She denies homicidal ideation. She denies current suicidal ideation, intent, or plan. She is hoping to attend rehab following stabilization at this hospital." Hospital course: Upon admission to the unit patient was directable and agreeable to commence treatment and signed adult voluntary form. Patient was initially irritable, anxious and depressed however with time and treatment patient got along well with other patients on the unit and followed unit protocol. Patient was compliant with the medications and denied any side effects throughout hospital course. Patient was started on CIWA protocol with as needed Ativan for alcohol withdrawal, Zoloft 50 mg daily for mood/anxiety, patient was tried on Remeron however claims that she wanted to be switched off of it and wanted to be on trazodone, 50 mg nightly for mood/insomnia, patient was restarted back on naltrexone p.o. for alcohol cravings daily, she was agreeable to be given Vivitrol IM 380 mg on day of discharge 09/27, next dose will be due in 1 month at [facility].. Patient spoke of her stressors and engaged in therapy both group/activity therapy. Patient was also seen by medical team for history and physical exam. Throughout the course of the hospitalization patient gradually improved with regards to mood, anxiety, sleep and returned back to their baseline level of functioning. On the day of discharge patient denied any suicidal or homicidal ideations intent or plan denied any auditory or visual hallucinations. Patient endorsed wanting to live for their health and family. The patient denied any access to guns or weapons. Patient denied any paranoia and did not endorse any delusions. Patient does have a significant history of substance abuse and was counseled on abstaining from all substances including alcohol and marijuana. Patient elected to do outpatient substance use treatment program through their outpatient provider. Patient is still in the process of awaiting an intake date at [facility] for rehab. Patient was also counseled on the medications and need for regular compliance and was encouraged to follow-up with their outpatient appointment for mental health and also for primary care. Prior to discharge story writer spoke with patient's son Dieudonne over the phone to answer any questions and ensure safety upon discharge incuding making sure that guns/weapons are either removed from the home or locked away. He did confirm that guns have been removed by himself from the home environment and is safe. Mental status exam: General Appearance: Patient appears to be thin, tall, stated age is alert, pleasant, and cooperative. Patient is in no acute distress and has improved hygiene and grooming Behavior: Patient is calmly seated without any agitated behavior. Speech: Patient's speech is fluent and nonpressured. Mood/Affect: Patient reports their mood is "good", affect is congruent Suicidality/Homicidality: Patient denies having any suicidal or homicidal ideation intent or plan. Perceptions: Patient denies any auditory or visual hallucinations. Though content/process: There is no evidence of any delusional thought content and thought process is linear and goal-directed. More future oriented Memory and concentration: AOX3, grossly intact for the purposes of this session. Can spell "WORLD" backwards correctly. Judgment and insight: improved with guarded prognosis Impression: Major depressive disorder without psychotic features Anxiety disorder unspecified Alcohol use disorder severe dependence Nicotine dependence Plan: -Continue with discharge today as patient has improved and stabilized psychiatrically and is not currently an imminent threat to themself and/or others. Patient will remain at chronically elevated risk for harm to self and/or others due to their impulsivity and substance abuse. -Continue medications: Vivitrol IM 380 mg q. monthly, last dose was given on the day of discharge 09/27, next dose will be scheduled for 10/25 for alcohol cravings. Trazodone 50 mg nightly for mood/insomnia, Benadryl 50 mg nightly as needed for insomnia, Zoloft 50 mg daily for mood/anxiety. -Patient was counseled on the need for medication compliance and appropriate follow-up at mental health and also primary care for medical issues. Patient verbalized understanding and agreed. -Social work to help coordinate patients discharge today. also to ensure safe home environment that guns/weapons are either removed from the home or locked away. Social work also to arrange for patients follow up appointments with [facility] for psychiatric care along with follow up with primary care provider. -Patient counseled on abstaining from recreational drugs and marijuana and alcohol. Was informed/educated on the adverse effects on their physical and mental health. Patient verbally agreed and understood. Patient is still in the process of awaiting intake date at [facility]. -Patient was instructed to return to the hospital or seek immediate medical care if their psychiatric or medical symptoms do worsen or reoccur. Allergies Allergy/AdvReac Type Severity Reaction Status Date / Time azithromycin [From Zithromax] Allergy Nausea & Verified 09/24/24 08:50 Vomiting cat dander Allergy Dyspnea/THROAT Verified 09/24/24 08:50 SWELLING mold Allergy Dyspnea/THROAT Verified 09/24/24 08:50 SWELLING Penicillins Allergy Dyspnea/THROAT Verified 09/24/24 08:50 SWELLING Laboratory Results WBC 3.8 k/uL (3.8-10.6) 09/25/24 08:09 RBC 4.21 m/uL (3.80-5.40) 09/25/24 08:09 Hgb 13.2 gm/dL (11.4-16.0) 09/25/24 08:09 Hct 41.0 % (34.0-46.0) 09/25/24 08:09 MCV 97.3 fL (80.0-100.0) 09/25/24 08:09 MCH 31.3 pg (25.0-35.0) 09/25/24 08:09 MCHC 32.1 g/dL (31.0-37.0) 09/25/24 08:09 RDW 13.6 % (11.5-15.5) 09/25/24 08:09 Plt Count 78 k/uL (150-450) L 09/25/24 08:09 MPV 9.6 09/25/24 08:09 Neutrophils % 59 % 09/25/24 08:09 Lymphocytes % 26 % 09/25/24 08:09 Monocytes % 8 % 09/25/24 08:09 Eosinophils % 4 % 09/25/24 08:09 Basophils % 0 % 09/25/24 08:09 Neutrophils # 2.2 k/uL (1.3-7.7) 09/25/24 08:09 Lymphocytes # 1.0 k/uL (1.0-4.8) 09/25/24 08:09 Monocytes # 0.3 k/uL (0-1.0) 09/25/24 08:09 Eosinophils # 0.2 k/uL (0-0.7) 09/25/24 08:09 Basophils # 0.0 k/uL (0-0.2) 09/25/24 08:09 Manual Slide Review Performed 09/25/24 08:09 RBC Morphology Normal 09/25/24 08:09 Sodium 137 mmol/L (137-145) 09/25/24 08:09 Potassium 4.0 mmol/L (3.5-5.1) 09/25/24 08:09 Chloride 105 mmol/L (98-107) 09/25/24 08:09 Carbon Dioxide 25 mmol/L (22-30) 09/25/24 08:09 Anion Gap 7 mmol/L 09/25/24 08:09 BUN 13 mg/dL (7-17) 09/25/24 08:09 Creatinine 0.62 mg/dL (0.52-1.04) 09/25/24 08:09 Est GFR (CKD-EPI)AfAm >90 (>60 ml/min/1.73 sqM) 09/25/24 08:09 Est GFR (CKD-EPI)NonAf >90 (>60 ml/min/1.73 sqM) 09/25/24 08:09 Glucose 94 mg/dL (74-99) 09/25/24 08:[address] Glu mg/dL 94 mg/dL 09/25/24 08:09 Hemoglobin A1c 4.9 % (<=6.0) 09/25/24 08:09 Calcium 9.2 mg/dL (8.4-10.2) 09/25/24 08:09 Total Bilirubin 2.0 mg/dL (0.2-1.3) H 09/25/24 08:09 Conjugated Bilirubin 0.0 mg/dL (0.0-0.3) 09/25/24 08:09 Unconjugated Bilirubin 1.6 mg/dL (0.0-1.1) H 09/25/24 08:09 Delta Bilirubin 0.4 mg/dL (0.0-0.2) H 09/25/24 08:09 AST 50 U/L (14-36) H 09/25/24 08:09 ALT 28 U/L (4-34) 09/25/24 08:09 Alkaline Phosphatase 112 U/L (38-126) 09/25/24 08:09 Total Protein 7.0 g/dL (6.3-8.2) 09/25/24 08:09 Albumin 4.0 g/dL (3.5-5.0) 09/25/24 08:09 Triglycerides 50.60 mg/dL (0.00-149.00) 09/25/24 08:09 Cholesterol 174.00 mg/dL (0.00-200.00) 09/25/24 08:09 LDL Cholesterol, Calc 95.8 mg/dL (0.0-131.0) 09/25/24 08:09 VLDL Cholesterol, Calc 10.12 mg/dL (5.00-40.00) 09/25/24 08:09 HDL Cholesterol 68.10 mg/dL (40.00-60.00) H 09/25/24 08:09 Cholesterol/HDL Ratio 2.56 Ratio 09/25/24 08:09 TSH 1.110 mIU/L (0.465-4.680) 09/25/24 08:09 Urine Color Colorless 09/23/24 20:55 Urine Appearance Clear (Clear) 09/23/24 20: Urine pH 5.0 (5.0-8.0) 09/23/24 20:55 Ur Specific [place] 1.003 (1.001-1.035) 09/23/24 20:55 Urine Protein Negative (Negative) 09/23/24 20:55 Urine Glucose (UA) Negative (Negative) 09/23/24 20: Urine Ketones Negative (Negative) 09/23/24 20: Urine Blood Negative (Negative) 09/23/24 20:55 Urine Nitrite Negative (Negative) 09/23/24 20:55 Urine Bilirubin Negative (Negative) 09/23/24 20:55 Urine Urobilinogen <2.0 mg/dL (<2.0) 09/23/24 20:55 Ur Leukocyte Esterase Negative (Negative) 09/23/24 20:55 Urine HCG, Qual Not Detected (Not Detectd) 09/23/24 20:55 Urine Opiates Screen Not Detected (NotDetected) 09/23/24 20:55 Ur Oxycodone Screen Not Detected (NotDetected) 09/23/24 20:55 Urine Methadone Screen Not Detected (NotDetected) 09/23/24 20:55 Ur Barbiturates Screen Not Detected (NotDetected) 09/23/24 20:55 U Tricyclic Antidepress Not Detected (NotDetected) 09/23/24 20:55 Ur Phencyclidine Scrn Not Detected (NotDetected) 09/23/24 20:55 Ur Amphetamines Screen Not Detected (NotDetected) 09/23/24 20:55 U Methamphetamines Scrn Not Detected (NotDetected) 09/23/24 20:55 U Benzodiazepines Scrn Not Detected (NotDetected) 09/23/24 20:55 Urine Cocaine Screen Not Detected (NotDetected) 09/23/24 20:55 U Marijuana (THC) Screen Not Detected (NotDetected) 09/23/24 20:55 SARS-CoV-2 (PCR) Not Detected (Not Detectd) 09/24/24 03:03 Vital Signs Temp 97.4 F L 09/27/24 09:00 Pulse 82 09/27/24 09:00 Resp 16 09/26/24 20:55 BP 149/92 09/27/24 09:00 Pulse Ox 99 09/27/24 09:00 FiO2 Patient Condition at Discharge: Stable Plan - Discharge Summary New Discharge Prescriptions: New Folic Acid 1 mg PO DAILY tab Nicotine 14Mg/24Hr Patch [Habitrol] 1 patch TRANSDERM DAILY 14 Days #14 patch Ibuprofen [Motrin] 600 mg PO Q6HR PRN tab PRN Reason: Moderate Pain (Scale 4 To 6) Multivitamins, Thera [Multivitamin (formulary)] 1 each PO DAILY tab Thiamine [Vitamin B-1] 100 mg PO DAILY tab Naltrexone Microspheres [Vivitrol] 380 mg IM QMONTHLY #1 each Sertraline [Zoloft] 50 mg PO DAILY 30 Days #30 tab diphenhydrAMINE [Benadryl] 50 mg PO HS PRN 30 Days #30 cap PRN Reason: Insomnia traZODone HCL [Desyrel] 50 mg PO HS 30 Days #30 tab Acetaminophen Tab [Tylenol] 650 mg PO Q4HR PRN tab PRN Reason: Mild Pain (Scale 1 To 3) Discharge Medication List Acetaminophen Tab [Tylenol] 650 mg PO Q4HR PRN tab 09/27/24 [Rx] Folic Acid 1 mg PO DAILY tab 09/27/24 [Rx] Ibuprofen [Motrin] 600 mg PO Q6HR PRN tab 09/27/24 [Rx] Multivitamins, Thera [Multivitamin (formulary)] 1 each PO DAILY tab 09/27/24 [Rx] Naltrexone Microspheres [Vivitrol] 380 mg IM QMONTHLY #1 each 09/27/24 [Rx] Nicotine 14Mg/24Hr Patch [Habitrol] 1 patch TRANSDERM DAILY 14 Days #14 patch 09/27/24 [Rx] Sertraline [Zoloft] 50 mg PO DAILY 30 Days #30 tab 09/27/24 [Rx] Thiamine [Vitamin B-1] 100 mg PO DAILY tab 09/27/24 [Rx] diphenhydrAMINE [Benadryl] 50 mg PO HS PRN 30 Days #30 cap 09/27/24 [Rx] traZODone HCL [Desyrel] 50 mg PO HS 30 Days #30 tab 09/27/24 [Rx] Follow up Appointment(s)/Referral(s): Sindy Tinajero MD [Primary Care Provider] - 1-2 days Activity/Diet/Wound Care/Special Instructions: [facility] Discharge Info Avoid the use of street drugs and alcohol. Take all medications as prescribed. When you are in need of refills on your medications, please contact your outpatient medical provider and/or outpatient psychiatrist. Please go to your scheduled outpatient appointments for aftercare treatment. If symptoms return or become worse, call the crisis line at or and/or visit the nearest emergency room for assistance. National Suicide and Crisis Lifeline - call or text 763 Discharge Disposition: HOME SELF-CARE
[2024-09-27] MEDS: NALTREXONE MICROSPHERES 380 MG VIAL (NO COST - VIVITROL) IM SCH (10:47)
[2024-09-27] MEDS ORDERED: traZODone HCL 50 MG TAB PO SCH (21:00)
== END 2024-09-27 15:09 | disposition home or self-care (01) | DRG 881 ==
LOC: EC 19:35 → 3MHU 09-24 06:52
PROVIDERS: ADMIT Psychiatry & Neurology Psychiatry; ATTEND Psychiatry & Neurology Psychiatry
DX: F32.9 Major depressive disorder, single episode, unspecified (principal); K76.6 Portal hypertension; K70.30 Alcoholic cirrhosis of liver without ascites; R45.850 Homicidal ideations; F10.239 Alcohol dependence with withdrawal, unspecified; F14.11 Cocaine abuse, in remission; J45.909 Unspecified asthma, uncomplicated; R45.851 Suicidal ideations; F43.22 Adjustment disorder with anxiety; F17.210 Nicotine dependence, cigarettes, uncomplicated; F41.9 Anxiety disorder, unspecified; M19.90 Unspecified osteoarthritis, unspecified site; Z79.899 Other long term (current) drug therapy; T50.0X6A Underdosing of mineralocorticoids and their antagonists, initial encounter; Z91.148 Patient's other noncompliance with medication regimen for other reason; Z88.0 Allergy status to penicillin; Z56.0 Unemployment, unspecified; Z11.52 Encounter for screening for COVID-19
CPT/HCPCS: 80053; 80061; 80306; 81003; 81025; 82075; 82248; 83036; 84443; 85025; 87635; 96372; 99285